=== PATIENT | female | born 1935 | race Caucasian/White ===

== ENCOUNTER → 2017-03-13 | Outpatient (CLI) | payer OTHER, MEDICARE ==
--- NOTE | 2017-03-13 13:58 | MAMMOGRAPHY REPORT ---
BILATERAL DIGITAL SCREENING MAMMOGRAM WITH CAD: 03/13/2017 CLINICAL HISTORY: Routine screening. Patient has no complaints. TECHNIQUE: Current study was also evaluated with a Computer Aided Detection (CAD) system. Bilateral CC and MLO views were obtained. COMPARISON: Comparison is made to exams dated: 02/29/2016 mammogram, 02/26/2015 mammogram, 03/22/2014 m ammogram, 03/06/2014 mammogram, 02/23/2014 mammogram, and 02/15/2013 mammogram - [facility] nter. BREAST COMPOSITION: The tissue of both breasts is almost entirely fatty. FINDINGS: No suspicious masses, calcifications, or areas of architectural distortion are noted in ei ther breast. There has been no significant interval change compared to prior exams. Two biopsy marke r clips are again noted in the left breast. Bilateral benign-appearing calcifications are not signif icantly changed. IMPRESSION: ACR BI-RADS CATEGORY 2: BENIGN There is no mammographic evidence of malignancy. A 1 year screening mammogram is recommended. The pa tient will receive written notification of the results. Approximately 10% of breast cancers are not detected with mammography. A negative mammographic report should not delay biopsy if a clinically suggestive mass is present. Tiffanie Oneill M.D. ah/:03/13/2017 11:43:10 [employer]: Cynthia CHRISTIE(Halle)(Mariajose)(BD), [facility] letter sent: Normal 1/2 BI-RADS Code: ACR BI-RADS Category 2: Benign
== END | disposition home or self-care (01) ==
LOC: C.MAMM 10:51
PROVIDERS: ATTEND Physician Assistant Surgical
DX: Z12.31 Encounter for screening mammogram for malignant neoplasm of breast (principal)

== ENCOUNTER → 2018-03-19 | Outpatient (CLI) | payer OTHER, MEDICARE ==
--- NOTE | 2018-03-19 15:41 | MAMMOGRAPHY REPORT ---
BILATERAL DIGITAL SCREENING MAMMOGRAM TOMOSYNTHESIS WITH CAD: 03/19/2018 CLINICAL HISTORY: Routine screening. TECHNIQUE: The study was acquired using full field digital technology and interpreted from soft copy. Breast tomosynthesis in addition to standard 2D mammography was performed. Current study was also ev aluated with a Computer Aided Detection (CAD) system. COMPARISON: Comparison is made to exams dated: 03/13/2017 mammogram, 02/29/2016 mammogram, 02/26/2015 m ammogram, 02/23/2014 mammogram, 02/15/2013 mammogram, and 01/14/2012 mammogram - [facility] enter. BREAST COMPOSITION: The tissue of both breasts is almost entirely fatty. FINDINGS: No suspicious masses, calcifications, or areas of architectural distortion are noted in either breast . There has been no significant interval change compared to prior exams. Two biopsy marker clips are again noted in the left breast. Bilateral benign-appearing calcifications are not significantly damion nged. IMPRESSION: ACR BI-RADS CATEGORY 2: BENIGN There is no mammographic evidence of malignancy. A 1 year screening mammogram is recommended.( 019) The patient will receive written notification of the results. Some breast cancers are not detected with mammography. A negative mammographic report should not suyapa y biopsy if a clinically suggestive mass is present. Tiffanie Oneill M.D. /:03/19/2018 13:28:19 [employer]: RT Melva(Halle)(M), [facility] letter sent: Normal 1/2 BI-RADS Code: ACR BI-RADS Category 2: Benign
== END | disposition home or self-care (01) ==
LOC: C.MAMM 11:49
PROVIDERS: ATTEND Physician Assistant Surgical
DX: Z12.31 Encounter for screening mammogram for malignant neoplasm of breast (principal)

== ENCOUNTER 2024-12-01 09:49 | Inpatient (IN) ==
--- NOTE | 2024-12-01 09:58 | Emergency Department Note ---
Impression & Plan Hypoxia Admission ED Provider Note HPI: History obtained from patient. The patient is a 89-year-old female who presents the emergency department with a chief complaint of nausea and constipation. Patient states she has also had some vomiting and dry heaving. Patient states she has had the symptoms for the past 2 days. Patient states she had some worsening constipation yesterday and she was assisted by her daughter and had a suppository placed and did have a bowel movement. Patient states she persisted with nausea overnight and had multiple episodes of dry heaving. Patient states she still felt ill today, she states her daughter and her son-in-law help her at home but she does live at home alone. Patient states "they cannot take care of me anymore". Patient therefore contacted EMS for transport to the ED to be assessed. On arrival here to the ED the patient is tachycardic but otherwise hemodynamically stable, she appears to be in no acute distress. She denies any chest pain or shortness of breath, denies any abdominal pain. ROS: - Per HPI Differential Diagnosis: Constipation, small bowel obstruction, colonic obstruction/mass/tumor, acute appendicitis, acute cholecystitis, diverticulitis flare, IBS, atrial fibrillation with RVR, SVT, acute CHF exacerbation, pneumonia, viral URI, amongst other potential pathologies. *Outpatient medications and allergy history reviewed. PE: General: Alert HEENT: Normocephalic, trachea midline Eyes: Extraocular eye movement is intact, no scleral erythema Pulmonary: Clear to auscultation bilaterally, no wheezing Cardio: Tachycardic rate with irregular rhythm GI: Abdomen is soft to palpation : No suprapubic tenderness MSK: No evidence of trauma or malformation of the extremities, 2+ edema bilateral lower extremities Skin: No evidence of rash Neuro: Alert, no focal deficits Psychiatric: Cooperative INDEPENDENT INTERPRETATIONS: surveillance monitor: (As interpreted by myself): - An order was placed for continuous cardiac monitoring - Patient was noted to be in atrial fibrillation with a rate of 132 EKG: (As interpreted by myself): Rate: 117 Rhythm: Atrial fibrillation Intervals: Within normal limits ST changes: No ST elevation Time: 1001 Chest x-ray: (As interpreted by myself): No acute disease Interventions provided in ED: - IV fluid bolus, IV Lasix, IV Zofran Medical Decision Making: IV was established and lab work obtained, patient was placed on child monitor. Lab work shows a mild leukocytosis 11.56, hemoglobin is normal, platelet count is slightly reduced at 109, CMP does not show any evidence of any critical findings, troponin is mildly elevated at 38.3, patient was initially given IV fluids for atrial fibrillation with RVR on the monitor with good improvement in her tachycardia. BNP did return later at 625. CT imaging of the abdomen pelvis was obtained and is suggestive of proctitis without any other obvious acute abnormalities. Patient did have hypoxia here in the ED down to 84% and therefore was placed on nasal cannula oxygen by the bedside RN. Given this with new onset atrial fibrillation and elevated troponin the patient will require admission for further workup. I did discuss patient's presentation with the on- call midlevel provider for [facility] [place][note 2] and the patient was placed for admission in stable condition to the service of Dr. Ellington. Consultants/Discussions held with other healthcare providers: - Hospitalist, Dr. Ellington Disposition discussion held by myself with: - Patient * CRITICAL CARE TIME: ( 36 ) minutes - Stabilization of patient with hypoxia at 84% on room air requiring nasal cannula oxygen for correction, time spent at the bedside, interpretation of diagnostic studies including EKG for new onset tachyarrhythmia/atrial fibrillation with RVR, discussion with other healthcare providers and arrangement of admission. Diagnosis: 1. New onset atrial fibrillation, acute 2. Hypoxia, acute 3. Elevated BNP, acute 4. 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 Chronic venous insufficiency (Chronic) Lower extremity edema (Chronic) Lymphedema (Chronic) Medical History Macular degeneration Cataract (lens) fragments in eye following cataract surgery, bilateral GERD (gastroesophageal reflux disease) Hypertension Fibromyalgia Arthritis Surgical History H/O: hysterectomy S/P right knee arthroscopy H/O hemorrhoidectomy History of tonsillectomy Social History Smoking Status: Never smoker Hx Alcohol Use: No Hx Substance Use: No Preferred Language: Polish Communication Ability: Effective Hearing Ability: Hard of Hearing Beliefs That Will Affect Care: None Feels Safe at Home: Yes Childhood Exposure to Second-Hand Smoke: No Allergies Allergies Allergy/AdvReac Type Severity Reaction Status Date / Time No Known Allergies Allergy Unverified 12/01/24 12:03 Home Meds Home Medications Medication Instructions Recorded Confirmed cholecalciferol (vitamin D3) 25 25 mcg PO DAILY 01/24/20 12/01/24 mcg (1,000 unit) capsule (Vitamin D3) furosemide 20 mg tablet 20 mg PO DAILY 01/24/20 12/01/24 mecobalamin (vitamin B12) 1,000 1,000 mcg PO DAILY 01/24/20 12/01/24 mcg chewable tablet metoprolol tartrate 25 mg tablet 25 mg PO BID 01/24/20 12/01/24 pantoprazole 40 mg tablet,delayed 40 mg PO DAILYBB 01/24/20 12/01/24 release polyethylene glycol 3350 17 17 gm PO DAILY 01/24/20 12/01/24 gram/dose oral powder (Miralax) buprenorphine 15 mcg/hour weekly 15 mcg transdermal WK 12/01/24 12/01/24 transdermal patch famotidine 20 mg tablet 20 mg PO HS 12/01/24 12/01/24 gabapentin 300 mg capsule 300 mg PO TID 12/01/24 12/01/24 levothyroxine 75 mcg tablet 75 mcg PO DAILYBB 12/01/24 12/01/24 oxycodone 10 mg tablet,crush 10 mg PO AMPM 12/01/24 12/01/24 resistant,extended release 12 hr (OxyContin) oxycodone-acetaminophen 7.5 mg-325 7.5 - 325 tab PO Q6 PRN Pain, Mild 12/01/24 12/01/24 mg tablet Results & Data (ED) Vital Signs Vital Signs - 24 hr 12/01/24 09:53 12/01/24 09:53 12/01/24 09:54 Temperature 37.3 C Temperature Source Oral Pulse Rate 120 H Pulse Rate from SpO2 Sensor Respiratory Rate 15 Respiratory Effort / Characteristics Non-Labored Spontaneous Respiratory Depth Normal Blood Pressure 131/106 H 131/106 H 131/106 H Blood Pressure Mean 112 112 114 Pulse Oximetry 95 Oxygen Delivery Method Room Air Oxygen Flow Rate Sepsis Recent Fever Within 48 Hours No Sepsis New/Unexplained Change in Mental Status N/A Sepsis Action Taken by Nursing No Action Required 12/01/24 09:54 12/01/24 09:57 12/01/24 10:01 Temperature Temperature Source Pulse Rate 112 H Pulse Rate from SpO2 Sensor 110 H Respiratory Rate 19 Respiratory Effort / Characteristics Non-Labored Spontaneous Respiratory Depth Normal Blood Pressure 170/110 H Blood Pressure Mean 145 Pulse Oximetry 94 84 L Oxygen Delivery Method Room Air Oxygen Flow Rate Sepsis Recent Fever Within 48 Hours Sepsis New/Unexplained Change in Mental Status Sepsis Action Taken by Nursing 12/01/24 10:08 12/01/24 10:17 12/01/24 10:21 Temperature Temperature Source Pulse Rate 91 H 76 Pulse Rate from SpO2 Sensor 80 Respiratory Rate 16 Respiratory Effort / Characteristics Respiratory Depth Blood Pressure Blood Pressure Mean Pulse Oximetry 84 L 98 Oxygen Delivery Method Room Air Nasal Cannula Oxygen Flow Rate 2 Sepsis Recent Fever Within 48 Hours Sepsis New/Unexplained Change in Mental Status Sepsis Action Taken by Nursing 12/01/24 10:54 12/01/24 11:00 12/01/24 11:00 Temperature Temperature Source Pulse Rate 97 H Pulse Rate from SpO2 Sensor 98 H Respiratory Rate 24 Respiratory Effort / Characteristics Respiratory Depth Blood Pressure 160/106 H 160/106 H Blood Pressure Mean 126 126 Pulse Oximetry 100 Oxygen Delivery Method Nasal Cannula Oxygen Flow Rate 2 Sepsis Recent Fever Within 48 Hours Sepsis New/Unexplained Change in Mental Status Sepsis Action Taken by Nursing 12/01/24 11:06 12/01/24 11:21 12/01/24 11:36 Temperature Temperature Source Pulse Rate 93 H 92 H Pulse Rate from SpO2 Sensor 93 H 89 104 H Respiratory Rate 24 23 Respiratory Effort / Characteristics Respiratory Depth Blood Pressure Blood Pressure Mean Pulse Oximetry 100 100 97 Oxygen Delivery Method Nasal Cannula Nasal Cannula Nasal Cannula Oxygen Flow Rate Sepsis Recent Fever Within 48 Hours Sepsis New/Unexplained Change in Mental Status Sepsis Action Taken by Nursing 12/01/24 11:39 12/01/24 11:39 12/01/24 11:39 Temperature Temperature Source Pulse Rate Pulse Rate from SpO2 Sensor Respiratory Rate Respiratory Effort / Characteristics Respiratory Depth Blood Pressure 171/77 H 171/77 H 171/77 H Blood Pressure Mean 113 113 113 Pulse Oximetry Oxygen Delivery Method Oxygen Flow Rate Sepsis Recent Fever Within 48 Hours Sepsis New/Unexplained Change in Mental Status Sepsis Action Taken by Nursing 12/01/24 11:42 12/01/24 11:51 12/01/24 12:00 Temperature Temperature Source Pulse Rate 113 H 86 105 H Pulse Rate from SpO2 Sensor 110 H 96 H 110 H Respiratory Rate 28 H 25 H 27 H Respiratory Effort / Characteristics Respiratory Depth Blood Pressure Blood Pressure Mean Pulse Oximetry 100 98 98 Oxygen Delivery Method Nasal Cannula Nasal Cannula Nasal Cannula Oxygen Flow Rate Sepsis Recent Fever Within 48 Hours Sepsis New/Unexplained Change in Mental Status Sepsis Action Taken by Nursing 12/01/24 12:00 12/01/24 12:00 12/01/24 12:00 Temperature Temperature Source Pulse Rate Pulse Rate from SpO2 Sensor Respiratory Rate Respiratory Effort / Characteristics Respiratory Depth Blood Pressure 177/85 H 177/85 H 177/85 H Blood Pressure Mean 117 117 117 Pulse Oximetry Oxygen Delivery Method Oxygen Flow Rate Sepsis Recent Fever Within 48 Hours Sepsis New/Unexplained Change in Mental Status Sepsis Action Taken by Nursing 12/01/24 12:00 12/01/24 12:00 12/01/24 12:00 Temperature Temperature Source Pulse Rate Pulse Rate from SpO2 Sensor Respiratory Rate Respiratory Effort / Characteristics Respiratory Depth Blood Pressure 177/85 H 177/85 H 177/85 H Blood Pressure Mean 117 117 117 Pulse Oximetry Oxygen Delivery Method Oxygen Flow Rate Sepsis Recent Fever Within 48 Hours Sepsis New/Unexplained Change in Mental Status Sepsis Action Taken by Nursing Laboratory Data 12/01/24 09:55 12/01/24 09:55 Lab Results 12/01/24 12/01/24 Range/Units 09:55 10:30 WBC 11.56 H (4.8-10.8) K/ul RBC 4.02 L (4.20-5.40) M/uL Hgb 13.0 (12.0-16.0) g/dl Hct 36.8 L (37.0-47.0) % MCV 91.5 (80.0-100.0) fL MCH 32.3 (25.0-34.0) pg MCHC 35.3 (32.0-36.0) g/dL RDW Std Deviation 42.0 (36.4-46.3) fL RDW Coeff of Etienne 12.4 (11.5-14.5) % Plt Count 109 L (130-400) K/uL MPV 9.8 (9.4-12.4) fL Immature Gran % (Auto) 0.4 % Neut % (Auto) 84.9 % Lymph % (Auto) 7.5 % [place] % (Auto) 7.1 % Eos % (Auto) 0.0 % Baso % (Auto) 0.1 % Neut # (Auto) 9.81 H (1.40-6.50) K/uL Lymph # (Auto) 0.87 L (1.20-3.40) K/uL [place] # (Auto) 0.82 H (0.11-0.59) K/uL Eos # (Auto) 0.00 (0.00-0.50) K/uL Baso # (Auto) 0.01 (0.00-0.20) K/uL Immature Gran # (Auto) 0.05 (0.01-0.20) K/uL PT 11.1 (9.0-12.0) Seconds INR 1.0 (0.9-1.1) VBG pH 7.36 (7.36-7.41) VBG pCO2 46 (38-50) mmHg VBG pO2 38 mmHg VBG HCO3 26 mmol/L VBG O2 Saturation 68.0 % VBG Base Excess 0.1 mEq/L Sodium 134 L (136-145) mmol/L Potassium 4.1 (3.5-5.1) mmol/L Chloride 101 (98-107) mmol/L Carbon Dioxide 27 (21-32) mmol/L Anion Gap 6 (3-11) BUN 11 (6-23) mg/dl Creatinine 0.85 (0.6-1.2) mg/dl Est Cr Clr Drug Dosing Not Reportable eGFR 66.27 BUN/Creatinine Ratio 12.9 (10-20) Glucose 190 H (70-99(Fasting)) mg/dl Calcium 9.1 (8.6-10.3) mg/dl Total Bilirubin 1.6 H (0.2-1.0) mg/dl AST 20 (13-39) U/L ALT 6 L (7-52) U/L Alkaline Phosphatase 105 H (34-104) U/L Troponin I High Sens 38.3 H (0-14) pg/ml B-Natriuretic Peptide 625 H (0-100) pg/ml Total Protein 6.2 (6.0-8.3) gm/dl Albumin 3.8 (3.4-5.0) gm/dl Globulin 2.4 L (2.5-4.0) gm/dl Albumin/Globulin Ratio 1.6 (0.9-2) Lipase 5 L (11-82) U/L SARS-CoV-2 (PCR) NEGATIVE (Negative) Influenza Type A (PCR) Negative (Neg) Influenza Type B (PCR) Negative (Neg) RSV (RT-PCR) Negative (Neg) Administered Medications Discontinued Medications Furosemide (Furosemide 40 Mg/4 Ml Vial) 40 mg IV ONE ONE Stop: 12/01/24 11:55 Last Admin: 12/01/24 12:04 Dose: 40 mg Documented By: WAI Sodium Chloride (Nss) 1,000 mls @ 999 mls/hr IV .Q1H1M STA Stop: 12/01/24 10:55 Last Infusion: 12/01/24 11:50 Dose: Infused Documented By: Admin: 12/01/24 09:59 Dose: 999 mls/hr Documented By: WAI Ioversol (Optiray 320 100ml) 94 ml IV ONCE ONE Stop: 12/01/24 11:31 Last Admin: 12/01/24 11:30 Dose: 94 ml Documented By: JOAQUIN Ondansetron HCl (Ondansetron Inj 2 Mg/Ml 2 Ml Vial) 4 mg IV NOW STA Stop: 12/01/24 09:56 Last Admin: 12/01/24 10:00 Dose: 4 mg Documented By: WAI Imaging Data Radiologist's Impression: Abdomen/Pelvis CT 12/01/24 09:56 CT SCAN OF THE ABDOMEN AND PELVIS WITH IV CONTRAST CLINICAL HISTORY: Nausea. Constipation. COMPARISON STUDY: Right upper quadrant ultrasound January 11, 2010 and renal ultrasound May 20, 2010 TECHNIQUE: Following the IV administration of 94 cc of Optiray 320, CT scan of the abdomen and pelvis is performed from the lung bases to the proximal femora. Images are reviewed in the axial, sagittal, and coronal planes. IV contrast was administered without complication. A dose lowering technique was utilized adhering to the principles of ALARA. CT DOSE: 1322.95 mGy.cm FINDINGS: Lung bases: The size of the heart is normal. There is no pericardial effusion. A few small right lower lobe pulmonary nodules measure up to 6 mm. These are low suspicion. Liver: The liver morphology is normal and there are no hepatic lesions. There is no intrahepatic biliary ductal dilatation. The hepatic veins and portal veins are patent. Gallbladder: Grossly unremarkable. Exam mildly compromised by motion artifact. Spleen: Normal in size and attenuation. Pancreas: There are no pancreatic lesions. No pancreatic ductal dilatation is present. Adrenal glands: Unremarkable. Kidneys: 2.4 cm attenuation right renal lesion represents a cyst, shown on prior ultrasound. There is no hydronephrosis. The kidneys enhance symmetrically. Abdominal vasculature: The caliber of the abdominal aorta is normal. Major vasculature is patent. There is moderate atherosclerotic plaque within the abdominal aorta. Bowel: The caliber and wall thickness of small and large bowel are normal. The appendix is not well visualized. Moderate circumferential wall thickening of the rectum with moderate perirectal stranding and a small amount of presacral fluid is noted. There is no extraluminal gas. There is no fluid collection. Peritoneum: There is no intraperitoneal free air or abdominal ascites. Lymphadenopathy: None. Skeletal structures: No lytic or blastic lesions are seen. Severe right hip osteoarthritis is incidentally noted. IMPRESSION: 1. Moderate rectal wall thickening and associated inflammation. This represents a nonspecific proctitis. No extraluminal gas. No fluid collections. Follow-up colonoscopy once symptoms resolve is recommended to exclude the less likely possibility of an underlying rectal lesion. 2. No bowel obstruction. No additional sites of bowel wall thickening. ACT 112: Negative or not required by law. Electronically signed by: Poncho Estrella M.D. 12/01/2024 11:49 AM Chest X-Ray 12/01/24 10:23 XR chest 1V portable CLINICAL HISTORY: hypoxia COMPARISON STUDY: 06/29/2024 FINDINGS: Single view chest is unchanged. There is no acute process identified radiographically. There is no air space opacity, pleural effusion, or pneumothorax. There is no atelectasis. The right diaphragm is elevated most likely due to an eventration. Heart size is normal. No significant pulmonary vascular congestion. IMPRESSION: Stable exam; no acute process ACT 112: Negative or not required by law. Electronically signed by: Flory Fleming M.D. 12/01/2024 10:33 AM Discharge Plan Visit Data Chief Complaint: Nausea Stated Complaint: CONTIPATION, NAUSEA ED Provider: Jonny White Discharge Problem: Hypoxia Patient Disposition: Admitted As Inpatient Condition: Good Forms Stand Alone Forms: My [facility] [employer] Prescriptions Prescriptions: No Action furosemide 20 mg tablet 20 mg PO DAILY MDD 40MG/24HR Rx Instructions: Can take additional 20mg if needed in the day metoprolol tartrate 25 mg tablet 25 mg PO BID polyethylene glycol 3350 [Miralax] 17 gram/dose powder 17 gm PO DAILY pantoprazole 40 mg tablet,delayed release (DR/EC) 40 mg PO DAILYBB mecobalamin (vitamin B12) 1,000 mcg tablet,chewable 1,000 mcg PO DAILY cholecalciferol (vitamin D3) [Vitamin D3] 25 mcg (1,000 unit) capsule 25 mcg PO DAILY levothyroxine 75 mcg tablet 75 mcg PO DAILYBB oxycodone [OxyContin] 10 mg tablet,oral only,ext.rel.12 hr 10 mg PO AMPM famotidine 20 mg tablet 20 mg PO HS gabapentin 300 mg capsule 300 mg PO TID oxycodone-acetaminophen 7.5-325 mg tablet 7.5 - 325 tab PO Q6 PRN (Reason: Pain, Mild) buprenorphine 15 mcg/hour patch weekly 15 mcg transdermal WK Referrals Referrals: Macy Juarez DO [Primary Care Provider] -
[2024-12-01] MEDS: SODIUM CHLORIDE 0.9% 1,000 ML IV STA (09:59)
[2024-12-01] MEDS: ONDANSETRON INJ 2 MG/ML 2 ML VIAL IV STA (10:00)
[2024-12-01 10:23] LABS: Basophils # (auto) 0.01 K/uL (0.00-0.20); Basophils % (auto) 0.1 %; Hematocrit (blood only) 36.8 % (37.0-47.0); Immature Granulocytes # (auto) 0.05 K/uL (0.01-0.20); Immature Granulocytes % (auto) 0.4 %; Lymphocytes # (auto) 0.87 K/uL (1.20-3.40); Lymphocytes % (auto) 7.5 %; Mean Corpuscular Hemoglobin 32.3 pg (25.0-34.0); Mean Corpuscular Hgb Conc 35.3 g/dL (32.0-36.0); Mean Corpuscular Volume 91.5 fL (80.0-100.0); Mean Platelet Volume 9.8 fL (9.4-12.4); Monocytes # (auto) 0.82 K/uL (0.11-0.59); Monocytes % (auto) 7.1 %; Neutrophils # (auto) 9.81 K/uL (1.40-6.50); Neutrophils % (auto) 84.9 %; Platelet Count 109 K/uL (130-400); RDW Coefficient of Variation 12.4 % (11.5-14.5); Red Blood Count 4.02 M/uL (4.20-5.40); White Blood Count 11.56 K/ul (4.8-10.8)
--- NOTE | 2024-12-01 10:34 | XRay Report ---
XR chest 1V portable CLINICAL HISTORY: hypoxia COMPARISON STUDY: 06/29/2024 FINDINGS: Single view chest is unchanged. There is no acute process identified radiographically. Ther e is no air space opacity, pleural effusion, or pneumothorax. There is no atelectasis. The right diap hragm is elevated most likely due to an eventration. Heart size is normal. No significant pulmonary v ascular congestion. IMPRESSION: Stable exam; no acute process ACT 112: Negative or not required by law. Electronically signed by: Flory Fleming M.D. 12/01/2024 10:33 AM
[2024-12-01 10:40] LABS: Alanine Aminotransferase 6 U/L (7-52); Albumin Globulin Ratio 1.6 (0.9-2); Albumin Level 3.8 gm/dl (3.4-5.0); Alkaline Phosphatase 105 U/L (34-104); Anion Gap 6 (3-11); Aspartate Aminotransferase 20 U/L (13-39); BUN Creatinine Ratio 12.9 (10-20); Bilirubin,Total 1.6 mg/dl (0.2-1.0); Blood Urea Nitrogen 11 mg/dl (6-23); Calcium 9.1 mg/dl (8.6-10.3); Carbon Dioxide 27 mmol/L (21-32); Chloride 101 mmol/L (98-107); Globulin 2.4 gm/dl (2.5-4.0); Glucose 190 mg/dl (70-99(Fasting)); Lipase 5 U/L (11-82); Potassium 4.1 mmol/L (3.5-5.1); Sodium 134 mmol/L (136-145); Total Protein 6.2 gm/dl (6.0-8.3)
[2024-12-01 10:46] LABS: Troponin I High Sensitivity 38.3 pg/ml (0-14)
[2024-12-01 11:01] LABS: Base Excess VBG 0.1 mEq/L; HCO3 VBG 26 mmol/L; PCO2 VBG 46 mmHg (38-50); PO2 VBG 38 mmHg; pH VBG 7.36 (7.36-7.41)
[2024-12-01 11:16] LABS: Prothrombin Time 11.1 Seconds (9.0-12.0)
[2024-12-01 11:27] LABS: Influenza A virus by PCR Negative (Neg); Influenza B virus by PCR Negative (Neg); RSV by PCR Negative (Neg); SARS CoV2 RNA(COVID-19) Ceph NEGATIVE (Negative)
[2024-12-01] MEDS: OPTIRAY 320 100ml IV ONE (11:30)
--- OUTSIDE RECORDS SUMMARY | 2024-12-01 11:44 | External Medical Summary | Summary of Care ---
Author Name Unknown Organization [facility] Address [address] [facility] [place] [address] Phone [phone] Care Team Providers Care Patient Intake Representative Name Role Phone Macy Juarez DO Primary Care Provider [phone] Reason for Visit * Reason Comments Dosage Adjustment In Person (Anticoag Cl inic) Pain Encounter Details Date Type Department Care Team (Late st Contact Info) Description 11/24/2024 4:00 PM EDT Office Visit Pharmacy, [facility] [address] [facility] [place] [address] [facility] [address] [facility] [place] [address] Chronic pain syndrome* Allergies Active Allergy Reactions Criticality Noted Date Comments Citalopram Hydrobromide 12/15/2013 Nausea Tuberculin Purified Protein Derivative 04/06/2019 Swelling and redness around the injection site. documented as of this encounter (statuses as of 11/24/2024) Medications MIRALAX PO POWD as needed Acti ve Cyanocobalamin (VITAMIN B-12) 1000 MCG Tablet Take 1 Tablet by mouth in the morning. Active Cholecalciferol (VITAMIN D) 1000 units Tablet Take 1 Tablet by mouth in the morning. Active Zoster Vac Recomb Adjuvanted 50 MCG/0.5ML Intramuscular Suspension Reconstituted (Shingrix)Indicati ons:Need for vaccination for zoster Inject 0.5 mL into a large muscle now and repeat dose in 60 to 180 days 1 Each 1 07/02/20 21 Active Additional Information Patient not taking.Reported on 06/08/2024 Diclofenac Sodium 1 % External Gel (Voltaren)Indicati ons:Tenosynovitis of thumb Apply topically to affected area daily. Apply to affected joints for arthritis. 2 g 5 02/02/20 21 Active LORazepam 1 MG Oral Tablet (Ativan)Indication s:Anxiety TAKE ONE OR TWO TABLETS DAILY NEEDED FOR ANXIETY 60 Tablet 10/18/19 23 Active Additional Information Patient not taking.Reported on 07/19/2024 B & B Carpal Tunnel Brace Bilateral carpal tunnel braces 2 Each 09/02/19 24 Active Metoprolol Tartrate 25 MG Oral Tablet (Lopressor) TAKE 1 TABLET BY MOUTH IN THE MORNING AND BEFORE BEDTIME 180 Tablet 3 02/03/20 24 Active Gabapentin 300 MG Oral Capsule (Neurontin) Take 1 Capsule by mouth in the morning and 1 Capsule at noon and 1 Capsule before bedtime. 270 Capsule 2 04/06/20 24 Active Pantoprazole Sodium 40 MG Oral Tablet Delayed Release (Protonix) TAKE 1 TABLET BY MOUTH IN THE MORNING. 30 MINUTES BEFORE THE FIRST MEAL OF THE DAY. DO NOT CRUSH, SPLIT OR CHEW THE TABLET. 90 Tablet 2 05/04/20 24 Active Levothyroxine Sodium 75 MCG Oral Tablet (Levoxyl)Indicatio ns:Other specified hypothyroidism Take 1 Tablet by mouth in the morning. (at least 30 min prior to breakfast or other meds). 90 Tablet 3 06/08/20 24 Active Famotidine 20 MG Oral Tablet (Pepcid)Indication s:Gastroesophageal reflux disease without esophagitis TAKE 1 TABLET BY MOUTH EVERY NIGHT AT BEDTIME. THIS IS FOR NAUSEA 90 Tablet 1 08/31/19 25 Active oxyCODONE-Acetamin ophen 7.5-325 MG Oral Tablet (Percocet)Indicati ons:Chronic bilateral low back pain without sciatica Take 1 Tablet by mouth every 6 hours as needed for Pain, Mild. 100 Tablet 09/07/19 25 Active Furosemide 20 MG Oral Tablet (Lasix) TAKE 1 TABLET BY MOUTH TWICE A DAY FOR FLUID Strength: 20 mg 180 Tablet 1 10/05/19 25 Active Buprenorphine 15 MCG/HR Transdermal Patch Weekly (Butrans) Place 1 Patch over 7 days topically on the skin once a week. 4 Patch 5 11/15/19 25 Active documented as of this encounter (statuses as of 11/24/2024) Active Problems Problem Noted Date Diagnosed Date Trigger index finger of left hand 10/19/2023 Carpal tunnel syndrome of left wrist 09/02/2023 Trigger middle finger of right hand 06/11/2023 Generalized osteoarthritis 11/29/2021 Cubital tunnel syndrome on right 07/24/2021 Trigger ring finger of right hand 07/24/2021 Tendinitis, de Quervain's 03/27/2021 Chronic kidney disease, stage 3a 12/11/2020 Overview: Per CKD protocol Hypertensive kidney disease with stage 3a chronic kidney disease 06/11/2020 Overview: Per CKD protocol Other specified hypothyroidism 04/06/2019 Morbid obesity with body mas s index (BMI) of 40.0 to 44.9 in adult 07/20/2018 Hyperlipidemia 03/16/2018 DDD (degenerative disc disease), lumbar 07/01/20 17 Bilateral carpal tunnel syndrome 06/01/2017 Primary osteoarthritis of both knees 07/15/2016 Fibromyalgia 09/04/2011 Rotator cuff syndrome 05/27/2011 Degeneration of lumbosacral intervertebral disc Varicose vein of leg HTN, goal below 140/90 Esophageal reflux Polycystic kidney Overview (05/05/2019): ICD-10 update of inactive term Calculus of gallbladder with out mention of cholecystitis or obstruction Overview (11/02/2024): ICD-10 Update of Inactive Term Osteoarthrosis, localized, primary, involving lo wer leg Overview (05/06/2021): ICD-10 update of inactive term ICD-10 update of inactive term documented as of this encounter (statuses as of 11/24/2024) Resolved Problems Problem Noted Date Diagnosed Date Resolved Date Hypertensive kidney disease with stage 3 chronic kidney disease 04/06/2019 06/14/2020 Overview: Per CKD protocol Kidney disease, chronic, sta ge III (GFR 30-59 ml/min) 12/13/2018 04/15/2019 Overview: Per CKD protocol #1 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 0 to 44.9 in adult 03/16/2018 08/20/2018 Overview: Per Obesity protocol #1 - Major depressive disorder Overview (05/26/2017): ICD-10 update of inactive term BMI 39.0-39.9,adult 03/20/20 18 Overview: Per Obesity protocol #1 - documented as of this encounter (statuses as of 11/24/2024) Immunizations Name Administration Dates Next Due COVID-19 mRNA, LNP-s, No Pre serve, 2-Dose Series (Moderna) 10/07/2020,09/09/2020 COVID-19, mRNA, LNP-s, PF, B ooster, 100mcg/0.5mg (Moderna) 06/06/2021 Pneumococcal Conjugate Vacc, 13 Valent (Prevnar) 08/19/2019,03/16/2018 Pneumococcal Polysaccharide PPV23 (Pneumovax) 02/01/2021 Seasonal Influenza Vac., MDV , IM, 0.5 mL (Fluzone) 07/20/2014,06/08/2013 Seasonal Influenza, High Dos e, Trivalent, PF, IM (Fluzone HD) 06/08/2024 Seasonal Influenza, PF, 6 M & above, IM , (FluLaval or Fluzone) 04/06/2020,07/20/2018 Seasonal Influenza, Quadriva lent Hd (Fluzone Hd) 07/03/2023,06/06/2022,07/05/2021 Seasonal Influenza, Quadriva lent, No Preserve, IM 05/19/2016,06/04/2015 Seasonal Influenza, Trivalen t, Adjuvanted, 65+ YRS, PF, (Fluad) 08/05/2019 TDAP (age 10 and older)(Boostrix) 06/26/2015 documented as of this encounter Social History Tobacco Use Types Packs/Day Years Used Date Smoking Tobacco: Never Passive Smoke Exposure: Past Smokeless Tobacco: Never Alcohol Use Standard Drinks/Week Comments No 0 (1 standard drink = 0.6 oz pur e alcohol) PHQ-2 Answer Date Recorded PHQ Adult Total Score 0 06/08/2024 Hunger Vital Sign Answer Date Recorded Within the past 12 months, y ou worried that your food would run out before you got the money to buy more. Never true 06/08/20 24 Within the past 12 months, t he food you bought just didn't last and you didn't have money to get more. Never true 06/08/2024 Childcare Answer Date Recorded Do you feel overwhelmed with taking care of a child, family member or friend? No 06/08/2024 Does your family need help f inding childcare? (Household - for ages 0-17 years) Not on file 06/08/2024 Clothing Answer Date Recorded Have you been unable to get clothing when it was really needed? No 06/08/2024 Is your family able to get c lothes or diapers when needed? (Household - for ages 0-17 years) Not on file 06/08/2024 Personal Safety Answer Date Recorded Do you feel unsafe or have concerns for your saf ety? No 06/08/2024 Do you have concerns for you r family's safety? (Household - for ages 0-17 years) Not on file 06/08/2024 Utilities Answer Date Recorded Do you have trouble paying y our heating, water, or electric bill? No 06/08/2024 Is your family able to pay t he heat, water, or electric bill? (Household - for ages 0-17 years) Not on file 06/08/2024 Does your family have access to good internet? (Household - for ages 0-17 years) Not on file 06/08/2024 Employment Status Answer Date Recorded Are you unemployed or without regular income? No 06/08/2024 Does the household have a re gular source of income? (Household - for ages 0-17 years) Not on file 06/08/2024 Social Connections Answer Date Recorded How often do you feel lonely or isolated from th ose around you? Never 06/08/2024 Financial Resource Strain Answer Date R ecorded Do you have any trouble payi ng for your medications, or do you think you might in the future? No 06/08/2024 Does your family have troubl e paying for medicine? (Household - for ages 0-17 years) Not on file 06/08/2024 Transportation Needs Answer Date Record ed Do you have trouble getting a ride to medical visits or work? (Adult - for ages 18 years and over) Not on file 06/08/2024 Does your family have a hard time getting a ride to doctors visits? (Household - for ages 0-17 years) Not on file 06/08/2024 Has lack of transportation k ept you from medical appointments, meetings, work, or from getting things needed for daily living? Check all that apply. No 06/08/2024 Do you (or your family) have trouble finding or paying for a ride (transportation)? (Household - for ages 0-17 years) Not on file 06/08/2024 Housing Stability Answer Date Recorded Do you currently live in a s helter or have no steady place to sleep at night? No 06/08/2024 Do you think you are at risk of becoming homeless? (Adult - for ages 18 years and over) Not on file 06/08/2024 Does your family worry about paying for your home or becoming homeless? (Household - for ages 0-17 years) Not on file 1 08/08/2023 Are you homeless or worried that you might be in the future? No 06/08/2024 Are you (or your family) gabriella eless or worried that you might be in the future? (Household - for ages 0-17 years) Not on file Food Insecurity Answer Date Recorded Do you need food for this week? No 06/08/2024 Are you able to get enough f ood for your family? (Household - for ages 0-17 years) Not on file 06/08/2024 Does your family need food t his week? (Household - for ages 0-17 years) Not on file 06/08/2024 Do you always have enough fo od for your family? (Household - for ages 0-17 years) Not on file 06/08/2024 Food Insecurity Answer Date Recorded Within the past 12 months, y ou worried that your food would run out before you got the money to buy more. Never true 06/08/20 24 Within the past 12 months, t he food you bought just didn't last and you didn't have money to get more. Never true 06/08/2024 Do you need food for this week? No 06/08/2024 Comments No Sex and Gender Information Value Date Recorded Sex Assigned at Female 10/17/2022 12:15 PM EDT Legal Sex Female 6:13 AM EST Gender Identity Female 10/17/2022 12:15 PM EDT Sexual Orientation Straight 01/18/2020 11 :28 AM EDT documented as of this encounter Progress Notes * Nikky Kraft, [facility] - 11/24/2024 3:39 PM EDT Images from the original note were not included. Medication Therapy Disease Management - Chronic Pain History of Presenting Illness This visit occurred in person. Tanisha Batres, identified by name and date of , is a 89 year old female presents [facility] for initial visit. Chief Complaint Patient presents with Dosage Adjustment In Person (Anticoag Clinic) Pain History Chief Complaint(s): Hip pain Current Pain Medications Butrans 15 mcg/hr once a week Gabapentin 300 mg TID Diclofenac gel PRN Interval History Notes no changes to pain control with increasing doses of patches Continues to struggle in the morning Denies any side effects or concerns at this time Comorbidities Renal: Slow renal decline Activity/Exercise Can walk short distances but is typically seated. Unable to lay down flat. PDMP Reviewed (11/24/2024): I have reviewed the patient's controlled substance dispensing history in the Prescription Drug Monitoring Program in compliance with the [facility] regulations. History of Presenting Illness & Review of Systems Diagnosis: Oestoarthritis Chronicity: Acute on chronic Onset: More than a 1 year ago Frequency: Constantly Pain location: Groin, hip, lower back, knee and hand Pain quality: Sore and shooting (Weak and shakey with the pain) Radiates to: Back, right buttock and left buttock Pain is worse: In the morning Aggravated by: A change in position and walking Associated symptoms: leg pain Treatment(s) tried: Injections and physical therapy Problem List Reviewed and updated in the EHR during the visit Substance Use Reviewed and updated in the EHR during the visit Objective Imaging History Most recent answers to PEG-3 scale: PEG-3 Synopsis What number best describes your pain on average in the past week?: 7 (sitting - not even a 1. standing up - 8. once up through the day 6-7) (09/22/2024 1:46 PM) Last Urine Toxicology Screening Results for orders placed or performed in visit on 07/05/24 TOXICOLOGY, URINE SCREEN W/ CONFIRMATION Result Value Amphetamines Screen, U Negative Benzodiazepines Screen, U Negative Cannabinoids Screen, U Negative Cocaine Metabolite Screen, U Negative Fentanyl Screen, U Negative Hydrocodone Screen, U Negative Methadone Metabolite Screen, U Negative Morphine/Codeine Screen, U Negative Oxycodone Screen, U Positive (A) Narrative Cutoff Concentrations: Drug Level Amphetamines 500 ng/mL Benzodiazepines 100 ng/mL Cannabinoids 50 ng/mL Cocaine Metabolite 150 ng/mL Fentanyl 1 ng/mL Hydrocodone / Hydromorphone 300 ng/mL Methadone Metabolite 100 ng/mL Morphine / Codeine 300 ng/mL Oxycodone / Oxymorphone 100 ng/mL Screening results are presumptive and can only be used for medical purposes. Positive screening results are reflexed to confirmatory testing. Creatinine Clearance: Serum creatinine: 1 mg/dL 07/14/24 0611 Estimated creatinine clearance: 45.5 mL/min Creatinine Results: Recent Labs Units 07/14/24 0611 07/07/24 0549 07/05/24 0559 CREATININE - [facility] mg/dL 1.0 1.1* 1.0 Hepatic Function (ALT): Recent Labs Units 07/03/23 1249 ALT - [facility] U/L 7* Comprehensive Metabolic Panel Results: Results for orders placed or performed in visit on 11/12/18 COMPR METAB PANEL Result Value Ref Range BUN 14 6 - 20 mg/dL CREATININE 1.0 0.5 - 1.0 mg/dL EGFR 53.4 (L) >60 SODIUM 142 135 - 146 mmol/L POTASSIUM 4.2 3.5 - 5.1 mmol/L CHLORIDE 103 98 - 107 mmol/L CO2 26 22 - 32 mmol/L ANION GAP 13 7 - 15 mmol/L GLUCOSE 107 70 - 120 mg/dL Albumin 4.1 3.8 - 5.0 g/dL AST 17 10 - 35 U/L Alkaline Phosphatase 96 0 - 153 U/L Bilirubin, Total 0.8 0 - 1.2 mg/dL CALCIUM 8.8 8.4 - 10.2 mg/dL Protein 6.0 6.0 - 8.3 g/dL ALT 12 10 - 35 U/L Assessment & Plan Patient aware [facility] is a clinical pharmacist visit, with focus on medication options for current diagnoses referred by Primary Care Provider for review and optimization. The focus of this visit is: Medication optimization. Current regimen reviewed, patient is: Adherent to regimen. Treatment Options Rotate from butrans to oxycodone ER Treatment Concerns Renal function and fragility Education Provided Patient educated on mechanism, time to efficacy and potential adverse effects of medication regimen Recommendations STOP: Butrans patch 15 mcg/hr START: Oxycodone ER 10 mg BID Consider scheduled tylenol Gabapentin 300 mg TID Diclofenac gel PRN Tanisha verbalized understanding of the plan. Contact clinic with any issues. Visit date not found I spent a total of 20-29 minutes (20 minutes) on the date of service in preparation, delivery, and documentation of the care provided to Tanisha Batres excluding any time spent in the performance of separately billed services or time spent by another provider/QHP. Nikky Kraft, Pharm D, [facility] Clinical Pharmacist 11/24/2024, 4:07 PM documented in this encounter Plan of Treatment Upcoming Encounters Date Type Department Care Team (Late st Contact Info) Description 12/16/2024 11:50 AM EDT Office Visit [facility] [address] [facility] [place] [phone] Macy Juarez DO [address] [place] [address] 12/22/2024 4:00 PM EDT Office Visit Pharmacy, [facility] [address] [place] [address] [facility] [address] [place] [address] 02/16/2025 10:00 AM EDT Office Visit Rheumatology [facility] [address] [place] [phone] Gibson Harvey MD [address] [place] [phone] Health Maintenance Due Date Last Done Comments DXA Scan 1937 Zoster Vaccines (1 of 2) 08/29/1987 Adult Wellness Visit 08/29/2003 COVID-19 Vaccine ( season) 2024 06/06/2021, 10/07/2020, 09/09/2020 Albumin/Creatinine Ratio 06/08/2025 06/08/2024 CKD PHOS USE SMARTSET 81859 06/08/2025 1101/2024, 10/17/2022, 07/05/2021, Additional history exists Depression Screening 06/08/2025 06/08/2024 TSH 06/08/2025 06/08/2024, 0408/2023, 07/03/2023, Additional history exists DTap/Tdap Vaccines (2 - Td or Tdap) 06/26/2025 06/26/2015 CKD HGB USE SMARTSET 98944 07/14/202507/14, 07/07/2024, 07/05/2024, Additional history exists Pneumococcal Vaccine: 50+ Years Completed 02/01/2021, 08/19/2019, 03/16/2018 Influenza Vaccine (FLU shot) Completed 01/2024, 07/03/2023, 06/06/2022, Additional history exists HPV (Gardasil) Vaccine Aged Out No lo nger eligible based on patient's age to complete this topic Hepatitis B Vaccine Aged Out No longe r eligible based on patient's age to complete this topic MENINGOCOCCAL (MENACTRA/MENVEO) Aged Out No longer eligible based on patient's age to complete this topic Meningitis B Vaccine (Bexsero/Trumemba) Aged Out No longer eligible based on patient's age to complete this topic documented as of this encounter Medical Devices Not on filedocumented as of this encounter Visit Diagnoses Diagnosis Chronic pain syndrome- Primary documented in this encounter Advance Directives Documents on File Type Date Recorded 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
--- OUTSIDE RECORDS SUMMARY | 2024-12-01 11:44 | External Medical Summary | Summary of Care ---
Author Name Unknown Organization [facility] Address [address] [facility] [place] [address] Phone [phone] Care Team Providers Care Large Animal Husbandry Technician Name Role Phone Azar Araujo DO Primary Care Provider [phone] Encounter Details Date Type Department Care Team ([facility] st Contact Info) Description 11/14/2024 [facility]ill Pharm[address] [phone] [facility] [place] [address] Allergies Active Allergy Reactions Criticality Noted Date Comments Citalopram Hydrobromide 12/15/2013 Nausea Tuberculin Purified Protein Derivative 04/06/2019 Swelling and redness around the injection site. documented as of this encounter (statuses as of 11/14/2024) Medications MIRALAX PO POWD as needed Acti ve Cyanocobalamin (VITAMIN B-12) 1000 MCG Tablet Take 1 Tablet by mouth in the morning. Active Cholecalciferol (VITAMIN D) 1000 units Tablet Take 1 Tablet by mouth in the morning. Active Zoster Vac Recomb Adjuvanted 50 MCG/0.5ML Intramuscular Suspension Reconstituted (Shingrix)Indicat ions:Need for vaccination for zoster Inject 0.5 mL into a large muscle now and repeat dose in 60 to 180 days 1 Each 1 021 Active Additional Information Patient not taking.Reported on 06/08/2024 Diclofenac Sodium 1 % External Gel (Voltaren)Indicat ions:Tenosynoviti s of thumb Apply topically to affected area daily. Apply to affected joints for arthritis. 2 g 5 021 Active LORazepam 1 MG Oral Tablet (Ativan)Indicatio ns:Anxiety TAKE ONE OR TWO TABLETS DAILY NEEDED FOR ANXIETY 60 Tablet 023 Active Additional Information Patient not taking.Reported on 07/19/2024 B & B Carpal Tunnel Brace Bilateral carpal tunnel braces 2 Each 024 Active Metoprolol Tartrate 25 MG Oral Tablet (Lopressor) TAKE 1 TABLET BY MOUTH IN THE MORNING AND BEFORE BEDTIME 180 Tablet 3 024 Active Gabapentin 300 MG Oral Capsule (Neurontin) Take 1 Capsule by mouth in the morning and 1 Capsule at noon and 1 Capsule before bedtime. 270 Capsule 2 024 Active Pantoprazole Sodium 40 MG Oral Tablet Delayed Release (Protonix) TAKE 1 TABLET BY MOUTH IN THE MORNING. 30 MINUTES BEFORE THE FIRST MEAL OF THE DAY. DO NOT CRUSH, SPLIT OR CHEW THE TABLET. 90 Tablet 2 024 Active Levothyroxine Sodium 75 MCG Oral Tablet (Levoxyl)Indicati ons:Other specified hypothyroidism Take 1 Tablet by mouth in the morning. (at least 30 min prior to breakfast or other meds). 90 Tablet 3 024 Active Famotidine 20 MG Oral Tablet (Pepcid)Indicatio ns:Gastroesophage al reflux disease without esophagitis TAKE 1 TABLET BY MOUTH EVERY NIGHT AT BEDTIME. THIS IS FOR NAUSEA 90 Tablet 1 025 Active oxyCODONE-Acetami nophen 7.5-325 MG Oral Tablet (Percocet)Indicat ions:Chronic bilateral low back pain without sciatica Take 1 Tablet by mouth every 6 hours as needed for Pain, Mild. 100 Tablet 025 Active Furosemide 20 MG Oral Tablet (Lasix) TAKE 1 TABLET BY MOUTH TWICE A DAY FOR FLUID Strength: 20 mg 180 Tablet 1 025 Active Buprenorphine 15 MCG/HR Transdermal Patch Weekly (Butrans) Place 1 Patch over 7 days topically on the skin once a week. 4 Patch 5 025 Active Buprenorphine 7.5 MCG/HR Transdermal Patch Weekly (Butrans) Place 1 Patch over 7 days topically on the skin once a week. Stop Oxycodone 7 days after starting. 4 Patch 5 025 2024 Discontinued Buprenorphine 10 MCG/HR Transdermal Patch Weekly (Butrans) Place 1 Patch over 7 days topically on the skin once a week. 4 Patch 4 025 2024 Discontinued documented as of this encounter (statuses as of 11/14/2024) Active Problems Problem Noted Date Diagnosed Date [...] as of this encounter (statuses as of 11/14/2024) Resolved Problems Problem Noted Date Diagnosed Date [...] as of this encounter (statuses as of 11/14/2024) Immunizations Name Administration Dates Next Due COVID-19 [...] AM EDT documented as of this encounter Miscellaneous Notes * Telephone Encounter - Azar Araujo DO - 11/14/2024 11:53 AM EDTSigned Prescriptions: Disp Refills Buprenorphine 15 MCG/HR Transdermal Patch *4 Patch5 Sig: Place 1Patch over 7 days topically on the skin once a week.Authorizing Provider: AZAR ARAUJO--------- * Telephone Encounter - Nikky Kraft RPh - 11/14/2024 10:15 AM EDT Zohaib, Patient not obtaining any pain relief with Butrans 10 mcg/hour, would like to try 15 mcg/hour. Prescription pended for your approval. Thank you, Nikky Kraft, Pharm D, BCACP Clinical Pharmacist 11/14/2024, 10:16 AM documented in this encounter Plan of Treatment Upcoming Encounters Date Type Department Care Team (Late st Contact Info) Description 11/24/2024 4:00 PM EDT Office Visit Pharmacy, [facility] [address] [place] [address] [facility] [address] [place] [address] 12/16/2024 11:50 AM EDT Office Visit Family Practice, [facility] [address] [facility] [place] [phone] Azar Araujo DO [address] [facility] [place] [address] 02/16/2025 10:00 AM EDT Office Visit Rheumatology [facility] [address] [place] [phone] [facility] [address] Health Maintenance Due Date Last Done Comments DXA Scan 1937 Zoster Vaccines (1 of 2) 08/29/1987 Adult Wellness Visit 08/29/2003 COVID-19 Vaccine ( season) 2024 06/06/2021, 10/07/2020, 09/09/2020 Albumin/Creatinine Ratio 06/08/2025 06/08/2024 CKD PHOS USE SMARTSET 56006 06/08/202501/2024, 10/17/2022, 07/05/2021, Additional history exists Depression Screening 06/08/2025 06/08/2024 TSH 06/08/2025 06/08/2024, 11/01, 07/03/2023, Additional history exists DTap/Tdap Vaccines (2 - Td or Tdap) 06/26/2025 06/26/2015 CKD HGB USE SMARTSET 30458 07/14/202507/14, 07/07/2024, 07/05/2024, Additional history exists Pneumococcal [...] Not on filedocumented as of this encounter Advance Directives Documents on File Type Date Recorded 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
--- OUTSIDE RECORDS SUMMARY | 2024-12-01 11:44 | External Medical Summary | Summary of Care ---
Author Name Unknown Organization [facility] Address [address] [facility] [address] Phone [phone] Care Team Providers Care Management Developer Name Role Phone Azar Araujo DO Primary Care Provider [phone] Encounter Details Date Type Department Care Team (Late st Contact Info) Description 11/24/2024 Ref[address] Pharmacy, [facility] [address] [facility] [place] [address] [facility] [place] [phone] Allergies Active Allergy Reactions Criticality Noted Date Comments Citalopram Hydrobromide 12/15/2013 Nausea Tuberculin Purified Protein Derivative 04/06/2019 Swelling and redness around the injection site. documented as of this encounter (statuses as of 11/25/2024) Medications MIRALAX PO POWD as needed Acti [...] 60 to 180 days 1 Each 1 02/02/20 21 Active Additional Information Patient not taking.Reported [...] week. 4 Patch 5 11/15/19 25 Active oxyCODONE HCl ER 10 MG Oral Tablet ER 12 Hour Abuse-Deterrent (oxyCONTIN) Take 1 Tablet by mouth in the morning and 1 Tablet before bedtime. 60 Tablet 11/26/19 25 Active documented as of this encounter (statuses as of 11/25/2024) Active Problems Problem Noted Date Diagnosed Date [...] as of this encounter (statuses as of 11/25/2024) Resolved Problems Problem Noted Date Diagnosed Date [...] update of inactive term BMI 39.0-39.9,adult 03/20/20 Overview: Per Obesity protocol #1 - documented as of this encounter (statuses as of 11/25/2024) Immunizations Name Administration Dates Next Due COVID-19 [...] Telephone Encounter - Azar Araujo DO - 11/25/2024 8:46 AM EDTSigned Prescriptions: Disp Refills oxyCODONE HCl ER 10 MG Oral Tablet ER 12 H*60 Tab*0 Sig: Take 1 Tablet by mouth in the morning and 1 Tablet before bedtime.Authorizing Provider: AZAR ARAUJO--- * Telephone Encounter - Nikky Kraft RPh - 11/24/2024 4:06 PM EDT Zohaib, Patient seen in [facility] Pain today, recommending rotation from butrans to oxycodone ER. Prescription pended for your approval. Thank you, Nikky Kraft, Pharm D, BCACP Clinical Pharmacist 11/24/2024, 4:06 PM documented in this encounter Plan of Treatment Upcoming Encounters Date Type Department Care Team (Late st Contact Info) Description 12/16/2024 11:50 AM EDT Office Visit [address] [place] [address] Azar Araujo, DO [address] [place] [address] 12/22/2024 4:00 PM EDT Office Visit Pharmacy, [facility] [place] [address] [facility] [address] [place] [address] 02/16/2025 10:00 AM EDT Office Visit Rheumatology [facility] [address] [place] [phone] Gibson Harvey MD [address] [place] [phone] Health Maintenance Due Date Last Done Comments DXA Scan 1937 Zoster Vaccines (1 of 2) 08/29/1987 Adult Wellness Visit 08/29/2003 COVID-19 Vaccine ( season) 2024 06/06/2021, 10/07/2020, 09/09/2020 Albumin/Creatinine Ratio 06/08/2025 06/08/2024 CKD PHOS USE SMARTSET 74557 06/08/202501/2024, 10/17/2022, 07/05/2021, Additional history exists Depression Screening 06/08/2025 06/08/2024 TSH 06/08/2025 06/08/2024, 0408/2023, 07/03/2023, Additional history exists DTap/Tdap Vaccines (2 - Td or Tdap) 06/26/2025 06/26/2015 CKD HGB USE SMARTSET 12047 07/14/202507/14, 07/07/2024, 07/05/2024, Additional history exists Pneumococcal [...] Documents on File Type Date 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
--- OUTSIDE RECORDS SUMMARY | 2024-12-01 11:44 | External Medical Summary | Summary of Care ---
Author Name Unknown Organization [facility] Address [address] [facility] [place] [address] Phone [phone] Care Team Providers Care Drip Box Tender Name Role Phone Macy Juarez DO Primary Care Provider [phone] Reason for Visit * Reason Comments Rheum Follow Up Follow up - mabel arroyo knee injections Encounter Details Date Type Department Care Team (Latest Contact Info) Description 11/11/2024 10:40 AM EDT Office Visit Rheumatology [facility] [address] [place] [phone] Gibson [facility] [address] [facility] [address] Primary osteoarthritis of both knees* Allergies Active Allergy Reactions Criticality Noted Date Comments Citalopram Hydrobromide 12/15/2013 Nausea Tuberculin Purified Protein Derivative 04/06/2019 Swelling and redness around the injection site. documented as of this encounter (statuses as of 11/11/2024) Medications MIRALAX PO POWD as needed Acti [...] Pain, Mild. 100 Tablet 09/07/19 25 Active Buprenorphine 7.5 MCG/HR Transdermal Patch Weekly (Butrans) Place 1 Patch over 7 days topically on the skin once a week. Stop Oxycodone 7 days after starting. 4 Patch 5 09/23/19 25 Active Furosemide 20 MG Oral Tablet (Lasix) TAKE 1 TABLET BY MOUTH TWICE A DAY FOR FLUID Strength: 20 mg 180 Tablet 1 10/05/19 Active Buprenorphine 10 MCG/HR Transdermal Patch Weekly (Butrans) Place 1 Patch over 7 days topically on the skin once a week. 4 Patch 4 11/03/19 Active Hospital, Clinic, or Other Facility Administered Medication Ordered Dose Route Frequency Start Date End Date Status Lidocaine (PF) 2 % (PF) inj 20 mgIndications:Primary osteoarthritis of both knees 20 mg IX ONCE 11/11/2024 11/11/2024 Ended methylPREDNISolone acetate (Depo-Medrol) 40 MG/ML inj 40 mgIndications:Primary osteoarthritis of both knees 40 mg IX ONCE 11/11/2024 11/11/2024 Ended methylPREDNISolone acetate (Depo-Medrol) 40 MG/ML inj 40 mgIndications:Primary osteoarthritis of both knees 40 mg IX ONCE 11/11/2024 11/11/2024 Ended Lidocaine (PF) 2 % (PF) inj 20 mgIndications:Primary osteoarthritis of both knees 20 mg IX ONCE 11/11/2024 11/11/2024 Ended documented as of this encounter (statuses as of 11/11/2024) Active Problems Problem Noted Date Diagnosed Date [...] as of this encounter (statuses as of 11/11/2024) Resolved Problems Problem Noted Date Diagnosed Date [...] as of this encounter (statuses as of 11/11/2024) Immunizations Name Administration Dates Next Due COVID-19 [...] Passive Smoke Exposure: Past Smokeless Tobacco: Never Tobacco Cessation:Counseling Given: Not Answered Alcohol Use Standard Drinks/Week Comments No 0 [...] 06/08/2024 Does the household have a re lar source of income? (Household - for ages [...] AM EDT documented as of this encounter Last Filed Vital Signs Vital Sign Reading Time Taken Comments Blood Pressure - - Pulse - - Temperature 35.9 °C (96.6 °F) 11/11/2024 10:31 AM E DT Respiratory Rate - - Oxygen Saturation - - Inhaled Oxygen Concentration - - Weight - - Height - - Body Mass Index - - documented in this encounter Progress Notes * Gibson Harvey MD - 11/11/2024 10:32 AM EDTAssociated Order(s): LG Joint Inj/Arthro: bilateral knee Post-Procedure Diagnose(s): Primary osteoarthritis of both knees Tanisha Batres is a 89 year old female patient. ICD-10-CM 1. Primary osteoarthritis of both knees M17.0 Past Medical History: Diagnosis Date BMI 39.0-39.9,adult Calculus of gallbladder without mention of cholecystitis or obstruction Degeneration of lumbosacral intervertebral disc Depressive disorder, not elsewhere classified Diarrhea, functional Esophageal reflux Fibromyalgia 09/04/2011 HTN, goal below 140/90 Hyperlipidemia Myalgia and myositis 09/04/2011 Osteoarthrosis, unspecified whether generalized or localized, lower leg Polycystic kidney, unspecified type Rotator cuff syndrome 05/27/2011 Varicose vein of leg Temperature 35.9 °C (96.6 °F), temperature source Infrared , not currently . LG Joint Inj/Arthro: bilateral knee on 11/11/2024 10:41 AM Indications: pain Details: 25 G needle, anterior approach Medications (Right): (40mg of depomedrol and 1 ml of 2% lidocaine) Medications (Left): (40mg of depomedrol and 1 ml of 2% lidocaine) Outcome: tolerated well, no immediate complications Procedure, treatment alternatives, risks and benefits explained, specific risks discussed. Consent was given by the patient. Immediately prior to procedure a time out was called to verify the correctpatient, procedure, equipment, residential support worker and site/side marked as required. Patient was prepped and draped in the usual sterile fashion. Gibson Harvey MD 11/11/2024 documented in this encounter Nursing Notes * Cynthia Mitchell LPN - 11/11/2024 10:30 AM EDT Chief Complaint Patient presents with Rheum Follow Up Follow up - bilateral knee injections documented in this encounter Plan of Treatment Upcoming Encounters Date Type Department Care Team (Late st Contact Info) Description 11/24/2024 4:00 PM EDT Office Visit Pharmacy, [facility] 132 [facility] [place] [address] [facility] [place] [address] 12/16/2024 11:50 AM EDT [facility] [address] [place] [phone] Macy Juarez DO [address] [place] [address] 02/16/2025 10:00 AM EDT Office Visit Rheumatology [facility] [address] [place] [phone] Gibson Harvey MD [address] [facility] [place] [address] Health Maintenance Due Date Last Done Comments DXA Scan 1937 Zoster Vaccines (1 of 2) 08/29/1987 Adult Wellness Visit 08/29/2003 COVID-19 Vaccine ( season) 2024 06/06/2021, 10/07/2020, 09/09/2020 Albumin/Creatinine Ratio 06/08/2025 06/08/2024 CKD PHOS USE SMARTSET 76485 06/08/202501/2024, 10/17/2022, 07/05/2021, Additional history exists Depression Screening 06/08/2025 06/08/2024 TSH 06/08/2025 06/08/2024, 04/08/2023, 07/03/2023, Additional history exists DTap/Tdap Vaccines (2 - Td or Tdap) 06/26/2025 06/26/2015 CKD HGB USE SMARTSET 84727 07/14/202507/14, 07/07/2024, 07/05/2024, Additional history exists Pneumococcal [...] Not on filedocumented as of this encounter Procedures Procedure Name Priority Date/Time Associated Diagnosis Comments VT ARTHROCENTESIS ASPIR&/INJ MAJOR JT/BURSA W/O US Routine 11/11/2024 10:41 AM EDT Primary osteoarthritis of both knees documented in this encounter Results * VT ARTHROCENTESIS ASPIR&/INJ MAJOR JT/BURSA W/O US (11/11/2024 10:41 AM EDT) Narrative Gibson Harvey MD - 11/11/2024 10:41 AM EDT Gibson Harvey MD 11/11/2024 10:47 AM LG Joint Inj/Arthro: bilateral knee on 11/11/2024 10:41 AM Indications: pain Details: 25 G needle, anterior approach Medications (Right): (40mg of depomedrol and 1 ml of 2% lidocaine) Medications (Left): (40mg of depomedrol and 1 ml of 2% lidocaine) Outcome: tolerated well, no immediate complications Procedure, treatment alternatives, risks and benefits explained, specific risks discussed. Consent was given by the patient. Immediately prior to procedure a time out was called to verify the correct patient, procedure, equipment, residential support worker and site/side marked as required. Patient was prepped and draped in the usual sterile fashion. Gibson Harvey MD PROCDOC FORM Final Resul t documented in this encounter Visit Diagnoses Diagnosis Primary osteoarthritis of both knees- Primary Primary localized osteoarthrosis, lower leg documented in this encounter Administered Medications Inactive Administered Medications - up to 3 most recent administrations Medication Order MAR Action Action Date Dose Rate Site Lidocaine (PF) 2 % (PF) inj 20 mg 20 mg, Intra-Articular, ONCE, On Thu11/11/24 at 1115, For 1 doseIndications:Primary osteoarthritis of both knees Given 11/11/2024 10:34 AM EDT 20 mg Knee Left Lidocaine (PF) 2 % (PF) inj 20 mg 20 mg, Intra-Articular, ONCE, On Thu11/11/24 at 1115, For 1 doseIndications:Primary osteoarthritis of both knees Given 11/11/2024 10:34 AM EDT 20 mg Knee Right methylPREDNISolone acetate (Depo-Medrol) 40 MG/ML inj 40 mg 40 mg, Intra-Articular, ONCE, On Thu11/11/24 at 1115, For 1 doseIndications:Primary osteoarthritis of both knees Given 11/11/2024 10:34 AM EDT 40 mg Knee Right methylPREDNISolone acetate (Depo-Medrol) 40 MG/ML inj 40 mg 40 mg, Intra-Articular, ONCE, On Thu11/11/24 at 1115, For 1 doseIndications:Primary osteoarthritis of both knees Given 11/11/2024 10:34 AM EDT 40 mg Knee Left documented in this encounter Advance Directives Documents on File Type Date Recorded 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
--- OUTSIDE RECORDS SUMMARY | 2024-12-01 11:44 | External Medical Summary | Summary of Care ---
Author Name Unknown Organization [facility] Address [address] [place] [address] Phone [phone] Care Team Providers Care Printed Circuit Board Drafter Name Role Phone Azar Araujo DO Primary Care Provider Encounter Details Date Type Department Care Team (Late st Contact Info) Description 11/01/2024 Refill Pharmacy, [facility] 132 [facility] [place] [address] [facility] [address] [facility] [place] [address] Allergies Active Allergy Reactions Criticality Noted Date Comments Citalopram Hydrobromide 12/15/2013 Nausea Tuberculin Purified Protein Derivative 04/06/2019 Swelling and redness around the injection site. documented as of this encounter (statuses as of 11/02/2024) Medications MIRALAX PO POWD as needed Acti [...] 180 Tablet 1 10/05/19 25 Active Buprenorphine 10 MCG/HR Transdermal Patch Weekly (Butrans) Place 1 Patch over 7 days topically on the skin once a week. 4 Patch 4 11/03/19 25 Active documented as of this encounter (statuses as of 11/02/2024) Active Problems Problem Noted Date Diagnosed Date [...] with out mention of cholecystitis or obstruction Osteoarthrosis, localized, primary, involving lo wer leg Overview (05/06/2021): ICD-10 update of inactive term ICD-10 update of inactive term documented as of this encounter (statuses as of 11/02/2024) Resolved Problems Problem Noted Date Diagnosed Date [...] as of this encounter (statuses as of 11/02/2024) Immunizations Name Administration Dates Next Due COVID-19 [...] Telephone Encounter - Azar Araujo DO - 11/02/2024 7:51 AM EDTSigned Prescriptions: Disp Refills Buprenorphine 10 MCG/HR Transdermal Patch *4 Patch4 Sig: Place 1Patch over 7 days topically on the skin once a week.Authorizing Provider: AZAR ARAUJO--------- * Telephone Encounter - Ximena Momin RPh - 11/01/2024 3:46 PM EDT [place], Saw patient for [facility] pain management today. Would like to trial increase of Butrans patch. I pended a prescription to sign if agreeable. Ximena Momin, MaryD Clinical Pharmacist 11/01/2024 3:50 PM documented in this encounter Plan of Treatment Upcoming Encounters Date Type Department Care Team (Late st Contact Info) Description 11/24/2024 4:00 PM EDT Office Visit Pharmacy, [facility] [address] [place] [address] [facility] [address] [place] [address] 12/16/2024 11:50 AM EDT Office Visit [facility] [place] [address] [place] [address] [place] [phone] Azar Araujo DO [address] [place] [address] Health Maintenance Due Date Last Done Comments DXA Scan 1937 Zoster Vaccines (1 of 2) 08/29/1987 Adult Wellness Visit 08/29/2003 COVID-19 Vaccine ( season) 2024 06/06/2021, 10/07/2020, 09/09/2020 Albumin/Creatinine Ratio 06/08/2025 06/08/2024 CKD PHOS USE SMARTSET 03331 06/08/202501/2024, 10/17/2022, 07/05/2021, Additional history exists Depression Screening 06/08/2025 06/08/2024 TSH 06/08/2025 06/08/2024, 0408/2023, 07/03/2023, Additional history exists DTap/Tdap Vaccines (2 - Td or Tdap) 06/26/2025 06/26/2015 CKD HGB USE SMARTSET 18245 07/14/202507/14, 07/07/2024, 07/05/2024, Additional history exists Pneumococcal [...] Documents on File Type Date 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
--- OUTSIDE RECORDS SUMMARY | 2024-12-01 11:45 | External Medical Summary | Summary of Care ---
Author Name Unknown Organization [facility] Address [address] [place] [facility] [place] [address] Phone [phone] Care Team Providers Care Test Boring Crew Chief Name Role Phone Azar Araujo DO Primary Care Provider [phone] Encounter Details Date Type Department Care Team (Late st Contact Info) Description 09/22/2024 Refill Pharmacy, [facility] [address] [facility] [place] [address] [facility] [address] [place] [address] Allergies Active Allergy Reactions Criticality Noted Date Comments Citalopram Hydrobromide 12/15/2013 Nausea Tuberculin Purified Protein Derivative 04/06/2019 Swelling and redness around the injection site. documented as of this encounter (statuses as of 09/23/2024) Medications MIRALAX PO POWD as needed Acti [...] BEDTIME 180 Tablet 3 02/03/20 24 Active Furosemide 20 MG Oral Tablet (Lasix) TAKE 1 TABLET BY MOUTH TWICE A DAY FOR FLUID STRENGTH: 20 MG 180 Tablet 1 02/04/20 24 Active Gabapentin 300 MG Oral Capsule [...] starting. 4 Patch 5 09/23/19 25 Active documented as of this encounter (statuses as of 09/23/2024) Active Problems Problem Noted Date Diagnosed Date [...] as of this encounter (statuses as of 09/23/2024) Resolved Problems Problem Noted Date Diagnosed Date [...] as of this encounter (statuses as of 09/23/2024) Immunizations Name Administration Dates Next Due COVID-19 [...] No 06/08/2024 Does the household have a [facility] source of income? (Household - for ages [...] Telephone Encounter - Azar Araujo DO - 09/23/2024 1:53 PM ESTSigned Prescriptions: Disp Refills Buprenorphine 7.5 MCG/HR Transdermal Patch*4 Patch5 Sig: Place 1Patch over 7 days topically on the skin once a week. Stop Oxycodone 7 days after starting.Authorizing Provider: AZAR ARAUJO * Telephone Encounter - Ximena Momin RPh - 09/22/2024 2:44 PM EST Zohaib, Saw patient for [facility] pain management today. Would like to trial butrans patch. I pended a prescription to you to sign if agreeable. Thank you, Ximena Momin, PharmD Clinical Pharmacist 09/22/2024 2:46 PM documented in this encounter Plan of Treatment Upcoming Encounters Date Type Department Care Team (Late st Contact Info) Description 11/01/2024 3:40 PM EDT [facility] [address] [address] [facility] [address] [place] [address] 12/16/2024 11:50 AM EDT Office Visit Formerly Named [facility] [address] [facility] [place] [phone] Azar Araujo DO [address] [facility] [facility] [address] [place] [address] Health Maintenance Due Date Last Done Comments DXA Scan 1937 Zoster Vaccines (1 of 2) 1987 Adult Wellness Visit 2003 COVID-19 Vaccine ( season) 2024 06/06/2021, 10/07/2020, 09/09/2020 Albumin/Creatinine Ratio 06/08/2025 06/08/2024 CKD PHOS USE SMARTSET 28003 06/08/202501/2024, 10/17/2022, 07/05/2021, Additional history exists Depression Screening 06/08/2025 06/08/2024 TSH 06/08/2025 06/08/2024, 11/01, 07/03/2023, Additional history exists DTap/Tdap Vaccines (2 - Td or Tdap) 06/26/2025 06/26/2015 CKD HGB USE SMARTSET 73364 07/14/202507/14, 07/07/2024, 07/05/2024, Additional history exists Pneumococcal [...] Not on filedocumented as of this encounter Care Teams Test Boring Crew Chief Relationship Specialty Start Date End Date Azar Araujo DO PCP - General Family Medicine 01/13/19 documented as of this encounter
--- OUTSIDE RECORDS SUMMARY | 2024-12-01 11:45 | External Medical Summary | Summary of Care ---
Author Name Unknown Organization [facility] Address [address] [facility] [address] Phone [phone] Care Team Providers Care Nutrition Counselor Name Role Phone Azar Araujo DO Primary Care Provider [phone] Reason for Visit * Reason Onset Date Comments Medication Refill 10/03/2024 Encounter Details Date Type Department Care Team (Late st Contact Info) Description 10/03/2024 Refill [facility] [address] [facility] [place] [phone] Azar Araujo DO [address] [facility] [place] [address] Allergies Active Allergy Reactions Criticality Noted Date Comments Citalopram Hydrobromide 12/15/2013 Nausea Tuberculin Purified Protein Derivative 04/06/2019 Swelling and redness around the injection site. documented as of this encounter (statuses as of 10/04/2024) Medications MIRALAX PO POWD as needed Acti [...] mg 180 Tablet 1 10/05/19 25 Active Furosemide 20 MG Oral Tablet (Lasix) TAKE 1 TABLET BY MOUTH TWICE A DAY FOR FLUID STRENGTH: 20 MG 180 Tablet 1 02/04/20 24 025 Discontin ued(Refil l) documented as of this encounter (statuses as of 10/04/2024) Active Problems Problem Noted Date Diagnosed Date [...] as of this encounter (statuses as of 10/04/2024) Resolved Problems Problem Noted Date Diagnosed Date [...] as of this encounter (statuses as of 10/04/2024) Immunizations Name Administration Dates Next Due COVID-19 [...] encounter Miscellaneous Notes * Telephone Encounter - May Peterson RPh - 10/04/2024 3:46 PM EST Signed Prescriptions: Disp Refills Furosemide 20 MG Oral Tablet (Lasix) 180 Ta*1 Sig: TAKE 1 TABLET BY MOUTH TWICE A DAY FOR FLUID Strength: 20 mg Authorizing Provider: AZAR ARAUJO Ordering User: MAY PETERSON * Telephone Encounter - Edmund Contreras waste water or water plant operator - 10/03/2024 10:43 AM EST Did you pend patient's preferred pharmacy and medication before forwarding?yes Pharmacy: [id number] [address] [facility] Pending Prescriptions: Disp Refills Furosemide 20 MG Oral Tablet (Lasix) 180 Ta*1 Sig: TAKE 1 TABLET BY MOUTH TWICE A DAY FOR FLUID Strength: 20 mg Last Visit: 07/19/2024 (in office), Visit date not found (telemedicine) Next Visit: 12/16/2024 If no future appointments scheduled, and last appointment is greater than a year ago, please schedule patient for a follow-up appointment Last date the medication was ordered: 02/04/2024 Is this request for a controlled substance?No Urine Drug Screen: Results for orders placed or performed in [...] screening results are reflexed to confirmatory testing. Patient Phone Numbers Labs: Lab Results Component Value Date/Time CREAT 1.0 07/14/2024 06:11 AM CREAT 1.0 03/28/2020 10:15 AM POTASSIUM 4.7 07/14/2024 06:11 AM POTASSIUM 4.1 03/28/2020 10:15 AM TSH 4.17 06/08/2024 10:02 AM TSH 4.58 (H) 03/28/2020 10:15 AM LDL 129 07/05/2021 11:25 AM LDL 119 11/12/2018 08:55 AM ALT 7 (L) 07/03/2023 12:49 PM ALT 12 11/12/2018 08:55 AM documented in this encounter Plan of Treatment Upcoming Encounters Date Type Department Care Team (Late st Contact Info) Description 11/01/2024 3:40 PM EDT Office Visit Pharmacy, [facility] [address] [facility] [place] [address] [facility] [address] [facility] [place] [address] 12/16/2024 11:50 AM EDT Office Visit [facility] [address] [place] [phone] Azar Araujo, [address] [place] [address] Health Maintenance Due Date Last Done Comments DXA Scan 1935 Zoster Vaccines (1 of 2) 08/29/1987 Adult Wellness Visit 08/29/2003 COVID-19 Vaccine ( season) 2024 06/06/2021, 10/07/2020, 09/09/2020 Albumin/Creatinine Ratio 06/08/2025 06/08/2024 CKD PHOS USE SMARTSET 49526 06/08/202501/2024, 10/17/2022, 07/05/2021, Additional history exists Depression Screening 06/08/2025 06/08/2024 TSH 06/08/2025 06/08/2024, 0408/2023, 07/03/2023, Additional history exists DTap/Tdap Vaccines (2 - Td or Tdap) 06/26/2025 06/26/2015 CKD HGB USE SMARTSET 75303 07/14/202507/14, 07/07/2024, 07/05/2024, Additional history exists Pneumococcal [...] on File Type Date 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
--- OUTSIDE RECORDS SUMMARY | 2024-12-01 11:45 | External Medical Summary | Summary of Care ---
Author Name Unknown Organization [facility] Address [address] [place] [place] [address] Phone [phone] Care Team Providers Care Land Economist Name Role Phone Macy Juarez DO Primary Care Provider [phone] Encounter Details Date Type Department Care Team ([facility] Contact Info) Description 10/03/2024 Telephone Pharm[address] [phone] [facility] [address] [facility] [place] [address] Allergies Active Allergy Reactions Criticality Noted Date Comments Citalopram Hydrobromide 12/15/2013 Nausea Tuberculin Purified Protein Derivative 04/06/2019 Swelling and redness around the injection site. documented as of this encounter (statuses as of 10/03/2024) Medications MIRALAX PO POWD as needed Acti [...] as of this encounter (statuses as of 10/03/2024) Active Problems Problem Noted Date Diagnosed Date [...] as of this encounter (statuses as of 10/03/2024) Resolved Problems Problem Noted Date Diagnosed Date [...] as of this encounter (statuses as of 10/03/2024) Immunizations Name Administration Dates Next Due COVID-19 [...] No 06/08/2024 Does the household have a [facility] source [facility] income? (Household - [...] AM EDT documented as of this encounter Plan of Treatment Upcoming Encounters Date Type Department Care Team (Late st Contact Info) Description 11/01/2024 3:40 PM EDT Office Visit Pharmacy, [facility] [address] [facility] [place] [address] [facility] [address] [place] [address] 12/16/2024 11:50 AM EDT Office Visit Family Practice, [facility] [address] [facility] [place] [phone] Macy Juarez DO [address] [facility] [place] [address] Health Maintenance Due Date Last Done Comments DXA Scan 1937 Zoster Vaccines (1 of 2) 08/29/1987 Adult Wellness Visit 08/29/2003 COVID-19 Vaccine ( season) 2024 06/06/2021, 10/07/2020, 09/09/2020 Albumin/Creatinine Ratio 06/08/2025 06/08/2024 CKD PHOS USE SMARTSET 09619 06/08/2025/01/2024, 10/17/2022, 07/05/2021, Additional history exists Depression Screening 06/08/2025 06/08/2024 TSH 06/08/2025 06/08/2024, 04/08/2023, 07/03/2023, Additional history exists DTap/Tdap Vaccines (2 - Td or Tdap) 06/26/2025 06/26/2015 CKD HGB USE SMARTSET 11668 07/14/202507/14, 07/07/2024, 07/05/2024, Additional history exists Pneumococcal [...] Documents on File Type Date Recorded Patient Application Integration Engineer Expl anation Advance Directives and Living Will 09/26/2024 signed on 05/05/2009 Care Teams Land Economist Relationship Specialty Start Date End Date Macy Juarez DO PCP - General Family Medicine 01/13/19 documented as of this encounter
--- OUTSIDE RECORDS SUMMARY | 2024-12-01 11:45 | External Medical Summary | Summary of Care ---
Author Name Unknown Organization [facility] Address [address] [facility] [address] Phone [phone] Care Team Providers Care Top Knitter Name Role Phone Macy Juarez DO Primary Care Provider [phone] Encounter Details Date Type Department Care Team (Late st Contact Info) Description [facility]/2024 [facility] [address] [place] [phone] Macy Juarez DO [address] [facility] [place] [address] Allergies Active Allergy Reactions Criticality Noted Date Comments Citalopram Hydrobromide 12/15/2013 Nausea Tuberculin Purified Protein Derivative 04/06/2019 Swelling and redness around the injection site. documented as of this encounter (statuses as of 10/19/2024) Medications MIRALAX PO POWD as needed Acti [...] meds). 90 Tablet 3 06/08/20 24 Active documented as of this encounter (statuses as of 10/19/2024) Active Problems Problem Noted Date Diagnosed Date [...] as of this encounter (statuses as of 10/19/2024) Resolved Problems Problem Noted Date Diagnosed Date [...] as of this encounter (statuses as of 10/19/2024) Immunizations Name Administration Dates Next Due COVID-19 [...] encounter Miscellaneous Notes * Telephone Encounter - Missy Pierson LPN - 07/19/2024 12:05 PM EST I called [facility] per Dr. Flores and requested information from patients recent stay be faxed over ASAP. Sewell from [facility] states she will get it sent over as soon as possible documented in this encounter Plan of Treatment Upcoming Encounters Date Type Department Care Team (Late st Contact Info) Description 11/01/2024 3:40 PM EDT [facility] [address] [facility] [address] [address] 12/16/2024 11:50 AM EDT [facility] [place] [phone] Macy Juarez DO [address] [place] [address] Health Maintenance Due Date Last Done Comments DXA Scan 1937 Zoster Vaccines (1 of 2) 08/29/1987 Adult Wellness Visit 08/29/2003 COVID-19 Vaccine ( season) 2024 06/06/2021, 10/07/2020, 09/09/2020 Albumin/Creatinine Ratio 06/08/2025 06/08/2024 CKD PHOS USE SMARTSET 60355 06/08/202501/2024, 10/17/2022, 07/05/2021, Additional history exists Depression Screening 06/08/2025 06/08/2024 TSH 06/08/2025 06/08/2024, 0408/2023, 07/03/2023, Additional history exists DTap/Tdap Vaccines (2 - Td or Tdap) 06/26/2025 06/26/2015 CKD HGB USE SMARTSET 02318 07/14/202507/14, 07/07/2024, 07/05/2024, Additional history exists Pneumococcal [...] Not on filedocumented as of this encounter Additional Health Concerns Infection Onset 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
--- OUTSIDE RECORDS SUMMARY | 2024-12-01 11:45 | External Medical Summary | Summary of Care ---
Author Name Unknown Organization [facility] Address [address] [place] [address] Phone [phone] Care Team Providers Care Towboat Operator Name Role Phone Macy Juarez DO Primary Care Provider [phone] Reason for Visit * Reason Comments Dosage Adjustment In Person (Anticoag Cl inic) Pain * Evaluate & Treat - Unlimited Visits (Within 30 days (routine)) - Authorized Specialty Diagnoses / Procedures Referred By Kelly young Referred To Contact Pharmacist / Pharmacy Diagnoses Generalized osteoarthritis Jonny Flores MD [address] [facility] [place] [address] Phone: tel: fax: Referral ID Status Reason Start Date Expiration Date Visits Requested Visits Authorized [id number] Authorized Specialty Services Required 4 01/15/2025 99 99 Encounter Details Date Type Department Care Team (Latest Contact Info) Description 09/22/2024 1:30 PM EST Office Visit Pharmacy, [facility] [address] [place] [address] [facility] [address] [place] [address] Primary localized osteoarthrosis of lower leg, unspecified laterality* Allergies Active Allergy Reactions Criticality Noted Date Comments Citalopram Hydrobromide 12/15/2013 Nausea Tuberculin Purified Protein Derivative 04/06/2019 Swelling and redness around the injection site. documented as of this encounter (statuses as of 09/22/2024) Medications MIRALAX PO POWD as needed Acti [...] Pain, Mild. 100 Tablet 09/07/19 25 Active Cefdinir 300 MG Oral Capsule (Omnicef)Indicatio ns:Acute cystitis without hematuria Take 1 Capsule by mouth in the morning and 1 Capsule before bedtime. Do all this for 10 days. 20 Capsule 06/13/20 24 025 Discontin ued(Medic ation List Clean Up) Fosfomycin Tromethamine 3 GM Oral Packet (Monurol)Indicatio ns:Acute cystitis without hematuria Take 3 g by mouth once for 1 dose. Repeat every 3 days, until gone 3 Packet 06/17/20 24 025 Discontin ued(Medic ation List Clean Up) documented as of this encounter (statuses as of 09/22/2024) Active Problems Problem Noted Date Diagnosed Date [...] as of this encounter (statuses as of 09/22/2024) Resolved Problems Problem Noted Date Diagnosed Date [...] as of this encounter (statuses as of 09/22/2024) Immunizations Name Administration Dates Next Due COVID-19 [...] as of this encounter Progress Notes * Ximena Momin, [facility] - 09/22/2024 1:26 PM EST Images from the original note were not included. Medication Therapy Disease Management - Chronic Pain History of Presenting Illness This visit occurred in person. Tanisha Batres, identified by name and date of , is a 89 year old female presents to the [facility] for initial visit. Chief Complaint Patient presents with Dosage Adjustment In Person ([facility]) Pain History Chief Complaint(s): Hip pain Current Pain Medications Oxycodone-APAP 7.5-325 mg (taking half tab every 4 hours, but a whole tablet at night) - about 4 1/2 tablets and then 1 at bedtime (22.5 total) Gabapentin 300 mg TID Diclofenac gel PRN Interval History States that she had some back pain that started 30 years ago but was not able to have any surgery. Is not able to lay on a table for MRIs or bed. Can walk short distances with a walker and have to doexercises and work to get up. Continues exercises from PT. Recently her hip has been hurting the most within the past year or two and states that is it unbearable. Sleeps in a chair and feels comfortable sitting. Had a recent fall over thanksgiving and was hospitalized. Her knees and hands are both injected to help with arthritis. Comorbidities Renal: Slow renal decline Activity/Exercise Can walk short distances but is typically seated. Unable to lay down flat. PDMP Reviewed (09/22/2024): I have reviewed the patient's controlled substance dispensing history in the Prescription Drug Monitoring Program in compliance with the [facility] regulations. History of Presenting Illness & [...] 35 U/L Assessment & Plan Patient aware MTM is a clinical pharmacist visit, with focus on medication options for current diagnoses referred by Primary Care Provider for review and optimization. The focus of this visit is: Medication optimization. Current regimen reviewed, patient is: Adherent to regimen. Treatment Options Butrans patch Wean down on oxycodone Treatment Concerns Renal function and fragility Education Provided Patient educated on mechanism, time to efficacy and potential adverse effects of medication regimen Recommendations START: Butrans patch 7.5 mcg/hr STOP: Oxycodone after 7 days from starting Butrans patch Gabapentin 300 mg TID Diclofenac gel PRN Tanisha verbalized understanding of the plan. Contact clinic with any issues. 11/01/2024 I spent a total of 40-54 minutes (exact time 47 mins) on the date of service in preparation, delivery, and documentation of the care provided to Tanisha Batres excluding any time spent in the performance of separately billed services or time spent by another provider/QHP. Ximena Momin [facility] Clinical Pharmacist - Catalyst Operator Chief Medication Therapy Management Clinic 09/22/2024 - 2:18 PM * Nikky Kraft [facility] - 09/22/2024 1:15 PM EST Serum creatinine: 1 mg/dL 07/14/24 0611 Estimated creatinine clearance: 45.5 mL/min documented in this encounter Plan of Treatment Upcoming Encounters Date Type Department Care Team (Late st Contact Info) Description 11/01/2024 3:40 PM EDT Office Visit Pharmacy, [facility] [address] [place] [address] [facility] [address] [place] [address] 12/16/2024 11:50 AM EDT [facility] [address] [place] [phone] Macy Juarez DO [address] [place] [address] Scheduled Referrals Name Type Priority Associated Diagnoses Orde r Schedule PHARMACIST MEDS THERAPY MGMT REFERRAL OP Referral Within 30 days (routine) Generalized osteoarthritis Ordered: 07/19/2024 Health Maintenance Due Date Last Done Comments DXA Scan 1935 Zoster Vaccines (1 of 2) 1987 Adult Wellness Visit 2003 COVID-19 Vaccine ( season) 2024 06/06/2021, 10/07/2020, 09/09/2020 Albumin/Creatinine Ratio 06/08/2025 06/08/2024 CKD PHOS USE SMARTSET 87869 06/08/202501/2024, 10/17/2022, 07/05/2021, Additional history exists Depression Screening 06/08/2025 06/08/2024 TSH 06/08/2025 06/08/2024, 11/01, 07/03/2023, Additional history exists DTap/Tdap Vaccines (2 - Td or Tdap) 06/26/2025 06/26/2015 CKD HGB USE SMARTSET 69879 07/14/202507/14, 07/07/2024, 07/05/2024, Additional history exists Pneumococcal [...] as of this encounter Visit Diagnoses Diagnosis Primary localized osteoarthrosis of lower leg, unspecified laterality- Primary documented in this encounter Care Teams Towboat Operator Relationship Specialty Start Date End Date Macy Juarez DO PCP - General Family Medicine 01/13/19 documented as of this encounter
--- OUTSIDE RECORDS SUMMARY | 2024-12-01 11:45 | External Medical Summary | Summary of Care ---
Author Name Unknown Organization [facility] Address [address] [facility] [place] [address] Phone [phone] Care Team Providers Care Rn Care Transition Name Role Phone Macy Juarez DO Primary Care Provider [phone] Reason for Visit * Reason Comments Dosage Adjustment In Person (Anticoag Cl inic) Pain Encounter Details Date Type Department Care Team (Late st Contact Info) Description 11/01/2024 3:40 PM EDT Office Visit Pharmacy, [facility] [address] [facility] [place] [address] [facility] [address] [facility] [place] [address] Chronic pain syndrome* Allergies Active Allergy Reactions [...] mg 180 Tablet 1 10/05/19 25 Active documented as of this encounter [...] this encounter Progress Notes * Ximena Momin, [facility] - 11/01/2024 3:23 PM EDT Images from the original note [...] Chief Complaint(s): Hip pain Current Pain Medications STOPPED: Oxycodone-APAP 7.5-325 mg Butrans 7.5 mcg/hr once a week Gabapentin 300 mg TID Diclofenac gel PRN Interval History Notes that her pain is not as good now and feels that it is worse at times. Feels that her pain is worse after the 3rd patch. Has been using more ibuprofen. However, does note that her pain was much better during the second patch. Notes that she has been sore even with sitting down especially in her back Notes that she has been hot at night and shaky recently and feels that it may be due to the pain. Resolved with a tablet of the oxycodone. Flushing has gotten better since starting initially Comorbidities Renal: Slow renal decline Activity/Exercise Can walk short distances but is typically seated. Unable to lay down flat. PDMP Reviewed (11/01/2024): I have reviewed the patient's controlled substance dispensing history in the Prescription Drug Monitoring Program in compliance with the [facility] regulations. History of Presenting Illness & Review [...] 35 U/L Assessment & Plan Patient aware [facility] is a clinical pharmacist visit, with focus on medication options for current diagnoses referred by Primary Care Provider for review and optimization. The focus of this visit is: Medication optimization. Current regimen reviewed, patient is: Adherent to regimen. Treatment Options INC: Butrans patch 10 mcg/hr Treatment Concerns Renal function and fragility Education Provided Patient educated on mechanism, time to efficacy and potential adverse effects of medication regimen Recommendations INC: Butrans patch 10 mcg/hr Gabapentin 300 mg TID Diclofenac gel PRN Tanisha verbalized understanding of the plan. Contact clinic with any issues. 11/24/2024 I spent a total of 10-19 minutes (exact time 18 mins) on the date of service in preparation, delivery, and documentation of the care provided to Tanisha Batres excluding any time spent in the performance of separately billed services or time spent by another provider/QHP. Ximena Momin [facility] Clinical Pharmacist - Driver Helper Medication Therapy Management Clinic 11/01/2024 - 3:43 PM Cosigned by Nikky Kraft [facility] at 11/01/2024 3:47 PM EDT documented in this encounter Plan of Treatment Upcoming Encounters Date Type Department Care Team (Late st Contact Info) Description 11/24/2024 4:00 PM EDT [facility] [address] [address] [place], [facility] [address] [place] [address] [address] 12/16/2024 11:50 AM EDT Office Visit [facility] [address] [phone] Macy Juarez DO [address] [place] [address] Health Maintenance Due Date Last Done Comments DXA Scan 1937 Zoster Vaccines (1 of 2) 08/29/1987 Adult Wellness Visit 08/29/2003 COVID-19 Vaccine ( season) 2024 06/06/2021, 10/07/2020, 09/09/2020 Albumin/Creatinine Ratio 06/08/2025 06/08/2024 CKD PHOS USE SMARTSET 96438 06/08/202501/2024, 10/17/2022, 07/05/2021, Additional history exists Depression Screening 06/08/2025 06/08/2024 TSH 06/08/2025 06/08/2024, 0408/2023, 07/03/2023, Additional history exists DTap/Tdap Vaccines (2 - Td or Tdap) 06/26/2025 06/26/2015 CKD HGB USE SMARTSET 17926 07/14/202507/14, 07/07/2024, 07/05/2024, Additional history exists Pneumococcal [...] Documents on File Type Date Recorded Patient Public Health Technician Expl anation Advance Directives and Living Will 09/26/2024 signed on 05/05/2009 Care Teams Rn Care Transition Relationship Specialty Start Date End Date Macy Juarez DO PCP - General Family Medicine 01/13/19 documented as of this encounter
--- OUTSIDE RECORDS SUMMARY | 2024-12-01 11:45 | External Medical Summary | Summary of Care ---
Author Name Unknown Organization [facility] [address] [facility] [address] Phone [phone] Care Team Providers Care Certified Vehicle Fire Investigator Name Role Phone Macy Juarez DO Primary Care Provider [phone] Reason for Visit * Reason Onset Date Comments Medication Refill 10/26/2024 Encounter Details Date Type Department Care Team (Late st Contact Info) Description 10/26/2024 [facility]ill [facility] [address] [facility] [place] [phone] Macy Juarez DO [address] [facility] [address] Allergies Active Allergy Reactions Criticality Noted Date Comments Citalopram Hydrobromide 12/15/2013 Nausea Tuberculin Purified Protein Derivative 04/06/2019 Swelling and redness around the injection site. documented as of this encounter (statuses as of 10/26/2024) Medications MIRALAX PO POWD as needed Acti [...] as of this encounter (statuses as of 10/26/2024) Active Problems Problem Noted Date Diagnosed Date [...] as of this encounter (statuses as of 10/26/2024) Resolved Problems Problem Noted Date Diagnosed Date [...] as of this encounter (statuses as of 10/26/2024) Immunizations Name Administration Dates Next Due COVID-19 [...] encounter Miscellaneous Notes * Telephone Encounter - Rayne Yusuf CPhT - 10/26/2024 10:17 AM EDT Pt calling to request gabapentin . Informed pt that RX is available at their pharmacy. Pt verbalized understanding and stated they will check with their pharmacy regarding this medication. Thank you, Rayne Yusuf Roll Off Driver II [facility] ([facility]) (formerly Telepharmacy) 10/26/2024 10:18 AM documented in this encounter Plan of Treatment Upcoming Encounters Date Type Department Care Team (Late st Contact Info) Description 11/01/2024 3:40 PM EDT Office Visit Pharmacy, [facility] [address] [place] [address] [facility] [address] [place] [address] 12/16/2024 11:50 AM EDT [facility] [address] [phone] Macy Juarez DO [address] [place] [address] Health Maintenance Due Date Last Done Comments DXA Scan 1937 Zoster Vaccines (1 of 2) 08/29/1987 Adult Wellness Visit 08/29/2003 COVID-19 Vaccine ( season) 2024 06/06/2021, 10/07/2020, 09/09/2020 Albumin/Creatinine Ratio 06/08/2025 06/08/2024 CKD PHOS USE SMARTSET 36495 06/08/2025 11/0 01/2024, 10/17/2022, 07/05/2021, Additional history exists Depression Screening 06/08/2025 06/08/2024 TSH 06/08/2025 06/08/2024, 04/1 08/2023, 07/03/2023, Additional history exists DTap/Tdap Vaccines (2 - Td or Tdap) 06/26/2025 06/26/2015 CKD HGB USE SMARTSET 52965 07/14/202507/14, 07/07/2024, 07/05/2024, Additional history exists Pneumococcal [...] Documents on File Type Date Recorded Patient Handyperson Expl anation Advance Directives and Living Will 09/26/2024 signed on 05/05/2009 Care Teams Certified Vehicle Fire Investigator Relationship Specialty Start Date End Date Macy Juarez DO PCP - General Family Medicine 01/13/19 documented as of this encounter
--- OUTSIDE RECORDS SUMMARY | 2024-12-01 11:45 | External Medical Summary | Summary of Care ---
Author Name Unknown Organization [facility] Address [address] [facility] [address] Phone [phone] Care Team Providers Care Paper Inserter Name Role Phone Azar Araujo DO Primary Care Provider [phone] Reason for Visit * Reason Onset Date Comments Medication Refill 09/05/2024 Encounter Details Date Type Department Care Team (Late st Contact Info) Description 09/05/2024 Refill [facility] [address] [facility] [place] [phone] Azar Araujo DO [address] [facility] [place] [address] Chronic bilateral low back pain without sciatica Allergies Active Allergy Reactions Criticality Noted Date Comments Citalopram Hydrobromide 12/15/2013 Nausea Tuberculin Purified Protein Derivative 04/06/2019 Swelling and redness around the injection site. documented as of this encounter (statuses as of 09/07/2024) Medications MIRALAX PO POWD as needed Acti [...] Pain, Mild. 100 Tablet 09/07/19 25 Active oxyCODONE-Acetamin ophen 7.5-325 MG Oral Tablet (Percocet)Indicati ons:Chronic bilateral low back pain without sciatica Take 1 Tablet by mouth every 6 hours as needed for Pain, Mild. 100 Tablet 08/03/19 25 025 Discontin ued(Refil l) documented as of this encounter (statuses as of 09/07/2024) Active Problems Problem Noted Date Diagnosed Date [...] as of this encounter (statuses as of 09/07/2024) Resolved Problems Problem Noted Date Diagnosed Date [...] as of this encounter (statuses as of 09/07/2024) Immunizations Name Administration Dates Next Due COVID-19 [...] Telephone Encounter - Azar Araujo DO - 09/07/2024 10:54 AM ESTSigned Prescriptions: Disp Refills oxyCODONE-Acetaminophen 7.5-325 MG Oral Ta*100 Ta*0 Sig: Take 1 Tablet by mouth every 6 hours as needed for Pain, Mild. Authorizing Provider: AZAR ARAUJO * Telephone Encounter - Cathie Feliciano [facility] - 09/06/2024 2:47 PM ESTPending Prescriptions: Disp Refills oxyCODONE-Acetaminophen 7.5-325 MG Oral Ta*100 Ta*0 Sig: Take 1 Tablet by mouth every 6 hours as needed for Pain, Mild. * Telephone Encounter - Cathie Feliciano [facility] - 09/06/2024 2:46 PM EST I have reviewed the patient’s controlled substance dispensing history in the Prescription Drug Monitoring Program in compliance with the [facility] regulations before prescribing a controlled substance. PDMP checked on 09/06/2024. Pending Prescriptions: Disp Refills oxyCODONE-Acetaminophen 7.5-325 MG Oral T*100 Ta*0 Sig: Take 1 Tablet by mouth every 6 hours as needed for Pain, Mild. Last Visit: 07/19/2024 (in office), Visit date not found (telemedicine) Next Visit: 12/16/2024 Date medication was last filled: 08/03/24 Date medication is due for refill: 09/01/24 Pharmacy: [id number] Is this request for a controlled substance? Yes and Urine Drug Screen was completed Toxicology results: Results for orders placed or performed in [...] screening results are reflexed to confirmatory testing. Please approve if appropriate. Thanks, Cathie Feliciano Clinical Pharmacist [facility] ([facility]) [phone] 09/06/2024, 2:46 PM * Telephone Encounter - Hailey Jones [facility] - 09/05/2024 3:37 PM EST Did you pend patient's preferred pharmacy and medication before forwarding?yes Pharmacy: [id number] Pending Prescriptions: Disp Refills oxyCODONE-Acetaminophen 7.5-325 MG Oral T*100 Ta*0 Sig: Take 1 Tablet by mouth every 6 hours as needed for Pain, Mild. Last Visit: 07/19/2024 (in office), Visit date not found (telemedicine) Next Visit: 12/16/2024 If no future appointments scheduled, and last appointment is greater than a year ago, please schedule patient for a follow-up appointment Last date the medication was ordered: 08/03/2024 Is this request for a controlled substance?Yes, What was the last refill date 08/03/24 w/ quantity 100 and dosage 7.5-325mg and Urine Drug Screen was completed Urine Drug Screen: Results for orders placed [...] Team (Late st Contact Info) Description 09/22/2024 1:30 PM EST Office Visit Pharmacy, [facility] [address] [place] [address] [facility] [address] [place] [address] 12/16/2024 11:50 AM EDT [facility] [address] [facility] [place] [phone] Azar Araujo DO [address] [facility] [place] [address] Health Maintenance Due Date Last Done Comments DXA Scan 1937 Zoster Vaccines (1 of 2) 1987 Adult Wellness Visit 2003 COVID-19 Vaccine ( season) 2024 06/06/2021, 10/07/2020, 09/09/2020 Albumin/Creatinine Ratio 06/08/2025 06/08/2024 CKD PHOS USE SMARTSET 15175 06/08/202501/2024, 10/17/2022, 07/05/2021, Additional history exists Depression Screening 06/08/2025 06/08/2024 TSH 06/08/2025 06/08/2024, 04/08/2023, 07/03/2023, Additional history exists DTap/Tdap Vaccines (2 - Td or Tdap) 06/26/2025 06/26/2015 CKD HGB USE SMARTSET 07520 07/14/202507/14, 07/07/2024, 07/05/2024, Additional history exists Pneumococcal [...] of this encounter Visit Diagnoses Diagnosis Chronic bilateral low back pain without sciatica documented in this encounter Care Teams Paper Inserter Relationship Specialty Start Date End Date Azar Araujo DO PCP - General Family Medicine 01/13/19 documented as of this encounter
--- OUTSIDE RECORDS SUMMARY | 2024-12-01 11:45 | External Medical Summary | Summary of Care ---
Author Name Unknown Organization [facility] Address [address] [place] [address] Phone [phone] Care Team Providers Care Industrial Health Engineer Name Role Phone Macy Juarez DO Primary Care Provider [phone] Reason for Visit * Reason Comments Dosage Adjustment In Person (Anticoag Cl inic) Pain * Evaluate & Treat - Unlimited Visits (Within 30 days (routine)) - Authorized Specialty Diagnoses / Procedures Referred By Kelly young Referred To Contact Pharmacist / Pharmacy Diagnoses Generalized osteoarthritis Jonny Flores MD [address] [facility] [place] [address] Phone: tel: fax: Referral ID Status Reason Start Date Expiration Date Visits Requested Visits Authorized [id number] Authorized Specialty Services Required 4 01/15/2025 99 99 Encounter Details Date Type Department Care Team (Latest Contact Info) Description 09/22/2024 1:30 PM EST Office Visit Pharmacy, [facility] [address] [place] [address] [facility] [address] [place] [address] Primary localized osteoarthrosis of lower leg, unspecified [...] this encounter Progress Notes * Ximena Momin, [facility] - 09/22/2024 1:26 PM EST Images from the original note were not included. Medication Therapy Disease Management - Chronic Pain History of Presenting Illness This visit occurred in person. Tanisha Batres, identified by name and date of , is a 89 year old female presents to the Pain [facility] Clinic for initial visit. Chief Complaint Patient presents with Dosage Adjustment In Person ([facility]) Pain History Chief Complaint(s): Hip pain [...] Drug Monitoring Program in compliance with the [facility] regulations. History of Presenting Illness & [...] time spent by another provider/QHP. Ximena Momin [facility] Clinical Pharmacist - Field Tech Medication Therapy Management Clinic 09/22/2024 - 2:18 PM * Nikky Kraft [facility] - 09/22/2024 1:15 PM EST Serum creatinine: 1 mg/dL 07/14/24 0611 Estimated creatinine clearance: 45.5 mL/min documented in this encounter Plan of Treatment Upcoming Encounters Date Type Department Care Team (Late st Contact Info) Description 11/01/2024 3:40 PM EDT Office Visit Pharmacy, [facility] [address] [address] [facility] [address] [address] 12/16/2024 11:50 AM EDT Office Visit [facility] [address] [phone] Macy Juarez DO [address] [place] [address] Scheduled Referrals Name Type Priority Associated Diagnoses Orde r Schedule PHARMACIST MEDS THERAPY MGMT REFERRAL OP Referral Within 30 days (routine) Generalized osteoarthritis Ordered: 07/19/2024 Health Maintenance Due Date Last Done Comments DXA Scan 1937 Zoster Vaccines (1 of 2) 1987 Adult Wellness Visit 2003 COVID-19 Vaccine ( season) 2024 06/06/2021, 10/07/2020, 09/09/2020 Albumin/Creatinine Ratio 06/08/2025 06/08/2024 CKD PHOS USE SMARTSET 59968 06/08/202501/2024, 10/17/2022, 07/05/2021, Additional history exists Depression Screening 06/08/2025 06/08/2024 TSH 06/08/2025 06/08/2024, 11/01, 07/03/2023, Additional history exists DTap/Tdap Vaccines (2 - Td or Tdap) 06/26/2025 06/26/2015 CKD HGB USE SMARTSET 45852 07/14/202507/14, 07/07/2024, 07/05/2024, Additional history exists Pneumococcal [...] Primary documented in this encounter Care Teams Industrial Health Engineer Relationship Specialty Start Date End Date Macy Juarez DO PCP - General Family Medicine 01/13/19 documented as of this encounter
--- OUTSIDE RECORDS SUMMARY | 2024-12-01 11:45 | External Medical Summary | Summary of Care ---
Author Name Unknown Organization [facility] Address [address] [place] [address] Phone [phone] Care Team Providers Care Civilian Technician Name Role Phone Macy Juarez DO Primary Care Provider [phone] Reason for Visit * Reason Comments Dosage Adjustment In Person (Anticoag Cl inic) Pain * Evaluate & Treat - Unlimited Visits (Within 30 days (routine)) - Authorized Specialty Diagnoses / Procedures Referred By Kelly young Referred To Contact Pharmacist / Pharmacy Diagnoses Generalized osteoarthritis Jonny Flores MD [address] [facility] [place] [address] Phone: tel: fax: Referral ID Status Reason Start Date Expiration Date Visits Requested Visits Authorized [id number] Authorized Specialty Services Required 4 01/15/2025 99 99 Encounter Details Date Type Department Care Team (Latest Contact Info) Description 09/22/2024 1:30 PM EST Office Visit Pharmacy, [facility] [address] [place] [address] [facility] [address] [place] [address] Primary localized osteoarthrosis of lower leg, unspecified [...] encounter Progress Notes * Ximena Momin, [facility] - 09/22/2024 1:26 PM EST Images from the original note were not included. Medication Therapy Disease Management - Chronic Pain History of Presenting Illness This visit occurred in person. Tanisha Batres, identified by name and date of , is a 89 year old female presents to the Pain [facility] Clinic for initial visit. Chief Complaint Patient presents with Dosage Adjustment In Person ([facility]) Pain History Chief Complaint(s): Hip pain [...] Drug Monitoring Program in compliance with the [facility] regulations. History of Presenting Illness & [...] spent by another provider/QHP. Ximena Momin [facility] Clinical Pharmacist - Sleeve Wheel Maker Medication Therapy Management Clinic 09/22/2024 - 2:18 PM * Nikky Kraft [facility] - 09/22/2024 1:15 PM EST Serum creatinine: 1 mg/dL 07/14/24 0611 Estimated creatinine clearance: 45.5 mL/min documented in this encounter Plan of Treatment Upcoming Encounters Date Type Department Care Team (Late st Contact Info) Description 11/01/2024 3:40 PM EDT Office Visit Pharmacy, [facility] [address] [address] [facility] [address] [address] 12/16/2024 11:50 AM EDT Office Visit [facility] [address] [phone] Macy Juarez DO [address] [address] Scheduled Referrals Name Type Priority Associated Diagnoses Orde r Schedule PHARMACIST MEDS THERAPY MGMT REFERRAL OP Referral Within 30 days (routine) Generalized osteoarthritis Ordered: 07/19/2024 Health Maintenance Due Date Last Done Comments DXA Scan 1935 Zoster Vaccines (1 of 2) 1987 Adult Wellness Visit 2003 COVID-19 Vaccine ( season) 2024 06/06/2021, 10/07/2020, 09/09/2020 Albumin/Creatinine Ratio 06/08/2025 06/08/2024 CKD PHOS USE SMARTSET 21161 06/08/202501/2024, 10/17/2022, 07/05/2021, Additional history exists Depression Screening 06/08/2025 06/08/2024 TSH 06/08/2025 06/08/2024, 11/01, 07/03/2023, Additional history exists DTap/Tdap Vaccines (2 - Td or Tdap) 06/26/2025 06/26/2015 CKD HGB USE SMARTSET 98273 07/14/202507/14, 07/07/2024, 07/05/2024, Additional history exists Pneumococcal [...] Primary documented in this encounter Care Teams Civilian Technician Relationship Specialty Start Date End Date Macy Juarez DO PCP - General Family Medicine 01/13/19 documented as of this encounter
--- OUTSIDE RECORDS SUMMARY | 2024-12-01 11:46 | External Medical Summary | Summary of Care ---
Author Name Unknown Organization [facility] Address [address] [place] [facility] [place] [address] Phone [phone] Care Team Providers Care Photographic Specialist Name Role Phone Mayc Juarez DO Primary Care Provider [phone] Reason for Visit * Reason Onset Date Comments Fax 07/29/2024 Physician certif ication Encounter Details Date Type Department Care Team (Late st Contact Info) Description 07/29/2024 Telephone [facility] [address] [place] [address] Macy Juarez DO [address] [place] [address] Fax (Physician certification) Allergies Active Allergy Reactions Criticality Noted Date Comments Citalopram Hydrobromide 12/15/2013 Nausea Tuberculin Purified Protein Derivative 04/06/2019 Swelling and redness around the injection site. documented as of this encounter (statuses as of 07/29/2024) Medications MIRALAX PO POWD as needed Acti [...] Additional Information Patient not taking.Reported on 07/19/2024 Famotidine 20 MG Oral Tablet (Pepcid)Indication s:Gastroesophageal reflux disease without esophagitis Take 1 Tablet by mouth every night at bedtime. This is for nausea 90 Tablet 3 08/27/19 24 Active B & B Carpal Tunnel Brace Bilateral [...] TABLET. 90 Tablet 2 05/04/20 24 Active oxyCODONE-Acetamin ophen 7.5-325 MG Oral Tablet (Percocet)Indicati ons:Chronic bilateral low back pain without sciatica Take 1 Tablet by mouth every 6 hours as needed for Pain, Mild. 100 Tablet 06/03/20 24 Active Levothyroxine Sodium 75 MCG Oral Tablet (Levoxyl)Indicatio ns:Other specified hypothyroidism Take 1 Tablet by mouth in the morning. (at least 30 min prior to breakfast or other meds). 90 Tablet 3 06/08/20 24 Active documented as of this encounter (statuses as of 07/29/2024) Active Problems Problem Noted Date Diagnosed Date [...] as of this encounter (statuses as of 07/29/2024) Resolved Problems Problem Noted Date Diagnosed Date [...] as of this encounter (statuses as of 07/29/2024) Immunizations Name Administration Dates Next Due COVID-19 [...] ages 0-17 years) Not on file 06/08/2024 Comments No Sex and Gender Information Value Date Recorded Sex Assigned at Female 10/17/2022 12:15 PM EDT Legal Sex Female 6:13 AM EST Gender Identity Female 10/17/2022 12:15 PM EDT Sexual Orientation Straight 01/18/2020 11 :28 AM EDT documented as of this encounter Miscellaneous Notes * Telephone Encounter - Alla Valencia LPN - 07/29/2024 3:09 PM EST Received Fax for BFPROVIDERS: Dr. Macy Juarez OTHER received from Physician certification [employer] and FAXED documented in this encounter Plan of Treatment Upcoming Encounters Date Type Department Care Team (Late st Contact Info) Description 09/22/2024 1:30 PM EST Office Visit Pharmacy, [facility] [address] [facility] [place] [address] [facility] [address] [facility] [place] [address] 12/16/2024 11:50 AM EDT Office Visit Family [facility] [address] [facility] [phone] Macy Juarez DO [address] [facility] [place] [address] 12/28/2024 10:20 AM EDT Office Visit Rheumatology [place] [phone] [place] [address] Gibson Harvey MD [facility] [place] [address] Health Maintenance Due Date Last Done Comments DXA Scan 1937 Zoster Vaccines (1 of 2) 1987 Adult Wellness Visit 2003 COVID-19 Vaccine ( season) 2024 06/06/2021, 10/07/2020, 09/09/2020 Albumin/Creatinine Ratio 06/08/2025 06/08/2024 CKD PHOS USE SMARTSET 58076 06/08/2025 11/01/2024, 10/17/2022, 07/05/2021, Additional history exists Depression Screening 06/08/2025 06/08/2024 TSH 06/08/2025 06/08/2024, 04/08/2023, 07/03/2023, Additional history exists DTap/Tdap Vaccines (2 - Td or Tdap) 06/26/2025 06/26/2015 CKD HGB USE SMARTSET 96498 07/14/202507/14, 07/07/2024, 07/05/2024, Additional history exists Pneumococcal [...] Last Indicated Resolved Time ESBL 06/08/2024 06/08/2024 documented as of this encounter Care Teams Photographic Specialist Relationship Specialty Start Date End Date Macy Juarez DO PCP - General Family Medicine 01/13/19 documented as of this encounter
--- OUTSIDE RECORDS SUMMARY | 2024-12-01 11:46 | External Medical Summary ---
Author Name Unknown Address Unknown Organization K09:[facility] [place] [address] Laboratory Report Ordering Provider Test Date Status FLOYD PEARCE 07/05/2024 05:59:02 Final Observation Date Value Abnormality Reference (Units ) Status WBC, Total 07/05/2024 05:59:02 5.65 4.00-10.8 0 (K/uL) Final RBC 07/05/2024 05:59:02 3.68 3.85-5.15 (M/uL) Final Hemoglobin 07/05/2024 05:59:02 11.8 Below low normal 12 .0-15.3 (g/dL) Final HCT 07/05/2024 05:59:02 36.7 36.0-45.2 (%) Final MCV 07/05/2024 05:59:02 99.7 81.5-97.5 (fL) Final MCH 07/05/2024 05:59:02 32.1 27.0-34.0 (pg) Final MCHC 07/05/2024 05:59:02 32.2 32.0-36.0 (g/dL) Final RDW 07/05/2024 05:59:02 13.4 11.5-15.5 (%) Final Platelets 07/05/2024 05:59:02 159 140-400 (K /uL) Final MPV 07/05/2024 05:59:02 9.1 6.6-11.1 ( fL) Final Performing Location [facility] [place] [address]
--- OUTSIDE RECORDS SUMMARY | 2024-12-01 11:46 | External Medical Summary ---
Author Name Unknown Address Unknown Organization K09:[facility] [place] [address] Laboratory Report Ordering Provider Test Date Status GUILLERMO COOPER 07/14/2024 06:11:32 Final Observation Date Value Abnormality Reference (Units ) Status BUN 07/14/2024 06:11:32 9 6-20 (mg/dL) Final Creatinine 07/14/2024 06:11:32 1.0 0.5-1.0 (mg/dL) Final Glomerular filtration rate/1.73 sq M.predicted [Volume Rate/Area] in Serum, Plasma or Blood by Creatinine-based formula (CKD-EPI) 07/14/2024 06:11:32 58 Below low normal >=60 (mL/min) Final eGFR is calculated based on the CKD-EPI 2020 equation. Sodium 07/14/2024 06:11:32 137 135-146 (m mol/L) Final Potassium 07/14/2024 06:11:32 4.7 3.5-5.1 (m mol/L) Final Cl 07/14/2024 06:11:32 101 98-107 (mm ol/L) Final CO2 07/14/2024 06:11:32 27 22-32 (mmo l/L) Final Anion gap 07/14/2024 06:11:32 9 7-15 (mmol /L) Final Glucose 07/14/2024 06:11:32 114 70-120 (mg /dL) Final Calcium 07/14/2024 06:11:32 8.9 8.4-10.2 ( mg/dL) Final Performing Location [facility] [place] [address]
--- OUTSIDE RECORDS SUMMARY | 2024-12-01 11:46 | External Medical Summary ---
Author Name Unknown Address Unknown Organization K09:[facility] [place] [address] Laboratory Report Ordering Provider Test Date Status GUILLERMO COOPER 07/14/2024 06:11:32 Final Observation Date Value Abnormality Reference (Units ) Status WBC, Total 07/14/2024 06:11:32 3.37 Below low normal 4. 00-10.80 (K/uL) Final RBC 07/14/2024 06:11:32 3.50 3.85-5.15 (M/uL) Final Hemoglobin 07/14/2024 06:11:32 11.3 Below low normal 12 .0-15.3 (g/dL) Final HCT 07/14/2024 06:11:32 35.2 Below low normal 36. 0-45.2 (%) Final MCV 07/14/2024 06:11:32 100.6 81.5-97.5 (fL) Final MCH 07/14/2024 06:11:32 32.3 27.0-34.0 (pg) Final MCHC 07/14/2024 06:11:32 32.1 32.0-36.0 (g/dL) Final RDW 07/14/2024 06:11:32 13.6 11.5-15.5 (%) Final Platelets 07/14/2024 06:11:32 132 Below low normal 140 -400 (K/uL) Final MPV 07/14/2024 06:11:32 8.9 6.6-11.1 ( fL) Final Performing Location [facility] [place] [address]
--- OUTSIDE RECORDS SUMMARY | 2024-12-01 11:46 | External Medical Summary ---
Author Name Unknown Address Unknown Organization K01:[facility] - [address] [place] [address] Laboratory Report Ordering Provider Test Date Status VAN ASKEW 07/08/2024 06:51:13 Final Cutoff Concentrations:
D rug Level
Oxycodone 50 ng/mL
Oxymorphone 50 ng/mL

This test was developed and its performance characteristics determined by [employer]. It has not been cleared or approved by the [place] Food and Drug Administration. Observation Date Value Abnormality Reference (Units ) Status METHODOLOGY 07/08/2024 06:51:13 LC-MS/MS Final oxyCODONE cutoff [Mass/volume] in Urine for Confirmatory method 07/08/2024 06:51:13 1237 Above high normal Negative (ng/mL) Final oxyMORphone cutoff [Mass/volume] in Urine for Confirmatory method 07/08/2024 06:51:13 3816 Above high normal Negative (ng/mL) Final Performing Location [facility] - [address] [place] [address]
--- OUTSIDE RECORDS SUMMARY | 2024-12-01 11:46 | External Medical Summary | Summary of Care ---
Author Name Unknown Organization [facility] Address [address] [place] [address] Phone [phone] Care Team Providers Care Home Staging Specialist Name Role Phone Macy Juarez DO Primary Care Provider Reason for Visit * Reason Onset Date Comments Pain 07/28/2024 Encounter Details Date Type Department Care Team (Late st Contact Info) Description 07/28/2024 Telephone Rheumatology [facility] [address] [place] [address] Services, Scheduling [address] [place] [address] Pain Allergies Active Allergy Reactions Criticality Noted Date [...] encounter Miscellaneous Notes * Telephone Encounter - Gibson Harvey MD - 07/29/2024 12:53 PM EST See email * Telephone Encounter - Sumi Cummings OSA - 07/28/2024 11:41 AM EST Patient is calling to schedule an appointment with Dr. Harvey in [place] for arthritis pain. Patient is scheduled for first available in 12/2024 and added to the Fast Pass for a sooner appointment. Patient stated that she is having alot of pain in her back, hips and knees. Please call patient and advise, thank you. documented in this encounter Plan of Treatment Upcoming Encounters Date Type Department Care Team (Late st Contact Info) Description 09/22/2024 1:30 PM EST Office Visit Pharmacy, [facility] [address] [place] [address] [facility] [address] [facility] [place] [address] 12/16/2024 11:50 AM EDT Office Visit [facility] [address] [place] [phone] Macy Juarez DO [address] [facility] [address] 12/28/2024 10:20 AM EDT Office Visit Rheumatology [place] [address] [facility] [place] [address] Gibson Harvey MD [facility] [employer] [place], [place] [address] Health Maintenance Due Date Last Done Comments DXA Scan 1937 Zoster Vaccines (1 of 2) 1987 Adult Wellness Visit 2003 COVID-19 Vaccine ( season) 2024 06/06/2021, 10/07/2020, 09/09/2020 Albumin/Creatinine Ratio 06/08/2025 06/08/2024 CKD PHOS USE SMARTSET 26844 06/08/2025 11/0 01/2024, 10/17/2022, 07/05/2021, Additional history exists Depression Screening 06/08/2025 06/08/2024 TSH 06/08/2025 06/08/2024, 04/1 08/2023, 07/03/2023, Additional history exists DTap/Tdap Vaccines (2 - Td or Tdap) 06/26/2025 06/26/2015 CKD HGB USE SMARTSET 58152 07/14/202507/14, 07/07/2024, 07/05/2024, Additional history exists Pneumococcal [...] documented as of this encounter Care Teams Home Staging Specialist Relationship Specialty Start Date End Date Macy Juarez DO PCP - General Family Medicine 01/13/19 documented as of this encounter
--- OUTSIDE RECORDS SUMMARY | 2024-12-01 11:46 | External Medical Summary | Summary of Care ---
Author Name Unknown Organization [facility] Address [address] [facility] [address] Phone [phone] Care Team Providers Care Building Admin Name Role Phone Macy Juarez DO Primary Care Provider [phone] Reason for Visit * Reason Onset Date Comments Fax 07/15/2024 Encounter Details Date Type Department Care Team (Late st Contact Info) Description 07/15/2024 [facility] [address] [facility] [place] [phone] Macy Juarez DO [address] [facility] [place] [address] Fax Allergies Active Allergy Reactions Criticality Noted Date Comments Citalopram Hydrobromide 12/15/2013 Nausea Tuberculin Purified Protein Derivative 04/06/2019 Swelling and redness around the injection site. documented as of this encounter (statuses as of 07/15/2024) Medications MIRALAX PO POWD as needed Acti [...] FOR ANXIETY 60 Tablet 10/18/19 23 Active Famotidine 20 MG Oral Tablet (Pepcid)Indication [...] as of this encounter (statuses as of 07/15/2024) Active Problems Problem Noted Date Diagnosed Date [...] as of this encounter (statuses as of 07/15/2024) Resolved Problems Problem Noted Date Diagnosed Date [...] as of this encounter (statuses as of 07/15/2024) Immunizations Name Administration Dates Next Due COVID-19 [...] the money to buy more. Never true 11/06/20 24 Within the past 12 months, t [...] Telephone Encounter - Alla Valencia LPN - 07/15/2024 3:18 PM EST Received Fax for BFPROVIDERS: Dr. Macy Juarez FORM received from [place] [employer] and FAXED * Telephone Encounter - Alla Valencia LPN - 07/15/2024 9:52 AM EST Do you have this fax on your desk? * Telephone Encounter - Perla Brower OSA - 07/15/2024 9:01 AM EST Received a call asking if fax was received by office. Name/Company sending fax: [employer] What fax is pertaining to: Home care Date(s) they sent request: 07/26 Verified fax number they are sending to is correct (Y or N): N Callback Number for the clinic to call to verified if fax was received: [phone] documented in this encounter Plan of Treatment Upcoming Encounters Date Type Department Care Team (Late st Contact Info) Description 07/19/2024 11:20 AM EST Office Visit [facility] Jaylen Mejía [address] [place] [phone] Jonny Flores MD [address] [place] [address] 12/16/2024 11:50 AM EDT Office Visit [facility] Jaylen Mejía [address] [place] [phone] Macy Juarez DO [address] [place] [phone] Health Maintenance Due Date Last Done Comments DXA Scan 1935 Zoster Vaccines (1 of 2) 1987 Adult Wellness Visit 2003 COVID-19 Vaccine ( season) 2024 06/06/2021, 10/07/2020, 09/09/2020 Albumin/Creatinine Ratio 06/08/2025 06/08/2024 CKD PHOS USE SMARTSET 97334 06/08/2025 11/0 01/2024, 10/17/2022, 07/05/2021, Additional history exists Depression Screening 06/08/2025 06/08/2024 TSH 06/08/2025 06/08/2024, 0408/2023, 07/03/2023, Additional history exists DTap/Tdap Vaccines (2 - Td or Tdap) 06/26/2025 06/26/2015 CKD HGB USE SMARTSET 98337 07/14/202507/14, 07/07/2024, 07/05/2024, Additional history exists Pneumococcal Vaccine: 65+ Years Completed 02/01/2021, 08/19/2019, 03/16/2018 Influenza Vaccine [...] documented as of this encounter Care Teams Building Admin Relationship Specialty Start Date End Date Macy Juarez DO [address] [place] [address] PCP - General Family Medicine 01/13/19 documented as of this encounter
--- OUTSIDE RECORDS SUMMARY | 2024-12-01 11:46 | External Medical Summary | Summary of Care ---
Author Name Unknown Organization [facility] Address [address] [facility] [address] Phone [phone] Care Team Providers Care Global Regulatory Lead Name Role Phone Macy Juarez DO Primary Care Provider [phone] Reason for Visit * Reason Onset Date Comments Fax 07/15/2024 Encounter Details Date Type Department Care Team (Late st Contact Info) Description 07/15/2024 [facility] [address] [facility] [place] [phone] Macy Juarez DO [address] [facility] [place] [address] Fax Allergies Active Allergy Reactions Criticality Noted Date Comments Citalopram Hydrobromide 12/15/2013 Nausea Tuberculin Purified Protein Derivative 04/06/2019 Swelling and redness around the injection site. documented as of this encounter (statuses as of 07/19/2024) Medications MIRALAX PO POWD as needed Acti [...] as of this encounter (statuses as of 07/19/2024) Active Problems Problem Noted Date Diagnosed Date [...] as of this encounter (statuses as of 07/19/2024) Resolved Problems Problem Noted Date Diagnosed Date [...] as of this encounter (statuses as of 07/19/2024) Immunizations Name Administration Dates Next Due COVID-19 [...] BFPROVIDERS: Dr. Macy Juarez FORM received from [place] [employer] and FAXED [...] call to verified if fax was received: [phone] documented in this encounter Plan of Treatment Upcoming Encounters Date Type Department Care Team (Late st Contact Info) Description 12/16/2024 11:50 AM EDT Office Visit [facility] Ajit [address] [facility] [place] [phone] Macy Juarez, [address] [facility] [place] [address] Health Maintenance Due Date Last Done Comments DXA Scan 1935 Zoster Vaccines (1 of 2) 1987 Adult Wellness Visit 2003 COVID-19 Vaccine ( season) 2024 06/06/2021, 10/07/2020, 09/09/2020 Albumin/Creatinine Ratio 06/08/2025 06/08/2024 CKD PHOS USE SMARTSET 75881 06/08/2025 11/0 01/2024, 10/17/2022, 07/05/2021, Additional history exists Depression Screening 06/08/2025 06/08/2024 TSH 06/08/2025 06/08/2024, 04/08/2023, 07/03/2023, Additional history exists DTap/Tdap Vaccines (2 - Td or Tdap) 06/26/2025 06/26/2015 CKD HGB USE SMARTSET 60512 07/14/202507/14, 07/07/2024, 07/05/2024, Additional history exists Pneumococcal [...] documented as of this encounter Care Teams Global Regulatory Lead Relationship Specialty Start Date End Date Macy Juarez DO [address] [facility] [place] [address] PCP - General Family Medicine 01/13/19 documented as of this encounter
--- OUTSIDE RECORDS SUMMARY | 2024-12-01 11:46 | External Medical Summary | Summary of Care ---
Author Name Unknown Organization [facility] Address [address] [facility] [address] Phone [phone] Care Team Providers Care Printing Shop Supervisor Name Role Phone Azar Araujo DO Primary Care Provider [phone] Reason for Visit * Reason Onset Date Comments Medication Refill 08/01/2024 Encounter Details Date Type Department Care Team (Late st Contact Info) Description 08/01/2024 Refill [facility] [address] [facility] [place] [phone] Azar Araujo DO [address] [facility] [place] [address] Chronic bilateral low back pain without sciatica Allergies Active Allergy Reactions Criticality Noted Date Comments Citalopram Hydrobromide 12/15/2013 Nausea Tuberculin Purified Protein Derivative 04/06/2019 Swelling and redness around the injection site. documented as of this encounter (statuses as of 08/03/2024) Medications MIRALAX PO POWD as needed Acti [...] meds). 90 Tablet 3 06/08/20 24 Active oxyCODONE-Acetamin ophen 7.5-325 MG Oral Tablet (Percocet)Indicati ons:Chronic bilateral low back pain without sciatica Take 1 Tablet by mouth every 6 hours as needed for Pain, Mild. 100 Tablet 08/03/19 25 Active oxyCODONE-Acetamin ophen 7.5-325 MG Oral Tablet (Percocet)Indicati ons:Chronic bilateral low back pain without sciatica Take 1 Tablet by mouth every 6 hours as needed for Pain, Mild. 100 Tablet 06/03/20 24 024 Discontin ued(Refil l) documented as of this encounter (statuses as of 08/03/2024) Active Problems Problem Noted Date Diagnosed Date [...] as of this encounter (statuses as of 08/03/2024) Resolved Problems Problem Noted Date Diagnosed Date [...] as of this encounter (statuses as of 08/03/2024) Immunizations Name Administration Dates Next Due COVID-19 [...] Telephone Encounter - Azar Araujo DO - 08/03/2024 10:28 AM ESTSigned Prescriptions: Disp Refills oxyCODONE-Acetaminophen 7.5-325 MG Oral Ta*100 Ta*0 Sig: Take 1 Tablet by mouth every 6 hours as needed for Pain, Mild. Authorizing Provider: AZAR ARAUJO * Telephone Encounter - Nadir Garcia [facility] - 08/02/2024 2:45 PM ESTPending Prescriptions: Disp Refills oxyCODONE-Acetaminophen 7.5-325 MG Oral Ta*100 Ta*0 Sig: Take 1 Tablet by mouth every 6 hours as needed for Pain, Mild. * Telephone Encounter - Nadir Garcia [facility] - 08/02/2024 2:42 PM EST I have reviewed the patient’s controlled substance dispensing history in the Prescription Drug Monitoring Program in compliance with the [facility] regulations before prescribing a controlled substance. PDMP checked on 08/02/2024. Pending Prescriptions: Disp Refills oxyCODONE-Acetaminophen 7.5-325 MG Oral T*100 Ta*0 Sig: Take 1 Tablet by mouth every 6 hours as needed for Pain, Mild. Last Visit: 07/19/2024 (in office), Visit date not found (telemedicine) Next Visit: 12/16/2024 Date medication was last filled: 07/16/24 Date medication is due for refill: 07/18/24 Pharmacy: [id number] [address] [facility] Is this request for a controlled substance? [...] confirmatory testing. Please approve if appropriate. Thanks, Nadir Garcia Rph, Pharm D. Clinical Pharmacist Centralized Clinical Pharmacy Services/[facility] [phone] 08/02/2024,2:42 PM * Telephone Encounter - Angela Payton PHARM Tech - 08/01/2024 2:17 PM EST Pt calling to check on status of oxyCODONE-Acetaminophen 7.5-325 MG Oral Tablet (Percocet) . Callercan be reached at [phone] . Thank you, Angela Payton, Inspector Exhaust Emissions Inspector Exhaust Emissions I [facility] ([facility]) 08/01/2024,2:17 PM * Telephone Encounter - Angela Payton PHARM Tech - 08/01/2024 9:30 AM EST Did you pend patient's preferred pharmacy and medication before forwarding?yes Pharmacy: [id number] [address] [facility] Pending Prescriptions: Disp Refills oxyCODONE-Acetaminophen 7.5-325 MG [...] appointment Last date the medication was ordered: 06/03/2024 Is this request for a controlled substance?Yes, What was the last refill date 06/03/2024 w/ quantity 100 and dosage 7.5-325MG and Urine Drug Screen was completed Urine [...] Care Team (Late st Contact Info) Description 08/04/2024 11:20 AM EST Office [address] [facility] [address] [place] [address] Gibson Harvey MD [address] [place] [address] [place] [address] 09/22/2024 1:30 PM EST Office Visit Pharmacy, [facility] [address] [place] [address] [facility] 132 [facility] [place] [address] 12/16/2024 11:50 AM EDT Office Visit [facility] [address] [facility] [phone] Azar Araujo DO [address] [facility] [place] [address] Health Maintenance Due Date Last Done Comments DXA Scan 1935 Zoster Vaccines (1 of 2) 1987 Adult Wellness Visit 2003 COVID-19 Vaccine ( season) 2024 06/06/2021, 10/07/2020, 09/09/2020 Albumin/Creatinine Ratio 06/08/2025 06/08/2024 CKD PHOS USE SMARTSET 25693 06/08/2025 11/0 01/2024, 10/17/2022, 07/05/2021, Additional history exists Depression Screening 06/08/2025 06/08/2024 TSH 06/08/2025 06/08/2024, 04/1 08/2023, 07/03/2023, Additional history exists DTap/Tdap Vaccines (2 - Td or Tdap) 06/26/2025 06/26/2015 CKD HGB USE SMARTSET 31563 07/14/202507/14, 07/07/2024, 07/05/2024, Additional history exists Pneumococcal [...] pain without sciatica documented in this encounter Additional Health Concerns Infection Onset Date 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
--- OUTSIDE RECORDS SUMMARY | 2024-12-01 11:46 | External Medical Summary | Summary of Care ---
Author Name Unknown Organization [facility] Address [address] [place] [address] Phone [phone] Care Team Providers Care Manager Unix Name Role Phone Macy Juarez DO Primary Care Provider [phone] Reason for Referral * Evaluate & Treat - Unlimited Visits (Within 30 days (routine)) - Authorized Specialty Diagnoses / Procedures Referred By Kelly yonug Referred To Contact Pharmacist / Pharmacy Diagnoses Generalized osteoarthritis Jonny Flores MD [address] [place] [address] Phone: tel: fax: Referral ID Status Reason Start Date Expiration Date Visits Requested Visits Authorized [id number] Authorized Specialty Services Required 4 01/15/2025 99 99 Question Answer Referral Priority Within 30 days (routine) Where should this appointment be scheduled? [facility] Referring Provider Role: Primary Care Reason for Referral: Pain Pain Diagnosis: Fibromyalgia, Osteoarthritis Pain Treatment Options: Opioids and/or Non-opioids Does patient have a signed GONSALO? This is required for patients on opioids Yes Has patient completed a Urine Drug Screen in the past 3 months? This is required for patients on opioids Yes - done [facility] Goal: Med Optimization Comments Pharmacist Medication Therapy Management: Minimum frequency patient should be seen in person for medication management: as appropriate per clinical condition and patient status By my signature, I understand that my patient Tanisha Batres will have her medication therapy managed by the [facility] Med[facility] Disease [facility] ([facility]) per established policies, procedures, and protocols. I also certify that this referral may serve as an initiation of service for the management of drug therapy in the above noted patient. [facility] providers will be responsible for scheduling patient visits, obtaining appropriate laboratory studies, and adjusting medication management therapy per patient's need, in addition to those roles spelled out in the clinic policy, procedures, and drug management protocols. I understand that the service provided by the [facility] is voluntary and have informed patient that they can refuse the service at their discretion. I am aware that the [facility] will provide me with a copy of the patient encounter via my [employer] [facility]. I authorize the [facility] to carry out these activities on my behalf. I consider this program to be a necessary part of the patient's medical care. Jonny Flores MD Reason for Visit * Reason Onset Date Comments Hospital Follow-Up Pt is here fo r a follow up leaving [facility]. Pt also needs a new referral for pain medicine. Hospital Follow-Up 07/19/2024 Encounter Details Date Type Department Care Team (Late st Contact Info) Description 07/19/2024 11:20 AM EST Office Visit [facility] [address] [place] [address] Jonny Flores MD [address] [place] [address] Generalized osteoarthritis*; Hospital discharge follow-up Allergies Active Allergy Reactions Criticality Noted Date [...] Sign Reading Time Taken Comments Blood Pressure 134/92 07/19/2024 11:45 AM EST Pulse 63 07/19/2024 11:45 AM EST Temperature 37.1 °C (98.8 °F) 07/19/2024 11:[address] Respiratory Rate 16 07/19/2024 11:45 AM EST Oxygen Saturation 94% 07/19/2024 11:45 AM EST Inhaled Oxygen Concentration - - Weight 99.8 kg (220 lb) 07/19/2024 11:45 AM EST Height 162.6 cm (5' 4") 07/19/2024 11:45 AM EST Body Mass Index 37.76 07/19/2024 11:45 AM EST documented in this encounter Progress Notes * Jonny Flores MD - 07/19/2024 4:37 PM EST SUBJECTIVE: Tanisha Batres is a 88 year old female. Chief Complaint Patient presents with Hospital Follow-Up Pt is here for a follow up leaving [facility]. Pt also needs a new referral for pain medicine. Hospital Follow-Up Recent Admission: HPI: 88-year-old seen today after recent hospitalization at [facility] having been admitted June 29 and discharged 07/15/2024. She actually was transferred to her side fdc facility on 07/15/2024 but decided not to enter her side but rather go home on the same date. She does live alone although has family members checking on her daily. She also has a medical alert necklace. She has known diffuse osteoarthritis. The day of admission she had a fall in it was concerned that because of progressive weakness that she was at significant risk for additional falls. She was initially evaluated [place] [facility]. As note was large amount of ecchymosis over the anterior chest that came onsuddenly when family members tried to lift her up from the floor and heard a pop in the left shoulder region. Um x-rays were done of the left shoulder region of the showed no fracture. Arrangements were made through the Emergency Room for admission to [facility] for rehabilitation. She received regular physical therapy as well as occupation therapy while at [facility]. She was found to have significant increase strength and use of her upper extremities including the left shoulder that has been painful when she was originally evaluated in the Emergency Room. After proximally 2 weeks at [facility] but they a decision that she felt she could do okay at home a so she was never formally admitted to her side. Since at home she notes a significant improvement in her overall capabilities because of either increase strength sore range of motion especially of the upper extremities. She does have family members checking in on her at least daily. Also home health that has nursing and occupation therapy and physical therapy coming to the home. There is plans to start with a group home paraprofessional to provide 4 hours either 2 or 3 days a week. This will include help with bathing but other things as well. She is on oxycodone/APAP 7.5/325, 1 tablet every 6 hours as needed with 100 tablets being prescribed per month. Dr. Juarez who is the patient's primary care provider had made a referral to [facility] painmanagement before the [facility] admission. Um told that that has to be reordered. She did have drugtesting while at [facility] in she signed a medication use agreement in the office today. 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 HTN, goal below 140/90 Esophageal reflux Polycystic kidney Calculus of gallbladder without mention of cholecystitis or obstruction Osteoarthrosis, localized, primary, involving lower leg Rotator cuff syndrome Fibromyalgia Primary osteoarthritis of both knees Bilateral carpal tunnel syndrome DDD (degenerative disc disease), lumbar Hyperlipidemia Morbid obesity with body mass index (BMI) of 40.0 to 44.9 in adult (HCC) Other specified hypothyroidism Hypertensive kidney disease with stage 3a chronic kidney disease Chronic kidney disease, stage 3a (HCC) Tendinitis, de Quervain's Cubital tunnel syndrome on right Trigger ring finger of right hand Generalized osteoarthritis Trigger middle finger of right hand Carpal tunnel syndrome of left wrist Trigger index finger of left hand Current Outpatient Medications Medication Sig Dispense Refill MIRALAX PO POWD as needed Cyanocobalamin (VITAMIN B-12) 1000 MCG Tablet Take 1 Tablet by mouth in the morning. Cholecalciferol (VITAMIN D) 1000 units Tablet Take 1 Tablet by mouth in the morning. Diclofenac Sodium 1 % External Gel (Voltaren) Apply topically to affected area daily. Apply to affected joints for arthritis. 2 g 5 Famotidine 20 MG Oral Tablet (Pepcid) Take 1 Tablet by mouth every night at bedtime. This is for nausea 90 Tablet 3 B & B Carpal Tunnel Brace Bilateral carpal tunnel braces 2 Each 0 Metoprolol Tartrate 25 MG Oral Tablet (Lopressor) TAKE 1 TABLET BY MOUTH IN THE MORNING AND BEFORE BEDTIME 180 Tablet 3 Furosemide 20 MG Oral Tablet (Lasix) TAKE 1 TABLET BY MOUTH TWICE A DAY FOR FLUID STRENGTH: 20 MG 180 Tablet 1 Gabapentin 300 MG Oral Capsule (Neurontin) Take 1 Capsule by mouth in the morning and 1 Capsule at noon and 1 Capsule before bedtime. 270 Capsule 2 Pantoprazole Sodium 40 MG Oral Tablet Delayed Release (Protonix) TAKE 1 TABLET BY MOUTH IN THE MORNING. 30 MINUTES BEFORE THE FIRST MEAL OF THE DAY. DO NOT CRUSH, SPLIT OR CHEW THE TABLET. 90 Tablet 2 oxyCODONE-Acetaminophen 7.5-325 MG Oral Tablet (Percocet) Take 1 Tablet by mouth every 6 hours as needed for Pain, Mild. 100 Tablet 0 Levothyroxine Sodium 75 MCG Oral Tablet (Levoxyl) Take 1 Tablet by mouth in the morning. (at least 30 min prior to breakfast or other meds). 90 Tablet 3 Zoster Vac Recomb Adjuvanted 50 MCG/0.5ML Intramuscular Suspension Reconstituted (Shingrix) Inject 0.5 mL into a large muscle now and repeat dose in 60 to 180 days (Patient not taking: Reported on 06/08/2024) 1 Each 1 LORazepam 1 MG Oral Tablet (Ativan) TAKE ONE OR TWO TABLETS DAILY NEEDED FOR ANXIETY (Patient not taking: Reported on 07/19/2024) 60 Tablet 0 No current facility-administered medications for this visit. Current and discharge medications have been reconciled. Review of patient's allergies indicates: Allergen Reactions Citalopram Hydrobromide Nausea Ppd [Tuberculin Purified Protein Derivative] Swelling and redness around the injection site. OBJECTIVE: BP 134/92 (BP Site: Right Arm, BP Position: Sitting, BP Cuff Size: Regular) | Pulse 63 | Temp 98.8 °F (37.1 °C) (Tympanic) | Resp 16 | Ht 5' 4" (1.626 m) | Wt 220 lb (99.8 kg) | SpO2 94% | BMI 37.76 kg/m² | BSA 2.12 m² Review Of Systems: Skin: negative Eyes: negative Ears/Nose/Throat: Significantly hard of hearing Respiratory: negative Cardiovascular: negative Gastrointestinal: negative Genitourinary: negative Musculoskeletal: osteoarthritis Neurologic: negative Psychiatric: negative Hematologic/Lymphatic/Immunologic: negative Endocrine: negative PHYSICAL EXAM: General: alert, healthy, and no distress Head: Normocephalic, No masses, lesions, tenderness or abnormalities Eye Exam: PERRLA, extraocular movements intact, conjunctiva are pink and non- injected, sclera clear Oropharynx: no exudate, no erythema, lips, buccal mucosa, and tongue normal, and mucous membranes are moist Heart: regular rate & rhythm, no murmur, and no gallops Lungs: chest symmetric with normal AP diameter, no chest deformities noted, no chest wall tenderness, lungs clear to auscultation Abdomen: abdomen soft, non-tender, normal bowel sounds, and no masses or organomegaly Extremities: less than 2 second capillary refill, no joint deformities, effusion, or inflammation Skin: skin color, texture, turgor are normal, no rashes or significant lesions ASSESSMENT: Generalized osteoarthritis-continue the oxycodone/APAP 7.5/325, 1 tab every 6 hours limiting to 100per month. Refer to [facility] pain management. The patient did sign a medication use agreement and she had a urine drug screen done when she was health Continue home health for occupation and physical therapy Anticipate home health aide probably for 4 hours twice a week. Fibromyalgia-this is contributing to her overall pain. See above for plan Hypertension-blood pressure is slightly elevated today. It will be check by home health nursing over the next couple weeks Follow up per regular scheduled visit with Dr. Jack in a couple months time.. I spent a total of 30-39 minutes (exact time 32 mins) minutes on the date of service in preparation, delivery, and documentation of the care provided to Tanisha Batres excluding any time spent in performance of separately billed services. Jonny Flores MD documented in this encounter Nursing Notes * Aubrie Canchola Student - 07/19/2024 11:52 AM EST The patient has been properly identified by confirmation of name and date of . Chief Complaint Patient presents with Hospital Follow-Up Pt is here for a follow up leaving [facility]. Pt also needs a new referral for pain medicine. documented in this encounter Plan of Treatment Upcoming Encounters Date Type Department Care Team (Late st Contact Info) Description 12/16/2024 11:50 AM EDT Office Visit Family [facility], Jaylen Fong [address] [address] Macy Juarez DO [address] [phone] Scheduled Referrals Name Type Priority Associated Diagnoses Orde r Schedule PHARMACIST MEDS THERAPY MGMT REFERRAL OP Referral Within 30 days (routine) Generalized osteoarthritis Ordered: 07/19/2024 Health Maintenance Due Date Last Done Comments DXA Scan 1937 Zoster Vaccines (1 of 2) 1987 Adult Wellness Visit 2003 COVID-19 Vaccine ( season) 2024 06/06/2021, 10/07/2020, 09/09/2020 Albumin/Creatinine Ratio 06/08/2025 06/08/2024 CKD PHOS USE SMARTSET 49542 06/08/2025 1101/2024, 10/17/2022, 07/05/2021, Additional history exists Depression Screening 06/08/2025 06/08/2024 TSH 06/08/2025 06/08/2024, 0408/2023, 07/03/2023, Additional history exists DTap/Tdap Vaccines (2 - Td or Tdap) 06/26/2025 06/26/2015 CKD HGB USE SMARTSET 98173 07/14/202507/14, 07/07/2024, 07/05/2024, Additional history exists Pneumococcal [...] as of this encounter Visit Diagnoses Diagnosis Generalized osteoarthritis- Primary Generalized osteoarthrosis, unspecified site Hospital discharge follow-up Other follow-up examination documented in this encounter Additional Health Concerns Infection Onset Date Last Indicated Resolved Time ESBL 06/08/2024 06/08/2024 documented as of this encounter Care Teams Manager Unix Relationship Specialty Start Date End Date Macy Juarez [facility] [address] [address] PCP - General Family Medicine 01/13/19 documented as of this encounter
--- OUTSIDE RECORDS SUMMARY | 2024-12-01 11:46 | External Medical Summary ---
Author Name Unknown Address Unknown Organization K01:[facility] [place] [address] [place] [id number] Laboratory Report Ordering Provider Test Date Status MIRYAM ASKEWMALU 07/08/2024 06:51:13 Final Cutoff Concentrations:
Drug Level
Amphetamines 500 ng/mL
Benzodiazepines 100 ng/mL
Cannabinoids 50 ng/mL
Cocaine Metabolite 150 ng/mL
Fentanyl 1 ng/mL
Hydrocodone / Hydromorphone � 300 ng/mL
Methadone Metabolite 100 ng/mL
Morphine / Codeine 300 ng/mL
Oxycodone / Oxymorphone 100 ng/mL

Screening results are presumptive and can only be used for medical purposes. Positive screening results are reflexed to confirmatory testing. Observation Date Value Abnormality Reference (Units ) Status Amphetamines, Urine screen 07/08/2024 06:51:13 Negative Negative Final Benzodiazepines, Urine screen 07/08/2024 06:51:13 Negative Negative Final Cannabinoids, Urine screen 07/08/2024 06:51:13 Negative Negative Final Cocaine Metabolite, Urine screen 07/08/2024 06:51:13 Negative Negative Final fentaNYL [Presence] in Urine by Screen method 07/08/2024 06:51:13 Negative Negative Final HYDROcodone [Presence] in Urine by Screen method 07/08/2024 06:51:13 Negative Negative Final 0-Djfnjetlcp-6,5-Dimeth yl-3,3-Diphenylpyrrolid ine (EDDP) [Presence] in Urine 07/08/2024 06:51:13 Negative Negative Final Opiates, Urine screen 07/08/2024 06:51:13 Negative Negative Final oxyCODONE [Presence] in Urine by Screen method 07/08/2024 06:51:13 Positive Abnormal Negative Final Performing Location [facility] [place] [address] [facility] [id number]
--- OUTSIDE RECORDS SUMMARY | 2024-12-01 11:46 | External Medical Summary | Summary of Care ---
Author Name Unknown Organization [facility] Address [address] [facility] [place] [address] Phone [phone] Care Team Providers Care Square Dance Caller Name Role Phone Macy Ryan DO Primary Care Provider [phone] Reason for Visit * Reason Onset Date Comments Referral 07/20/2024 [facility] Pain Encounter Details Date Type Department Care Team (Late st Contact Info) Description 07/20/2024 Telephone Pharmacy, [facility] [address] [address] [facility] [address] [place] [address] Referral ([facility] Pain) Allergies Active Allergy Reactions Criticality Noted Date Comments Citalopram Hydrobromide 12/15/2013 Nausea Tuberculin Purified Protein Derivative 04/06/2019 Swelling and redness around the injection site. documented as of this encounter (statuses as of 07/20/2024) Medications MIRALAX PO POWD as needed Acti [...] as of this encounter (statuses as of 07/20/2024) Active Problems Problem Noted Date Diagnosed Date [...] as of this encounter (statuses as of 07/20/2024) Resolved Problems Problem Noted Date Diagnosed Date [...] as of this encounter (statuses as of 07/20/2024) Immunizations Name Administration Dates Next Due COVID-19 [...] encounter Miscellaneous Notes * Telephone Encounter - Nikky Kraft [facility] - 07/20/2024 9:57 AM EST Referral reviewed and is appropriate. Please schedule. Initial appt length: 60 minutes Patient referred to [facility] clinic for Pain Management Regimen optimization on behalf of Dr. ryan. Referral reviewed and relevant pre-visit information listed below: Pain Follow-up as scheduled. Nikky Kraft RPh 07/20/2024, 9:57 AM * Telephone Encounter - Pretty Goodwin PHARM Tech - 07/20/2024 9:01 AM EST Comments Pharmacist Medication Therapy Management: Minimum frequency patient should be seen in person for medication management: as appropriate per clinical condition and patient status By my signature, I understand that my patient Tanisha Batres will have her medication therapy managedby the [facility] Medication Therapy Disease Management [facility] ([facility]) per established policies, procedures, and protocols. I also certify that this referral may serve as an initiation of service for the management of drug therapy in the above noted patient. [facility] providers will be responsible for scheduling patient visits, obtaining appropriate laboratory studies, and adjusting medication management therapy per patient's need, in addition to those roles spelled out in the clinic policy, procedures, and drug management protocols. I understand that the service provided by the [facility] is voluntary and have informed patient that they can refuse the service at their discretion. I am aware that the [facility] will provide me with a copy of the patient encounter via my [employer]. I authorize the [facility] to carry out these activities on my behalf. I consider this program to be a necessary part of the patient's medical care. Jonny Flores MD Order Specific Questions Referral Priority Within 30 days (routine) Where should this appointment be scheduled? [facility] Referring Provider Role: Primary Care Reason for Referral: Pain Pain Diagnosis: Fibromyalgia Osteoarthritis Pain Treatment Options: Opioids and/or Non-opioids Does patient have a signed GONSALO? This is required for patients on opioids Yes Has patient completed a Urine Drug Screen in the past 3 months? This is required for patients on opioids Yes. done [facility] Goal: Med Optimization documented in this encounter Plan of Treatment Upcoming Encounters Date Type Department Care Team (Late st Contact Info) Description 12/16/2024 11:50 AM EDT Office Visit [facility], Amber Buckaroo Ajit [address] [address] Macy Ryan DO [address] [address] Health Maintenance Due Date Last Done Comments DXA Scan 1937 Zoster Vaccines (1 of 2) 1987 Adult Wellness Visit 2003 COVID-19 Vaccine ( season) 2024 06/06/2021, 10/07/2020, 09/09/2020 Albumin/Creatinine Ratio 06/08/2025 06/08/2024 CKD PHOS USE SMARTSET 24271 06/08/2025 1101/2024, 10/17/2022, 07/05/2021, Additional history exists Depression Screening 06/08/2025 06/08/2024 TSH 06/08/2025 06/08/2024, 0408/2023, 07/03/2023, Additional history exists DTap/Tdap Vaccines (2 - Td or Tdap) 06/26/2025 06/26/2015 CKD HGB USE SMARTSET 15464 07/14/202507/14, 07/07/2024, 07/05/2024, Additional history exists Pneumococcal [...] documented as of this encounter Care Teams Square Dance Caller Relationship Specialty Start Date End Date Macy Ryan DO [address] [address] PCP - General Family Medicine 01/13/19 documented as of this encounter
--- OUTSIDE RECORDS SUMMARY | 2024-12-01 11:46 | External Medical Summary | Summary of Care ---
Author Name Unknown Organization [facility] Address [address] [facility] [place] [address] Phone [phone] Care Team Providers Care Wire Rigger Name Role Phone Macy Juarez DO Primary Care Provider [phone] Reason for Visit * Reason Comments Rheum Follow Up Follow up - bilgaetanoa dina knee injections, right hand injection Encounter Details Date Type Department Care Team (Latest Contact Info) Description 08/04/2024 11:20 AM EST Office Visit Rheumatology [place] [id number] [place] [address] Gibson Harvey MD [address] [place] [address] Primary osteoarthritis of both knees*; Trigger ring finger of right hand; Trigger middle finger of right hand; Trigger index finger of left hand Allergies Active Allergy Reactions Criticality Noted Date Comments Citalopram Hydrobromide 12/15/2013 Nausea Tuberculin Purified Protein Derivative 04/06/2019 Swelling and redness around the injection site. documented as of this encounter (statuses as of 08/04/2024) Medications MIRALAX PO POWD as needed Acti [...] Pain, Mild. 100 Tablet 08/03/19 25 Active Hospital, Clinic, or Other Facility Administered Medication Ordered Dose Route Frequency Start Date End Date Status Lidocaine (PF) 2 % (PF) inj 20 mgIndications:Trigger middle finger of right hand 20 mg IX ONCE 08/04/2024 08/04/19 Ended Lidocaine (PF) 2 % (PF) inj 20 mgIndications:Primary osteoarthritis of both knees 20 mg IX ONCE 08/04/2024 08/04/2024 Ended methylPREDNISolone acetate (Depo-Medrol) 40 MG/ML inj 80 mgIndications:Primary osteoarthritis of both knees 80 mg IX ONCE 08/04/2024 08/04/2024 Ended methylPREDNISolone acetate (Depo-Medrol) 40 MG/ML inj 40 mgIndications:Trigger middle finger of right hand 40 mg IX ONCE 08/04/2024 08/04/19 Ended documented as of this encounter (statuses as of 08/04/2024) Active Problems Problem Noted Date Diagnosed Date [...] as of this encounter (statuses as of 08/04/2024) Resolved Problems Problem Noted Date Diagnosed Date [...] as of this encounter (statuses as of 08/04/2024) Immunizations Name Administration Dates Next Due COVID-19 [...] Pressure - - Pulse - - Temperature 35.8 °C (96.4 °F) 08/04/2024 11:[address] Respiratory Rate - - Oxygen Saturation - - Inhaled Oxygen Concentration - - Weight - - Height - - Body Mass Index - - documented in this encounter Progress Notes * Gibson Harvey MD - 08/04/2024 11:16 AM ESTAssociated Order(s): LG Joint Inj/Arthro: R knee; Hand/Upper Extremity Injection/Arthrocentesis: R long A1 Post-Procedure Diagnose(s): Primary osteoarthritis of both knees; Trigger middle finger of right hand Subjective: Patient seen today for further follow up evaluation of osteoarthritis, trigger finger. Since the last visit she dealt with hip pain (right) and saw ortho at [facility]. Had an injection with no benefit. She was referred [place] [facility] [place] [facility] but was unable to lay flat for the injection so did not get it. She had imaging and has a bad hip. She was recently at [facility] for rehab. She reports ongoing knee pain and last injection was 06/2023. She uses a walker at home and uses wheel chair outside of the home. Last fall at [facility]. Would like right knee injection and right 3rd trigger injection as well. She deals with numbness in her hands - uses bracing as well. Did not do well after right carpal tunnel surgery. Remains on pain pills and was referred to pain pharmacy clinic. Musculoskeletal ROS: . Abnormal: joint pain . Pain scale (0-10): 7 Other ROS: . Constitutional: trouble sleeping . Head normal . Eyes: normal . Ears, nose, throat, mouth: normal . Cardiovascular: normal . Respiratory: normal . Gastrointestinal: normal . Genitourinary: normal . Skin: normal . Neurologic: numbness in both hands. All other ros reviewed and negative Social History: Social History Tobacco Use Smoking status: Never Passive exposure: Past Smokeless tobacco: Never Substance Use Topics Alcohol use: No Vaping/E-Cigarette Use Vaping/E-Cigarette Use Never User Vaping/E-Cigarette Substances Vaping/E-Cigarette Devices Current Outpatient Medications Medication Sig Dispense Refill MIRALAX PO POWD as needed Cyanocobalamin (VITAMIN B-12) 1000 MCG Tablet Take 1 Tablet by mouth in the morning. Cholecalciferol (VITAMIN D) 1000 units Tablet Take 1 Tablet by mouth in the morning. Zoster Vac Recomb Adjuvanted 50 MCG/0.5ML Intramuscular Suspension Reconstituted (Shingrix) Inject 0.5 mL into a large muscle now and repeat dose in 60 to 180 days (Patient not taking: Reported on 06/08/2024) 1 Each 1 Diclofenac Sodium 1 % External Gel (Voltaren) Apply topically to affected area daily. Apply to affected joints for arthritis. 2 g 5 LORazepam 1 MG Oral Tablet (Ativan) TAKE ONE OR TWO TABLETS DAILY NEEDED FOR ANXIETY (Patient not taking: Reported on 07/19/2024) 60 Tablet 0 Famotidine 20 MG Oral Tablet (Pepcid) Take [...] OR CHEW THE TABLET. 90 Tablet 2 Levothyroxine Sodium 75 MCG Oral Tablet (Levoxyl) Take 1 Tablet by mouth in the morning. (at least 30 min prior to breakfast or other meds). 90 Tablet 3 oxyCODONE-Acetaminophen 7.5-325 MG Oral Tablet (Percocet) Take 1 Tablet by mouth every 6 hours as needed for Pain, Mild. 100 Tablet 0 No current facility-administered medications for this visit. Physical Exam: Temp 35.8 °C (96.4 °F) (Infrared ) General: alert, examined in wheelchair, no acute distress Neck: supple, no adenopathy, thyroid normal size, non-tender, without nodularity Lymph: no palpable lymphadenopathy Heart: regular rate & rhythm, no gallops, and with some extra beats noted Lungs: clear to auscultation , no rales, wheezes or rhonchi Abdomen: abdomen soft, non-tender, and normal bowel sounds Musculoskeletal Exam: Significant amount of crepitus on exam of the right knee more than left pain on the right side No knee effusions noted Triggering noted to the right 3rd, 4th and left 2nd finger but only had pain with the right 3rd finger Assessment: (M17.0) Primary osteoarthritis of both knees (primary encounter diagnosis) (M65.341) Trigger ring finger of right hand (M65.331) Trigger middle finger of right hand (M65.322) Trigger index finger of left hand Discussed injections for the right knee as well as right 3rd trigger finger, she agreed and procedure note is below. Plan: 1. See procedure notes below 2. Contact if needs other sites injected 3. Continue with pain medication and await pain pharmacy evaluation 4. Return to clinic as needed for injections Gibson Harvey MD Department of Rheumatology Tanisha Baters is a 88 year old female patient. ICD-10-CM 1. Trigger ring finger of right hand M65.341 2. Primary osteoarthritis of both knees M17.0 3. Trigger middle finger of right hand M65.331 4. Trigger index finger of left hand M65.322 Past Medical History: Diagnosis Date BMI 39.0-39.9,adult Calculus of gallbladder without mention of cholecystitis or obstruction Degeneration of lumbosacral intervertebral disc Depressive disorder, not elsewhere classified Diarrhea, functional Esophageal reflux Fibromyalgia 09/04/2011 HTN, goal below 140/90 Hyperlipidemia Myalgia and myositis 09/04/2011 Osteoarthrosis, unspecified whether generalized or localized, lower leg Polycystic kidney, unspecified type Rotator cuff syndrome 05/27/2011 Varicose vein of leg Temperature 35.8 °C (96.4 °F), temperature source Infrared , not currently . LG Joint Inj/Arthro: R knee on 08/04/2024 11:34 AM Indications: pain Details: 25 G needle, anterior approach Medications: (80mg of depomedrol and 1 ml of 2% lidocaine) Outcome: tolerated well, no immediate complications Procedure, treatment alternatives, risks and benefits explained, specific risks discussed. Consent was given by the patient. Immediately prior to procedure a time out was called to verify the correctpatient, procedure, equipment, underwriting support manager and site/side marked as required. Patient was prepped and draped in the usual sterile fashion. Hand/Upper Extremity Injection/Arthrocentesis: R long A1 for trigger finger on 08/04/2024 11:35 AM Indications: pain Details: 25 G needle, volar approach Medications: (40mg of depomedrol and 1 ml of 2% lidocaine) Outcome: tolerated well, no immediate complications Procedure, treatment alternatives, risks and benefits explained, specific risks discussed. Consent was given by the patient. Immediately prior to procedure a time out was called to verify the correctpatient, procedure, equipment, underwriting support manager and site/side marked as required. Patient was prepped and draped in the usual sterile fashion. Gibson Harvey MD 08/04/2024 documented in this encounter Nursing Notes * Cynthia Mitchell LPN - 08/04/2024 11:14 AM EST Chief Complaint Patient presents with Rheum Follow Up Follow up - bilateral knee injections, right hand injection documented in this encounter Plan of Treatment Upcoming Encounters Date Type Department Care Team (Late st Contact Info) Description 09/22/2024 1:30 PM EST Office Visit Pharmacy, [facility] [address] [place] [address] [facility] [address] [place] [address] 12/16/2024 11:50 AM EDT [facility] [address] [facility] [place] [phone] Macy Juarez DO [address] [place] [address] Health Maintenance Due Date Last Done Comments DXA Scan 1937 Zoster Vaccines (1 of 2) 1987 Adult Wellness Visit 2003 COVID-19 Vaccine ( season) 2024 06/06/2021, 10/07/2020, 09/09/2020 Albumin/Creatinine Ratio 06/08/2025 06/08/2024 CKD PHOS USE SMARTSET 45570 06/08/2025 1101/2024, 10/17/2022, 07/05/2021, Additional history exists Depression Screening 06/08/2025 06/08/2024 TSH 06/08/2025 06/08/2024, 04/08/2023, 07/03/2023, Additional history exists DTap/Tdap Vaccines (2 - Td or Tdap) 06/26/2025 06/26/2015 CKD HGB USE SMARTSET 05643 07/14/202507/14, 07/07/2024, 07/05/2024, Additional history exists Pneumococcal [...] Procedure Name Priority Date/Time Associated Diagnosis Comments NJ INJECTION 1 TENDON SHEATH/LIGAMENT APONEUROSIS Routine 08/04/2024 11:35 AM EST Trigger middle finger of right hand NJ ARTHROCENTESIS ASPIR&/INJ MAJOR JT/BURSA W/O US Routine 08/04/2024 11:34 AM EST Primary osteoarthritis of both knees documented in this encounter Results * NJ INJECTION 1 TENDON SHEATH/LIGAMENT APONEUROSIS (08/04/2024 11:35 AM EST) Gibson Fischer MD - 08/04/2024 11:35 AM EST Gibson Harvey MD 08/04/2024 12:11 PM Hand/Upper Extremity Injection/Arthrocentesis: R long A1 for trigger finger on 08/04/2024 11:35 AM Indications: pain Details: 25 G needle, volar approach Medications: (40mg of depomedrol and 1 ml of 2% lidocaine) Outcome: tolerated well, no immediate complications Procedure, treatment alternatives, risks and benefits explained, specific risks discussed. Consent was given by the patient. Immediately prior to procedure a time out was called to verify the correct patient, procedure, equipment, underwriting support manager and site/side marked as required. Patient was prepped and draped in the usual sterile fashion. us Gibson Harvey MD PROCDOC FORM Final Resul t * NJ ARTHROCENTESIS ASPIR&/INJ MAJOR JT/BURSA W/O US (08/04/2024 11:34 AM EST) Gibson Fischer MD - 08/04/2024 11:34 AM Gibson Gandhi MD 08/04/2024 12:11 PM LG Joint Inj/Arthro: R knee on 08/04/2024 11:34 AM Indications: pain Details: 25 G needle, anterior approach Medications: (80mg of depomedrol and 1 ml of 2% lidocaine) Outcome: tolerated well, no immediate complications Procedure, treatment alternatives, risks and benefits explained, specific risks discussed. Consent was given by the patient. Immediately prior to procedure a time out was called to verify the correct patient, procedure, equipment, underwriting support manager and site/side marked as required. Patient was prepped and draped in the usual sterile fashion. us Gibson Harvey MD PROCDOC FORM Final Resul t documented in this encounter Visit Diagnoses Diagnosis Primary osteoarthritis of both knees- Primary Primary localized osteoarthrosis, lower leg Trigger ring finger of right hand Trigger finger (acquired) Trigger middle finger of right hand Trigger finger (acquired) Trigger index finger of left hand Trigger finger (acquired) documented in this encounter Administered Medications Inactive Administered Medications - up to 3 most recent administrations Medication Order MAR Action Action Date Dose Rate Site Lidocaine (PF) 2 % (PF) inj 20 mg 20 mg, Intra-Articular, ONCE, On Vee 08/04/24 at 1200, For 1 doseIndications:Trigger middle finger of right hand Given 08/04/2024 11:28 AM EST 20 mg Hand Right Lidocaine (PF) 2 % (PF) inj 20 mg 20 mg, Intra-Articular, ONCE, On Vee 08/04/24 at 1200, For 1 doseIndications:Primary osteoarthritis of both knees Given 08/04/2024 11:27 AM EST 20 mg Knee Right methylPREDNISolone acetate (Depo-Medrol) 40 MG/ML inj 40 mg 40 mg, Intra-Articular, ONCE, On Vee 08/04/24 at 1200, For 1 doseIndications:Trigger middle finger of right hand Given 08/04/2024 11:28 AM EST 40 mg Hand Right methylPREDNISolone acetate (Depo-Medrol) 40 MG/ML inj 80 mg 80 mg, Intra-Articular, ONCE, On Vee 08/04/24 at 1200, For 1 doseIndications:Primary osteoarthritis of both knees Given 08/04/2024 11:27 AM EST 80 mg Knee Right documented in this encounter Additional Health Concerns Infection Onset Date Last Indicated Resolved Time ESBL 06/08/2024 06/08/2024 documented as of this encounter Care Teams Wire Rigger Relationship Specialty Start Date End Date Macy Juarez DO PCP - General Family Medicine 01/13/19 documented as of this encounter
--- OUTSIDE RECORDS SUMMARY | 2024-12-01 11:46 | External Medical Summary | Summary of Care ---
Author Name Unknown Organization [facility] Address [address] [address] [address] Phone [phone] Care Team Providers Care Underwriting Specialist Name Role Phone Macy Juarez DO Primary Care Provider [phone] Reason for Visit * Reason Onset Date Comments Forms Request 07/19/2024 Encounter Details Date Type Department Care Team (Late st Contact Info) Description [facility]/19[facility]20[facility] [address] [facility] [place] [phone] Macy Juarez DO [address] [facility] [place] [address] Forms Request Allergies Active Allergy Reactions Criticality Noted Date Comments Citalopram Hydrobromide 12/15/2013 Nausea Tuberculin Purified Protein Derivative 04/06/2019 Swelling and redness around the injection site. documented as of this encounter (statuses as of 07/28/2024) Medications MIRALAX PO POWD as needed Acti [...] as of this encounter (statuses as of 07/28/2024) Active Problems Problem Noted Date Diagnosed Date [...] as of this encounter (statuses as of 07/28/2024) Resolved Problems Problem Noted Date Diagnosed Date [...] as of this encounter (statuses as of 07/28/2024) Immunizations Name Administration Dates Next Due COVID-19 [...] encounter Miscellaneous Notes * Telephone Encounter - Divya Briseno LPN - 07/26/2024 9:22 AM EST Any [place] independent enrollment bronathalia simmons calling. Dr. Juarez filled out the form for the physician certification. Only thing it didn't have was ICD-10 codes on it. Please add them and fax it back. Fax is [phone] * Telephone Encounter - Ghislaine Araya OSA - 07/19/2024 3:44 PM EST [place] with [place] independant enrollment kathy simmons received a physician certification from that needs to be corrected and faxed back. The form did not have ICD-10 codes on. Please up date for and fax back to [phone] documented in this encounter Plan of Treatment Upcoming Encounters Date Type Department Care Team (Late st Contact Info) Description 09/22/2024 1:30 PM EST Office Visit Pharmacy, [facility] [address] [place] [address] [facility] [address] [place] [address] 12/16/2024 11:50 AM EDT [facility] [address] [facility] [place] [phone] Macy Juarez DO [address] [facility] [place] [address] Health Maintenance Due Date Last Done Comments DXA Scan 1937 Zoster Vaccines (1 of 2) 1987 Adult Wellness Visit 2003 COVID-19 Vaccine ( season) 2024 06/06/2021, 10/07/2020, 09/09/2020 Albumin/Creatinine Ratio 06/08/2025 06/08/2024 CKD PHOS USE SMARTSET 43323 06/08/2025 11/0 01/2024, 10/17/2022, 07/05/2021, Additional history exists Depression Screening 06/08/2025 06/08/2024 TSH 06/08/2025 06/08/2024, 04/08/2023, 07/03/2023, Additional history exists DTap/Tdap Vaccines (2 - Td or Tdap) 06/26/2025 06/26/2015 CKD HGB USE SMARTSET 13295 07/14/202507/14, 07/07/2024, 07/05/2024, Additional history exists Pneumococcal [...] documented as of this encounter Care Teams Underwriting Specialist Relationship Specialty Start Date End Date Macy Juarez DO PCP - General Family Medicine 01/13/19 documented as of this encounter
--- OUTSIDE RECORDS SUMMARY | 2024-12-01 11:46 | External Medical Summary ---
Author Name Unknown Address Unknown Organization K09[facility] [address] Laboratory Report Ordering Provider Test Date Status GUILLERMO COOPER 07/07/2024 05:49:38 Final Observation Date Value Abnormality Reference (Units ) Status BUN 07/07/2024 05:49:38 15 6-20 (mg/dL) Final Creatinine 07/07/2024 05:49:38 1.1 Above high normal 0.5-1.0 (mg/dL) Final Glomerular filtration rate/1.73 sq M.predicted [Volume Rate/Area] in Serum, Plasma or Blood by Creatinine-based formula (CKD-EPI) 07/07/2024 05:49:38 48 Below low normal >=60 (mL/min) Final eGFR is calculated based on the CKD-EPI 2020 equation. Sodium 07/07/2024 05:49:38 139 135-146 (m mol/L) Final Potassium 07/07/2024 05:49:38 4.9 3.5-5.1 (m mol/L) Final Cl 07/07/2024 05:49:38 100 98-107 (mm ol/L) Final CO2 07/07/2024 05:49:38 27 22-32 (mmo l/L) Final Anion gap 07/07/2024 05:49:38 12 7-15 (mmol /L) Final Glucose 07/07/2024 05:49:38 121 Above high normal 70 -120 (mg/dL) Final Calcium 07/07/2024 05:49:38 9.4 8.4-10.2 ( mg/dL) Final Performing Location [facility] [place] [address]
--- OUTSIDE RECORDS SUMMARY | 2024-12-01 11:46 | External Medical Summary | Summary of Care ---
Author Name Unknown Organization [facility] Address [address] [place] [address] Phone [phone] Care Team Providers Care Surgical Services Coordinator Name Role Phone Macy Juarez DO Primary Care Provider Reason for Visit * Reason Onset Date Comments MyCode Nonconsent - Not interested at this time 07/19/2024 Encounter Details Date Type Department Care Team (Late st Contact Info) Description 07/19/2024 Orders Only Outcomes Research Department [address] [place] [address] Zoraida Carpenter CHRA MyCode Nonconsent Documentation Allergies Active Allergy Reactions Criticality Noted Date [...] No 06/08/2024 Does the household have a caro centerr source of income? (Household - for ages [...] as of this encounter Progress Notes * Zoraida Carpenter CHRA - 07/19/2024 11:41 AM EST MyCode Nonconsent Documentation Tanisha Batres was approached in the clinic regarding participation in the MyCode Project and did notconsent. documented in this encounter Plan of Treatment Upcoming Encounters Date Type Department Care Team (Late st Contact Info) Description 12/16/2024 11:50 AM EDT Office Visit Family [facility], [facility] Fong [address] [place] [phone] Macy Juarez DO [address] [place] [address] Health Maintenance Due Date Last Done Comments DXA Scan 1937 Zoster Vaccines (1 of 2) 1987 Adult Wellness Visit 2003 COVID-19 Vaccine ( season) 2024 06/06/2021, 10/07/2020, 09/09/2020 Albumin/Creatinine Ratio 06/08/2025 06/08/2024 CKD PHOS USE SMARTSET 59051 06/08/2025 11/0 01/2024, 10/17/2022, 07/05/2021, Additional history exists Depression Screening 06/08/2025 06/08/2024 TSH 06/08/2025 06/08/2024, 0408/2023, 07/03/2023, Additional history exists DTap/Tdap Vaccines (2 - Td or Tdap) 06/26/2025 06/26/2015 CKD HGB USE SMARTSET 60557 07/14/202507/14, 07/07/2024, 07/05/2024, Additional history exists Pneumococcal [...] documented as of this encounter Care Teams Surgical Services Coordinator Relationship Specialty Start Date End Date Macy Juarez DO [address] [place] [address] PCP - General Family Medicine 01/13/19 documented as of this encounter
--- OUTSIDE RECORDS SUMMARY | 2024-12-01 11:46 | External Medical Summary ---
Author Name Unknown Address Unknown Organization K09[facility] [place] [address] Laboratory Report Ordering Provider Test Date Status FLOYD PEARCE 07/05/2024 05:59:02 Final Observation Date Value Abnormality Reference (Units ) Status BUN 07/05/2024 05:59:02 12 6-20 (mg/dL) Final Creatinine 07/05/2024 05:59:02 1.0 0.5-1.0 (mg/dL) Final Glomerular filtration rate/1.73 sq M.predicted [Volume Rate/Area] in Serum, Plasma or Blood by Creatinine-based formula (CKD-EPI) 07/05/2024 05:59:02 54 Below low normal >=60 (mL/min) Final eGFR is calculated based on the CKD-EPI 2020 equation. Sodium 07/05/2024 05:59:02 136 135-146 (m mol/L) Final Potassium 07/05/2024 05:59:02 4.7 3.5-5.1 (m mol/L) Final Cl 07/05/2024 05:59:02 98 98-107 (mm ol/L) Final CO2 07/05/2024 05:59:02 25 22-32 (mmo l/L) Final Anion gap 07/05/2024 05:59:02 13 7-15 (mmol /L) Final Glucose 07/05/2024 05:59:02 127 Above high normal 70 -120 (mg/dL) Final Calcium 07/05/2024 05:59:02 9.4 8.4-10.2 ( mg/dL) Final Performing Location [facility] [place] [address]
--- OUTSIDE RECORDS SUMMARY | 2024-12-01 11:47 | External Medical Summary | Summary of Care ---
Author Name Unknown Organization [facility] Address [address] [facility] [place] [address] Phone [phone] Care Team Providers Care Hardware Trainer Name Role Phone Macy Juarez DO Primary Care Provider [phone] Reason for Visit * Reason Onset Date Comments Referral 06/08/2024 [facility] Pain Encounter Details Date Type Department Care Team (Late st Contact Info) Description 06/08/2024 Telephone Centralized Clinical Pharmacy Services, Jefe George [address] [place] [address] [place] [address] [facility] [address] [facility] [place] [address] Referral ([facility] Pain) Allergies Active Allergy Reactions Criticality Noted Date Comments Citalopram Hydrobromide 12/15/2013 Nausea Tuberculin Purified Protein Derivative 04/06/2019 Swelling and redness around the injection site. documented as of this encounter (statuses as of 07/04/2024) Medications MIRALAX PO POWD as needed Acti [...] as of this encounter (statuses as of 07/04/2024) Active Problems Problem Noted Date Diagnosed Date [...] as of this encounter (statuses as of 07/04/2024) Resolved Problems Problem Noted Date Diagnosed Date [...] as of this encounter (statuses as of 07/04/2024) Immunizations Name Administration Dates Next Due COVID-19 [...] encounter Miscellaneous Notes * Telephone Encounter - Macy Juarez DO - 06/08/2024 2:02 PM EST Nursing can we add this * Telephone Encounter - Nikky Kraft [facility] - 06/08/2024 1:37 PM EST Zohaib, Received pain referral for patient. Patient on oxycodone, patient has not had an updated UDS. Patient needs an updated UDS prior to appointment being offered by mt. Please address and MTM will reachout once UDS obtained. Thank you, Nikky Kraft, Pharm D, [facility] Clinical Pharmacist 06/08/2024, 1:38 PM * Telephone Encounter - Bruinlda Cardoso [facility] - 06/08/2024 12:57 PM EST Procedure: PHARMACIST MEDS THERAPY MGMT REFERRAL OP Status: Needs Scheduling (Gizg-ly-Lelhmyb Pending) Requested appt date: Authorizing: Macy Juarez DO in [facility] Referral: [id number] (Authorized) Priority: Within 10 days (routine) Diagnosis: Chronic pain syndrome [G89.4] Comments Pharmacist Medication Therapy Management: Minimum frequency patient should be seen in person for medication management: as appropriate per clinical condition and patient status By my signature, I understand that my patient Tanisha Batres will have her medication therapy managedby the [facility] Medication Therapy Disease Management Clinic ([facility]) per established policies, procedures, and protocols. I also certify that this referral may serve as an initiation of service for the management of drug therapy in the above noted patient. [facility] providers will be responsible for scheduling patient visits, obtaining appropriate laboratory studies, and adjusting medication management therapy per patient's need, in addition to those roles spelled out in the clinic policy, procedures, and drug management protocols. I understand that the service provided by the [facility] Clinic is voluntary and have informed patient that they can refuse the service at their discretion. I am aware that the [facility] will provide me with a copy of the patient encounter via my [employer]. I authorize the [facility] Clinic to carry out these activities on my behalf. I consider this program to be a necessary part of the patient's medical care. Macy Juarez DO Order Specific Questions Referral Priority Within 10 days (routine) Where should this appointment be scheduled? Daniel Referring Provider Role: Primary Care Reason for Referral: Pain Pain Diagnosis: Back pain Chronic Pain Syndrome Fibromyalgia Further Details of Diagnosis: chronic joint pain, and back pain. Pain Treatment Options: Opioids and/or Non-opioids Does patient have a signed GONSALO? This is required for patients on opioids Yes Has patient completed a Urine Drug Screen in the past 3 months? This is required for patients on opioids Yes Pain Treatment Goal: Med Optimization documented in this encounter Plan of Treatment Upcoming Encounters Date Type Department Care Team (Late st Contact Info) Description 12/16/2024 11:50 AM EDT Office Visit [facility] Hernan Fong [address] [place] [phone] Macy Juarez DO [address] [place] [id number] Scheduled Orders Name Type Priority Associated Diagnoses Orde r Schedule PAIN MANAGEMENT DRUG PANEL, URINE W/ INTERPRETATION Lab Routine MEDICATION USE AGREEMENT Somnolence Expected: 06/08/2024 (Approximate), Expires: 06/08/2025 Health Maintenance Due Date Last Done Comments DXA Scan 1937 Zoster Vaccines (1 of 2) 1987 Adult Wellness Visit 2003 COVID-19 Vaccine ( season) 2024 06/06/2021, 10/07/2020, 09/09/2020 Albumin/Creatinine Ratio 06/08/2025 06/08/2024 CKD PHOS USE SMARTSET 49549 06/08/2025 1101/2024, 10/17/2022, 07/05/2021, Additional history exists Depression Screening 06/08/2025 06/08/2024 TSH 06/08/2025 06/08/2024, 0408/2023, 07/03/2023, Additional history exists DTap/Tdap Vaccines (2 - Td or Tdap) 06/26/2025 06/26/2015 CKD HGB USE SMARTSET 01657 07/01/202507/01, 06/08/2024, 11/12/2023, Additional history exists Pneumococcal Vaccine: 65+ Years [...] as of this encounter Visit Diagnoses Diagnosis MEDICATION USE AGREEMENT- Primary Somnolence Other alteration of consciousness documented in this encounter Care Teams Hardware Trainer Relationship Specialty Start Date End Date Macy Juarez DO [address] [place] [address] PCP - General Family Medicine 01/13/19 documented as of this encounter
--- OUTSIDE RECORDS SUMMARY | 2024-12-01 11:47 | External Medical Summary | Summary of Care ---
Author Name Unknown Organization [facility] Address [address] [facility] [address] Phone [phone] Care Team Providers Care Warp Dyeing Tender Name Role Phone Macy Juarez DO Primary Care Provider [phone] Reason for Visit * Reason Onset Date Comments Order Request 06/28/2024 Encounter Details Date Type Department Care Team (Late st Contact Info) Description [facility]/28[facility] [place] [address] Macy Juarez DO [address] [facility] [place] [address] Order Request Allergies Active Allergy Reactions Criticality Noted Date Comments Citalopram Hydrobromide 12/15/2013 Nausea Tuberculin Purified Protein Derivative 04/06/2019 Swelling and redness around the injection site. documented as of this encounter (statuses as of 07/01/2024) Medications MIRALAX PO POWD as needed Acti [...] as of this encounter (statuses as of 07/01/2024) Active Problems Problem Noted Date Diagnosed Date [...] as of this encounter (statuses as of 07/01/2024) Resolved Problems Problem Noted Date Diagnosed Date [...] as of this encounter (statuses as of 07/01/2024) Immunizations Name Administration Dates Next Due COVID-19 [...] Telephone Encounter - Macy Juarez DO - 07/01/2024 1:29 PM EST Ordered and yes can do at home * Telephone Encounter - Madhavi Burnette CPhT - 06/28/2024 2:23 PM EST Pts daughter calling to schedule MTDM pain management appt. UDS needs to be ordered prior to referral approval. Also, pts daughter is asking if the pt has to come into the office or if they can be given a specimen cup. Pt has very limited mobility and is in a wheelchair. Please advise. Thank you, Madhavi Burnette CPhT Rice Milling Supervisor II [facility] ([facility]) [phone] 06/28/2024,2:25 PM documented in this encounter Plan of Treatment Upcoming Encounters Date Type Department Care Team (Late st Contact Info) Description 12/16/2024 11:50 AM EDT [facility] [address] [facility] [place] [address] Macy Juarez DO [address] [facility] [place] [id number] Scheduled Orders Name Type Priority Associated Diagnoses Orde r Schedule TOXICOLOGY, URINE SCREEN W/ CONFIRMATION Lab Routine Chronic prescription opiate use Expected: 07/02/2024, Expires: 10/06/2024 Health Maintenance Due Date Last Done Comments DXA Scan 1937 Zoster Vaccines (1 of 2) 1987 Adult Wellness Visit 2003 COVID-19 Vaccine ( season) 2024 06/06/2021, 10/07/2020, 09/09/2020 Albumin/Creatinine Ratio 06/08/2025 06/08/2024 CKD PHOS USE SMARTSET 50471 06/08/2025 11/0 01/2024, 10/17/2022, 07/05/2021, Additional history exists Depression Screening 06/08/2025 06/08/2024 TSH 06/08/2025 06/08/2024, 0408/2023, 07/03/2023, Additional history exists DTap/Tdap Vaccines (2 - Td or Tdap) 06/26/2025 06/26/2015 CKD HGB USE SMARTSET 65152 07/01/202507/01, 06/08/2024, 11/12/2023, Additional history exists Pneumococcal [...] of this encounter Visit Diagnoses Diagnosis Chronic prescription opiate use- Primary documented in this encounter Additional Health Concerns 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
--- OUTSIDE RECORDS SUMMARY | 2024-12-01 11:47 | External Medical Summary ---
Author Name Unknown Address Unknown Organization K09:[facility] [address] Laboratory Report Ordering Provider Test Date Status HY,DEPAMPHILIS 07/01/2024 11:18:57 Final reordered d/t different Observation Date Value Abnormality Reference (Units ) Status WBC, Total 07/01/2024 11:18:57 7.09 4.00-10.8 0 (K/uL) Final RBC 07/01/2024 11:18:57 3.80 3.85-5.15 (M/uL) Final Hemoglobin 07/01/2024 11:18:57 12.2 12.0-15.3 (g/dL) Final HCT 07/01/2024 11:18:57 37.7 36.0-45.2 (%) Final MCV 07/01/2024 11:18:57 99.2 81.5-97.5 (fL) Final MCH 07/01/2024 11:18:57 32.1 27.0-34.0 (pg) Final MCHC 07/01/2024 11:18:57 32.4 32.0-36.0 (g/dL) Final RDW 07/01/2024 11:18:57 13.3 11.5-15.5 (%) Final Platelets 07/01/2024 11:18:57 125 Below low normal 140 -400 (K/uL) Final MPV 07/01/2024 11:18:57 9.5 6.6-11.1 ( fL) Final Performing Location [facility] [address]
--- OUTSIDE RECORDS SUMMARY | 2024-12-01 11:47 | External Medical Summary ---
Author Name Unknown Address Unknown Organization K09[facility] [place] [address] Laboratory Report Ordering Provider Test Date Status HY,DEPAMPHILIS 07/01/2024 11:18:57 Final reordered d/t different Observation Date Value Abnormality Reference (Units ) Status BUN 07/01/2024 11:18:57 13 6-20 (mg/dL) Final Creatinine 07/01/2024 11:18:57 1.0 0.5-1.0 (mg/dL) Final Glomerular filtration rate/1.73 sq M.predicted [Volume Rate/Area] in Serum, Plasma or Blood by Creatinine-based formula (CKD-EPI) 07/01/2024 11:18:57 52 Below low normal >=60 (mL/min) Final eGFR is calculated based on the CKD-EPI 2020 equation. Sodium 07/01/2024 11:18:57 132 Below low normal 135 -146 (mmol/L) Final Potassium 07/01/2024 11:18:57 5.0 3.5-5.1 (m mol/L) Final Result may be falsely elevat ed due to hemolysis. Cl 07/01/2024 11:18:57 98 98-107 (mm ol/L) Final CO2 07/01/2024 11:18:57 20 Below low normal 22- 32 (mmol/L) Final Anion gap 07/01/2024 11:18:57 14 7-15 (mmol /L) Final Glucose 07/01/2024 11:18:57 207 Above high normal 70 -120 (mg/dL) Final Calcium 07/01/2024 11:18:57 9.0 8.4-10.2 ( mg/dL) Final Performing Location [facility] [place] [address]
--- OUTSIDE RECORDS SUMMARY | 2024-12-01 11:47 | External Medical Summary | Summary of Care ---
Author Name Unknown Organization [facility] Address [address] [facility] [address] Phone [phone] Care Team Providers Care Fisher Hand Line Name Role Phone Macy Juarez DO Primary Care Provider [phone] Reason for Visit * Reason Onset Date Comments Order Request 06/28/2024 Encounter Details Date Type Department Care Team (Late st Contact Info) Description [facility]/28[facility]20[facility] [address] [facility] [place] [address] Macy Juarez DO [address] [facility] [place] [address] Order Request Allergies Active [...] encounter Miscellaneous Notes * Telephone Encounter - Kaur Cardenas OSA - 07/04/2024 5:56 PM EST Spoke to patient's daughter, Tatiana, and let her know that she can bead picker a specimen cup and drop it off when completed. Madhavi: Please advise MTDM scheduling to call Daughter, Tatiana, at her cell number ([phone]) as patientis not at home and no one has reached out. I am thinking that someone is calling and they are calling her home number and her daughter is the one who sets up appointments. Thank you. * Telephone Encounter - Macy Juarez DO [...] Please advise. Thank you, Madhavi Burnette CPhT Flask Pusher II [facility] ([facility]) [phone] 06/28/2024,2:25 PM documented in this encounter Plan of Treatment Upcoming Encounters Date Type Department Care Team (Late st Contact Info) Description 12/16/2024 11:50 AM EDT [facility]ong [address] [place] [address] Macy Juarez DO [address] [place] [phone] Scheduled Orders Name Type Priority Associated Diagnoses Orde r Schedule TOXICOLOGY, URINE SCREEN W/ CONFIRMATION Lab Routine Chronic prescription opiate use Expected: 07/02/2024, Expires: 10/06/2024 Health Maintenance Due Date Last Done Comments DXA Scan 1937 Zoster Vaccines (1 of 2) 1987 Adult Wellness Visit 2003 COVID-19 Vaccine ( season) 2024 06/06/2021, 10/07/2020, 09/09/2020 Albumin/Creatinine Ratio 06/08/2025 06/08/2024 CKD PHOS USE SMARTSET 26590 06/08/2025 11/01/2024, 10/17/2022, 07/05/2021, Additional history exists Depression Screening 06/08/2025 06/08/2024 TSH 06/08/2025 06/08/2024, 11/01, 07/03/2023, Additional history exists DTap/Tdap Vaccines (2 - Td or Tdap) 06/26/2025 06/26/2015 CKD HGB USE SMARTSET 79518 07/01/202507/01, 06/08/2024, 11/12/2023, Additional history exists Pneumococcal [...] documented as of this encounter Care Teams Fisher Hand Line Relationship Specialty Start Date End Date Macy Juarez DO [address] [facility] [place] [address] PCP - General Family Medicine 01/13/19 documented as of this encounter
--- OUTSIDE RECORDS SUMMARY | 2024-12-01 11:47 | External Medical Summary | Summary of Care ---
Author Name Unknown Organization [facility] Address [address] [facility] [place] [address] Phone [phone] Care Team Providers Care Estate Planning Paralegal Name Role Phone Macy Juarez DO Primary Care Provider [phone] Reason for Visit * Reason Onset Date Comments Referral 06/08/2024 [facility] Pain Encounter Details Date Type Department Care Team (Late st Contact Info) Description 06/08/2024 Telephone Centralized Clinical Pharmacy Services, Jefe George [address] [place] [address] [place] [address] [facility] [address] [facility] [place] [address] Referral ([facility] Pain) Allergies Active Allergy Reactions Criticality Noted [...] encounter Miscellaneous Notes * Telephone Encounter - Zenobia Garces LPN - 07/04/2024 10:22 AM EST Pt currently inpatient at rehab facility * Telephone Encounter - Macy Juarez DO - 06/08/2024 2:02 PM EST Nursing can we add this * Telephone Encounter - Nikky Kraft [facility] - 06/08/2024 1:37 PM EST Keshawnlo, Received pain referral for patient. Patient on oxycodone, patient has not had an updated UDS. Patient needs an updated UDS prior to appointment being offered by mt. Please address and MTM will reachout once UDS obtained. Thank you, Nikky Kraft, Pharm D, [facility] 06/08/2024, 1:38 PM * Telephone Encounter - Brunilda Cardoso [facility] - 06/08/2024 12:57 PM EST Procedure: PHARMACIST MEDS THERAPY MGMT REFERRAL OP Status: Needs Scheduling (Pied-ly-Fdxiequ Pending) Requested appt date: Authorizing: Macy Juarez DO in [facility] Referral: [id number] (Authorized) Priority: Within 10 days (routine) Diagnosis: Chronic pain syndrome [G89.4] Comments Pharmacist Medication Therapy Management: Minimum frequency patient should be seen in person for medication management: as appropriate per clinical condition and patient status By my signature, I understand that my patient Tanisha Batres will have her medication therapy managedby the [facility] Medication Therapy Disease Management Clinic ([facility]) per established policies, procedures, and protocols. I also certify that this referral may serve as an initiation of service for the management of drug therapy in the above noted patient. [facility] providers will be responsible for scheduling patient visits, obtaining appropriate laboratory studies, and adjusting medication management therapy per patient's need, in addition to those roles spelled out in the clinic policy, procedures, and drug management protocols. I understand that the service provided by the [facility] Clinic is voluntary and have informed patient that they can refuse the service at their discretion. I am aware that the [facility] Clinic will provide me with a copy of the patient encounter via my [employer]. I authorize the [facility] to carry out these activities on my behalf. I consider this program to be a necessary part of the patient's medical care. Macy Juarez DO Order Specific Questions Referral Priority Within 10 days (routine) [facility] this [facility] be scheduled[facility] Referring Provider Role: Primary Care Reason for [...] Description 12/16/2024 11:50 AM EDT Office Visit [facility] [address] [place] [phone] Macy Juarez DO [address] [place] [place] [address] Scheduled Orders Name Type Priority Associated Diagnoses [...] Ratio 06/08/2025 06/08/2024 CKD PHOS USE SMARTSET 01045 06/08/2025 11/0 01/2024, 10/17/2022, 07/05/2021, Additional history exists Depression Screening 06/08/2025 06/08/2024 TSH 06/08/2025 06/08/2024, 11/01, 07/03/2023, Additional history exists DTap/Tdap Vaccines (2 - Td or Tdap) 06/26/2025 06/26/2015 CKD HGB USE SMARTSET 23864 07/01/202507/01, 06/08/2024, 11/12/2023, Additional history exists Pneumococcal [...] alteration of consciousness documented in this encounter Additional Health Concerns 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
--- NOTE | 2024-12-01 11:51 | CT Scan Report ---
CT SCAN OF THE ABDOMEN AND PELVIS WITH IV CONTRAST CLINICAL HISTORY: Nausea. Constipation. COMPARISON STUDY: Right upper quadrant ultrasound January 11, 2010 and renal ultrasound May 20 0 TECHNIQUE: Following the IV administration of 94 cc of Optiray 320, CT scan of the abdomen and pelvi s is performed from the lung bases to the proximal femora. Images are reviewed in the axial, sagittal , and coronal planes. IV contrast was administered without complication. A dose lowering technique wa s utilized adhering to the principles of ALARA. CT DOSE: 1322.95 mGy.cm FINDINGS: Lung bases: The size of the heart is normal. There is no pericardial effusion. A few small right lowe r lobe pulmonary nodules measure up to 6 mm. These are low suspicion. Liver: The liver morphology is normal and there are no hepatic lesions. There is no intrahepatic bili jonas ductal dilatation. The hepatic veins and portal veins are patent. Gallbladder: Grossly unremarkable. Exam mildly compromised by motion artifact. Spleen: Normal in size and attenuation. Pancreas: There are no pancreatic lesions. No pancreatic ductal dilatation is present. Adrenal glands: Unremarkable. Kidneys: 2.4 cm attenuation right renal lesion represents a cyst, shown on prior ultrasound. There is no hydronephrosis. The kidneys enhance symmetrically. Abdominal vasculature: The caliber of the abdominal aorta is normal. Major vasculature is patent. The re is moderate atherosclerotic plaque within the abdominal aorta. Bowel: The caliber and wall thickness of small and large bowel are normal. The appendix is not well v isualized. Moderate circumferential wall thickening of the rectum with moderate perirectal stranding and a small amount of presacral fluid is noted. There is no extraluminal gas. There is no fluid colle ction. Peritoneum: There is no intraperitoneal free air or abdominal ascites. Lymphadenopathy: None. Skeletal structures: No lytic or blastic lesions are seen. Severe right hip osteoarthritis is inciden tally noted. IMPRESSION: 1. Moderate rectal wall thickening and associated inflammation. This represents a nonspecific proctit is. No extraluminal gas. No fluid collections. Follow-up colonoscopy once symptoms resolve is recomme nded to exclude the less likely possibility of an underlying rectal lesion. 2. No bowel obstruction. No additional sites of bowel wall thickening. ACT 112: Negative or not required by law. Electronically signed by: Poncho Estrella M.D. 12/01/2024 11:49 AM
[2024-12-01] MEDS: FUROSEMIDE 40 MG/4 ML VIAL IV ONE (12:04)
--- NOTE | 2024-12-01 12:38 | History & Physical Report ---
Date of Service December 01, 2024 Assessment & Plan (1) Multifocal atrial tachycardia: (2) Hypoxia: (3) Hypertensive urgency: (4) Constipation: (5) Nausea and vomiting: (6) Hypothyroidism: (7) GERD (gastroesophageal reflux disease): (8) Lymphedema: (9) Chronic pain syndrome: (10) Fibromyalgia: (11) Elevated troponin: Plan 89 year old female with PMH significant for HTN, HLD, CKD III, hypothyroidism, GERD, OA, bilateral carpal tunnel syndrome, fibromyalgia, chronic pain syndrome, lymphedema who presented to the ED today with constipation, nausea and vomiting since yesterday and being admitted for further work up of tachycardia. Multifocal atrial tachycardia HR on telemetry ranging from 90s-130s Could be due to missed doses of metoprolol, dehydration from N/V, or PE Abnormal EKG finding of PACs versus A fib Elevated troponin 38, 43, repeat pending at 1800 Metoprolol 50mg x1 and repeat EKG this afternoon Increase metoprolol from 25mg bid to 50mg bid Obtain echo Obtain daily EKG Repleted mag x1; recheck in AM Cardiology consult - agree with above plan; CHADS-VASC2 score of 5 but risk for bleeding - monitor tele and echo to determine if anticoagulation is needed Hypoxia 84% on RA in ER CXR and VBG negative; lungs clear; no respiratory symptoms O2 as needed to maintain sats >92% Encourage ISP D dimer elevated - bilateral LE doppler and CT PE pending Constipation CT abd revealed moderate rectal wall thickening and inflammation Miralax bid, Senna S bid, PRN enema daily Nausea and vomiting Likely secondary to constipation IV zofran PRN Clear liquids Hypertensive urgency Metoprolol increased from 25mg bid to 50mg bid Monitor BPs PRN labetolol Hypothyroidism TSH stable Continue levothyroxine GERD Continue pantoprazole and famotidine Chronic pain syndrome Follows with [facility] pain management monthly Current meds include oxycodone 10mg bid, gabapentin 300mg tid, diclofenac gel PRN, tylenol PRN - continue Endorses weakness due to pain - PT/OT consults Lymphedema BLE edema at baseline per pt/daughter BNP elevated likely due to this Continue furosemide 20mg daily DVT Prophylaxis: SQ heparin Code Status: DNR/DNI - As per discussion at bedside with the patient. PCP: Dr Macy Richey DO Disposition: admit to tele Patient seen in collaboration with Dr Ellington. Please see addendum. I spent a total of 75 minutes coordinating, documenting and providing care for this patient excluding time spent in the performance of separately billed services or time spent by another provider/QHP. Admission and Anticipated Discharge Date Admission Date: 12/01/2024 History of Present Illness Chief Complaint: nausea and constipation Primary Care Provider: Macy Juarez DO 89 year old female with PMH significant for HTN, HLD, CKD III, hypothyroidism, GERD, OA, bilateral carpal tunnel syndrome, fibromyalgia, chronic pain syndrome, lymphedema who presented to the ED today with constipation, nausea and vomiting since yesterday. Patient reports that she has baseline constipation where she only has BMs every 3-4 days but yesterday had been 6 days since her last BM and she was getting uncomfortable. She takes Miralax daily but also added ducosate, prune juice, and a suppository yesterday with only minimal relief of small hard stools. She also endorses painful hemorrhoids that she has been dealing with for years. She also had nausea and vomiting since yesterday where she has vomited multiple times a day and notes that it has been brown due to drinking prune juice. She has not had much appetite and has not eaten or drank much since y . She has not taken her medications aside from pantoprazole since the day before yesterday due to nausea and vomiting. She denies recent illness, fevers, chills, cough, cold symptoms, chest pain, palpitations, SOB, abdominal pain, dysuria, hematochezia. She currently lives at home alone and notes increasing weakness. She is mostly wheelchair bound with occasional walker use, but she has not tolerated that much due to chronic pain. Her daughter and son-in-law live close by and help manage her medications. Allergies Allergy/AdvReac Type Severity Reaction Status Date / Time No Known Allergies Allergy Unverified 12/01/24 12:03 Home Medications Medication Instructions Recorded Confirmed Type cholecalciferol (vitamin D3) 25 25 mcg PO DAILY 01/24/20 12/01/24 History mcg (1,000 unit) capsule (Vitamin D3) furosemide 20 mg tablet 20 mg PO DAILY 01/24/20 12/01/24 History mecobalamin (vitamin B12) 1,000 1,000 mcg PO DAILY 01/24/20 12/01/24 History mcg chewable tablet metoprolol tartrate 25 mg tablet 25 mg PO BID 01/24/20 12/01/24 History pantoprazole 40 mg tablet,delayed 40 mg PO DAILYBB 01/24/20 12/01/24 History release polyethylene glycol 3350 17 17 gm PO DAILY 01/24/20 12/01/24 History gram/dose oral powder (Miralax) famotidine 20 mg tablet 20 mg PO HS 12/01/24 12/01/24 History gabapentin 300 mg capsule 300 mg PO TID 12/01/24 12/01/24 History levothyroxine 75 mcg tablet 75 mcg PO DAILYBB 12/01/24 12/01/24 History oxycodone 10 mg tablet,crush 10 mg PO AMPM 12/01/24 12/01/24 History resistant,extended release 12 hr (OxyContin) Past Med/Surg History Problem List (Updated 12/01/24 @ 16:56 by CHIKIS Monaco) Hypertensive urgency Elevated troponin Multifocal atrial tachycardia Nausea and vomiting Constipation Chronic pain syndrome Hypothyroidism Tachycardia GERD (gastroesophageal reflux disease) Fibromyalgia Hypertension Hypoxia (Acute) Lymphedema (Chronic) Medical History (Updated 12/01/24 @ 16:56 by CHIKIS Monaco) Arthritis Arthritis of right hip Greater trochanteric pain syndrome Chronic venous insufficiency Skin tear of right forearm without complication Lower extremity edema Venous ulcer of left leg Traumatic open wound of left lower leg with delayed healing Macular degeneration Cataract (lens) fragments in eye following cataract surgery, bilateral Surgical History H/O: hysterectomy S/P right knee arthroscopy H/O hemorrhoidectomy History of tonsillectomy Social History (Updated 12/01/24 @ 14:59 by CHIKIS Monaco) Smoking Status: Never smoker Hx Alcohol Use: No Hx Substance Use: No Preferred Language: Slovenian Communication Ability: Effective Hearing Ability: Hard of Hearing Hat Sizer Required: No Beliefs That Will Affect Care: None Current Living Situation: Alone Other Information That Helps Us Care for You: No Feels Safe at Home: Yes Safety Concerns: Feels Safe At This Time Childhood Exposure to Second-Hand Smoke: No Assistive Devices: Raised Toilet Seat and Walker Review of Systems Review of Systems: All systems reviewed & are unremarkable except as noted in HPI & below Physical Exam Physical Exam: General/Psych: obese, sitting up in bed, NAD, conversing easily, euthymic affect Head: normocephalic, atraumatic Eyes: normal inspection, PERRL, conjunctivae pink, anicteric sclerae ENT: external ear and nose normal, oropharynx normal Neck: normal visual inspection, trachea midline, no thyromegaly Respiratory: normal respiratory effort, lungs clear to auscultation, no wheeze/rales/rhonchi, no accessory muscle use Cardiovascular: irregular rate and rhythm, no murmur/rub/gallop, no JVD Extremities: no cyanosis or clubbing, normal peripheral pulses, BLE edema that is baseline per pt/daughter Abdomen/GI: normal bowel sounds, soft, nontender, no hepatosplenomegaly Neurologic/MSK: A+Ox3, motor strength 5/5, moves all extremities Skin: no rashes, normal color, warm and dry Results & Data Results & Data Vital Signs (Past 12 Hours) Vital Signs Temp Pulse Resp BP Pulse Ox O2 Del Method O2 Flow Rate 12/01/24 12:00 177/85 H 12/01/24 12:00 177/85 H 12/01/24 12:00 177/85 H 12/01/24 12:00 177/85 H 12/01/24 12:00 177/85 H 12/01/24 12:00 177/85 H 12/01/24 12:00 105 H 27 H 98 Nasal Cannula 12/01/24 11:51 86 25 H 98 Nasal Cannula 12/01/24 11:42 113 H 28 H 100 Nasal Cannula 12/01/24 11:39 171/77 H 12/01/24 11:39 171/77 H 12/01/24 11:39 171/77 H 12/01/24 11:36 97 Nasal Cannula 12/01/24 11:21 92 H 23 100 Nasal Cannula 12/01/24 11:06 93 H 24 100 Nasal Cannula 12/01/24 11:00 160/106 H 12/01/24 11:00 160/106 H 12/01/24 10:54 97 H 24 100 Nasal Cannula 2 12/01/24 10:21 76 16 98 Nasal Cannula 2 12/01/24 10:17 84 L Room Air 12/01/24 10:08 91 H 12/01/24 10:01 170/110 H 84 L Room Air 12/01/24 09:57 112 H 19 94 12/01/24 09:54 37.3 C 120 H 15 131/106 H 95 Room Air 12/01/24 09:53 131/106 H 12/01/24 09:53 131/106 H Laboratory Results Short CBC 12/01/24 Range/Units 09:55 WBC 11.56 H (4.8-10.8) K/ul Hgb 13.0 (12.0-16.0) g/dl Hct 36.8 L (37.0-47.0) % Plt Count 109 L (130-400) K/uL BMP 12/01/24 09:55 Sodium 134 L Potassium 4.1 Chloride 101 Carbon Dioxide 27 BUN 11 Creatinine 0.85 Glucose 190 H Calcium 9.1 Liver Function 12/01/24 Range/Units 09:55 Total Bilirubin 1.6 H (0.2-1.0) mg/dl AST 20 (13-39) U/L ALT 6 L (7-52) U/L Alkaline Phosphatase 105 H (34-104) U/L Albumin 3.8 (3.4-5.0) gm/dl I have independently reviewed and interpreted patient's admitting labs including CBC, CMP, PTT, PT/INR, VBG, BNP, troponin. Diagnostic Findings Abdomen/Pelvis CT 12/01/24 09:56 CT SCAN OF THE ABDOMEN AND PELVIS WITH IV CONTRAST CLINICAL HISTORY: Nausea. Constipation. COMPARISON STUDY: Right upper quadrant ultrasound January 11, 2010 and renal ultrasound May 20, 2010 TECHNIQUE: Following the IV administration of 94 cc of Optiray 320, CT scan of the abdomen and pelvis is performed from the lung bases to the proximal femora. Images are reviewed in the axial, sagittal, and coronal planes. IV contrast was administered without complication. A dose lowering technique was utilized adhering to the principles of ALARA. CT DOSE: 1322.95 mGy.cm FINDINGS: Lung bases: The size of the heart is normal. There is no pericardial effusion. A few small right lower lobe pulmonary nodules measure up to 6 mm. These are low suspicion. Liver: The liver morphology is normal and there are no hepatic lesions. There is no intrahepatic biliary ductal dilatation. The hepatic veins and portal veins are patent. Gallbladder: Grossly unremarkable. Exam mildly compromised by motion artifact. Spleen: Normal in size and attenuation. Pancreas: There are no pancreatic lesions. No pancreatic ductal dilatation is present. Adrenal glands: Unremarkable. Kidneys: 2.4 cm attenuation right renal lesion represents a cyst, shown on prior ultrasound. There is no hydronephrosis. The kidneys enhance symmetrically. Abdominal vasculature: The caliber of the abdominal aorta is normal. Major vasculature is patent. There is moderate atherosclerotic plaque within the abdominal aorta. Bowel: The caliber and wall thickness of small and large bowel are normal. The appendix is not well visualized. Moderate circumferential wall thickening of the rectum with moderate perirectal stranding and a small amount of presacral fluid is noted. There is no extraluminal gas. There is no fluid collection. Peritoneum: There is no intraperitoneal free air or abdominal ascites. Lymphadenopathy: None. Skeletal structures: No lytic or blastic lesions are seen. Severe right hip osteoarthritis is incidentally noted. IMPRESSION: 1. Moderate rectal wall thickening and associated inflammation. This represents a nonspecific proctitis. No extraluminal gas. No fluid collections. Follow-up colonoscopy once symptoms resolve is recommended to exclude the less likely possibility of an underlying rectal lesion. 2. No bowel obstruction. No additional sites of bowel wall thickening. ACT 112: Negative or not required by law. Electronically signed by: Poncho Estrella M.D. 12/01/2024 11:49 AM Chest X-Ray 12/01/24 10:23 XR chest 1V portable CLINICAL HISTORY: hypoxia COMPARISON STUDY: 06/29/2024 FINDINGS: Single view chest is unchanged. There is no acute process identified radiographically. There is no air space opacity, pleural effusion, or pneumothorax. There is no atelectasis. The right diaphragm is elevated most likely due to an eventration. Heart size is normal. No significant pulmonary vascular congestion. IMPRESSION: Stable exam; no acute process ACT 112: Negative or not required by law. Electronically signed by: Flory Fleming M.D. 12/01/2024 10:33 AM Code Status & VTE Plan Code Status DNR/DNI Supervising Physician Co-Signing Physician Notes Patient is an 89-year-old female with history of CKD stage III, lymphedema, chronic venous stasis, hypothyroidism, GERD, chronic pain syndrome, fibromyalgia and other medical problems presents with history of nausea and vomiting associated with constipation. History is also obtained from patient's family at bedside. Patient's family reports that she has been constipated for about 6 days duration and required enema yesterday at home after which patient had large BM per family. She continues to complain of nausea, vomiting but denies any abdominal pain, fever, chills. She also reports having some hemorrhoidal pain. Patient admits to missing to take her home medications for at least last few days secondary to nausea, vomiting. Patient also denies any palpitations, chest pain, dyspnea, dysuria, hematuria. She was transiently hypoxic while in ED which resolved. Patient's family reports her leg edema due to lymphedema has been unchanged. She remains tachycardic with PACs on monitor. I personally reviewed blood work and imaging studies. Noted WBC 11.5 6K, platelet count 109K, sodium 134, glucose 190, HbA1c 5.7, total bilirubin 1.6, alkaline phosphatase 105, troponin 38.3, BNP 625, TSH 1.5. UA abnormal+ leukocyte esterase, increased WBC count. COVID, influenza, RSV screen negative. CT abdomen showed moderate rectal wall thickening findings suggestive of proctitis but otherwise no signs of obstruction. Chest x-ray within normal limits. EKG chest history of atrial tachycardia with some PACs. Physical Exam: Vitals signs as noted above General Appearance: Morbidly obese, no apparent distress Head: normocephalic, Atraumatic Eyes: normal inspection, EOMI Neck: supple, Trachea midline Respiratory/Chest: Decreased breath sounds, CTA, No accessory muscle use Cardiovascular: Distant heart sounds, tachycardia, No murmur Abdomen/GI:Soft, Non tender, Bowel sounds present Extremities/Musculoskeletal:normal inspection,+ B/L lymphedema,+ tender Neurologic/Psych:AAOX3, grossly no focal neurological deficits Skin: normal color, warm Hypertensive urgency likely situational/noncompliance Nausea, vomiting, constipation Proctitis likely secondary to constipation Hyperglycemia/prediabetes HbA1c 5.7 Mild leukocytosis, thrombocytopenia Atrial tachycardia/PACs Transient hypoxia DD: Obesity hypoventilation syndrome,? underlying JOSELO Chronic lymphedema Chronic pain syndrome on chronic opioids Morbid obesity Mild troponin elevation likely secondary to tachycardia/demand ischemia D-dimer pending--if elevated will consider Doppler, CTA Resume home metoprolol at increased dose 50 mg twice daily, continue Lasix, will add IV labetalol as needed Echo pending Started on bowel regimen to help with constipation Clear liquid diet for now, advance as tolerated Monitor volume status, I's and O's, daily weight Cardiology evaluation requested Abnormal urinalysis, patient denies any urinary symptoms will hold off on antibiotics for now Will recommend sleep study as outpatient PT OT, fall precautions Consider to hold opioids if continues to have constipation issues Recommended to get colonoscopy eventually as outpatient given rectal wall thickening with associated inflammation on CT I personally interviewed and examined the patient at bedside. I have reviewed the advanced practitioner's documentation on the date of service referred in note and agree with plan. Patient's care is coordinated with Susan DIOP. Please refer to the documentation above for details of patient's presentation and for discussion of other issues. I spent a total [id number] coordinating, documenting, and providing care for this patient excluding time spent in the performance of separately billed services or time spent by another provider/QHP.
[2024-12-01 12:53] LABS: Troponin I High Sensitivity 43.8 pg/ml (0-14)
[2024-12-01 13:03] LABS: Appearance Urine Clear (Clear); Bacteria Urine Automated None Seen (None Seen); Bilirubin Urine Negative (Negative); Blood Urine 3+ (Negative); Cast Urine Automated 0-2 /lpf (0-2); Color Urine Yellow; Epithelial Cell Urine Auto 0-2 /hpf (0-2); Glucose Urine UA Negative (Negative); Ketones Urine Negative (Negative); Leukocyte Esterase Urine 3+ (Negative); Nitrite Urine Negative (Negative); Protein Urine Negative (Negative); Specific Gravity Urine 1.013 (1.000-1.030); Urobilinogen Urine Negative (Negative); WBC Urine Automated 21-50 /hpf (0-5); pH Urine 7.5 (4.5-7.5)
[2024-12-01 13:13] LABS: Estimated Average Glucose 117 mg/dl; Hemoglobin A1C 5.7 % (4.5-5.6)
[2024-12-01 13:23] LABS: Thyroid Stimulating Hormone 1.552 uIu/ml (0.300-4.500)
[2024-12-01 13:29] LABS: Magnesium 1.7 mg/dl (1.7-2.4)
[2024-12-01] MEDS: METOPROLOL TARTRATE 50 MG TAB PO STA (13:59)
[2024-12-01] MEDS: MAGNESIUM SULFATE / D5W 1 GM/100 ML BAG IV ONE (13:59)
--- NOTE | 2024-12-01 14:27 | Cardiology Consultation ---
Date of Consultation December 01, 2024 Assessment & Plan (1) Multifocal atrial tachycardia: (2) Elevated troponin: (3) Nausea and vomiting: (4) Constipation: Plan Assessment: 89 year old female admitted for 2 day history of nausea, vomiting, inability to take oral medications and constipation. Initial EKG suggestive of atrial arrhythmia, cardiology consulted for further assessment and recommendations. Plan: 1. Multifocal atrial tachycardia: -patient with known history of PAC's and likely PAT at baseline per review of PCP notes. She was placed on Metoprolol Tartrate outpatient without issue. No prior history of A-fib -Initial EKG on arrival suggestive of A-fib in the setting of acute dehydration, poor oral intake with missed doses of her beta ramo, and possible acute infectious process. -Repeat EKG approx 50 min later as well as review of telemetry shows SR with frequent PAC and atrial tachycardia. -Patient carries a history of falls, but no prior bleeding issues. -Received one time dose of Metoprolol tartrate 50mg in the ER. Would recommend that we continue -Received one time dose of IV Lasix in the ER. difficult to determine patient's volume status due to chronic lymphedema; however, family states this is her baseline. No other findings on exam that suggest volume overload. Reassess volume status in the AM before further diuresis in the setting of acute dehydration and possible acute infectious process. -Obtain echocardiogram to assess overall structure and function. -discussed the pathophysiology of Atrial tachycardia and increased risk to develop atrial fibrillation. CHADS-VASC 2 score of 5; however, also discussed concerns for advanced age, falls, risk for bleeding. Discussed with family that we will obtain echo and continue to monitor closely on telemetry to determine if anticoagulation would be needed. 2. Elevated Troponin -mild troponin elevation with no acute ST-T wave changes on EKG -Patient denies any chest pain, pressure or angina equivalent -Continue to trend troponin to peak -Obtain resting echocardiogram for further evaluation. -Hypertensive on record. Has just received her PO anti-hypertensive medications, will monitor. may need to add additional PO agents for better control vs IV agent if not maintaining PO intake. needs effective pain control 3. Nausea and vomiting 4. Constipation -Multifactorial -No evidence of obstruction of ABD/Pelvis CT -Viral/acute infectious process? -Chronic constipation due to pain medication regimen -Continued management per primary team Case has been discussed with Dr. Huang. Further recommendations regarding plan of care as per his assessment. I spent a total of 40 minutes on the date of service in preparation, delivery, documentation of the care provided to the patient excluding any time spent in the performance of separately billed services. CHIKIS Ramirez [facility] [employer] Supervising Physician Co-Signing Physician Notes Patient was seen and personally examined, chart, medications, telemetry reviewed. Full assessment and plan by advanced providers as outlined. Care and management discussed and personally endorsed 89-year-old female presenting predominantly symptoms of nausea and vomiting inability to take oral medications. Telemetry demonstrates multifocal atrial tachycardia/PAT on presentation. Was given IV metoprolol now with intermittent short runs of atrial tachycardia, sinus rhythm with frequent atrial ectopy. Arrhythmia. Being driven by underlying issues. Patient hypertensive. Would exclude sepsis. Continue beta-ramo but will switch to long-acting formulation. Use IV metoprolol if necessary. Discussed with patient daughter. Possibility of lapsing into atrial fibrillation present but current examination and findings notable for atrial fibrillation not present. Echocardiogram with normal LV systolic function EF 65-70% without significant valvular disease History of Present Illness Reason for Consultation: Atrial arrhythmia [facility]ness HPI: Patient is an 89 year old female with PMHx significant for PAC's, HTN, HLD, CKD stage III, hypothyroidism, GERD, OA, fibromyalgia/chronic pain syndrome who presented to the ER today with complaints of nausea and constipation x2 days. Incidentally when an EKG was being performed she was found to have new onset atrial fibrillation with RVR. Initial EKG on arrival shows A-Fib rate 117 with prior notation of septal infarct Repeat EKG shows SR with multiple runs of atrial tachycardia 91bpm White count elevated H/H Stable Renal function stable. Mag 1.7--> currently receiving supplementation High sensitivity troponin 38.3/43.8 UA with + Blood and 3+ Leukocytes. Culture pending CT ABD/Pelvis: IMPRESSION: 1. Moderate rectal wall thickening and associated inflammation. This represents a nonspecific proctitis. No extraluminal gas. No fluid collections. Follow-up colonoscopy once symptoms resolve is recommended to exclude the less likely possibility of an underlying rectal lesion. 2. No bowel obstruction. No additional sites of bowel wall thickening. Chest x-ray: Negative Upon seeing patient in examination, her daughter and son-in-law are at bedside. Patient is resting comfortably in bed without acute complaint. She reports that she has been feeling unwell for the past 2-3 days with nausea, vomiting and constipation. Constipation is chronic for her due to prescription pain medications. She was unable to take her normal medications for the past two days including her metoprolol and prior to admission, daughter did do an enema out of concern for obstruction. When asked about her metoprolol, patient and daughter both explained that her PCP put her on that after a work up for an "irregular" heart beat on examination. She had prior EKG's A-fib, but did show increased PAT/PAC's and therefore was placed on metoprolol for management of this. She denies any episodes of chest pain, pressure, palpitations. She denies shortness of breath, PND, pre-syncope, syncope or edema. Patient has chronic lymphedema and daughter states her legs are at "baseline" Review of Telemetry shows SR with frequent PACs and multiple runs of PAT. Multi- focal in nature Allergies Allergy/AdvReac Type Severity Reaction Status Date / Time No Known Allergies Allergy Unverified 12/01/24 12:03 Home Medications Medication Instructions Recorded Confirmed Type cholecalciferol (vitamin D3) 25 25 mcg PO DAILY 01/24/20 12/01/24 History mcg (1,000 unit) capsule (Vitamin D3) furosemide 20 mg tablet 20 mg PO DAILY 01/24/20 12/01/24 History mecobalamin (vitamin B12) 1,000 1,000 mcg PO DAILY 01/24/20 12/01/24 History mcg chewable tablet metoprolol tartrate 25 mg tablet 25 mg PO BID 01/24/20 12/01/24 History pantoprazole 40 mg tablet,delayed 40 mg PO DAILYBB 01/24/20 12/01/24 History release polyethylene glycol 3350 17 17 gm PO DAILY 01/24/20 12/01/24 History gram/dose oral powder (Miralax) famotidine 20 mg tablet 20 mg PO HS 12/01/24 12/01/24 History gabapentin 300 mg capsule 300 mg PO TID 12/01/24 12/01/24 History levothyroxine 75 mcg tablet 75 mcg PO DAILYBB 12/01/24 12/01/24 History oxycodone 10 mg tablet,crush 10 mg PO AMPM 12/01/24 12/01/24 History resistant,extended release 12 hr (OxyContin) Patient History Medical History (Updated 12/01/24 @ 16:56 by CHIKIS Monaco) Arthritis Arthritis of right hip Greater trochanteric pain syndrome Chronic venous insufficiency Skin tear of right forearm without complication Lower extremity edema Venous ulcer of left leg Traumatic open wound of left lower leg with delayed healing Macular degeneration Cataract (lens) fragments in eye following cataract surgery, bilateral Surgical History H/O: hysterectomy S/P right knee arthroscopy H/O hemorrhoidectomy History of tonsillectomy Social History (Updated 12/01/24 @ 14:59 by CHIKIS Monaco) Smoking Status: Never smoker Hx Alcohol Use: No Hx Substance Use: No Preferred Language: Samoan Communication Ability: Effective Hearing Ability: Hard of Hearing 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 Beliefs That Will Affect Care: None Current Living Situation: Alone Other Information That Helps Us Care for You: No Feels Safe at Home: Yes Safety Concerns: Feels Safe At This Time Childhood Exposure to Second-Hand Smoke: No Assistive Devices: Raised Toilet Seat and Walker Review of Systems Review of Systems: All systems reviewed & are unremarkable except as noted in HPI & below Physical Exam Constitutional: well developed and + obese Neck: normal visual inspection and trachea midline Respiratory: normal respiratory effort; no respiratory distress, no labored breathing and no cough Cardiovascular: Rate/Rhythm: regular rate and regular rhythm (frequent PAC's, runs of atrial tachycardia) Heart Sounds: normal S1 and normal S2; no murmur Vessels: dorsalis pedis pulses present; no JVD Extremities: + edema (chronic lymphedema ) Skin: no rashes, warm and dry Psychiatric: A+Ox3, euthymic affect Results & Data Vital Signs (Past 12 Hours) Vital Signs Temp Pulse Resp BP Pulse Ox O2 Del Method O2 Flow Rate 12/01/24 14:14 103 H 12/01/24 13:48 132 H 19 12/01/24 13:30 94 H 22 12/01/24 13:27 110 H 19 12/01/24 13:03 107 H 19 138/100 93 12/01/24 12:42 99 H 24 12/01/24 12:30 104 H 24 12/01/24 12:00 177/85 H 12/01/24 12:00 177/85 H 12/01/24 12:00 177/85 H 12/01/24 12:00 177/85 H 12/01/24 12:00 177/85 H 12/01/24 12:00 177/85 H 12/01/24 12:00 105 H 27 H 98 Nasal Cannula 12/01/24 11:51 86 25 H 98 Nasal Cannula 12/01/24 11:42 113 H 28 H 100 Nasal Cannula 12/01/24 11:39 171/77 H 12/01/24 11:39 171/77 H 12/01/24 11:39 171/77 H 12/01/24 11:36 97 Nasal Cannula 12/01/24 11:21 92 H 23 100 Nasal Cannula 12/01/24 11:06 93 H 24 100 Nasal Cannula 12/01/24 11:00 160/106 H 12/01/24 11:00 160/106 H 12/01/24 10:54 97 H 24 100 Nasal Cannula 2 12/01/24 10:21 76 16 98 Nasal Cannula 2 12/01/24 10:17 84 L Room Air 12/01/24 10:08 91 H 12/01/24 10:01 170/110 H 84 L Room Air 12/01/24 09:57 112 H 19 94 12/01/24 09:54 37.3 C 120 H 15 131/106 H 95 Room Air 12/01/24 09:53 131/106 H 12/01/24 09:53 131/106 H Laboratory Results Cardiac Enzymes 12/01/24 12/01/24 12/01/24 Range/Units 09:55 10:30 12:06 AST 20 (13-39) U/L Troponin I High Sens 38.3 H 43.8 H (0-14) pg/ml B-Natriuretic Peptide 625 H (0-100) pg/ml Coagulation 12/01/24 12/01/24 Range/Units 09:55 10:30 PT 11.1 (9.0-12.0) Seconds B-Natriuretic Peptide 625 H (0-100) pg/ml CBC 12/01/24 Range/Units 09:55 WBC 11.56 H (4.8-10.8) K/ul RBC 4.02 L (4.20-5.40) M/uL Hgb 13.0 (12.0-16.0) g/dl Hct 36.8 L (37.0-47.0) % Plt Count 109 L (130-400) K/uL Neut # (Auto) 9.81 H (1.40-6.50) K/uL Lymph # (Auto) 0.87 L (1.20-3.40) K/uL Potter # (Auto) 0.82 H (0.11-0.59) K/uL Eos # (Auto) 0.00 (0.00-0.50) K/uL Baso # (Auto) 0.01 (0.00-0.20) K/uL Comprehensive Metabolic Panel 12/01/24 Range/Units 09:55 Sodium 134 L (136-145) mmol/L Potassium 4.1 (3.5-5.1) mmol/L Chloride 101 (98-107) mmol/L Carbon Dioxide 27 (21-32) mmol/L BUN 11 (6-23) mg/dl Creatinine 0.85 (0.6-1.2) mg/dl Glucose 190 H (70-99(Fasting)) mg/dl Calcium 9.1 (8.6-10.3) mg/dl AST 20 (13-39) U/L ALT 6 L (7-52) U/L Alkaline Phosphatase 105 H (34-104) U/L Total Protein 6.2 (6.0-8.3) gm/dl Albumin 3.8 (3.4-5.0) gm/dl Intake and Output 12/01/24 12/01/24 12/01/24 06:59 14:59 22:59 Intake Total 1000 / 1000 Balance 1000 / 1000 Intake: IV 1000 / 1000 Sodium Chloride 0.9% 1,000 ml @ 1000 / 1000 999 mls/hr IV .Q1H1M STA Rx#: [id number] Other: Weight 102.9 kg Patient Weight 12/02/24 06:59 Weight 102.9 kg
[2024-12-01 15:59] LABS: D Dimer 1610 ug/L FEU (0-500)
[2024-12-01] MEDS ORDERED: ONDANSETRON INJ 2 MG/ML 2 ML VIAL IV PRN (16:00)
[2024-12-01] MEDS ORDERED: SOD PHOSPHATE/SOD BIPHOSPHATE ENEMA 132 ML BTL PR PRN (16:20)
[2024-12-01] MEDS ORDERED: LABETALOL HCL IV 5 MG/ML 20ML IV PRN (16:20)
[2024-12-01] MEDS ORDERED: ACETAMINOPHEN 325 MG TAB PO PRN (16:20)
[2024-12-01] MEDS: oxyCODONE HCL 10 MG TABCR (OxyCONTIN) PO SCH (17:00)
[2024-12-01] MEDS: GABAPENTIN 300 MG CAP PO SCH (17:01)
[2024-12-01] MEDS: OPTIRAY 320 125ml IV ONE (17:17)
--- NOTE | 2024-12-01 17:38 | CT Scan Report ---
Clinical history: Rule out pulmonary embolism Technique: Axial computed tomography images were obtained of the chest after the administration of intravenous contrast according to the CT angiogram protocol No prior examination is available for comparison Findings: There is no definite sign of acute pulmonary embolism. There is a thin band within the left lower lobe pulmonary artery There is a 5 mm noncalcified nodule in the left upper lobe. There is a 4 mm nodule in the superior segment of the right lower lobe. There is a 7 mm right lower lobe nodule also with a nearby 4 mm nodule. There are additional small bilateral upper lobe and right middle lobe nodules, measuring up to 4 mm in size. There is no pleural effusion or pneumothorax. There is no sign of pulmonary fibrosis or other diffuse interstitial process. No endobronchial lesion is seen There is no mediastinal, hilar, or axillary adenopathy. The thoracic aorta appears unremarkable with no sign of aneurysm or dissection. There is no pericardial effusion There is mild right hydronephrosis. There is thoracic and lumbar scoliosis and degenerative disc disease. No fracture is seen. No focal osseous lesion is evident Impression: 1. No definite sign of acute pulmonary embolism 2. Linear defect within the left lower lobe pulmonary artery that could be residual from prior embolism. This would be an atypical appearance for acute pulmonary embolism 3. Multiple pulmonary nodules, indeterminate in nature. A follow-up chest CT is recommended in 3 months to ensure stability 4. Mild right hydronephrosis. CT of the abdomen and pelvis could be considered for further evaluation ACT 112: Positive. There are findings on this exam that require communication between the performing entity and the patient following Patient Test Result Information Act ([place] ACT 112) guidelines. Electronically signed by Ahmet Greene 12-01-2024 5:38 PM
[2024-12-01] MEDS: DOCUSATE SODIUM/SENNA 50/8.6MG TAB PO SCH (21:17)
[2024-12-01] MEDS: FAMOTIDINE 20 MG TAB PO SCH (21:17)
[2024-12-01] MEDS: HEPARIN SOD 5,000 UNIT/0.5 ML VIAL SQ SCH (21:17)
[2024-12-01] MEDS: POLYETHYLENE (MIRALAX) 17 GM PACK PO SCH (21:17)
[2024-12-01] MEDS: METOPROLOL TARTRATE 50 MG TAB PO SCH (21:18)
--- NOTE | 2024-12-02 00:45 | Ultrasound Report ---
Exam(s): US VENOUS BILATERAL LOWER EXTREMITIES EXAM: US Duplex Bilateral Lower Extremities Veins CLINICAL HISTORY: elevated d dimer. TECHNIQUE: Real-time duplex ultrasound scan of the bilateral lower extremity veins integrating B-mode two-dimensional vascular structure, Doppler spectral analysis, color flow Doppler imaging and compression. COMPARISON: Left lower extremity venous ultrasound 04/13/2022. FINDINGS: Right deep veins: Unremarkable. No DVT in the right common femoral, femoral, proximal deep femoral or popliteal veins. The veins demonstrate normal color flow, are normally compressible, with normal phasic flow and/or augmentation response. Veins below the knee or not adequately visualized. Right superficial veins: Unremarkable. No thrombus in the visualized right great saphenous vein. Left deep veins: Noncompressible thrombus identified in the distal left popliteal vein. No DVT in the left common or superficial femoral veins with normal color flow, are normally compressible and normal phasic flow and/or augmentation response. Veins below the knee are not clearly visualized. Left superficial veins: Unremarkable. No thrombus in the visualized left great saphenous vein. Soft tissues: No acute abnormality. No popliteal cyst. IMPRESSION: Distal left popliteal deep venous thrombosis. Communications: Call Doctor DVT – acute, progressing Electronically signed by: Greg Benson M.D. 12/02/24 00:45 AM
--- NOTE | 2024-12-02 00:52 | Communication Note ---
Date of Service: December 02, 2024 Made aware of abnormal venous Doppler result Distal left popliteal deep venous thrombosis. AP LLE DVT IV heparin for now
[2024-12-02] MEDS: HEPARIN 25000 UNIT/500 ML D5W 25,000 UNITS/500 ML BAG IV SCH (01:17)
[2024-12-02] MEDS: Heparin IV Adult Wt-Based Low-Dose *NO* INITIAL Bolus Protocol IV STA (01:18)
[2024-12-02] MEDS: PANTOprazole 40 MG TAB PO SCH (06:01)
[2024-12-02] MEDS: LEVOTHYROXINE SODIUM 75 MCG TABLET PO SCH (06:01)
[2024-12-02 07:38] LABS: Hematocrit (blood only) 34.5 % (37.0-47.0); Hemoglobin 11.9 g/dl (12.0-16.0); Mean Corpuscular Hemoglobin 32.4 pg (25.0-34.0); Mean Corpuscular Hgb Conc 34.5 g/dL (32.0-36.0); Mean Platelet Volume 9.6 fL (9.4-12.4); Platelet Count 114 K/uL (130-400); RDW Coefficient of Variation 12.6 % (11.5-14.5); RDW Standard Deviation 43.4 fL (36.4-46.3); Red Blood Count 3.67 M/uL (4.20-5.40); White Blood Count 13.42 K/ul (4.8-10.8)
[2024-12-02 08:01] LABS: Albumin Level 3.4 gm/dl (3.4-5.0); BUN Creatinine Ratio 11.7 (10-20); Bilirubin Direct 0.2 mg/dl (0-0.2); Bilirubin,Total 1.3 mg/dl (0.2-1.0); Calcium 8.7 mg/dl (8.6-10.3); Creatinine Clr Calc Pharmacy 42.2 ml/min; Magnesium 1.9 mg/dl (1.7-2.4); Potassium 3.5 mmol/L (3.5-5.1); Total Protein 5.8 gm/dl (6.0-8.3)
[2024-12-02 08:05] LABS: ANTI-Xa, UFH(UnfractionatedHep 0.44 IU/ml (0.3-0.7)
--- NOTE | 2024-12-02 08:16 | Hospitalist Progress Note ---
Date of Service December 02, 2024 Assessment & Plan (1) Multifocal atrial tachycardia: (2) Hypoxia: (3) Hypertensive urgency: (4) Constipation: (5) Nausea and vomiting: (6) Hypothyroidism: (7) GERD (gastroesophageal reflux disease): (8) Lymphedema: (9) Chronic pain syndrome: (10) Fibromyalgia: (11) Elevated troponin: Plan 89 year old female with PMH significant for HTN, HLD, CKD III, hypothyroidism, GERD, OA, bilateral carpal tunnel syndrome, fibromyalgia, chronic pain syndrome, lymphedema who presented to the ED today with constipation, nausea and vomiting since yesterday and being admitted for further work up of tachycardia. Multifocal atrial tachycardia HR on telemetry ranging from 90s-130s Could be due to missed doses of metoprolol, dehydration from N/V, or PE Abnormal EKG finding of PACs versus A fib Elevated troponin flat Continue metoprolol at increased dose Echo Obtain daily EKG Cardiology consulted, appreciate recs Hypoxia 84% on RA in ER CXR and VBG negative; lungs clear; no respiratory symptoms O2 as needed to maintain sats >92% Encourage Incentive spirometry DVT of LLE D dimer elevated Venous doppler noting Distal left popliteal deep venous thrombosis. CTA chest noting no definite acute PE IV heparin at this time Pulmonary Nodules Noted on Chest CTA..."A follow-up chest CT is recommended in 3 months to ensure stability" Mild R hydronephrosis Noted on chest CTA Abd/pelvis CT noting no hydronephrosis Proctitis Constipation CT abd revealed moderate rectal wall thickening and inflammation Leukocytosis progressing Miralax bid, Senna S bid, PRN enema daily Started on empiric Unasyn GI consulted, appreciate recs Pt declining EGD or colonoscopy Hypertensive urgency Metoprolol increased from 25mg bid to 50mg bid Monitor BPs PRN labetolol Hypothyroidism TSH stable Continue levothyroxine GERD Continue pantoprazole and famotidine Chronic pain syndrome Follows with [facility]TM pain management monthly Current meds include oxycodone 10mg bid, gabapentin 300mg tid, diclofenac gel PRN, tylenol PRN - continue Endorses weakness due to pain - PT/OT consults Lymphedema BLE edema at baseline per pt/daughter BNP elevated likely due to this Continue furosemide 20mg daily DVT Prophylaxis: SQ heparin Code Status: DNR/DNI - As per discussion at bedside with the patient. PCP: Dr Macy Richey DO Disposition: admit to tele Admission and Anticipated Discharge Date Admission Date: December 01, 2024 Subjective Pt was seen in the AM States that she has had N/V for some time, has never had a colonoscopy or EGD Notes chronic lymphedema hx Review of Systems Review of Systems: All systems reviewed & are unremarkable except as noted in Subjective Physical Exam Physical Exam: General: Alert, oriented. No acute distress HEENT: NC/AT CV: RRR Resp: Breath sounds clear bilaterally, no increased effort of breathing Abdomen: Soft, nontender Extremities: +++ edema in lower extremities bilaterally. Results & Data Results & Data Vital Signs (Past 12 Hours) Vital Signs Temp Pulse Pulse Resp BP BP Pulse Ox 12/02/24 07:41 37.0 C 92 H 17 116/68 91 12/02/24 07:05 65 12/02/24 04:10 36.4 C L 72 18 109/53 L 90 12/02/24 01:05 36.4 C L 71 18 106/60 91 12/01/24 21:40 86 O2 Del Method 12/02/24 07:41 Room Air 12/02/24 07:05 12/02/24 04:10 Room Air 12/02/24 01:05 Room Air 12/01/24 21:40
[2024-12-02] MEDS: FUROSEMIDE 20 MG TAB PO SCH (08:52)
--- NOTE | 2024-12-02 09:26 | Cardiology Progress Note ---
Date of Service December 02, 2024 Assessment & Plan (1) Multifocal atrial tachycardia: (2) Elevated troponin: (3) Nausea and vomiting: (4) Constipation: Plan Assessment: 89 year old female admitted for 2 day history of nausea, vomiting, inability to take oral medications and constipation. Initial EKG suggestive of atrial arrhythmia, cardiology consulted for further assessment and recommendations. Plan: 1. Multifocal atrial tachycardia: -patient with known history of PAC's and likely PAT at baseline per review of PCP notes. She was placed on Metoprolol Tartrate outpatient without issue. No prior history of A-fib -Initial EKG on arrival suggestive of A-fib in the setting of acute dehydration, poor oral intake with missed doses of her beta ramo, and possible acute infectious process. -Repeat EKG approx 50 min later as well as review of telemetry shows SR with frequent PAC and atrial tachycardia. -Patient carries a history of falls, but no prior bleeding issues. -Received one time dose of Metoprolol tartrate 50mg in the ER. Would recommend that we continue -Received one time dose of IV Lasix in the ER. difficult to determine patient's volume status due to chronic lymphedema; however, family states this is her baseline. No other findings on exam that suggest volume overload. Reassess volume status in the AM before further diuresis in the setting of acute dehydration and possible acute infectious process. -Obtain echocardiogram to assess overall structure and function. -discussed the pathophysiology of Atrial tachycardia and increased risk to develop atrial fibrillation. CHADS-VASC 2 score of 5; however, also discussed concerns for advanced age, falls, risk for bleeding. Discussed with family that we will obtain echo and continue to monitor closely on telemetry to determine if anticoagulation would be needed. 2. Elevated Troponin -mild troponin elevation with no acute ST-T wave changes on EKG -Patient denies any chest pain, pressure or angina equivalent -Continue to trend troponin to peak -Obtain resting echocardiogram for further evaluation. -Hypertensive on record. Has just received her PO anti-hypertensive medications, will monitor. may need to add additional PO agents for better control vs IV agent if not maintaining PO intake. needs effective pain control 3. Nausea and vomiting 4. Constipation -Multifactorial -No evidence of obstruction of ABD/Pelvis CT -Viral/acute infectious process? -Chronic constipation due to pain medication regimen -Continued management per primary team 12/02/2024 -patient demonstrates clinical improvement from a cardiac perspective. -Review of telemetry shows SR with resolution of runs of MAT as witnessed yesterday. No A-fib on telemetry. -D-dimer elevated, CTA chest shows no acute PE. vascular duplex shows a Left popliteal DVT. Patient was placed on Heparin Ongoing management per primary team. -Patient tolerating clear liquids, no contraindication from a cardiac perspective to advance diet when ok with primary team. -Continue Metoprolol tartrate by mouth twice daily -Continue Furosemide 20mg PO Daily as per home regimen Case has been discussed with Dr. Huang. Further recommendations regarding plan of care as per his assessment. I spent a total of 30 minutes on the date of service in preparation, delivery, documentation of the care provided to the patient excluding any time spent in the performance of separately billed services. CHIKIS Ramirez [facility] Cardiology [facility] Admission and Anticipated Discharge Date Admission Date: December 01, 2024 Supervising Physician Co-Signing Physician Notes Patient seen and examined, chart, indications, telemetry reviewed. Assessment and plan as well outlined above. Care and management personally discussed and endorsed 89-year-old female presenting with nausea and vomiting malaise found to be in multifocal atrial tachycardia/PAT on presentation. Arrhythmias subsequently resolved with resumption of beta-ramo therapy. Underlying medical stressors being investigated Tolerating increased dose of metoprolol tartrate would continue Subjective 12/02/2024:Patient seen and examined in follow up today. Feeling well from a cardiac perspective. offers no acute concerns. She is out of bed in a chair working with PT/OT at time of my examination. Patient's daughter and son-in-law at bedside. Daughter reports that patient did have protracted cardiac monitoring while hospitalized at [facility] in Fall 2023, We have been unable to find the report. Labs, vitals, diagnostics, telemetry and documentation reviewed. Telemetry reviewed showing SR with rates 60-80's, no acute events overnight. Troponin mild elevation flat trend. D-dimer Elevated CTA chest Impression: 1. No definite sign of acute pulmonary embolism 2. Linear defect within the left lower lobe pulmonary artery that could be residual from prior embolism. This would be an atypical appearance for acute pulmonary embolism 3. Multiple pulmonary nodules, indeterminate in nature. A follow-up chest CT is recommended in 3 months to ensure stability 4. Mild right hydronephrosis. CT of the abdomen and pelvis could be considered for further evaluation Venous doppler: IMPRESSION: Distal left popliteal deep venous thrombosis. Review of Systems Review of Systems: All systems reviewed & are unremarkable except as noted in HPI & below Physical Exam Constitutional: well developed and + obese Neck: normal visual inspection and trachea midline Respiratory: normal respiratory effort; no respiratory distress, no labored breathing and no cough Cardiovascular: Rate/Rhythm: regular rate and regular rhythm Heart Sounds: normal S1 and normal S2; no murmur Vessels: dorsalis pedis pulses present; no JVD Extremities: + edema (chronic lymphedema ) Skin: no rashes, warm and dry Psychiatric: A+Ox3, euthymic affect Results & Data Vital Signs (Past 12 Hours) Vital Signs Temp Pulse Pulse Resp BP BP Pulse Ox 12/02/24 07:41 37.0 C 92 H 17 116/68 91 12/02/24 07:05 65 12/02/24 04:10 36.4 C L 72 18 109/53 L 90 12/02/24 01:05 36.4 C L 71 18 106/60 91 12/01/24 21:40 86 O2 Del Method 12/02/24 07:41 Room Air 12/02/24 07:05 12/02/24 04:10 Room Air 12/02/24 01:05 Room Air 12/01/24 21:40 Laboratory Results Cardiac Enzymes 12/01/24 12/01/24 12/02/24 Range/Units 12:06 17:46 07:19 AST 15 (13-39) U/L Troponin I High Sens 43.8 H 43.4 H (0-14) pg/ml CBC 12/02/24 Range/Units 07:19 WBC 13.42 H (4.8-10.8) K/ul RBC 3.67 L (4.20-5.40) M/uL Hgb 11.9 L (12.0-16.0) g/dl Hct 34.5 L (37.0-47.0) % Plt Count 114 L (130-400) K/uL Comprehensive Metabolic Panel 12/02/24 Range/Units 07:19 Sodium 134 L (136-145) mmol/L Potassium 3.5 (3.5-5.1) mmol/L Chloride 98 (98-107) mmol/L Carbon Dioxide 31 (21-32) mmol/L BUN 12 (6-23) mg/dl Creatinine 1.03 (0.6-1.2) mg/dl Glucose 138 H (70-99(Fasting)) mg/dl Calcium 8.7 (8.6-10.3) mg/dl Direct Bilirubin 0.2 (0-0.2) mg/dl AST 15 (13-39) U/L ALT 7 (7-52) U/L Alkaline Phosphatase 91 (34-104) U/L Total Protein 5.8 L (6.0-8.3) gm/dl Albumin 3.4 (3.4-5.0) gm/dl Intake and Output 12/01/24 12/02/24 12/02/24 22:59 06:59 14:59 Intake Total 100 / 1194.067 94.067 / 1194.067 Output Total 1450 / 1700 250 / 1700 Balance -1350 / -505.933 -155.933 / -505.933 Intake: IV 100 / 1194.067 94.067 / 1194.067 Heparin 21908 Unit/500 ml D5w 94.067 / 94.067 25,000 units In 500 ml @ 850 UNITS/HR 17 mls/hr IV .Q24H AMANDA Rx#:[id number] Magnesium Sulfate / D5w 1 gm In 100 / 100 100 ml @ 50 mls/hr IV ONE ONE Rx#:[id number] Output: Urine Amount (Catheter) 1450 / 1700 250 / 1700 External 550 / 550 Quarles/Indwelling 900 / 1150 250 / 1150 Other: Weight 102 kg Weight Measurement Method Built in [facility]
--- NOTE | 2024-12-02 09:37 | Gastrointestinal Consultation ---
Date of Consultation December 02, 2024 Assessment & Plan (1) Colonoscopy refused: 89 year old female with history of HTN, HLD, CKD III, hypothyroidism, GERD, OA, bilateral carpal tunnel syndrome, fibromyalgia, chronic pain syndrome, lymphedema and others below admitted for evaluation of hypoxia and tachycardia - GI was asked to evaluate for nausea/vomiting and imaging w/ moderate rectal wall thickening and associated inflammation. 1. Nausea/vomiting and constipation - Agree w/ bowel regimen - Titrate Miralax to BM - May use 1 capful up to three times daily - May use Antiemetics as needed but she notes this seems improved today 2. Abnormal imaging w/ proctitis - Discussed role of diagnostic endoscopic evaluation - Colonoscopy refused I spent a total of 60 minutes on the date of service in review of patient's record, and previously obtained information in person and appropriate medical visit, discussion and education of plan, with patient and/or caregiver, placing orders for tests/referral/procedures as medically necessary and documentation of pertinent clinical information in patient's medical records for their visit today. Thank you for allowing us to participate in the care of this patient. Please call with any acute changes, questions or concerns. Please see addendum below with additional recommendation from my supervising physician. (2) Proctitis: Supervising Physician Co-Signing Physician Notes I saw and examined this patient with our nurse practitioner and agree with her assessment and plan. GI symptoms are resolving no further nausea or vomiting. No recent bowel movement. She denies any history of diarrhea or bright red blood per rectum. Unlikely that CT scan findings of wall thickness of the rectum is related to a clinically significant proctitis. Would expect additional symptoms. However could consider colonoscopy or flexible sigmoidoscopy to better assess. At this time patient is not agreeable to pursue any endoscopic procedures. She could follow-up with GI as an outpatient if she changes her mind. History of Present Illness Reason for Consultation: intractable nausea/vomiting ?proctitis Requesting Physician: Kay Riddle MD Attending Physician: Kay Riddle MD History of Present Illness 89 year old female with history of HTN, HLD, CKD III, hypothyroidism, GERD, OA, bilateral carpal tunnel syndrome, fibromyalgia, chronic pain syndrome, lymphedema and others below admitted for evaluation of hypoxia and tachycardia - GI was asked to evaluate for nausea/vomiting and proctitis on imaging. pt was seen and evaluated, chart reviewed. She notes episodic nausea/vomiting for at least 4 years. Denies abd pain, reflux/regurgiation or dysphagia. Episodes seem associated w/ constipation. Notes alternating bowel habits. Stools moving now w/ laxative regimen. Denies black or bloody stools. Has never had EGD/Colon in the past. Not agreeable to endoscopic evaluation. CTAP 2024: Moderate rectal wall thickening and associated inflammation. This represents a nonspecific proctitis. No extraluminal gas. No fluid collections. Follow-up colonoscopy once symptoms resolve is recommended to exclude the less likely possibility of an underlying rectal lesion. 2. No bowel obstruction. No additional sites of bowel wall thickening. Allergies Allergy/AdvReac Type Severity Reaction Status Date / Time No Known Allergies Allergy Unverified 12/01/24 12:03 Home Medications Medication Instructions Recorded Confirmed Type cholecalciferol (vitamin D3) 25 25 mcg PO DAILY 01/24/20 12/01/24 History mcg (1,000 unit) capsule (Vitamin D3) furosemide 20 mg tablet 20 mg PO DAILY 01/24/20 12/01/24 History mecobalamin (vitamin B12) 1,000 1,000 mcg PO DAILY 01/24/20 12/01/24 History mcg chewable tablet metoprolol tartrate 25 mg tablet 25 mg PO BID 01/24/20 12/01/24 History pantoprazole 40 mg tablet,delayed 40 mg PO DAILYBB 01/24/20 12/01/24 History release polyethylene glycol 3350 17 17 gm PO DAILY 01/24/20 12/01/24 History gram/dose oral powder (Miralax) famotidine 20 mg tablet 20 mg PO HS 12/01/24 12/01/24 History gabapentin 300 mg capsule 300 mg PO TID 12/01/24 12/01/24 History levothyroxine 75 mcg tablet 75 mcg PO DAILYBB 12/01/24 12/01/24 History oxycodone 10 mg tablet,crush 10 mg PO AMPM 12/01/24 12/01/24 History resistant,extended release 12 hr (OxyContin) Patient History Medical History (Updated 12/02/24 @ 09:34 by CHIKIS Strong) Arthritis Arthritis of right hip Greater trochanteric pain syndrome Chronic venous insufficiency Skin tear of right forearm without complication Lower extremity edema Venous ulcer of left leg Traumatic open wound of left lower leg with delayed healing Macular degeneration Cataract (lens) fragments in eye following cataract surgery, bilateral Surgical History H/O: hysterectomy S/P right knee arthroscopy H/O hemorrhoidectomy History of tonsillectomy Social History (Updated 12/01/24 @ 14:59 by CHIKIS Monaco) Smoking Status: Never smoker Hx Alcohol Use: No Hx Substance Use: No Preferred Language: Mongolian Communication Ability: Effective Hearing Ability: Hard of Hearing Digital Traffic Coordinator Required: No Beliefs That Will Affect Care: None Current Living Situation: Alone Other Information That Helps Us Care for You: No Feels Safe at Home: Yes Safety Concerns: Feels Safe At This Time Childhood Exposure to Second-Hand Smoke: No Assistive Devices: Walker Review of Systems Review of Systems: All other findings negative except as noted in HPI. Physical Exam Constitutional: WD/WN, vitals as above Respiratory: normal respiratory effort, lungs clear to auscultation Cardiovascular: Rate/Rhythm: + tachycardic Gastrointestinal (Abdomen): normal bowel sounds, soft, nontender, no hepatosplenomegaly Skin: no rashes, warm and dry Results & Data Vital Signs (Past 12 Hours) Vital Signs Temp Pulse Pulse Resp BP BP Pulse Ox 12/02/24 07:41 98.6 F 92 H 17 116/68 91 12/02/24 07:05 65 12/02/24 04:10 97.5 F L 72 18 109/53 L 90 12/02/24 01:05 97.5 F L 71 18 106/60 91 12/01/24 21:40 86 O2 Del Method 12/02/24 07:41 Room Air 12/02/24 07:05 12/02/24 04:10 Room Air 12/02/24 01:05 Room Air 12/01/24 21:40 Laboratory Results 12/02/24 12/01/24 12/01/24 Range/Units 07:19 17:46 14:20 WBC 13.42 H (4.8-10.8) K/ul RBC 3.67 L (4.20-5.40) M/uL Hgb 11.9 L (12.0-16.0) g/dl Hct 34.5 L (37.0-47.0) % MCV 94.0 (80.0-100.0) fL MCH 32.4 (25.0-34.0) pg MCHC 34.5 (32.0-36.0) g/dL RDW Std Deviation 43.4 (36.4-46.3) fL RDW Coeff of Etienne 12.6 (11.5-14.5) % Plt Count 114 L (130-400) K/uL MPV 9.6 (9.4-12.4) fL Immature Gran % (Auto) % Neut % (Auto) % Lymph % (Auto) % Stephenson % (Auto) % Eos % (Auto) % Baso % (Auto) % Neut # (Auto) (1.40-6.50) K/uL Lymph # (Auto) (1.20-3.40) K/uL Stephenson # (Auto) (0.11-0.59) K/uL Eos # (Auto) (0.00-0.50) K/uL Baso # (Auto) (0.00-0.20) K/uL Immature Gran # (Auto) (0.01-0.20) K/uL PT (9.0-12.0) Seconds INR (0.9-1.1) D-Dimer 1610 H* (0-500) ug/L FEU Heparin Anti-Xa, Unfract 0.44 (0.3-0.7) IU/ml VBG pH (7.36-7.41) VBG pCO2 (38-50) mmHg VBG pO2 mmHg VBG HCO3 mmol/L VBG O2 Saturation % VBG Base Excess mEq/L Sodium 134 L (136-145) mmol/L Potassium 3.5 (3.5-5.1) mmol/L Chloride 98 (98-107) mmol/L Carbon Dioxide 31 (21-32) mmol/L Anion Gap 5 (3-11) BUN 12 (6-23) mg/dl Creatinine 1.03 (0.6-1.2) mg/dl Est Cr Clr Drug Dosing 42.2 eGFR 52.63 BUN/Creatinine Ratio 11.7 (10-20) Glucose 138 H (70-99(Fasting)) mg/dl Estimat Average Glucose mg/dl Hemoglobin A1c (4.5-5.6) % Calcium 8.7 (8.6-10.3) mg/dl Magnesium 1.9 (1.7-2.4) mg/dl Total Bilirubin 1.3 H (0.2-1.0) mg/dl Direct Bilirubin 0.2 (0-0.2) mg/dl AST 15 (13-39) U/L ALT 7 (7-52) U/L Alkaline Phosphatase 91 (34-104) U/L Troponin I High Sens 43.4 H (0-14) pg/ml B-Natriuretic Peptide (0-100) pg/ml Total Protein 5.8 L (6.0-8.3) gm/dl Albumin 3.4 (3.4-5.0) gm/dl Globulin (2.5-4.0) gm/dl Albumin/Globulin Ratio (0.9-2) Lipase (11-82) U/L TSH (0.300-4.500) uIu/ml Urine Color Urine Appearance (Clear) Urine pH (4.5-7.5) Ur Specific [place] (1.000-1.030) Urine Protein (Negative) Urine Glucose (UA) (Negative) Urine Ketones (Negative) Urine Blood (Negative) Urine Nitrite (Negative) Urine Bilirubin (Negative) Urine Urobilinogen (Negative) Ur Leukocyte Esterase (Negative) Urine WBC (Auto) (0-5) /hpf Urine RBC (Auto) (0-2) /hpf U Hyaline Cast (Auto) (0-2) /lpf U Epithel Cells (Auto) (0-2) /hpf Urine Bacteria (Auto) (None Seen) SARS-CoV-2 (PCR) (Negative) Influenza Type A (PCR) (Neg) Influenza Type B (PCR) (Neg) RSV (RT-PCR) (Neg) 12/01/24 12/01/24 12/01/24 Range/Units 12:50 12:06 10:30 WBC (4.8-10.8) K/ul RBC (4.20-5.40) M/uL Hgb (12.0-16.0) g/dl Hct (37.0-47.0) % MCV (80.0-100.0) fL MCH (25.0-34.0) pg MCHC (32.0-36.0) g/dL RDW Std Deviation (36.4-46.3) fL RDW Coeff of Etienne (11.5-14.5) % Plt Count (130-400) K/uL MPV (9.4-12.4) fL Immature Gran % (Auto) % Neut % (Auto) % Lymph % (Auto) % Stephenson % (Auto) % Eos % (Auto) % Baso % (Auto) % Neut # (Auto) (1.40-6.50) K/uL Lymph # (Auto) (1.20-3.40) K/uL Stephenson # (Auto) (0.11-0.59) K/uL Eos # (Auto) (0.00-0.50) K/uL Baso # (Auto) (0.00-0.20) K/uL Immature Gran # (Auto) (0.01-0.20) K/uL PT (9.0-12.0) Seconds INR (0.9-1.1) D-Dimer (0-500) ug/L FEU Heparin Anti-Xa, Unfract (0.3-0.7) IU/ml VBG pH 7.36 (7.36-7.41) VBG pCO2 46 (38-50) mmHg VBG pO2 38 mmHg VBG HCO3 26 mmol/L VBG O2 Saturation 68.0 % VBG Base Excess 0.1 mEq/L Sodium (136-145) mmol/L Potassium (3.5-5.1) mmol/L Chloride (98-107) mmol/L Carbon Dioxide (21-32) mmol/L Anion Gap (3-11) BUN (6-23) mg/dl Creatinine (0.6-1.2) mg/dl Est Cr Clr Drug Dosing eGFR BUN/Creatinine Ratio (10-20) Glucose (70-99(Fasting)) mg/dl Estimat Average Glucose mg/dl Hemoglobin A1c (4.5-5.6) % Calcium (8.6-10.3) mg/dl Magnesium 1.7 (1.7-2.4) mg/dl Total Bilirubin (0.2-1.0) mg/dl Direct Bilirubin (0-0.2) mg/dl AST (13-39) U/L ALT (7-52) U/L Alkaline Phosphatase (34-104) U/L Troponin I High Sens 43.8 H (0-14) pg/ml B-Natriuretic Peptide 625 H (0-100) pg/ml Total Protein (6.0-8.3) gm/dl Albumin (3.4-5.0) gm/dl Globulin (2.5-4.0) gm/dl Albumin/Globulin Ratio (0.9-2) Lipase (11-82) U/L TSH (0.300-4.500) uIu/ml Urine Color Yellow Urine Appearance Clear (Clear) Urine pH 7.5 (4.5-7.5) Ur Specific [place] 1.013 (1.000-1.030) Urine Protein Negative (Negative) Urine Glucose (UA) Negative (Negative) Urine Ketones Negative (Negative) Urine Blood 3+ H (Negative) Urine Nitrite Negative (Negative) Urine Bilirubin Negative (Negative) Urine Urobilinogen Negative (Negative) Ur Leukocyte Esterase 3+ H (Negative) Urine WBC (Auto) 21-50 H (0-5) /hpf Urine RBC (Auto) 11-20 H (0-2) /hpf U Hyaline Cast (Auto) 0-2 (0-2) /lpf U Epithel Cells (Auto) 0-2 (0-2) /hpf Urine Bacteria (Auto) None Seen (None Seen) SARS-CoV-2 (PCR) NEGATIVE (Negative) Influenza Type A (PCR) Negative (Neg) Influenza Type B (PCR) Negative (Neg) RSV (RT-PCR) Negative (Neg) 12/01/24 Range/Units 09:55 WBC 11.56 H (4.8-10.8) K/ul RBC 4.02 L (4.20-5.40) M/uL Hgb 13.0 (12.0-16.0) g/dl Hct 36.8 L (37.0-47.0) % MCV 91.5 (80.0-100.0) fL MCH 32.3 (25.0-34.0) pg MCHC 35.3 (32.0-36.0) g/dL RDW Std Deviation 42.0 (36.4-46.3) fL RDW Coeff of Etienne 12.4 (11.5-14.5) % Plt Count 109 L (130-400) K/uL MPV 9.8 (9.4-12.4) fL Immature Gran % (Auto) 0.4 % Neut % (Auto) 84.9 % Lymph % (Auto) 7.5 % Stephenson % (Auto) 7.1 % Eos % (Auto) 0.0 % Baso % (Auto) 0.1 % Neut # (Auto) 9.81 H (1.40-6.50) K/uL Lymph # (Auto) 0.87 L (1.20-3.40) K/uL Stephenson # (Auto) 0.82 H (0.11-0.59) K/uL Eos # (Auto) 0.00 (0.00-0.50) K/uL Baso # (Auto) 0.01 (0.00-0.20) K/uL Immature Gran # (Auto) 0.05 (0.01-0.20) K/uL PT 11.1 (9.0-12.0) Seconds INR 1.0 (0.9-1.1) D-Dimer (0-500) ug/L FEU Heparin Anti-Xa, Unfract (0.3-0.7) IU/ml VBG pH (7.36-7.41) VBG pCO2 (38-50) mmHg VBG pO2 mmHg VBG HCO3 mmol/L VBG O2 Saturation % VBG Base Excess mEq/L Sodium 134 L (136-145) mmol/L Potassium 4.1 (3.5-5.1) mmol/L Chloride 101 (98-107) mmol/L Carbon Dioxide 27 (21-32) mmol/L Anion Gap 6 (3-11) BUN 11 (6-23) mg/dl Creatinine 0.85 (0.6-1.2) mg/dl Est Cr Clr Drug Dosing Not Reportable eGFR 66.27 BUN/Creatinine Ratio 12.9 (10-20) Glucose 190 H (70-99(Fasting)) mg/dl Estimat Average Glucose 117 mg/dl Hemoglobin A1c 5.7 H (4.5-5.6) % Calcium 9.1 (8.6-10.3) mg/dl Magnesium (1.7-2.4) mg/dl Total Bilirubin 1.6 H (0.2-1.0) mg/dl Direct Bilirubin (0-0.2) mg/dl AST 20 (13-39) U/L ALT 6 L (7-52) U/L Alkaline Phosphatase 105 H (34-104) U/L Troponin I High Sens 38.3 H (0-14) pg/ml B-Natriuretic Peptide (0-100) pg/ml Total Protein 6.2 (6.0-8.3) gm/dl Albumin 3.8 (3.4-5.0) gm/dl Globulin 2.4 L (2.5-4.0) gm/dl Albumin/Globulin Ratio 1.6 (0.9-2) Lipase 5 L (11-82) U/L TSH 1.552 (0.300-4.500) uIu/ml Urine Color Urine Appearance (Clear) Urine pH (4.5-7.5) Ur Specific [place] (1.000-1.030) Urine Protein (Negative) Urine Glucose (UA) (Negative) Urine Ketones (Negative) Urine Blood (Negative) Urine Nitrite (Negative) Urine Bilirubin (Negative) Urine Urobilinogen (Negative) Ur Leukocyte Esterase (Negative) Urine WBC (Auto) (0-5) /hpf Urine RBC (Auto) (0-2) /hpf U Hyaline Cast (Auto) (0-2) /lpf U Epithel Cells (Auto) (0-2) /hpf Urine Bacteria (Auto) (None Seen) SARS-CoV-2 (PCR) (Negative) Influenza Type A (PCR) (Neg) Influenza Type B (PCR) (Neg) RSV (RT-PCR) (Neg) PG Care Time/CCT Total # of Minutes Spent Total Time Spent with Patient: Total time spent is greater than 50% in coordination of care (as documented) at patient's floor/unit and/or counseling patient: Coding Level of Care Code 55499 INT INP/OBS CARE MIN Diagnoses Colonoscopy refused Z53.20 Proctitis K62.89
[2024-12-02 17:28] LABS: ANTI-Xa, UFH(UnfractionatedHep 0.34 IU/ml (0.3-0.7)
[2024-12-02] MEDS: AMPICILLIN/SULBACTAM SOD 3,000 MG/100 ML BAG IV SCH (18:48)
[2024-12-02 20:10] LABS: Appearance Urine Clear (Clear); Bacteria Urine Automated 4+ (None Seen); Bilirubin Urine Negative (Negative); Blood Urine Trace (Negative); Cast Urine Automated 0-2 /lpf (0-2); Color Urine Yellow; Glucose Urine UA Negative (Negative); Ketones Urine Trace (Negative); Leukocyte Esterase Urine 2+ (Negative); Nitrite Urine Positive (Negative); Protein Urine 1+ (Negative); RBC Urine Automated 0-2 /hpf (0-2); Specific Gravity Urine 1.039 (1.000-1.030); Urobilinogen Urine Negative (Negative); WBC Urine Automated >50 /hpf (0-5); pH Urine 5.5 (4.5-7.5)
--- NOTE | 2024-12-03 00:34 | Electrocardiogram Report ---
Test Reason : Blood Pressure : */* mmHG Vent. Rate : 64 BPM Atrial Rate : 64 BPM P-R Int : 186 ms QRS Dur : 82 ms QT Int : 406 ms P-R-T Axes : 89 -23 16 degrees QTcB Int : 418 ms Normal sinus rhythm Normal ECG When compared with ECG of 01-Dec-2024 10:55, (unconfirmed) Sinus rhythm has replaced Atrial fibrillation Confirmed by Evan Linn ([id number]) on 12/03/2024 12:33:59 AM Referred By: REFERRED SELF Confirmed By: Evan Linn
[2024-12-03 06:09] LABS: Basophils # (auto) 0.02 K/uL (0.00-0.20); Basophils % (auto) 0.2 %; Eosinophils # (auto) 0.47 K/uL (0.00-0.50); Eosinophils % (auto) 4.4 %; Immature Granulocytes # (auto) 0.04 K/uL (0.01-0.20); Immature Granulocytes % (auto) 0.4 %; Mean Corpuscular Hemoglobin 32.5 pg (25.0-34.0); Mean Corpuscular Hgb Conc 34.4 g/dL (32.0-36.0); Mean Corpuscular Volume 94.7 fL (80.0-100.0); Monocytes # (auto) 1.04 K/uL (0.11-0.59); Monocytes % (auto) 9.6 %; Neutrophils # (auto) 6.53 K/uL (1.40-6.50); Neutrophils % (auto) 60.4 %; Platelet Count 111 K/uL (130-400); RDW Coefficient of Variation 12.5 % (11.5-14.5); RDW Standard Deviation 43.8 fL (36.4-46.3); Red Blood Count 3.38 M/uL (4.20-5.40)
[2024-12-03 06:27] LABS: Albumin Globulin Ratio 1.3 (0.9-2); Albumin Level 3.1 gm/dl (3.4-5.0); BUN Creatinine Ratio 11.5 (10-20); Bilirubin,Total 0.9 mg/dl (0.2-1.0); Calcium 8.3 mg/dl (8.6-10.3); Creatinine Clr Calc Pharmacy 38.5 ml/min; Globulin 2.3 gm/dl (2.5-4.0); Magnesium 1.8 mg/dl (1.7-2.4); Phosphorus 2.6 mg/dl (2.5-4.9); Potassium 3.5 mmol/L (3.5-5.1); Total Protein 5.4 gm/dl (6.0-8.3)
--- NOTE | 2024-12-03 08:20 | Cardiology Progress Note ---
Date of Service December 03, 2024 Assessment & Plan (1) Multifocal atrial tachycardia: (2) Elevated troponin: (3) Nausea and vomiting: (4) Constipation: Plan Assessment: 89 year old female admitted for 2 day history of nausea, vomiting, inability to take oral medications and constipation. Initial EKG suggestive of atrial arrhythmia, cardiology consulted for further assessment and recommendations. Plan: 1. Multifocal atrial tachycardia: -patient with known history of PAC's and likely PAT at baseline per review of PCP notes. She was placed on Metoprolol Tartrate outpatient without issue. No prior history of A-fib -Initial EKG on arrival suggestive of A-fib in the setting of acute dehydration, poor oral intake with missed doses of her beta ramo, and possible acute infectious process. -Repeat EKG approx 50 min later as well as review of telemetry shows SR with frequent PAC and atrial tachycardia. -Patient carries a history of falls, but no prior bleeding issues. -Received one time dose of Metoprolol tartrate 50mg in the ER. Would recommend that we continue -Received one time dose of IV Lasix in the ER. difficult to determine patient's volume status due to chronic lymphedema; however, family states this is her baseline. No other findings on exam that suggest volume overload. Reassess volume status in the AM before further diuresis in the setting of acute dehydration and possible acute infectious process. -Obtain echocardiogram to assess overall structure and function. -discussed the pathophysiology of Atrial tachycardia and increased risk to develop atrial fibrillation. CHADS-VASC 2 score of 5; however, also discussed concerns for advanced age, falls, risk for bleeding. Discussed with family that we will obtain echo and continue to monitor closely on telemetry to determine if anticoagulation would be needed. 2. Elevated Troponin -mild troponin elevation with no acute ST-T wave changes on EKG -Patient denies any chest pain, pressure or angina equivalent -Continue to trend troponin to peak -Obtain resting echocardiogram for further evaluation. -Hypertensive on record. Has just received her PO anti-hypertensive medications, will monitor. may need to add additional PO agents for better control vs IV agent if not maintaining PO intake. needs effective pain control 3. Nausea and vomiting 4. Constipation -Multifactorial -No evidence of obstruction of ABD/Pelvis CT -Viral/acute infectious process? -Chronic constipation due to pain medication regimen -Continued management per primary team 12/02/2024 -patient demonstrates clinical improvement from a cardiac perspective. -Review of telemetry shows SR with resolution of runs of MAT as witnessed yesterday. No A-fib on telemetry. -D-dimer elevated, CTA chest shows no acute PE. vascular duplex shows a Left popliteal DVT. Patient was placed on Heparin Ongoing management per primary team. -Patient tolerating clear liquids, no contraindication from a cardiac perspective to advance diet when ok with primary team. -Continue Metoprolol tartrate by mouth twice daily -Continue Furosemide 20mg PO Daily as per home regimen 12/03/2024: -Patient is resting comfortably in bed with clinical improvement -Remains on heparin gtt for recent dx of left Popliteal DVT -Stop metoprolol tartrate. give Metoprolol succinate 25mg PO x1 dose now and then metoprolol succinate 75mg PO BID starting tonight -Continue Furosemide 20mg PO QD per home regimen Case has been discussed with Dr. Huang. Further recommendations regarding plan of care as per his assessment. I spent a total of 30 minutes on the date of service in preparation, delivery, documentation of the care provided to the patient excluding any time spent in the performance of separately billed services. CHIKIS Ramirez [facility] Admission and Anticipated Discharge Date Admission Date: December 01, 2024 Supervising Physician Co-Signing Physician Notes Patient seen and personally examined chart, telemetry is reviewed. Assessment by advanced provider as outlined above. Care and management discussed and personally endorsed . 89-year-old female admitted with nausea vomiting and GI complaints. Telemetry demonstrating multifocal/paroxysmal atrial tachycardia's. No atrial fibrillation despite EKG initial assessment. Plan as outlined above will titrate beta-ramo higher switch to metoprolol succinate attempt to suppress rhythm issue. Would treat underlying stressors and illnesses. Plans for anticoagulation as noted due to DVT Subjective 12/03/2024:Patient seen and examined in follow up today. Feeling fatigued, but off ers no acute cardiac concerns. Attempting to advance her diet. Denies any recurrence of vomiting. Labs, vitals, diagnostics, telemetry and documentation reviewed. Telemetry reviewed showing Sinus with frequent PAC's and runs of Multi-focal atrial tachycardia, rates as high as 120's. No evidence of A-fib. Reviewed EKG to staff. Review of Systems Review of Systems: All systems reviewed & are unremarkable except as noted in HPI & below Physical Exam Constitutional: well developed and + obese Neck: normal visual inspection and trachea midline Respiratory: normal respiratory effort; no respiratory distress, no labored breathing and no cough Cardiovascular: Rate/Rhythm: regular rate, regular rhythm and + tachycardic (frequent runs of MAT) Heart Sounds: normal S1 and normal S2; no murmur Vessels: dorsalis pedis pulses present; no JVD Extremities: + edema (chronic lymphedema ) Skin: no rashes, warm and dry Psychiatric: A+Ox3, euthymic affect Results & Data Vital Signs (Past 12 Hours) Vital Signs Temp Pulse Pulse Resp BP BP Pulse Ox 12/03/24 07:51 62 12/03/24 03:43 36.5 C 67 18 127/80 93 12/02/24 23:18 37.1 C 65 18 119/52 L 91 12/02/24 21:44 68 O2 Del Method 12/03/24 07:51 12/03/24 03:43 Room Air 12/02/24 23:18 Room Air 12/02/24 21:44 Laboratory Results Cardiac Enzymes 12/03/24 Range/Units 05:40 AST 17 (13-39) U/L CBC 12/03/24 Range/Units 05:40 WBC 10.80 (4.8-10.8) K/ul RBC 3.38 L (4.20-5.40) M/uL Hgb 11.0 L (12.0-16.0) g/dl Hct 32.0 L (37.0-47.0) % Plt Count 111 L (130-400) K/uL Neut # (Auto) 6.53 H (1.40-6.50) K/uL Lymph # (Auto) 2.70 (1.20-3.40) K/uL Dewitt # (Auto) 1.04 H (0.11-0.59) K/uL Eos # (Auto) 0.47 (0.00-0.50) K/uL Baso # (Auto) 0.02 (0.00-0.20) K/uL Comprehensive Metabolic Panel 12/03/24 Range/Units 05:40 Sodium 133 L (136-145) mmol/L Potassium 3.5 (3.5-5.1) mmol/L Chloride 96 L (98-107) mmol/L Carbon Dioxide 31 (21-32) mmol/L BUN 13 (6-23) mg/dl Creatinine 1.13 (0.6-1.2) mg/dl Glucose 119 H (70-99(Fasting)) mg/dl Calcium 8.3 L (8.6-10.3) mg/dl AST 17 (13-39) U/L ALT 9 (7-52) U/L Alkaline Phosphatase 98 (34-104) U/L Total Protein 5.4 L (6.0-8.3) gm/dl Albumin 3.1 L (3.4-5.0) gm/dl Intake and Output 12/02/24 12/03/24 12/03/24 22:59 06:59 14:59 Intake Total 787.117 / 1135.017 347.9 / 1135.017 58.083 / 58.083 Output Total 300 / 550 250 / 550 Balance 487.117 / 585.017 97.9 / 585.017 58.083 / 58.083 Intake: IV 307.117 / 655.017 347.9 / 655.017 58.083 / 58.083 Ampicillin/Sulbactam Sod 3,000 100 / 300 200 / 300 mg In 100 ml @ 200 mls/hr IV Q6H [facility] Rx#:[id number] Heparin 98580 Unit/500 ml D5w 207.117 / 355.017 147.9 / 355.017 58.083 / 58.083 25,000 units In 500 ml @ 850 UNITS/HR 17 mls/hr IV .Q24H [facility] Rx#:[id number] Oral 480 / 480 Output: Urine Amount (Catheter) 300 / 550 250 / 550 Quarles/Indwelling 300 / 550 250 / 550
[2024-12-03] MEDS: METOPROLOL SUCC 25MG EXT REL TAB PO ONE (10:48)
--- NOTE | 2024-12-03 14:10 | Hospitalist Progress Note ---
Date of Service December 03, 2024 Assessment & Plan (1) Multifocal atrial tachycardia: (2) Hypoxia: (3) Hypertensive urgency: (4) Constipation: (5) Nausea and vomiting: (6) Hypothyroidism: (7) GERD (gastroesophageal reflux disease): (8) Lymphedema: (9) Chronic pain syndrome: (10) Fibromyalgia: (11) Elevated troponin: Plan 89 year old female with PMH significant for HTN, HLD, CKD III, hypothyroidism, GERD, OA, bilateral carpal tunnel syndrome, fibromyalgia, chronic pain syndrome, lymphedema who presented to the ED today with constipation, nausea and vomiting since yesterday and being admitted for further work up of tachycardia. Multifocal atrial tachycardia HR on telemetry ranging from 90s-130s Could be due to missed doses of metoprolol, dehydration from N/V, or PE Abnormal EKG finding of PACs versus A fib Elevated troponin flat Continue metoprolol at increased dose Echo Obtain daily EKG Cardiology consulted, appreciate recs Hypoxia 84% on RA in ER CXR and VBG negative; lungs clear; no respiratory symptoms O2 as needed to maintain sats >92%, currently on RA Encourage Incentive spirometry DVT of LLE D dimer elevated Venous doppler noting Distal left popliteal deep venous thrombosis. CTA chest noting no definite acute PE IV heparin at this time- transitioned to po Eliquis Proctitis Constipation CT abd revealed moderate rectal wall thickening and inflammation Leukocytosis Miralax bid, Senna S bid, PRN enema daily Started on empiric Unasyn--> transitioned to po Augmentin, improving GI consulted, appreciate recs Pt declining EGD or colonoscopy Pulmonary Nodules Noted on Chest CTA..."A follow-up chest CT is recommended in 3 months to ensure stability" Mild R hydronephrosis Noted on chest CTA Abd/pelvis CT noting no hydronephrosis Hypertensive urgency Metoprolol increased from 25mg bid to 50mg bid Monitor BPs PRN labetolol Hypothyroidism TSH stable Continue levothyroxine GERD Continue pantoprazole and famotidine Chronic pain syndrome Follows with [facility] pain management monthly Current meds include oxycodone 10mg bid, gabapentin 300mg tid, diclofenac gel PRN, tylenol PRN - continue Endorses weakness due to pain - PT/OT consults Lymphedema BLE edema at baseline per pt/daughter BNP elevated likely due to this Continue furosemide 20mg daily DVT Prophylaxis: SQ heparin Code Status: DNR/DNI - As per discussion at bedside with the patient. PCP: Dr Macy Richey DO Disposition: admit to tele Admission and Anticipated Discharge Date Admission Date: December 01, 2024 Subjective Pt was seen sitting up in a chair near her bed Episodes of tachycardia She denies the sensation of palpitations when those episodes occur Refusing scopes, states she's 89 Denies further episodes of N/V Review of Systems Review of Systems: All systems reviewed & are unremarkable except as noted in Subjective Physical Exam Physical Exam: General: Alert, oriented. No acute distress HEENT: NC/AT CV: RRR Resp: Breath sounds clear bilaterally, no increased effort of breathing Abdomen: Soft, nontender Extremities: +++ edema in lower extremities bilaterally. Results & Data Results & Data Vital Signs (Past 12 Hours) Vital Signs Temp Pulse Pulse Resp BP BP Pulse Ox 12/03/24 11:22 36.5 C 64 18 105/61 96 12/03/24 08:40 101 H 12/03/24 07:51 62 12/03/24 07:11 36.7 C 52 L 16 124/64 92 12/03/24 03:43 36.5 C 67 18 127/80 93 O2 Del Method 12/03/24 11:22 Room Air 12/03/24 08:40 12/03/24 07:51 12/03/24 07:11 Room Air 12/03/24 03:43 Room Air
--- NOTE | 2024-12-03 15:05 | Electrocardiogram Report ---
Test Reason : Blood Pressure : */* mmHG Vent. Rate : 117 BPM Atrial Rate : 129 BPM P-R Int : * ms QRS Dur : 76 ms QT Int : 338 ms P-R-T Axes : * -27 13 degrees QTcB Int : 471 ms Undetermined rhythm suspected atrial flutter Septal infarct (cited on or before 13-Apr-2022) Abnormal ECG When compared with ECG of 13-Apr-2022 14:38, Questionable change in initial forces of Septal leads Confirmed by Merced Padilla ([id number]) on 12/03/2024 3:04:46 PM Referred By: Confirmed By: Merced Padilla
--- NOTE | 2024-12-03 15:07 | Electrocardiogram Report ---
Test Reason : Blood Pressure : */* mmHG Vent. Rate : 91 BPM Atrial Rate : * BPM P-R Int : * ms QRS Dur : 80 ms QT Int : 352 ms P-R-T Axes : * -7 56 degrees QTcB Int : 432 ms Atrial fibrillation Low voltage QRS Abnormal ECG When compared with ECG of 01-Dec-2024 10:01, (unconfirmed) Criteria for Septal infarct are no longer Present Confirmed by Merced Padilla ([id number]) on 12/03/2024 3:07:27 PM Referred By: REFERRED SELF Confirmed By: Merced Padilla
[2024-12-03] MEDS: APIXABAN 5 MG TABLET PO SCH (20:51)
[2024-12-03] MEDS: METOPROLOL SUCC 25MG EXT REL TAB PO SCH (20:51)
--- NOTE | 2024-12-04 02:12 | Communication Note ---
Date of Service: December 04, 2024 2:10 AM Made aware by RN of bradycardic episodes during sleep Episodic bradycardia, 30 to 50s lasting 5 to 10 seconds as per RN. AP Episodic bradycardia Decrease current Toprol-XL dosing from 75 mg twice daily to 50 mg twice daily until patient evaluated by cardiology in AM.
[2024-12-04] MEDS: MAGNESIUM SULFATE / D5W 1 GM/100 ML BAG IV ONE (02:30)
[2024-12-04 07:01] LABS: Basophils # (auto) 0.03 K/uL (0.00-0.20); Basophils % (auto) 0.4 %; Eosinophils # (auto) 0.54 K/uL (0.00-0.50); Eosinophils % (auto) 7.4 %; Hematocrit (blood only) 34.2 % (37.0-47.0); Hemoglobin 11.9 g/dl (12.0-16.0); Immature Granulocytes # (auto) 0.02 K/uL (0.01-0.20); Immature Granulocytes % (auto) 0.3 %; Lymphocytes # (auto) 2.34 K/uL (1.20-3.40); Lymphocytes % (auto) 31.9 %; Mean Corpuscular Hemoglobin 32.3 pg (25.0-34.0); Mean Corpuscular Hgb Conc 34.8 g/dL (32.0-36.0); Mean Corpuscular Volume 92.9 fL (80.0-100.0); Monocytes # (auto) 0.66 K/uL (0.11-0.59); Neutrophils # (auto) 3.75 K/uL (1.40-6.50); Platelet Count 132 K/uL (130-400); RDW Coefficient of Variation 12.3 % (11.5-14.5); RDW Standard Deviation 42.3 fL (36.4-46.3); Red Blood Count 3.68 M/uL (4.20-5.40); White Blood Count 7.34 K/ul (4.8-10.8)
[2024-12-04 07:28] LABS: Albumin Globulin Ratio 1.4 (0.9-2); Albumin Level 3.3 gm/dl (3.4-5.0); BUN Creatinine Ratio 12.9 (10-20); Bilirubin,Total 0.8 mg/dl (0.2-1.0); Calcium 8.6 mg/dl (8.6-10.3); Globulin 2.4 gm/dl (2.5-4.0); Magnesium 2.2 mg/dl (1.7-2.4); Phosphorus 2.8 mg/dl (2.5-4.9); Potassium 3.7 mmol/L (3.5-5.1); Total Protein 5.7 gm/dl (6.0-8.3)
--- NOTE | 2024-12-04 08:27 | Cardiology Progress Note ---
Date of Service December 04, 2024 Assessment & Plan (1) Multifocal atrial tachycardia: (2) Elevated troponin: (3) Nausea and vomiting: (4) Constipation: Plan Assessment: 89 year old female admitted for 2 day history of nausea, vomiting, inability to take oral medications and constipation. Initial EKG suggestive of atrial arrhythmia, cardiology consulted for further assessment and recommendations. Plan: 1. Multifocal atrial tachycardia: -patient with known history of PAC's and likely PAT at baseline per review of PCP notes. She was placed on Metoprolol Tartrate outpatient without issue. No prior history of A-fib -Initial EKG on arrival suggestive of A-fib in the setting of acute dehydration, poor oral intake with missed doses of her beta ramo, and possible acute infectious process. -Repeat EKG approx 50 min later as well as review of telemetry shows SR with frequent PAC and atrial tachycardia. -Patient carries a history of falls, but no prior bleeding issues. -Received one time dose of Metoprolol tartrate 50mg in the ER. Would recommend that we continue -Received one time dose of IV Lasix in the ER. difficult to determine patient's volume status due to chronic lymphedema; however, family states this is her baseline. No other findings on exam that suggest volume overload. Reassess volume status in the AM before further diuresis in the setting of acute dehydration and possible acute infectious process. -Obtain echocardiogram to assess overall structure and function. -discussed the pathophysiology of Atrial tachycardia and increased risk to develop atrial fibrillation. CHADS-VASC 2 score of 5; however, also discussed concerns for advanced age, falls, risk for bleeding. Discussed with family that we will obtain echo and continue to monitor closely on telemetry to determine if anticoagulation would be needed. 2. Elevated Troponin -mild troponin elevation with no acute ST-T wave changes on EKG -Patient denies any chest pain, pressure or angina equivalent -Continue to trend troponin to peak -Obtain resting echocardiogram for further evaluation. -Hypertensive on record. Has just received her PO anti-hypertensive medications, will monitor. may need to add additional PO agents for better control vs IV agent if not maintaining PO intake. needs effective pain control 3. Nausea and vomiting 4. Constipation -Multifactorial -No evidence of obstruction of ABD/Pelvis CT -Viral/acute infectious process? -Chronic constipation due to pain medication regimen -Continued management per primary team 12/02/2024 -patient demonstrates clinical improvement from a cardiac perspective. -Review of telemetry shows SR with resolution of runs of MAT as witnessed yesterday. No A-fib on telemetry. -D-dimer elevated, CTA chest shows no acute PE. vascular duplex shows a Left popliteal DVT. Patient was placed on Heparin Ongoing management per primary team. -Patient tolerating clear liquids, no contraindication from a cardiac perspective to advance diet when ok with primary team. -Continue Metoprolol tartrate by mouth twice daily -Continue Furosemide 20mg PO Daily as per home regimen 12/03/2024: -Patient is resting comfortably in bed with clinical improvement -Remains on heparin gtt for recent dx of left Popliteal DVT -Stop metoprolol tartrate. give Metoprolol succinate 25mg PO x1 dose now and then metoprolol succinate 75mg PO BID starting tonight -Continue Furosemide 20mg PO QD per home regimen 12/04/2024: -Patient is resting comfortably in bed. Nursing staff had just given her a bath and gotten her settled. Demonstrates clinical improvement from a cardiac perspective. -Patient was transitioned to Eliquis on DVT dosing. Denies any gisela bleeding concerns. H/H Stable. -Review of telemetry shows SR/MAT rates 60-80. No recurrence of bradycardia. C ontinue Metoprolol succinate 50mg PO BID. -Continue Furosemide as per home regimen -Patient has been transitioned from Unasyn to PO Augmentin for treatment of Proctitis. Endorses loose stools today. Continued management per primary team. Case has been discussed with Dr. Huang. Further recommendations regarding plan of care as per his assessment. I spent a total of 30 minutes on the date of service in preparation, delivery, documentation of the care provided to the patient excluding any time spent in the performance of separately billed services. CHIKIS Ramirez [facility] [address] [facility] Admission and Anticipated Discharge Date Admission Date: December 01, 2024 Supervising Physician Co-Signing Physician Notes Patient seen and personally examined chart, telemetry is reviewed. Assessment by advanced provider as outlined above. Care and management discussed and personally endorsed Patient asymptomatic GI issues appear to be improving with vigorous bowel movement today. No chest pain, dizziness or lightheadedness. Telemetry without atrial fibrillation Subjective 12/04/2024: Patient seen and examined in follow up today. Feeling well from a cardiac perspective. She offers no acute cardiac concerns. Labs, vitals, diagnostics, telemetry and documentation reviewed. Telemetry reviewed showing SR with frequent runs of MAT. NO recurrence of Bradycardia on Telemetry this morning -450ml fluid balance Patient was noted to have some intermittent Wenckebach on Telemetry yesterday and therefore her Metoprolol succinate was reduced from 75mg PO BID to 50mg PO BID Review of Systems Review of Systems: All systems reviewed & are unremarkable except as noted in HPI & below Physical Exam Constitutional: well developed and + obese Neck: normal visual inspection and trachea midline Respiratory: normal respiratory effort; no respiratory distress, no labored breathing and no cough Cardiovascular: Rate/Rhythm: regular rate, regular rhythm and + tachycardic (frequent runs of MAT) Heart Sounds: normal S1 and normal S2; no murmur Vessels: dorsalis pedis pulses present; no JVD Extremities: + edema (chronic lymphedema ) Skin: no rashes, warm and dry Psychiatric: A+Ox3, euthymic affect Results & Data Vital Signs (Past 12 Hours) Vital Signs Temp Pulse Pulse Resp BP BP Pulse Ox 12/04/24 07:11 36.6 C 68 18 145/77 H 93 12/04/24 06:04 68 143/84 H 12/04/24 02:27 36.5 C 62 18 125/75 92 12/03/24 22:46 36.9 C 70 18 158/84 H 94 12/03/24 21:38 65 12/03/24 21:00 O2 Del Method 12/04/24 07:11 Room Air 12/04/24 06:04 12/04/24 02:27 Room Air 12/03/24 22:46 Room Air 12/03/24 21:38 12/03/24 21:00 Room Air Laboratory Results Cardiac Enzymes 12/04/24 Range/Units 05:54 AST 17 (13-39) U/L CBC 12/04/24 Range/Units 05:54 WBC 7.34 (4.8-10.8) K/ul RBC 3.68 L (4.20-5.40) M/uL Hgb 11.9 L (12.0-16.0) g/dl Hct 34.2 L (37.0-47.0) % Plt Count 132 (130-400) K/uL Neut # (Auto) 3.75 (1.40-6.50) K/uL Lymph # (Auto) 2.34 (1.20-3.40) K/uL Banks # (Auto) 0.66 H (0.11-0.59) K/uL Eos # (Auto) 0.54 H (0.00-0.50) K/uL Baso # (Auto) 0.03 (0.00-0.20) K/uL Comprehensive Metabolic Panel 12/04/24 Range/Units 05:54 Sodium 132 L (136-145) mmol/L Potassium 3.7 (3.5-5.1) mmol/L Chloride 96 L (98-107) mmol/L Carbon Dioxide 32 (21-32) mmol/L BUN 13 (6-23) mg/dl Creatinine 1.01 (0.6-1.2) mg/dl Glucose 118 H (70-99(Fasting)) mg/dl Calcium 8.6 (8.6-10.3) mg/dl AST 17 (13-39) U/L ALT 10 (7-52) U/L Alkaline Phosphatase 110 H (34-104) U/L Total Protein 5.7 L (6.0-8.3) gm/dl Albumin 3.3 L (3.4-5.0) gm/dl Intake and Output 12/03/24 12/04/24 12/04/24 22:59 06:59 14:59 Intake Total 100 / 458.083 Output Total 300 / 1050 550 / 1050 Balance -300 / -591.917 -450 / -591.917 Intake: IV 100 / 258.083 Magnesium Sulfate / D5w 1 gm In 100 / 100 100 ml @ 50 mls/hr IV [facility] Rx#:[id number] Output: Urine 550 / 550 Urine Amount (Catheter) 300 / 500 Quarles/Indwelling 300 / 500
[2024-12-04] MEDS: METOPROLOL SUCC 50MG EXT REL TAB PO SCH (08:55)
--- NOTE | 2024-12-04 09:18 | Electrocardiogram Report ---
Test Reason : Blood Pressure : */* mmHG Vent. Rate : 66 BPM Atrial Rate : * BPM P-R Int : * ms QRS Dur : 88 ms QT Int : 412 ms P-R-T Axes : * -22 20 degrees QTcB Int : 431 ms Atrial fibrillation Low voltage QRS Abnormal ECG When compared with ECG of 02-Dec-2024 05:12, Atrial fibrillation has replaced Sinus rhythm Confirmed by Merced Padilla (Lai) on 12/04/2024 9:18:02 AM Referred By: REFERRED SELF Confirmed By: Merced Padilla
[2024-12-04] MEDS: SACCHAROMYCES BOULARDII 250 MG CAP PO SCH (09:30)
--- NOTE | 2024-12-04 13:26 | Electrocardiogram Report ---
Test Reason : Blood Pressure : */* mmHG Vent. 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
--- NOTE | 2024-12-04 13:55 | Hospitalist Progress Note ---
Date of Service December 04, 2024 Assessment & Plan (1) Multifocal atrial tachycardia: (2) Hypoxia: (3) Hypertensive urgency: (4) Constipation: (5) Nausea and vomiting: (6) Hypothyroidism: (7) GERD (gastroesophageal reflux disease): (8) Lymphedema: (9) Chronic pain syndrome: (10) Fibromyalgia: (11) Elevated troponin: Plan 89 year old female with PMH significant for HTN, HLD, CKD III, hypothyroidism, GERD, OA, bilateral carpal tunnel syndrome, fibromyalgia, chronic pain syndrome, lymphedema who presented to the ED today with constipation, nausea and vomiting since yesterday and being admitted for further work up of tachycardia. Multifocal atrial tachycardia HR on telemetry ranging from 90s-130s Could be due to missed doses of metoprolol, dehydration from N/V, or PE Abnormal EKG finding of PACs versus A fib Elevated troponin flat Continue metoprolol at increased dose 50mg BID Echo Obtain daily EKG Cardiology consulted, appreciate recs Hypoxia 84% on RA in ER CXR and VBG negative; lungs clear; no respiratory symptoms O2 as needed to maintain sats >92%, currently on RA Encourage Incentive spirometry DVT of LLE D dimer elevated Venous doppler noting Distal left popliteal deep venous thrombosis. CTA chest noting no definite acute PE IV heparin at this time- transitioned to po Eliquis Proctitis Constipation CT abd revealed moderate rectal wall thickening and inflammation Leukocytosis Miralax bid, Senna S bid, PRN enema daily Started on empiric Unasyn--> transitioned to po Augmentin, improving GI consulted, appreciate recs Pt declining EGD or colonoscopy Pulmonary Nodules Noted on Chest CTA..."A follow-up chest CT is recommended in 3 months to ensure stability" Mild R hydronephrosis Noted on chest CTA Abd/pelvis CT noting no hydronephrosis Hypertensive urgency Metoprolol increased from 25mg bid to 50mg bid Monitor BPs PRN labetolol Hypothyroidism TSH stable Continue levothyroxine GERD Continue pantoprazole and famotidine Chronic pain syndrome Follows with [facility] pain management monthly Current meds include oxycodone 10mg bid, gabapentin 300mg tid, diclofenac gel PRN, tylenol PRN - continue Endorses weakness due to pain - PT/OT consults- recommending rehab Lymphedema BLE edema at baseline per pt/daughter BNP elevated likely due to this Continue furosemide 20mg daily DVT Prophylaxis: SQ heparin--transitioned to eliquis Code Status: DNR/DNI - As per discussion at bedside with the patient. PCP: Dr Macy Richey DO Disposition: admit to tele Admission and Anticipated Discharge Date Admission Date: December 01, 2024 Subjective pt was seen initially by herself in the AM then later with family at bedside She noted she had a BM that was very large, concerned that she might have made a mess Concerned about food texture- wants a soft diet Daughter at bedside updated Review of Systems Review of Systems: All systems reviewed & are unremarkable except as noted in Subjective Physical Exam Physical Exam: General: Alert, oriented. No acute distress HEENT: NC/AT CV: RRR Resp: Breath sounds clear bilaterally, no increased effort of breathing Abdomen: Soft, nontender Extremities: +++ edema in lower extremities bilaterally. Results & Data Results & Data Vital Signs (Past 12 Hours) Vital Signs Temp Pulse Resp BP BP Pulse Ox O2 Del Method 12/04/24 11:45 36.8 C 79 18 129/70 92 Room Air 12/04/24 07:11 36.6 C 68 18 145/77 H 93 Room Air 12/04/24 06:04 68 143/84 H 12/04/24 02:27 36.5 C 62 18 125/75 92 Room Air
[2024-12-04] MEDS: AMOXICILLIN/CLAVULANATE 875 MG TAB PO SCH (20:39)
[2024-12-05 06:58] LABS: Basophils # (auto) 0.02 K/uL (0.00-0.20); Basophils % (auto) 0.3 %; Eosinophils # (auto) 0.48 K/uL (0.00-0.50); Eosinophils % (auto) 7.3 %; Hematocrit (blood only) 35.1 % (37.0-47.0); Hemoglobin 12.2 g/dl (12.0-16.0); Immature Granulocytes # (auto) 0.02 K/uL (0.01-0.20); Immature Granulocytes % (auto) 0.3 %; Lymphocytes # (auto) 2.46 K/uL (1.20-3.40); Lymphocytes % (auto) 37.3 %; Mean Corpuscular Hemoglobin 32.5 pg (25.0-34.0); Mean Corpuscular Hgb Conc 34.8 g/dL (32.0-36.0); Mean Corpuscular Volume 93.6 fL (80.0-100.0); Mean Platelet Volume 9.7 fL (9.4-12.4); Monocytes # (auto) 0.59 K/uL (0.11-0.59); Monocytes % (auto) 8.9 %; Neutrophils # (auto) 3.03 K/uL (1.40-6.50); Neutrophils % (auto) 45.9 %; Platelet Count 144 K/uL (130-400); RDW Coefficient of Variation 12.2 % (11.5-14.5); RDW Standard Deviation 41.9 fL (36.4-46.3); Red Blood Count 3.75 M/uL (4.20-5.40)
[2024-12-05 07:16] LABS: Albumin Globulin Ratio 1.3 (0.9-2); Albumin Level 3.3 gm/dl (3.4-5.0); BUN Creatinine Ratio 12.6 (10-20); Bilirubin,Total 0.7 mg/dl (0.2-1.0); Calcium 8.6 mg/dl (8.6-10.3); Creatinine Clr Calc Pharmacy 43.5 ml/min; Globulin 2.5 gm/dl (2.5-4.0); Magnesium 2.2 mg/dl (1.7-2.4); Phosphorus 3.2 mg/dl (2.5-4.9); Potassium 4.2 mmol/L (3.5-5.1); Total Protein 5.8 gm/dl (6.0-8.3)
--- NOTE | 2024-12-05 12:46 | Cardiology Progress Note ---
Date of Service December 05, 2024 Assessment & Plan (1) Multifocal atrial tachycardia: (2) Elevated troponin: (3) Nausea and vomiting: (4) Constipation: Plan Assessment: 89 year old female admitted for 2 day history of nausea, vomiting, inability to take oral medications and constipation. Initial EKG suggestive of atrial arrhythmia, cardiology consulted for further assessment and recommendations. Plan: Multifocal atrial tachycardia -Continue metoprolol succinate 50 mg bid Distal left popliteal deep venous thrombosis. -Continue Eliquis Admission and Anticipated Discharge Date Admission Date: December 01, 2024 Subjective Patient seen in cardiology follow-up. Denies any acute cardiac complaint. Denies chest pain, palpitations or shortness of breath. Telemetry reveals sinus rhythm with premature atrial contractions in the 50s. Several brief episodes of Mobitz type I second-degree AV block observed overnight last night and this morning with no prolonged bradycardia. Physical Exam Constitutional: well developed and + obese Neck: normal visual inspection and trachea midline Respiratory: normal respiratory effort; no respiratory distress, no labored breathing and no cough Cardiovascular: Rate/Rhythm: regular rate, regular rhythm and + tachycardic (frequent runs of MAT) Heart Sounds: normal S1 and normal S2; no murmur Vessels: dorsalis pedis pulses present; no JVD Extremities: + edema (chronic lymphedema ) Skin: no rashes, warm and dry Psychiatric: A+Ox3, euthymic affect Results & Data Vital Signs (Past 12 Hours) Vital Signs Temp Pulse Pulse Resp BP BP Pulse Ox 12/05/24 11:16 36.7 C 71 16 127/80 94 12/05/24 07:44 62 12/05/24 07:22 36.6 C 61 17 159/92 H 95 12/05/24 02:59 36.6 C 57 L 18 118/67 92 O2 Del Method 12/05/24 11:16 Room Air 12/05/24 07:44 12/05/24 07:22 Room Air 12/05/24 02:59 Room Air Laboratory Results Cardiac Enzymes 12/05/24 Range/Units 06:29 AST 12 L (13-39) U/L CBC 12/05/24 Range/Units 06:29 WBC 6.60 (4.8-10.8) K/ul RBC 3.75 L (4.20-5.40) M/uL Hgb 12.2 (12.0-16.0) g/dl Hct 35.1 L (37.0-47.0) % Plt Count 144 (130-400) K/uL Neut # (Auto) 3.03 (1.40-6.50) K/uL Lymph # (Auto) 2.46 (1.20-3.40) K/uL [place] # (Auto) 0.59 (0.11-0.59) K/uL Eos # (Auto) 0.48 (0.00-0.50) K/uL Baso # (Auto) 0.02 (0.00-0.20) K/uL Comprehensive Metabolic Panel 12/05/24 Range/Units 06:29 Sodium 135 L (136-145) mmol/L Potassium 4.2 (3.5-5.1) mmol/L Chloride 99 (98-107) mmol/L Carbon Dioxide 32 (21-32) mmol/L BUN 13 (6-23) mg/dl Creatinine 1.03 (0.6-1.2) mg/dl Glucose 119 H (70-99(Fasting)) mg/dl Calcium 8.6 (8.6-10.3) mg/dl AST 12 L (13-39) U/L ALT 10 (7-52) U/L Alkaline Phosphatase 103 (34-104) U/L Total Protein 5.8 L (6.0-8.3) gm/dl Albumin 3.3 L (3.4-5.0) gm/dl Intake and Output 12/04/24 12/05/24 12/05/24 22:59 06:59 14:59 Intake Total 170 / 611.917 Output Total 1949 Balance -430 / -1338.083 -350 / -1338.083 Intake: Oral 170 / 170 Output: Urine Amount (Catheter) 1949 Quarles/Indwelling 1949 Other: Other Intake Source sips Weight 107.4 kg Weight Measurement Method Built in [facility]
--- NOTE | 2024-12-05 14:59 | Hospitalist Progress Note ---
Date of Service December 05, 2024 Assessment & Plan (1) Multifocal atrial tachycardia: (2) Hypoxia: (3) Hypertensive urgency: (4) Constipation: (5) Nausea and vomiting: (6) Hypothyroidism: (7) GERD (gastroesophageal reflux disease): (8) Lymphedema: (9) Chronic pain syndrome: (10) Fibromyalgia: (11) Elevated troponin: Plan 89 year old female with PMH significant for HTN, HLD, CKD III, hypothyroidism, GERD, OA, bilateral carpal tunnel syndrome, fibromyalgia, chronic pain syndrome, lymphedema who presented to the ED today with constipation, nausea and vomiting since yesterday and being admitted for further work up of tachycardia. Multifocal atrial tachycardia HR on telemetry ranging from 90s-130s Could be due to missed doses of metoprolol, dehydration from N/V, or PE Abnormal EKG finding of PACs versus A fib Elevated troponin flat Continue metoprolol at increased dose 50mg BID Echo Obtain daily EKG Cardiology consulted, appreciate recs Hypoxia 84% on RA in ER CXR and VBG negative; lungs clear; no respiratory symptoms O2 as needed to maintain sats >92%, currently on RA Encourage Incentive spirometry DVT of LLE D dimer elevated Venous doppler noting Distal left popliteal deep venous thrombosis. CTA chest noting no definite acute PE IV heparin at this time- transitioned to po Eliquis Proctitis Constipation CT abd revealed moderate rectal wall thickening and inflammation Leukocytosis Miralax bid, Senna S bid, PRN enema daily Started on empiric Unasyn--> transitioned to po Augmentin, improving GI consulted, appreciate recs Pt declining EGD or colonoscopy Pulmonary Nodules Noted on Chest CTA..."A follow-up chest CT is recommended in 3 months to ensure stability" Mild R hydronephrosis Noted on chest CTA Abd/pelvis CT noting no hydronephrosis Hypertensive urgency Metoprolol increased from 25mg bid to 50mg bid Monitor BPs PRN labetolol Hypothyroidism TSH stable Continue levothyroxine GERD Continue pantoprazole and famotidine Chronic pain syndrome Follows with [facility] pain management monthly Current meds include oxycodone 10mg bid, gabapentin 300mg tid, diclofenac gel PRN, tylenol PRN - continue Endorses weakness due to pain - PT/OT consults- recommending rehab Lymphedema BLE edema at baseline per pt/daughter BNP elevated likely due to this Continue furosemide 20mg daily DVT Prophylaxis: SQ heparin--transitioned to eliquis Code Status: DNR/DNI - As per discussion at bedside with the patient. PCP: Dr Macy Richey DO Disposition: admit to tele Admission and Anticipated Discharge Date Admission Date: December 01, 2024 Subjective Pt was seen with family at bedside Concerned that she was not able to have toast today on soft diet previously concerned that the diet was too hard and she could not eat the carrots or meats provided, so she was switched to a soft diet Review of Systems Review of Systems: All systems reviewed & are unremarkable except as noted in Subjective Physical Exam Physical Exam: General: Alert, oriented. No acute distress HEENT: NC/AT CV: RRR Resp: Breath sounds clear bilaterally, no increased effort of breathing Abdomen: Soft, nontender Extremities: +++ edema in lower extremities bilaterally. Results & Data Results & Data Vital Signs (Past 12 Hours) Vital Signs Temp Pulse Pulse Resp BP BP Pulse Ox 12/05/24 14:52 81 12/05/24 11:16 36.7 C 71 16 127/80 94 12/05/24 07:44 62 12/05/24 07:22 36.6 C 61 17 159/92 H 95 12/05/24 02:59 36.6 C 57 L 18 118/67 92 O2 Del Method 12/05/24 14:52 12/05/24 11:16 Room Air 12/05/24 07:44 12/05/24 07:22 Room Air 12/05/24 02:59 Room Air
[2024-12-06 06:29] LABS: Basophils # (auto) 0.02 K/uL (0.00-0.20); Basophils % (auto) 0.3 %; Eosinophils # (auto) 0.44 K/uL (0.00-0.50); Eosinophils % (auto) 6.7 %; Hematocrit (blood only) 35.1 % (37.0-47.0); Immature Granulocytes # (auto) 0.02 K/uL (0.01-0.20); Immature Granulocytes % (auto) 0.3 %; Lymphocytes # (auto) 2.19 K/uL (1.20-3.40); Lymphocytes % (auto) 33.1 %; Mean Corpuscular Hemoglobin 32.3 pg (25.0-34.0); Mean Corpuscular Hgb Conc 34.2 g/dL (32.0-36.0); Mean Corpuscular Volume 94.4 fL (80.0-100.0); Mean Platelet Volume 9.8 fL (9.4-12.4); Monocytes # (auto) 0.62 K/uL (0.11-0.59); Monocytes % (auto) 9.4 %; Neutrophils # (auto) 3.32 K/uL (1.40-6.50); Neutrophils % (auto) 50.2 %; Platelet Count 154 K/uL (130-400); RDW Coefficient of Variation 12.3 % (11.5-14.5); RDW Standard Deviation 42.7 fL (36.4-46.3); Red Blood Count 3.72 M/uL (4.20-5.40); White Blood Count 6.61 K/ul (4.8-10.8)
[2024-12-06 07:00] LABS: Albumin Globulin Ratio 1.3 (0.9-2); Albumin Level 3.2 gm/dl (3.4-5.0); BUN Creatinine Ratio 15.9 (10-20); Bilirubin,Total 0.6 mg/dl (0.2-1.0); Calcium 8.5 mg/dl (8.6-10.3); Creatinine Clr Calc Pharmacy 50.9 ml/min; Globulin 2.4 gm/dl (2.5-4.0); Magnesium 2.1 mg/dl (1.7-2.4); Total Protein 5.6 gm/dl (6.0-8.3)
[2024-12-06 08:14] VITALS: O2SAT 95
[2024-12-06 11:06] VITALS: RESP 16; TEMP 97.5
[2024-12-06 13:36] VITALS: BP 141/82; PULSE 55
--- NOTE | 2024-12-06 13:36 | Discharge Summary ---
Discharge Summary Date of Service December 06, 2024 Principal Dx & Hospital Course #1 = Principal Diagnosis (1) Multifocal atrial tachycardia: (2) Hypoxia: (3) Hypertensive urgency: (4) Constipation: (5) Nausea and vomiting: (6) Hypothyroidism: (7) GERD (gastroesophageal reflux disease): (8) Lymphedema: (9) Chronic pain syndrome: (10) Fibromyalgia: (11) Elevated troponin: Plan 89 year old female with PMH significant for HTN, HLD, CKD III, hypothyroidism, GERD, OA, bilateral carpal tunnel syndrome, fibromyalgia, chronic pain syndrome, lymphedema who presented to the ED today with constipation, nausea and vomiting the day before admission and was admitted for further work up of tachycardia. Multifocal atrial tachycardia HR on telemetry ranging from 90s-130s Could be due to missed doses of metoprolol, dehydration from N/V, or PE Abnormal EKG finding of PACs versus A fib Elevated troponin flat Echo with EF of 60-65%, Grade II diastolic dysfunction and short runs of atrial tachycardia noted Cardiology was consulted, recommended/stated the following: "Multifocal atrial tachycardia -Continue metoprolol succinate 50 mg bid Distal left popliteal deep venous thrombosis. -Continue Eliquis" PCP and close Cardiology followup after discharge Hypoxia 84% on RA in ER CXR and VBG negative; lungs clear; no respiratory symptoms O2 as needed to maintain sats >92%, currently on RA Encourage Incentive spirometry Resolved, pt on RA on discharge DVT of LLE D dimer elevated Venous doppler noting Distal left popliteal deep venous thrombosis. CTA chest noting no definite acute PE IV heparin transitioned to po Eliquis Continue with Eliquis after discharge Close PCP followup Possible Proctitis Constipation Chronic Nausea with acute vomitting CT abd revealed moderate rectal wall thickening and inflammation Leukocytosis Miralax bid, Senna S bid, PRN enema daily Started on empiric Unasyn--> transitioned to po Augmentin, noted significant improvement in leukocytosis. Discharged with 3 more days with probiotic. GI consulted, appreciate recs. Recommended/stated the following: "...GI symptoms are resolving no further nausea or vomiting. No recent bowel movement. She denies any history of diarrhea or bright red blood per rectum. Unlikely that CT scan findings of wall thickness of the rectum is related to a clinically significant proctitis. Would expect additional symptoms. However could consider colonoscopy or flexible sigmoidoscopy to better assess. At this time patient is not agreeable to pursue any endoscopic procedures. She could follow-up with GI as an outpatient if she changes her mind..." Pt declining EGD or colonoscopy PCP followup Pulmonary Nodules Noted on Chest CTA..."A follow-up chest CT is recommended in 3 months to ensure stability" Mild R hydronephrosis Noted on chest CTA Abd/pelvis CT noting no hydronephrosis Pt asymptomatic otherwise Hypertensive urgency Metoprolol increased from 25mg bid to 50mg bid Monitor BPs PRN labetolol Hypothyroidism TSH stable Continue levothyroxine GERD Continue pantoprazole and famotidine Chronic pain syndrome Follows with [facility] pain management monthly Current meds include oxycodone 10mg bid, gabapentin 300mg tid, diclofenac gel PRN, tylenol PRN - continue Endorses weakness due to pain - PT/OT consults- recommending rehab Lymphedema BLE edema at baseline per pt/daughter BNP elevated likely due to this Continue furosemide 20mg daily Notes For Next Care Provider As above Medication Changes From Visit Eliquis for DVT Toprol XL 50mg BID Augmentin for 3 more days with probiotic Admission HPI Per Admitting Provider 89 year old female with PMH significant for HTN, HLD, CKD III, hypothyroidism, GERD, OA, bilateral carpal tunnel syndrome, fibromyalgia, chronic pain syndrome, lymphedema who presented to the ED today with constipation, nausea and vomiting since yesterday. Patient reports that she has baseline constipation where she only has BMs every 3-4 days but yesterday had been 6 days since her last BM and she was getting uncomfortable. She takes Miralax daily but also added ducosate, prune juice, and a suppository yesterday with only minimal relief of small hard stools. She also endorses painful hemorrhoids that she has been dealing with for years. She also had nausea and vomiting since yesterday where she has vomited multiple times a day and notes that it has been brown due to drinking prune juice. She has not had much appetite and has not eaten or drank much since yesterday. She has not taken her medications aside from pantoprazole since the day before yesterday due to nausea and vomiting. She denies recent illness, fevers, chills, cough, cold symptoms, chest pain, palpitations, SOB, abdominal pain, dysuria, hematochezia. She currently lives at home alone and notes increasing weakness. She is mostly wheelchair bound with occasional walker use, but she has not tolerated that much due to chronic pain. Her daughter and son-in-law live close by and help manage her medications. Admission Exam Per Admitting Provider General/Psych: obese, sitting up in bed, NAD, conversing easily, euthymic affect Head: normocephalic, atraumatic Eyes: normal inspection, PERRL, conjunctivae pink, anicteric sclerae ENT: external ear and nose normal, oropharynx normal Neck: normal visual inspection, trachea midline, no thyromegaly Respiratory: normal respiratory effort, lungs clear to auscultation, no wheeze/rales/rhonchi, no accessory muscle use Cardiovascular: irregular rate and rhythm, no murmur/rub/gallop, no JVD Extremities: no cyanosis or clubbing, normal peripheral pulses, BLE edema that is baseline per pt/daughter Abdomen/GI: normal bowel sounds, soft, nontender, no hepatosplenomegaly Neurologic/MSK: A+Ox3, motor strength 5/5, moves all extremities Skin: no rashes, normal color, warm and dry Discharge Exam General: Alert, oriented. No acute distress HEENT: NC/AT CV: RRR Resp: Breath sounds clear bilaterally, no increased effort of breathing Abdomen: Soft, nontender Extremities: +++ edema in lower extremities bilaterally. Updated Medication List Medication Instructions Recorded Confirmed Type cholecalciferol (vitamin D3) 25 25 mcg PO DAILY 01/24/20 12/01/24 History mcg (1,000 unit) capsule (Vitamin D3) furosemide 20 mg tablet 20 mg PO DAILY 01/24/20 12/01/24 History mecobalamin (vitamin B12) 1,000 1,000 mcg PO DAILY 01/24/20 12/01/24 History mcg chewable tablet pantoprazole 40 mg tablet,delayed 40 mg PO DAILYBB 01/24/20 12/01/24 History release polyethylene glycol 3350 17 17 gm PO DAILY 01/24/20 12/01/24 History gram/dose oral powder (Miralax) famotidine 20 mg tablet 20 mg PO HS 12/01/24 12/01/24 History gabapentin 300 mg capsule 300 mg PO TID 12/01/24 12/01/24 History levothyroxine 75 mcg tablet 75 mcg PO DAILYBB 12/01/24 12/01/24 History oxycodone 10 mg tablet,crush 10 mg PO AMPM 12/01/24 12/01/24 History resistant,extended release 12 hr (OxyContin) Javier fungi 250 mg 250 mg PO DAILY #30 caps 12/06/24 Rx capsule amoxicillin 875 mg-potassium 1 tab PO BIDM #6 tabs 12/06/24 Rx clavulanate 125 mg tablet apixaban 5 mg tablet (Eliquis) See Rx Instructions .Route 12/06/24 Rx .COMPLEX #74 tabs metoprolol succinate 50 mg 50 mg PO BID #60 tabs 12/06/24 Rx tablet,extended release 24 hr Hospital Stay Data Consultations 12/01/24 12:20 ED Decision to Admit Stat 12/01/24 16:20 Consult Cardiology Routine 12/02/24 08:13 Consult Gastroenterology Routine Diagnostic Imagining Performed 12/01/24 09:56 CT abd pelvis IV con only Stat 12/01/24 16:00 CT angio chest PE protocol Stat US venous doppler LE BI Stat Abdomen/Pelvis CT 12/01/24 09:56 CT SCAN OF THE ABDOMEN AND PELVIS WITH IV CONTRAST CLINICAL HISTORY: Nausea. Constipation. COMPARISON STUDY: Right upper quadrant ultrasound January 11, 2010 and renal ultrasound May 20, 2010 TECHNIQUE: Following the IV administration of 94 cc of Optiray 320, CT scan of the abdomen and pelvis is performed from the lung bases to the proximal femora. Images are reviewed in the axial, sagittal, and coronal planes. IV contrast was administered without complication. A dose lowering technique was utilized adhering to the principles of ALARA. CT DOSE: 1322.95 mGy.cm FINDINGS: Lung bases: The size of the heart is normal. There is no pericardial effusion. A few small right lower lobe pulmonary nodules measure up to 6 mm. These are low suspicion. Liver: The liver morphology is normal and there are no hepatic lesions. There is no intrahepatic biliary ductal dilatation. The hepatic veins and portal veins are patent. Gallbladder: Grossly unremarkable. Exam mildly compromised by motion artifact. Spleen: Normal in size and attenuation. Pancreas: There are no pancreatic lesions. No pancreatic ductal dilatation is present. Adrenal glands: Unremarkable. Kidneys: 2.4 cm attenuation right renal lesion represents a cyst, shown on prior ultrasound. There is no hydronephrosis. The kidneys enhance symmetrically. Abdominal vasculature: The caliber of the abdominal aorta is normal. Major vasculature is patent. There is moderate atherosclerotic plaque within the abdominal aorta. Bowel: The caliber and wall thickness of small and large bowel are normal. The appendix is not well visualized. Moderate circumferential wall thickening of the rectum with moderate perirectal stranding and a small amount of presacral fluid is noted. There is no extraluminal gas. There is no fluid collection. Peritoneum: There is no intraperitoneal free air or abdominal ascites. Lymphadenopathy: None. Skeletal structures: No lytic or blastic lesions are seen. Severe right hip osteoarthritis is incidentally noted. IMPRESSION: 1. Moderate rectal wall thickening and associated inflammation. This represents a nonspecific proctitis. No extraluminal gas. No fluid collections. Follow-up colonoscopy once symptoms resolve is recommended to exclude the less likely possibility of an underlying rectal lesion. 2. No bowel obstruction. No additional sites of bowel wall thickening. ACT 112: Negative or not required by law. Electronically signed by: Poncho Estrella M.D. 12/01/2024 11:49 AM Chest X-Ray 12/01/24 10:23 XR chest 1V portable CLINICAL HISTORY: hypoxia COMPARISON STUDY: 06/29/2024 FINDINGS: Single view chest is unchanged. There is no acute process identified radiographically. There is no air space opacity, pleural effusion, or pneumothorax. There is no atelectasis. The right diaphragm is elevated most likely due to an eventration. Heart size is normal. No significant pulmonary vascular congestion. IMPRESSION: Stable exam; no acute process ACT 112: Negative or not required by law. Electronically signed by: Flory Fleming M.D. 12/01/2024 10:33 AM Chest CTA 12/01/24 16:00 Clinical history: Rule out pulmonary embolism Technique: Axial computed tomography images were obtained of the chest after the administration of intravenous contrast according to the CT angiogram protocol No prior examination is available for comparison Findings: There is no definite sign of acute pulmonary embolism. There is a thin band within the left lower lobe pulmonary artery There is a 5 mm noncalcified nodule in the left upper lobe. There is a 4 mm nodule in the superior segment of the right lower lobe. There is a 7 mm right lower lobe nodule also with a nearby 4 mm nodule. There are additional small bilateral upper lobe and right middle lobe nodules, measuring up to 4 mm in size. There is no pleural effusion or pneumothorax. There is no sign of pulmonary fibrosis or other diffuse interstitial process. No endobronchial lesion is seen There is no mediastinal, hilar, or axillary adenopathy. The thoracic aorta appears unremarkable with no sign of aneurysm or dissection. There is no pericardial effusion There is mild right hydronephrosis. There is thoracic and lumbar scoliosis and degenerative disc disease. No fracture is seen. No focal osseous lesion is evident Impression: 1. No definite sign of acute pulmonary embolism 2. Linear defect within the left lower lobe pulmonary artery that could be residual from prior embolism. This would be an atypical appearance for acute pulmonary embolism 3. Multiple pulmonary nodules, indeterminate in nature. A follow-up chest CT is recommended in 3 months to ensure stability 4. Mild right hydronephrosis. CT of the abdomen and pelvis could be considered for further evaluation ACT 112: Positive. There are findings on this exam that require communication between the performing entity and the patient following Patient Test Result Information Act ([place] ACT 112) guidelines. Electronically signed by Ahmet Greene 12-01-2024 5:38 PM Venous Doppler Study 12/01/24 16:00 CR Exam(s): US VENOUS BILATERAL LOWER EXTREMITIES EXAM: US Duplex Bilateral Lower Extremities Veins CLINICAL HISTORY: elevated d dimer. TECHNIQUE: Real-time duplex ultrasound scan of the bilateral lower extremity veins integrating B-mode two-dimensional vascular structure, Doppler spectral analysis, color flow Doppler imaging and compression. COMPARISON: Left lower extremity venous ultrasound 04/13/2022. FINDINGS: Right deep veins: Unremarkable. No DVT in the right common femoral, femoral, proximal deep femoral or popliteal veins. The veins demonstrate normal color flow, are normally compressible, with normal phasic flow and/or augmentation response. Veins below the knee or not adequately visualized. Right superficial veins: Unremarkable. No thrombus in the visualized right great saphenous vein. Left deep veins: Noncompressible thrombus identified in the distal left popliteal vein. No DVT in the left common or superficial femoral veins with normal color flow, are normally compressible and normal phasic flow and/or augmentation response. Veins below the knee are not clearly visualized. Left superficial veins: Unremarkable. No thrombus in the visualized left great saphenous vein. Soft tissues: No acute abnormality. No popliteal cyst. IMPRESSION: Distal left popliteal deep venous thrombosis. Communications: Call Doctor DVT – acute, progressing Electronically signed by: Greg Benson M.D. 12/02/24 00:45 AM Pending Results Patient Have Any Pending Studies at Discharge: No Discharge Instructions Given to Patient (Per Discharging Provider) Tanisha, You were seen by cardiology who recommended that you continue with the metoprolol at the 50mg twice a day dosing. You were also noted to have a blood clot. Continue with the Eliquis prescribed. You were also seen by gastroenterology. Please continue with the Augmentin for an additional 3 days for the treatment of the proctitis and take it with a probiotic. Please keep close follow up with your primary care provider and cardiology after discharge. Please do not hesitate to come back to the emergency room if your symptoms worsen or return. It was a pleasure taking care of you while you were here. Total Time Total Time Spent Total Time Spent (In Minutes): 60
== END 2024-12-06 14:02 | DRG 309 ==
LOC: EDBD → ED 09:49 → 2S 13:55 → SUATTDRO 13:55 → 2S 15:13

== ENCOUNTER 2025-07-19 10:06 | Inpatient (IN) ==
--- NOTE | 2025-07-19 11:08 | Emergency Department Note ---
Impression & Plan Sepsis, Acute confusion, Atrial fibrillation with rapid ventricular response, Leukocytosis, Elevated lactic acid level, Elevated procalcitonin, Nausea & vomiting, Dilated bile duct, Total bilirubin, elevated ED Provider Note HISTORY OF PRESENT ILLNESS: Patient is an 89-year-old female presenting for nausea, vomiting and confusion. Patient is alert to person, place and time on arrival to the ER. She reportedly has been feeling very sick to her stomach for the last week. Reports were that she had been vomiting and having diarrhea, but patient denies this. She reports that she just feels very nauseous. Family presented to bedside and reported that she is more confused than normal and seems very weak. No reported fevers at home. Patient is denying any abdominal pain. Denies any dysuria or hematuria. ROS: as above PHYSICAL EXAM: Constitutional: Patient appears in no acute distress. HENT: Head: Normocephalic and atraumatic. Eyes: EOMI, PERRL Mouth/Throat: Mucous membranes moist. Neck: Trachea midline. Neck supple. Cardiovascular: Tachycardic with irregularly irregular rhythm. No murmurs, rubs or gallops. Intact distal pulses. Pulmonary/Chest: No respiratory distress. Breath sounds clear and equal bilaterally. No wheezes or rales. Abdominal: Abdomen soft, no tenderness, rebound or guarding. Musculoskeletal: No tenderness or deformity noted. Lymphedema of the bilateral lower extremities. Skin: Warm and dry. No rash, erythema, pallor or cyanosis Psychiatric: Appropriate mood and affect for situation. Neurological: Alert and keenly responsive. CN II-XII grossly intact, moving all extremities equally and fully. MDM: - Vitals signs showed fever and tachycardia - History obtained via patient. History as above. - Chronic conditions affecting care: lymphedema; hypothyroidism; Afib; GERD; HTN - Differential diagnoses include, but are not limited to: CVA; intracranial hemorrhage; pneumonia; UTI; viral syndrome; electrolyte abnormality; dysrhythmia; cholecystitis - Order placed for continuous cardiac monitoring. At this time, monitor showed rate of 108 bpm with irregular rhythm, per my interpretation. - External medical records reviewed. Discharge summary dated 12/06/2024 was reviewed. Patient was admitted for multifocal atrial tachycardia with a heart rate ranging from 90s to 130s. - EKG image interpreted by myself showed atrial fibrillation. Rate tachycardic 130 bpm. QT 294. No acute ischemic changes. - Laboratory workup interpreted by myself showed leukocytosis (WBC 11.56) with neutrophil predominance; thrombocytopenia (plt 117); normal PT/INR; stable electrolytes; elevated procalcitonin (1.04); elevated lactic acid (3.2); elevated total bilirubin (1.5) with normal AST/ALT; normal lipase; elevated troponin (14.2) - COVID/flu/RSV negative - Patient given 1L NS in ER and HR improved. Patient sepsis fluid volume calculation based on actual body weight is 2904.00 mL. However, she became hypoxic as noted below after fluids in the ER and no further fluids were administered. - CXR image reviewed interpreted by myself as needed for pneumonia, per my interpretation. - Patient noted to be hypoxic in the emergency department and started on 2 L supplemental oxygen. - Blood cultures obtained in ER. - Given her tachycardia, tachypnea, elevated lactic acid and suspected source of infection, patient meets sepsis criteria. - Empirically started on IV zosyn - Patient did have profuse vomiting in the emergency department and was given 4 mg IV Zofran. - CT head wo contrast negative for acute intracranial pathology. - CT abdomen/pelvis with IV contrast showed development of mild biliary ductal dilatation which is new since December 2024. There is also moderate gallbladder distention without Gurpreet cholecystic inflammation. - US gallbladder and urinalysis ordered. - Discussed case with civil designer on-call, Dr. Power, and updated him on the CT findings and the patient's elevated total bilirubin level. Will be by to evaluate patient - Discussed case with general surgery. Will be by to evaluate patient. - Discussion was had with director of casework about patient's case and need for admission - Hospitalist consulted for admission - [facility] ASSESSMENT AND PLAN: Diagnosis: Sepsis; A-fib with RVR; acute confusion; leukocytosis; elevated lactic acid level; elevated procalcitonin; nausea and vomiting; elevated total bilirubin; dilated bile duct Plan: Admit Past Med/Surg History Problem List (Updated 07/19/25 @ 15:46 by Clarence Esposito PA-C) Dilated bile duct Total bilirubin, elevated Elevated procalcitonin (Acute) Elevated lactic acid level (Acute) Leukocytosis (Acute) Atrial fibrillation with rapid ventricular response (Acute) Acute confusion (Acute) Sepsis (Acute) Proctitis Colonoscopy refused Hypertensive urgency Elevated troponin Multifocal atrial tachycardia Nausea and vomiting Constipation Chronic pain syndrome Hypothyroidism Tachycardia GERD (gastroesophageal reflux disease) Hypoxia (Acute) Lymphedema (Chronic) Medical History History of DVT (deep vein thrombosis) Fibromyalgia Hypertension Arthritis Arthritis of right hip Greater trochanteric pain syndrome Chronic venous insufficiency Skin tear of right forearm without complication Lower extremity edema Venous ulcer of left leg Traumatic open wound of left lower leg with delayed healing Macular degeneration Cataract (lens) fragments in eye following cataract surgery, bilateral Surgical History H/O: hysterectomy S/P right knee arthroscopy H/O hemorrhoidectomy History of tonsillectomy Social History Smoking Status: Never smoker Hx Alcohol Use: No Hx Substance Use: No Preferred Language: [place] Citizen Communication Ability: Effective Hearing Ability: Hard of Hearing Public Employment Mediator Required: No Beliefs That Will Affect Care: None Current Living Situation: Alone Feels Safe at Home: Yes Childhood Exposure to Second-Hand Smoke: No Assistive Devices: Walker Allergies Allergies Allergy/AdvReac Type Severity Reaction Status Date / Time No Known Allergies Allergy Unverified 12/01/24 12:03 Home Meds Home Medications Medication Instructions Recorded Confirmed cholecalciferol (vitamin D3) 25 25 mcg PO DAILY 01/24/20 12/01/24 mcg (1,000 unit) capsule (Vitamin D3) furosemide 20 mg tablet 20 mg PO DAILY 01/24/20 12/01/24 mecobalamin (vitamin B12) 1,000 1,000 mcg PO DAILY 01/24/20 12/01/24 mcg chewable tablet pantoprazole 40 mg tablet,delayed 40 mg PO DAILYBB 01/24/20 12/01/24 release polyethylene glycol 3350 17 17 gm PO DAILY 01/24/20 12/01/24 gram/dose oral powder (Miralax) famotidine 20 mg tablet 20 mg PO HS 12/01/24 12/01/24 gabapentin 300 mg capsule 300 mg PO TID 12/01/24 12/01/24 levothyroxine 75 mcg tablet 75 mcg PO DAILYBB 12/01/24 12/01/24 oxycodone 10 mg tablet,crush 10 mg PO AMPM 12/01/24 12/01/24 resistant,extended release 12 hr (OxyContin) Previous Rx's Medication Instructions Recorded Saccharomyces boulardii 250 mg 250 mg PO DAILY #30 caps 12/06/24 capsule amoxicillin 875 mg-potassium 1 tab PO BIDM #6 tabs 12/06/24 clavulanate 125 mg tablet apixaban 5 mg tablet (Eliquis) See Rx Instructions .Route 12/06/24 .COMPLEX #74 tabs metoprolol succinate 50 mg 50 mg PO BID #60 tabs 12/06/24 tablet,extended release 24 hr Results & Data (ED) Vital Signs Vital Signs - 24 hr 07/19/25 10:21 07/19/25 10:21 07/19/25 10:22 Temperature 37.3 C Temperature Source Oral Pulse Rate 125 H 103 H Pulse Rate [Apical] Pulse Rhythm Irregular Respiratory Rate 14 Blood Pressure 147/112 H Blood Pressure [Right Arm] Blood Pressure Mean 123 Blood Pressure Mean [Right Arm] Pulse Oximetry 94 Oxygen Delivery Method Room Air Room Air Oxygen Flow Rate Sepsis New/Unexplained Change in Mental Status No Sepsis Action Taken by Nursing No Action Required Oxygen Flow Rate - Titration Pulse Oximetry Post Tiitration 07/19/25 11:30 07/19/25 11:53 07/19/25 12:00 Temperature Temperature Source Pulse Rate Pulse Rate [Apical] 106 H 120 H Pulse Rhythm Respiratory Rate 20 22 Blood Pressure Blood Pressure [Right Arm] 116/87 124/93 Blood Pressure Mean Blood Pressure Mean [Right Arm] 96 103 Pulse Oximetry 90 86 L 95 Oxygen Delivery Method Room Air Room Air Nasal Cannula Nasal Cannula Oxygen Flow Rate 0 2 Sepsis New/Unexplained Change in Mental Status Sepsis Action Taken by Nursing Oxygen Flow Rate - Titration 2 Pulse Oximetry Post Tiitration 96 07/19/25 14:26 Temperature Temperature Source Pulse Rate 108 H Pulse Rate [Apical] Pulse Rhythm Respiratory Rate Blood Pressure Blood Pressure [Right Arm] Blood Pressure Mean Blood Pressure Mean [Right Arm] Pulse Oximetry Oxygen Delivery Method Oxygen Flow Rate Sepsis New/Unexplained Change in Mental Status Sepsis Action Taken by Nursing Oxygen Flow Rate - Titration Pulse Oximetry Post Tiitration Laboratory Data 07/19/25 10:50 07/19/25 11:44 Lab Results 07/19/25 07/19/25 07/19/25 Range/Units 10:50 11:29 11:30 WBC 11.56 H (4.8-10.8) K/ul RBC 4.31 (4.20-5.40) M/uL Hgb 14.3 (12.0-16.0) g/dL Hct 42.7 (37.0-47.0) % MCV 99.1 (80.0-100.0) fL MCH 33.2 (25.0-34.0) pg MCHC 33.5 (32.0-36.0) g/dL RDW Std Deviation 50.7 H (36.4-46.3) fL RDW Coeff of Etienne 13.8 (11.5-14.5) % Plt Count 117 L (130-400) K/uL MPV 9.2 L (9.4-12.4) fL Immature Gran % (Auto) 0.5 % Neut % (Auto) 90.2 % Lymph % (Auto) 5.3 % [place] % (Auto) 3.5 % Eos % (Auto) 0.3 % Baso % (Auto) 0.2 % Neut # (Auto) 10.43 H (1.40-6.50) K/uL Lymph # (Auto) 0.61 L (1.20-3.40) K/uL [place] # (Auto) 0.40 (0.11-0.59) K/uL Eos # (Auto) 0.04 (0.00-0.50) K/uL Baso # (Auto) 0.02 (0.00-0.20) K/uL Immature Gran # (Auto) 0.06 (0.01-0.20) K/uL Toxic Vacuolation 2+ PT Cancelled INR Cancelled Sodium TNP Potassium TNP Chloride 98 (98-107) mmol/L Carbon Dioxide 29 (21-32) mmol/L Anion Gap TNP BUN 12 (6-23) mg/dl Creatinine 1.11 (0.6-1.2) mg/dl Est Cr Clr Drug Dosing Not Reportable eGFR 48.11 BUN/Creatinine Ratio 10.8 (10-20) Glucose 130 H (70-99(Fasting)) mg/dl Lactate 3.2 H* (0.4-2.0) mmol/L Calcium 9.5 (8.6-10.3) mg/dl Magnesium TNP Total Bilirubin 1.5 H (0.2-1.0) mg/dl AST TNP ALT 13 (7-52) U/L Alkaline Phosphatase 205 H (34-104) U/L Troponin I High Sens 14.2 H (0-14) pg/ml Total Protein 6.8 (6.0-8.3) gm/dl Albumin 3.9 (3.4-5.0) gm/dl Globulin 2.9 (2.5-4.0) gm/dl Albumin/Globulin Ratio 1.3 (0.9-2) Lipase 6 L (11-82) U/L Procalcitonin 1.04 H (0-0.5) ng/ml Urine Comment SARS-CoV-2 (PCR) NEGATIVE (Negative) Influenza Type A (PCR) Negative (Neg) Influenza Type B (PCR) Negative (Neg) RSV (RT-PCR) Negative (Neg) 07/19/25 07/19/25 Range/Units 11:44 15:45 WBC (4.8-10.8) K/ul RBC (4.20-5.40) M/uL Hgb (12.0-16.0) g/dL Hct (37.0-47.0) % MCV (80.0-100.0) fL MCH (25.0-34.0) pg MCHC (32.0-36.0) g/dL RDW Std Deviation (36.4-46.3) fL RDW Coeff of Etienne (11.5-14.5) % Plt Count (130-400) K/uL MPV (9.4-12.4) fL Immature Gran % (Auto) % Neut % (Auto) % Lymph % (Auto) % [place] % (Auto) % Eos % (Auto) % Baso % (Auto) % Neut # (Auto) (1.40-6.50) K/uL Lymph # (Auto) (1.20-3.40) K/uL [place] # (Auto) (0.11-0.59) K/uL Eos # (Auto) (0.00-0.50) K/uL Baso # (Auto) (0.00-0.20) K/uL Immature Gran # (Auto) (0.01-0.20) K/uL Toxic Vacuolation PT 11.6 INR 1.1 Sodium 137 Potassium 4.4 Chloride (98-107) mmol/L Carbon Dioxide (21-32) mmol/L Anion Gap BUN (6-23) mg/dl Creatinine (0.6-1.2) mg/dl Est Cr Clr Drug Dosing eGFR BUN/Creatinine Ratio (10-20) Glucose (70-99(Fasting)) mg/dl Lactate (0.4-2.0) mmol/L Calcium (8.6-10.3) mg/dl Magnesium 1.9 Total Bilirubin (0.2-1.0) mg/dl AST 24 ALT (7-52) U/L Alkaline Phosphatase (34-104) U/L Troponin I High Sens (0-14) pg/ml Total Protein (6.0-8.3) gm/dl Albumin (3.4-5.0) gm/dl Globulin (2.5-4.0) gm/dl Albumin/Globulin Ratio (0.9-2) Lipase (11-82) U/L Procalcitonin (0-0.5) ng/ml Urine Comment SARS-CoV-2 (PCR) (Negative) Influenza Type A (PCR) (Neg) Influenza Type B (PCR) (Neg) RSV (RT-PCR) (Neg) Administered Medications Discontinued Medications Sodium Chloride (Nss) 500 mls @ 999 mls/hr IV .Q31M ONE Stop: 07/19/25 11:36 Last Infusion: 07/19/25 12:36 Dose: Infused Documented By: linda Admin: 07/19/25 11:35 Dose: 999 mls/hr Documented By: linda Piperacillin Sod/Tazobactam Sod (Zosyn) 4.5 gm in 100 mls @ 200 mls/hr IV NOW ONE; Protocol Stop: 07/19/25 12:45 Last Infusion: 07/19/25 13:29 Dose: Infused Documented By: linda Admin: 07/19/25 12:36 Dose: 200 mls/hr Documented By: linda Ioversol (Optiray 320 100ml) 94 ml IV ONCE ONE Stop: 07/19/25 14:03 Last Admin: 07/19/25 14:02 Dose: 94 ml Documented By: JOAQUIN Ondansetron HCl (Ondansetron Inj 2 Mg/Ml 2 Ml Vial) 4 mg IV NOW STA Stop: 07/19/25 13:40 Last Admin: 07/19/25 13:46 Dose: 4 mg Documented By: linda Imaging Data Radiologist's Impression: Chest X-Ray 07/19/25 11:24 SINGLE VIEW CHEST CLINICAL HISTORY: Change in mental status. FINDINGS: 2 AP, portable, upright chest radiographs are compared to chest x-ray and chest CT dated 12/01/2024. The examination is degraded by portable technique and patient rotation. The heart is enlarged noting atherosclerotic calcification of the thoracic aorta. The pulmonary vasculature is noncongested. Enlargement of the central pulmonary arteries suggests pulmonary artery hypertension. Chronic interstitial thickening is similar to previous. There is bibasilar scarring/atelectasis. No airspace consolidation or large pleural effusion is identified. No pneumothorax is seen. The skeletal structures are osteopenic. The bony thorax is grossly intact. Degenerative change is noted in the shoulders. IMPRESSION: Cardiomegaly with no acute cardiopulmonary abnormality identified. ACT 112: Negative or not required by law. Electronically signed by: Cas Sweeney M.D. 07/19/2025 12:20 PM Abdomen/Pelvis CT 07/19/25 11:44 CT SCAN OF THE ABDOMEN AND PELVIS WITH IV CONTRAST CLINICAL HISTORY: Nausea, vomiting and diarrhea. COMPARISON STUDY: CT of the abdomen and pelvis December 01, 2024. Right upper quadrant ultrasound January 11, 2010. TECHNIQUE: Following the IV administration of 94 cc of Optiray 320, CT scan of the abdomen and pelvis is performed from the lung bases to the proximal femora. Images are reviewed in the axial, sagittal, and coronal planes. IV contrast was administered without complication. A dose lowering technique was utilized adhering to the principles of ALARA. CT DOSE: 2080.79 mGy.cm FINDINGS: Visualized portions of the lung bases are unremarkable. There is no pneumatosis, free air or portal venous gas. Mild biliary ductal dilatation has developed since CT of December 01, 2024. The gallbladder is moderately distended. However, there is no pericholecystic inflammation. There are no hepatic lesions. Spleen, adrenal glands and pancreas are unremarkable with the exception of pancreatic glandular atrophy. No pancreatic ductal dilatation. Right renal cyst is present. Moderate bilateral renal cortical thinning. No evidence for a bowel obstruction. Caliber and wall thickness of small and large bowel are normal. There is a moderate amount of stool within the rectum. There is no lymphadenopathy. There are no fluid collections. Trace gas within the bladder is noted. There is a 2 mm right renal calculus. No ureteral calculi. No hydronephrosis. IMPRESSION: 1. Interval development of mild biliary ductal dilatation which could be correlated with liver function tests. 2. Moderate gallbladder distention without pericholecystic inflammation. If right upper quadrant pain, ultrasound is recommended. 3. No bowel obstruction. No bowel wall thickening. Moderate stool within the rectum. ACT 112: Negative or not required by law. Electronically signed by: Poncho Estrella M.D. 07/19/2025 2:[address] 07/19/25 11:44 CT SCAN OF THE BRAIN WITHOUT IV CONTRAST CLINICAL HISTORY: Altered mental status. COMPARISON STUDY: None. TECHNIQUE: Unenhanced axial CT scan of the brain was performed from the vertex to the skull base. A dose lowering technique was utilized adhering to the principles of ALARA. FINDINGS: Brain parenchyma: No acute intracranial hemorrhage, midline shift or mass effect is present. Armstrong-white matter differentiation is preserved. There are no extra- axial fluid collections. There are no findings to suggest acute dural sinus thrombosis or acute territorial infarct. White matter hypodensity suggests small vessel disease. Prominence of the extra-axial spaces is due to moderate atrophy. Ventricles, sulci, cisterns: There is no hydrocephalus. The basal cisterns are patent. Calvarium: Unremarkable. Sinuses and mastoids: The visualized paranasal sinuses are clear. The mastoid air cells are well pneumatized. Orbits: The bony orbits are grossly intact. IMPRESSION: No acute intracranial findings. ACT 112: Negative or not required by law. Electronically signed by: Poncho Estrella M.D. 07/19/2025 2:22 PM Discharge Plan Visit Data Chief Complaint: Illness Stated Complaint: vomiting, general illness ED Provider: Cathie Chen Discharge Problem: Sepsis, Acute confusion, Atrial fibrillation with rapid ventricular response, Leukocytosis, Elevated lactic acid level, Elevated procalcitonin, Nausea & vomiting, Dilated bile duct, Total bilirubin, elevated Patient Disposition: Admitted As Inpatient Condition: Fair Forms Stand Alone Forms: My [facility] Prescriptions Prescriptions: No Action furosemide 20 mg tablet 20 mg PO DAILY MDD 40MG/24HR Rx Instructions: Can take additional 20mg if needed in the day polyethylene glycol 3350 [Miralax] 17 gram/dose powder 17 gm PO DAILY pantoprazole 40 mg tablet,delayed release (DR/EC) 40 mg PO DAILYBB mecobalamin (vitamin B12) 1,000 mcg tablet,chewable 1,000 mcg PO DAILY cholecalciferol (vitamin D3) [Vitamin D3] 25 mcg (1,000 unit) capsule 25 mcg PO DAILY levothyroxine 75 mcg tablet 75 mcg PO DAILYBB oxycodone [OxyContin] 10 mg tablet,oral only,ext.rel.12 hr 10 mg PO AMPM famotidine 20 mg tablet 20 mg PO HS gabapentin 300 mg capsule 300 mg PO TID metoprolol succinate 50 mg Tablet Extended Release 24 Hr 50 mg PO BID Qty: 60 0RF amoxicillin-pot clavulanate 875-125 mg Tablet 1 tab PO BIDM Qty: 6 0RF Saccharomyces boulardii 250 mg Capsule 250 mg PO DAILY Qty: 30 0RF Eliquis 5 mg tablet See Rx Instructions .ROUTE .COMPLEX Qty: 74 0RF Rx Instructions: Take 10mg (2 tablets) by mouth twice a day for eight more doses starting tonight 12/06/24, then take 5mg (1 tablet) by mouth twice a day. Referrals Referrals: Macy Juarez DO [Primary Care Provider] -
[2025-07-19 11:18] LABS: Hematocrit (blood only) 42.7 % (37.0-47.0); Hemoglobin 14.3 g/dL (12.0-16.0); Mean Corpuscular Hemoglobin 33.2 pg (25.0-34.0); Mean Corpuscular Volume 99.1 fL (80.0-100.0); Platelet Count 117 K/uL (130-400); RDW Standard Deviation 50.7 fL (36.4-46.3); Red Blood Count 4.31 M/uL (4.20-5.40); White Blood Count 11.56 K/ul (4.8-10.8)
[2025-07-19 11:33] LABS: Immature Granulocytes # (auto) 0.06 K/uL (0.01-0.20); Immature Granulocytes % (auto) 0.5 %; Toxic Vacuolation 2+
[2025-07-19] MEDS: SODIUM CHLORIDE 0.9% 500 ML IV ONE (11:35)
[2025-07-19 11:37] LABS: Alanine Aminotransferase 13 U/L (7-52); Albumin Globulin Ratio 1.3 (0.9-2); Albumin Level 3.9 gm/dl (3.4-5.0); Alkaline Phosphatase 205 U/L (34-104); Bilirubin,Total 1.5 mg/dl (0.2-1.0); Blood Urea Nitrogen 12 mg/dl (6-23); Calcium 9.5 mg/dl (8.6-10.3); Carbon Dioxide 29 mmol/L (21-32); Chloride 98 mmol/L (98-107); Globulin 2.9 gm/dl (2.5-4.0); Glucose 130 mg/dl (70-99(Fasting)); Lipase 6 U/L (11-82); Total Protein 6.8 gm/dl (6.0-8.3)
--- NOTE | 2025-07-19 12:21 | XRay Report ---
SINGLE VIEW CHEST CLINICAL HISTORY: Change in mental status. FINDINGS: 2 AP, portable, upright chest radiographs are compared to chest x-ray and chest CT dated 12/01/2024. The examination is degraded by portable technique and patient rotation. The heart is enlarge d noting atherosclerotic calcification of the thoracic aorta. The pulmonary vasculature is noncongest ed. Enlargement of the central pulmonary arteries suggests pulmonary artery hypertension. Chronic int erstitial thickening is similar to previous. There is bibasilar scarring/atelectasis. No airspace con solidation or large pleural effusion is identified. No pneumothorax is seen. The skeletal structures are osteopenic. The bony thorax is grossly intact. Degenerative change is noted in the shoulders. IMPRESSION: Cardiomegaly with no acute cardiopulmonary abnormality identified. ACT 112: Negative or not required by law. Electronically signed by: Cas Sweeney M.D. 07/19/2025 12:20 PM
[2025-07-19 12:32] LABS: Magnesium 1.9 mg/dl (1.7-2.4); Potassium 4.4 mmol/L (3.5-5.1); Sodium 137.0 mmol/L (136-145)
[2025-07-19] MEDS: PIPERACILLIN/TAZOBACTAM 4.5 GM/100 ML BAG IV ONE (12:36)
[2025-07-19 12:39] LABS: Influenza A virus by PCR Negative (Neg); Influenza B virus by PCR Negative (Neg); SARS CoV2 RNA(COVID-19) Ceph NEGATIVE (Negative)
[2025-07-19 12:43] LABS: INR 1.1 (0.9-1.1); Prothrombin Time 11.6 Seconds (9.0-12.0)
[2025-07-19] MEDS: ONDANSETRON INJ 2 MG/ML 2 ML VIAL IV STA (13:46)
[2025-07-19] MEDS: OPTIRAY 320 100ml IV ONE (14:02)
--- NOTE | 2025-07-19 14:23 | CT Scan Report ---
CT SCAN OF THE BRAIN WITHOUT IV CONTRAST CLINICAL HISTORY: Altered mental status. COMPARISON STUDY: None. TECHNIQUE: Unenhanced axial CT scan of the brain was performed from the vertex to the skull base. A dose lowering technique was utilized adhering to the principles of ALARA. FINDINGS: Brain parenchyma: No acute intracranial hemorrhage, midline shift or mass effect is present. Armstrong-whi te matter differentiation is preserved. There are no extra-axial fluid collections. There are no find ings to suggest acute dural sinus thrombosis or acute territorial infarct. White matter hypodensity s uggests small vessel disease. Prominence of the extra-axial spaces is due to moderate atrophy. Ventricles, sulci, cisterns: There is no hydrocephalus. The basal cisterns are patent. Calvarium: Unremarkable. Sinuses and mastoids: The visualized paranasal sinuses are clear. The mastoid air cells are well pneu matized. Orbits: The bony orbits are grossly intact. IMPRESSION: No acute intracranial findings. ACT 112: Negative or not required by law. Electronically signed by: Poncho Estrella M.D. 07/19/2025 2:22 PM
--- NOTE | 2025-07-19 14:41 | CT Scan Report ---
CT SCAN OF THE ABDOMEN AND PELVIS WITH IV CONTRAST CLINICAL HISTORY: Nausea, vomiting and diarrhea. COMPARISON STUDY: CT of the abdomen and pelvis December 01, 2024. Right upper quadrant ultrasound January 11, 2010. TECHNIQUE: Following the IV administration of 94 cc of Optiray 320, CT scan of the abdomen and pelvi s is performed from the lung bases to the proximal femora. Images are reviewed in the axial, sagittal , and coronal planes. IV contrast was administered without complication. A dose lowering technique wa s utilized adhering to the principles of ALARA. CT DOSE: 2080.79 mGy.cm FINDINGS: Visualized portions of the lung bases are unremarkable. There is no pneumatosis, free air o r portal venous gas. Mild biliary ductal dilatation has developed since CT of December 01, 2024. The gallbl adder is moderately distended. However, there is no pericholecystic inflammation. There are no hepati c lesions. Spleen, adrenal glands and pancreas are unremarkable with the exception of pancreatic glan dular atrophy. No pancreatic ductal dilatation. Right renal cyst is present. Moderate bilateral renal cortical thinning. No evidence for a bowel obstruction. Caliber and wall thickness of small and larg e bowel are normal. There is a moderate amount of stool within the rectum. There is no lymphadenopath y. There are no fluid collections. Trace gas within the bladder is noted. There is a 2 mm right renal calculus. No ureteral calculi. No hydronephrosis. IMPRESSION: 1. Interval development of mild biliary ductal dilatation which could be correlated with liver functi on tests. 2. Moderate gallbladder distention without pericholecystic inflammation. If right upper quadrant pain , ultrasound is recommended. 3. No bowel obstruction. No bowel wall thickening. Moderate stool within the rectum. ACT 112: Negative or not required by law. Electronically signed by: Poncho Estrella M.D. 07/19/2025 2:39 PM
--- NOTE | 2025-07-19 15:28 | Surgery Consultation ---
Date of Consultation July 19, 2025 Assessment & Plan (1) Dilated bile duct: (2) Total bilirubin, elevated: (3) Hypertension: (4) History of DVT (deep vein thrombosis): (5) Fibromyalgia: Plan Patient is an 89-year-old female with a past medical history significant for hypertension, hypothyroidism, lymphedema, questionable history of A-fib, history of DVT on Eliquis, GERD, fibromyalgia, and chronic pain as well as chronic nausea and opioid-induced constipation, who presents to [facility] emergency department via ambulance due to acute mental status changes and had an elevated white blood cell count, lactic acidosis, elevated total bilirubin, and was tachycardic, concerning for sepsis. She had a CAT scan of the abdomen pelvis that showed a dilated gallbladder with gallstones, but no secondary signs of cholecystitis. On exam, the patient has minimal generalized abdominal tenderness, negative Hawkins sign, no peritoneal signs, and no evidence of free air on CT, so no indication for emergent surgical exploration at this time. It is unclear if the patient's gallbladder is the source of her possible sepsis, so we are recommending obtaining an ultrasound for better assessment of the gallbladder, and also will obtain a HIDA scan. We are recommending admission to the medical service for further evaluation of her confusion, but recommend starting broad-spectrum antibiotics, keep n.p.o., IV fluids, as needed IV pain medication, and continue to trend LFTs and hold eliquis. We appreciate GIs recommendations and further plans will be dependent on these results. General surgery will continue to follow for now. Supervising Physician Co-Signing Physician Notes Patient discussed with HECTOR, labs and imaging reviewed, agree with above. Presented with altered mental status with nausea vomiting diarrhea. CT showed distended gallbladder, ultrasound pending. WBC 11.56, CT scan personally viewed and interpreted agree with assessment of distended gallbladder but no significant cholecystitis. Ultrasound pending. Admit to medicine, currently patient does not desire surgery. Would recommend follow-up on the ultrasound results, HIDA scan. May cover with antibiotics for now. If HIDA positive, then consider cholecystectomy versus cholecystostomy tube versus antibiotics per patient wishes. Hold Eliquis. History of Present Illness Reason for Consultation: possible cholecystitis, sepsis, Requesting Physician: Dr. Chen Attending Physician: Dr. Rudolph History of Present Illness Patient is an 89-year-old female with a past medical history significant for hypertension, hypothyroidism, lymphedema, questionable history of A-fib, history of DVT on Eliquis, GERD, fibromyalgia, and chronic pain as well as chronic nausea and opioid-induced constipation, who presents to [facility] emergency department via ambulance due to acute mental status changes. Patient is currently confused, information regarding the patient's history was provided by her daughter who is the patient's POA and is present in the room and states that the patient has had issues with fatigue and weakness over the last several weeks to months, had a fall approximately 10 days ago, but did not strike her head, but this has progressed over time and this morning she was noted to be acutely confused and poorly responsive. Patient states that she was in her baseline state of health yesterday, was very weak, but had no confusion until it was noted by her caregiver this morning and so EMS was called and she was brought to the emergency department for evaluation. Of note, she has chronic nausea of unclear etiology and has refused further evaluation by GI in the past. Patient's daughter also mentions that the patient has been told that she has gallstones in the past, however she has remained asymptomatic and has not seen a surgeon for this. Per the patient's daughter, she is not aware of the patient having any fevers or chills, no reports of any chest pain or shortness of breath, but does have chronic nausea with occasional vomiting, also with chronic constipation related to her chronic opioid use for her chronic pain. Upon her evaluation in the emergency department the patient was tachycardic but blood pressure was stable and she was afebrile. Patient's exam was significant for moderate confusion and somnolence, but was denying any any abdominal pain. Her labs were significant for an elevated white blood cell count of 11.5, lactic acid of 3.2, minimally elevated bilirubin at 1.5 and alk phos at 205, and a minimally elevated troponin at 14.2. She had a CAT scan of the abdomen pelvis that showed a distended gallbladder with gallstones and a dilated CBD and due to concerns of sepsis General Surgery was consulted for our evaluation. Allergies Allergy/AdvReac Type Severity Reaction Status Date / Time No Known Allergies Allergy Unverified 12/01/24 12:03 Home Medications Medication Instructions Recorded Confirmed Type cholecalciferol (vitamin D3) 25 25 mcg PO DAILY 01/24/20 12/01/24 History mcg (1,000 unit) capsule (Vitamin D3) furosemide 20 mg tablet 20 mg PO DAILY 01/24/20 12/01/24 History mecobalamin (vitamin B12) 1,000 1,000 mcg PO DAILY 01/24/20 12/01/24 History mcg chewable tablet pantoprazole 40 mg tablet,delayed 40 mg PO DAILYBB 01/24/20 12/01/24 History release polyethylene glycol 3350 17 17 gm PO DAILY 01/24/20 12/01/24 History gram/dose oral powder (Miralax) famotidine 20 mg tablet 20 mg PO HS 12/01/24 12/01/24 History gabapentin 300 mg capsule 300 mg PO TID 12/01/24 12/01/24 History levothyroxine 75 mcg tablet 75 mcg PO DAILYBB 12/01/24 12/01/24 History oxycodone 10 mg tablet,crush 10 mg PO AMPM 12/01/24 12/01/24 History resistant,extended release 12 hr (OxyContin) Saccharomyces boulardii 250 mg 250 mg PO DAILY #30 caps 12/06/24 Rx capsule amoxicillin 875 mg-potassium 1 tab PO BIDM #6 tabs 12/06/24 Rx clavulanate 125 mg tablet apixaban 5 mg tablet (Eliquis) See Rx Instructions .Route 12/06/24 Rx .COMPLEX #74 tabs metoprolol succinate 50 mg 50 mg PO BID #60 tabs 12/06/24 Rx tablet,extended release 24 hr Patient History Medical History History of DVT (deep vein thrombosis) Fibromyalgia Hypertension Arthritis Arthritis of right hip Greater trochanteric pain syndrome Chronic venous insufficiency Skin tear of right forearm without complication Lower extremity edema Venous ulcer of left leg Traumatic open wound of left lower leg with delayed healing Macular degeneration Cataract (lens) fragments in eye following cataract surgery, bilateral Surgical History H/O: hysterectomy S/P right knee arthroscopy H/O hemorrhoidectomy History of tonsillectomy Social History Smoking Status: Never smoker Hx Alcohol Use: No Hx Substance Use: No Preferred Language: Sudanese Communication Ability: Effective Hearing Ability: Hard of Hearing Salvationist Required: No Beliefs That Will Affect Care: None Current Living Situation: Alone Feels Safe at Home: Yes Childhood Exposure to Second-Hand Smoke: No Assistive Devices: Walker Review of Systems Review of Systems: Unable to obtain due to confusion, altered mental status, and somnolence Physical Exam Physical Exam: Gen: Awake and alert, resting comfortably in bed in NAD CV: RRR PULM: non-labored breathing Abd: Abd obese, soft, non-distended, minimal generalized tenderness to palpation, negative Hawkins sign ext: 2+ pitting edema to bilateral lower ext, moderately tender, feet warm and well perfused Results & Data Vital Signs (Past 12 Hours) Vital Signs Temp Pulse Pulse Resp BP BP Pulse Ox 07/19/25 14:26 108 H 07/19/25 12:00 120 H 22 124/93 95 07/19/25 11:53 86 L 07/19/25 11:30 106 H 20 116/87 90 07/19/25 10:22 103 H 07/19/25 10:21 07/19/25 10:21 37.3 C 125 H 14 147/112 H 94 O2 Del Method O2 Flow Rate 07/19/25 14:26 07/19/25 12:00 Nasal Cannula 2 07/19/25 11:53 Room Air, Nasal Cannula 0 07/19/25 11:30 Room Air 07/19/25 10:22 07/19/25 10:21 Room Air 07/19/25 10:21 Room Air Diagnostic Findings CT abdomen pelvis: IMPRESSION: 1. Interval development of mild biliary ductal dilatation which could be correlated with liver function tests. 2. Moderate gallbladder distention without pericholecystic inflammation. If right upper quadrant pain, ultrasound is recommended. 3. No bowel obstruction. No bowel wall thickening. Moderate stool within the rectum. CT head: IMPRESSION: No acute intracranial findings. Chest x-ray: IMPRESSION: Cardiomegaly with no acute cardiopulmonary abnormality identified. PG Care Time/CCT Total # of Minutes Spent Total Time Spent with Patient: Total time spent is greater than 50% in coordination of care (as documented) at patient's floor/unit and/or counseling patient: [place] [address] IN/OBS CONSULT LVL 5,80M Patient Type New Medical Decision Making Straight Forward Diagnoses Dilated bile duct K83.8 Total bilirubin, elevated R17 Hypertension I10 History of DVT (deep vein thrombosis) Z86.718 Fibromyalgia M79.7
--- NOTE | 2025-07-19 15:45 | Gastrointestinal Consultation ---
Date of Consultation July 19, 2025 Assessment & Plan (1) Total bilirubin, elevated: (2) Dilated bile duct: Plan Patient presenting with increased confusion, nausea, vomiting. GI asked to see for elevated t bili and bilary ductal dilation. Certainly some the dilation could be attributed to age and use of chronic narcotics. no definitive evidence of choledocholithiasis at this time. Family are not sure patient would want to proceed with endoscopic procedures and prefer conservative observation for now. - US of gallbladder ordered. can await results. - would recommend supportive care and observation for now. - trend LFTs. - will continue to follow and monitor. Supervising Physician Co-Signing Physician Notes Decreased mental status. Concern for sepsis. Mild increased liver function test with normal transaminases not typical for cholangitis or biliary obstruction. Patient does have slight new biliary dilatation. Obviously could be related to bili obstruction or stones. However there were no stones in her gallbladder. Bili dilatation is described as only mild. At age 89 on narcotics biliary dilatation actually is fairly common. Reviewed with daughter at the bedside. At this point inclined to take a [id number]. I do not think she is a candidate for MRCP. Lets do an ultrasound. IV antibiotics hydration and follow clinical course. Patient has declined invasive procedures in the past she is a DO NOT RESUSCITATE. Daughter is not sure patient would want to have invasive ERCP at any rate. Will reassess tomorrow. History of Present Illness Reason for Consultation: elevated t bili and biliary ductal dilation. Requesting Physician: ED History of Present Illness Patient is an 89 year old female who presented to the ED today for nausea, vomiting and confusion. Patient is oriented x 2, but she is lethargic. history obtained from family at bedside. She reportedly has been feeling very sick to her stomach for the last week. Family presented to bedside and reported that she is more confused than normal and seems very weak. GI asked to see secondary to elevated t bili and mild biliary ductal dilation. she does use chronic narcotics. The remainder of the GI ROS were unremarkable. 07/19/25 wbc 11.56, hgb 14.3, hct 42.7, plts 117, INR 1.1, Na 137, K 4.4, BUN 12, Cr 1.11, T bili 1.5, AST 14, ALT 13, ALK 205, lipase 6. 07/19/25 CT A/P - 1. Interval development of mild biliary ductal dilatation which could be correlated with liver function tests. 2. Moderate gallbladder distention without pericholecystic inflammation. If right upper quadrant pain, ultrasound is recommended. 3. No bowel obstruction. No bowel wall thickening. Moderate stool within the rectum. Allergies Allergy/AdvReac Type Severity Reaction Status Date / Time No Known Allergies Allergy Unverified 12/01/24 12:03 Home Medications Medication Instructions Recorded Confirmed Type cholecalciferol (vitamin D3) 25 25 mcg PO DAILY 01/24/20 12/01/24 History mcg (1,000 unit) capsule (Vitamin D3) furosemide 20 mg tablet 20 mg PO DAILY 01/24/20 12/01/24 History mecobalamin (vitamin B12) 1,000 1,000 mcg PO DAILY 01/24/20 12/01/24 History mcg chewable tablet pantoprazole 40 mg tablet,delayed 40 mg PO DAILYBB 01/24/20 12/01/24 History release polyethylene glycol 3350 17 17 gm PO DAILY 01/24/20 12/01/24 History gram/dose oral powder (Miralax) famotidine 20 mg tablet 20 mg PO HS 12/01/24 12/01/24 History gabapentin 300 mg capsule 300 mg PO TID 12/01/24 12/01/24 History levothyroxine 75 mcg tablet 75 mcg PO DAILYBB 12/01/24 12/01/24 History oxycodone 10 mg tablet,crush 10 mg PO AMPM 12/01/24 12/01/24 History resistant,extended release 12 hr (OxyContin) Saccharomyces boulardii 250 mg 250 mg PO DAILY #30 caps 12/06/24 Rx capsule amoxicillin 875 mg-potassium 1 tab PO BIDM #6 tabs 12/06/24 Rx clavulanate 125 mg tablet apixaban 5 mg tablet (Eliquis) See Rx Instructions .Route 12/06/24 Rx .COMPLEX #74 tabs metoprolol succinate 50 mg 50 mg PO BID #60 tabs 12/06/24 Rx tablet,extended release 24 hr Patient History Medical History History of DVT (deep vein thrombosis) Fibromyalgia Hypertension Arthritis Arthritis of right hip Greater trochanteric pain syndrome Chronic venous insufficiency Skin tear of right forearm without complication Lower extremity edema Venous ulcer of left leg Traumatic open wound of left lower leg with delayed healing Macular degeneration Cataract (lens) fragments in eye following cataract surgery, bilateral Surgical History H/O: hysterectomy S/P right knee arthroscopy H/O hemorrhoidectomy History of tonsillectomy Social History Smoking Status: Never smoker Hx Alcohol Use: No Hx Substance Use: No Preferred Language: Croatian Communication Ability: Effective Hearing Ability: Hard of Hearing Regional Account Director Required: No Beliefs That Will Affect Care: None Current Living Situation: Alone Feels Safe at Home: Yes Childhood Exposure to Second-Hand Smoke: No Assistive Devices: Walker Review of Systems Review of Systems: Unobtainable due to cognitive status Physical Exam Respiratory: normal respiratory effort. Cardiovascular: tachycardic Gastrointestinal (Abdomen): nontender, soft, normal bowel sounds. Psychiatric: lethargic, oriented x 2. Results & Data Vital Signs (Past 12 Hours) Vital Signs Temp Pulse Pulse Resp BP BP Pulse Ox 07/19/25 14:26 108 H 07/19/25 12:00 120 H 22 124/93 95 07/19/25 11:53 86 L 07/19/25 11:30 106 H 20 116/87 90 07/19/25 10:22 103 H 07/19/25 10:21 07/19/25 10:21 99.1 F 125 H 14 147/112 H 94 O2 Del Method O2 Flow Rate 07/19/25 14:26 07/19/25 12:00 Nasal Cannula 2 07/19/25 11:53 Room Air, Nasal Cannula 0 07/19/25 11:30 Room Air 07/19/25 10:22 07/19/25 10:21 Room Air 07/19/25 10:21 Room Air Coding Level of Care Code 64354 INT INP/OBS CARE 2/55MIN Diagnoses Total bilirubin, elevated R17 Dilated bile duct K83.8
--- NOTE | 2025-07-19 16:27 | History & Physical Report ---
Date of Service July 19, 2025 Assessment & Plan (1) Dilated bile duct: (2) UTI (urinary tract infection): (3) Confusion: (4) Atrial fibrillation with rapid ventricular response: (5) Elevated troponin: (6) Thrombocytopenia: Plan Ms. Batres is an 89y/o F with PMHx significant for HLD, HTN, hypothyroidism, multifocal atrial tachycardia, history of distal left popliteal DVT anticoagulated on Eliquis, GERD, gallstones, morbid obesity, polycystic kidney disease, CKD stage IIIa, fibromyalgia, osteoarthritis, lumbar DDD, lymphedema and chronic pain syndrome on chronic opioid therapy who presented to the ED via EMS with c/o N/V and confusion. Elevated T. bili, Alk phosphatase Mild biliary ductal dilatation seen on CTAP Moderate gallbladder distention without pericholecystic inflammation seen on CTAP Gen surg and GI both onboard: -Gen surg ordered HIDA scan which is pending, f/u on results. -GI ordered RUQ US which is pending, f/u on results. Continue empiric ABX coverage with IV Zosyn for now. Pt previously expressed desire against surgery in the past; will hold Eliquis for now pending results of above additional imaging studies. If HIDA positive, then could consider cholecystectomy vs cholecystostomy tube vs antibiotics as per patient wishes. Monitor LFTs, GI does not feel pt is a candidate for MRCP. Maintain NPO status for now. Possible sepsis, lactic acidosis UA concerning for infection Leukocytosis, lactic acidosis, tachycardia and elevated procal appreciated on admitting labs c/f possible sepsis. Possible source(s) including intraabdominal pathology, UTI. UA with positive nitrites, trace LE, 6-10 WBC, 4+ bacteria c/f infection. Follow urine and blood cx results; for now, continue empiric ABX coverage with IV Zosyn. Follow repeat lactic acid, IVF onboard. Check ESR/CRP. Confusion Thought 2/2 above, UTI certainly poses risk. Head CT negative. CXR grossly unremarkable. Also was recently started on gabapentin 300mg TID by PCP 2 wk ago, could be contributing. Continue with gabapentin 100mg TID for now. A&Ox3 with direct questioning and continuous tactile/verbal stimuli; otherwise remains quite somnolent. Closely monitor mental status for any acute changes. A-fib with RVR Possibly sepsis vs dehydration driven; HR initially in 140s. Some improvement in HR s/p 500cc NSS bolus in ED. HR fluctuating in the 80s-110s during my eval in the ED. Continue IVF resuscitation and see how HR responds; will hold off on rate- reducing meds for now pending response to IVF given HR variability. Eliquis on hold as per above pending RUQ US, HIDA scan results to determine next course of action in that regard. Lopressor recently reduced to 25mg BID 2/2 bradycardia, continue. Elevated troponin Likely demand ischemia ISO above. EKG without gisela evidence of acute ischemic changes; no reported cardiopulmonary complaints. Follow trop trend. EKG with chest pain PRN. Tele monitoring onboard. Check updated TTE. Thrombocytopenia: Etiology not clear per review of chart, may benefit from checking peripheral smear. Continue to monitor. Chronic pain syndrome: F/w pain clinic through [facility]. Continue reduced gabapentin dose, as per above, and morphine ER. Bowel reg. BLE lymphedema, POA Pressure ulcers of bilateral buttocks, POA Appreciate WOCN consult for assistance with management. Hold [employer] Lasix for now given hypotension. CKD stage IIIa Cr currently stable, baseline Cr 0.9-1.1 per chart review. Continue to monitor and avoid nephrotoxic agents as able. Hypothyroidism: Continue current levothyroxine dose, check TSH. GERD: Continue PPI. DVT Prophylaxis: Eliquis on hold, SCDs/TEDs as tolerated for now Code Status: DNR/DNI - As confirmed with the pt's daughter/POA, Deepa, at bedside in the ED. PCP: Macy Juarez DO Disposition: Admit to PCU Patient seen in collaboration with Dr. Mata. Please see addendum. I spent a total of 88 minutes coordinating, documenting, and providing care for this patient excluding time spent in the performance of separately billed services or time spent by another provider/QHP. This included personally reviewing all current laboratories and imaging studies, medical reconciliation, outpatient chart review and discussion with specialists. History of Present Illness Chief Complaint: N/V, confusion Primary Care Provider: Macy Juarez DO Patient is an 89y/o F with PMHx significant for HLD, HTN, hypothyroidism, multi focal atrial tachycardia, history of distal left popliteal DVT anticoagulated on Eliquis, GERD, gallstones, morbid obesity, polycystic kidney disease, CKD stage IIIa, fibromyalgia, osteoarthritis, lumbar DDD, lymphedema and chronic pain syndrome on chronic opioid therapy who presented to the ED via EMS with c/o N/V and confusion. History primarily obtained from the patient's daughter and her at bedside. Patient unable to provide much history; A&Ox3 to direct questioning however remains quite somnolent when not continuously aroused with verbal and tactile stimuli. Reportedly patient has been dealing with recurrent nausea for several years. Over the past week or so, her nausea has been unfortunately rather persistent. Patient currently lives alone in [place], [place]. Her daughter, Deepa, frequently checks on her. Patient typically is A&Ox4; her daughter refers to her as "quite mentally sharp." Has caregiver/wound care support through [facility] services 2-3x/week. She uses a walker at baseline for short distances and then a wheelchair for longer distances. This morning the patient called her daughter. Mentioned that she had not been feeling well and was vomiting. Deepa went over to her house to visit her and the patient was acting more confused; ex: unable to recall date/time/recent events, somnolent behavior. She has also been getting progressively weaker over the past week to the point where she requires significant assistance with ambulation. She has chronic BLE lymphedema which wound care through [facility] services has been dressing; she also has buttock wounds they have been caring for. Per her daughter, the buttock wounds look much improved compared to prior. No known fevers. Her daughter, did however, note she was shaking quite a bit at the house earlier and looked diaphoretic. No voiced complaints of abdominal pain. No reported diarrhea; if anything, the patient deals with a significant amount of opioid-induced constipation. She is on chronic opioid therapy for chronic pain syndrome secondary to lumbar DDD, generalized osteoarthritis. No verbalized urinary complaints. Not eating or drinking very well since the nausea became more persistent last week. Allergies Allergy/AdvReac Type Severity Reaction Status Date / Time No Known Allergies Allergy Verified 07/19/25 18:39 Home Medications Medication Instructions Recorded Confirmed Type cholecalciferol (vitamin D3) 25 25 mcg PO DAILY 01/24/20 07/19/25 History mcg (1,000 unit) capsule (Vitamin D3) furosemide 20 mg tablet 20 mg PO DAILY 01/24/20 07/19/25 History mecobalamin (vitamin B12) 1,000 1,000 mcg PO DAILY 01/24/20 07/19/25 History mcg chewable tablet pantoprazole 40 mg tablet,delayed 40 mg PO DAILYBB 01/24/20 07/19/25 History release polyethylene glycol 3350 17 17 gm PO DAILY PRN Constipation 01/24/20 07/19/25 History gram/dose oral powder (Miralax) gabapentin 300 mg capsule 300 mg PO TID 12/01/24 07/19/25 History levothyroxine 75 mcg tablet 75 mcg PO DAILYBB 12/01/24 07/19/25 History Saccharomyces boulardii 250 mg 250 mg PO DAILY #30 caps 12/06/24 07/19/25 Rx capsule apixaban 5 mg tablet (Eliquis) 5 mg PO AMPM 07/19/25 07/19/25 History famotidine 20 mg tablet 20 mg PO HS 07/19/25 07/19/25 History metoprolol tartrate 25 mg tablet 25 mg PO AMHS 07/19/25 07/19/25 History morphine 15 mg tablet,extended 15 mg PO AMHS 07/19/25 07/19/25 History release nystatin 100,000 unit/gram topical 1 applic topical BID PRN Skin 07/19/25 07/19/25 History powder Irritation ondansetron HCl 4 mg tablet 4 mg PO Q6H PRN Nausea And Vomiting 07/19/25 07/19/25 History oxycodone 5 mg tablet 5 mg PO .UD 07/19/25 07/19/25 History Past Med/Surg History Problem List (Updated 07/19/25 @ 18:30 by Loretta Thomas PA-C) Thrombocytopenia Confusion UTI (urinary tract infection) Acute UTI (urinary tract infection) (Acute) Total bilirubin, elevated (Acute) Dilated bile duct (Acute) Nausea & vomiting (Acute) Dilated bile duct Total bilirubin, elevated Elevated procalcitonin (Acute) Elevated lactic acid level (Acute) Leukocytosis (Acute) Atrial fibrillation with rapid ventricular response (Acute) Acute confusion (Acute) Sepsis (Acute) Proctitis Colonoscopy refused Hypertensive urgency Elevated troponin Multifocal atrial tachycardia Nausea and vomiting Constipation Chronic pain syndrome Hypothyroidism Tachycardia GERD (gastroesophageal reflux disease) Hypoxia (Acute) Lymphedema (Chronic) Medical History History of DVT (deep vein thrombosis) Fibromyalgia Hypertension Arthritis Arthritis of right hip Greater trochanteric pain syndrome Chronic venous insufficiency Skin tear of right forearm without complication Lower extremity edema Venous ulcer of left leg Traumatic open wound of left lower leg with delayed healing Macular degeneration Cataract (lens) fragments in eye following cataract surgery, bilateral Surgical History H/O: hysterectomy S/P right knee arthroscopy H/O hemorrhoidectomy History of tonsillectomy Social History Smoking Status: Never smoker Hx Alcohol Use: No Hx Substance Use: No Preferred Language: Telugu Communication Ability: Effective Hearing Ability: Hard of Hearing Steel Erecting Pusher Required: No Beliefs That Will Affect Care: None Current Living Situation: Alone Feels Safe at Home: Yes Childhood Exposure to Second-Hand Smoke: No Assistive Devices: Walker Review of Systems Review of Systems: Difficult to obtain 2/2 patient's cognitive status. Physical Exam Physical Exam: General: Elderly, chronically ill-appearing F, laying down in bed, daughter and GLORIA at bedside HEENT: Normocephalic/atraumatic, + dry mucous membranes Respiratory: Normal respiratory effort, not following inspiratory/expiratory commands well (decreased breath sounds b/l), 92% O2 sat on RA Cardiovascular: Variable HR (fluctuating b/n 80s-120s), + irregularly irregular rhythm Abdomen/GI: Active bowel sounds, soft, nontender to palpation in all quadrants Extremities/MSK: + BLE lymphedema (LLE dressing in place 2/2 lymph drainage) Neurologic: A&Ox3 with direct questioning when aroused with verbal/tactile stimuli however easily falls back asleep/somnolent when not consistently stimulated Skin: Extremely dry BLE with plaque formation Results & Data Results & Data Vital Signs (Past 12 Hours) Vital Signs Temp Pulse Pulse Resp BP BP Pulse Ox 07/19/25 14:26 108 H 07/19/25 12:00 120 H 22 124/93 95 07/19/25 11:53 86 L 07/19/25 11:30 106 H 20 116/87 90 07/19/25 10:22 103 H 07/19/25 10:21 07/19/25 10:21 37.3 C 125 H 14 147/112 H 94 O2 Del Method O2 Flow Rate 07/19/25 14:26 07/19/25 12:00 Nasal Cannula 2 07/19/25 11:53 Room Air, Nasal Cannula 0 07/19/25 11:30 Room Air 07/19/25 10:22 07/19/25 10:21 Room Air 07/19/25 10:21 Room Air Laboratory Results Short CBC 07/19/25 Range/Units 10:50 WBC 11.56 H (4.8-10.8) K/ul Hgb 14.3 (12.0-16.0) g/dL Hct 42.7 (37.0-47.0) % Plt Count 117 L (130-400) K/uL BMP 07/19/25 07/19/25 10:50 11:44 Sodium TNP 137 Potassium TNP 4.4 Chloride 98 Carbon Dioxide 29 BUN 12 Creatinine 1.11 Glucose 130 H Calcium 9.5 Liver Function 07/19/25 07/19/25 Range/Units 10:50 11:44 Total Bilirubin 1.5 H (0.2-1.0) mg/dl AST TNP 24 ALT 13 (7-52) U/L Alkaline Phosphatase 205 H (34-104) U/L Albumin 3.9 (3.4-5.0) gm/dl Diagnostic Findings Chest X-Ray 07/19/25 11:24 SINGLE VIEW CHEST CLINICAL HISTORY: Change in mental status. FINDINGS: 2 AP, portable, upright chest radiographs are compared to chest x-ray and chest CT dated 12/01/2024. The examination is degraded by portable technique and patient rotation. The heart is enlarged noting atherosclerotic calcification of the thoracic aorta. The pulmonary vasculature is noncongested. Enlargement of the central pulmonary arteries suggests pulmonary artery hypertension. Chronic interstitial thickening is similar to previous. There is bibasilar scarring/atelectasis. No airspace consolidation or large pleural effusion is identified. No pneumothorax is seen. The skeletal structures are osteopenic. The bony thorax is grossly intact. Degenerative change is noted in the shoulders. IMPRESSION: Cardiomegaly with no acute cardiopulmonary abnormality identified. ACT 112: Negative or not required by law. Electronically signed by: Cas Sweeney M.D. 07/19/2025 12:20 PM Abdomen/Pelvis CT 07/19/25 11:44 CT SCAN OF THE ABDOMEN AND PELVIS WITH IV CONTRAST CLINICAL HISTORY: Nausea, vomiting and diarrhea. COMPARISON STUDY: CT of the abdomen and pelvis December 01, 2024. Right upper quadrant ultrasound January 11, 2010. TECHNIQUE: Following the IV administration of 94 cc of Optiray 320, CT scan of the abdomen and pelvis is performed from the lung bases to the proximal femora. Images are reviewed in the axial, sagittal, and coronal planes. IV contrast was administered without complication. A dose lowering technique was utilized adhering to the principles of ALARA. CT DOSE: 2080.79 mGy.cm FINDINGS: Visualized portions of the lung bases are unremarkable. There is no pneumatosis, free air or portal venous gas. Mild biliary ductal dilatation has developed since CT of December 01, 2024. The gallbladder is moderately distended. However, there is no pericholecystic inflammation. There are no hepatic lesions. Spleen, adrenal glands and pancreas are unremarkable with the exception of pancreatic glandular atrophy. No pancreatic ductal dilatation. Right renal cyst is present. Moderate bilateral renal cortical thinning. No evidence for a bowel obstruction. Caliber and wall thickness of small and large bowel are normal. There is a moderate amount of stool within the rectum. There is no lymphadenopathy. There are no fluid collections. Trace gas within the bladder is noted. There is a 2 mm right renal calculus. No ureteral calculi. No hydronephrosis. IMPRESSION: 1. Interval development of mild biliary ductal dilatation which could be correlated with liver function tests. 2. Moderate gallbladder distention without pericholecystic inflammation. If right upper quadrant pain, ultrasound is recommended. 3. No bowel obstruction. No bowel wall thickening. Moderate stool within the rectum. ACT 112: Negative or not required by law. Electronically signed by: Poncho Estrella M.D. 07/19/2025 2:[address] 07/19/25 11:44 CT SCAN OF THE BRAIN WITHOUT IV CONTRAST CLINICAL HISTORY: Altered mental status. COMPARISON STUDY: None. TECHNIQUE: Unenhanced axial CT scan of the brain was performed from the vertex to the skull base. A dose lowering technique was utilized adhering to the principles of ALARA. FINDINGS: Brain parenchyma: No acute intracranial hemorrhage, midline shift or mass effect is present. Armstrong-white matter differentiation is preserved. There are no extra- axial fluid collections. There are no findings to suggest acute dural sinus thrombosis or acute territorial infarct. White matter hypodensity suggests small vessel disease. Prominence of the extra-axial spaces is due to moderate atrophy. Ventricles, sulci, cisterns: There is no hydrocephalus. The basal cisterns are patent. Calvarium: Unremarkable. Sinuses and mastoids: The visualized paranasal sinuses are clear. The mastoid air cells are well pneumatized. Orbits: The bony orbits are grossly intact. IMPRESSION: No acute intracranial findings. ACT 112: Negative or not required by law. Electronically signed by: Poncho Estrella M.D. 07/19/2025 2:22 PM Medications Administered Discontinued Medications Sodium Chloride (Nss) 500 mls @ 999 mls/hr IV .Q31M ONE Stop: 07/19/25 11:36 Last Infusion: 07/19/25 12:36 Dose: Infused Documented By: ilnda Admin: 07/19/25 11:35 Dose: 999 mls/hr Documented By: linda Piperacillin Sod/Tazobactam Sod (Zosyn) 4.5 gm in 100 mls @ 200 mls/hr IV NOW ONE; Protocol Stop: 07/19/25 12:45 Last Infusion: 07/19/25 13:29 Dose: Infused Documented By: linda Admin: 07/19/25 12:36 Dose: 200 mls/hr Documented By: linda Ioversol (Optiray 320 100ml) 94 ml IV ONCE ONE Stop: 07/19/25 14:03 Last Admin: 07/19/25 14:02 Dose: 94 ml Documented By: JOAQUIN Ondansetron HCl (Ondansetron Inj 2 Mg/Ml 2 Ml Vial) 4 mg IV NOW STA Stop: 07/19/25 13:40 Last Admin: 07/19/25 13:46 Dose: 4 mg Documented By: linda Supervising Physician Co-Signing Physician Notes Patient seen and examiend at bedside. Patient sleeping but arousable to sternal rub. States she just feels tired, no pain. On exam, alert and orriented x3 but confused and fatigued, chronic 1+ pitting/nonpitting edema bilaterally (unchanged per daughter), irregurally irregular tachycardic. Leukocytosis consistent with infection, lactic acid elevated consistent with severity of illness, procal of 1 suggestive of sepsis. Elevated alk phos consistent with biliary pathology. Presentation consistent with sepsis 2/2 acute cholecystitis vs. complicated UTI. Appreciate GI and surgery consults. Follow up HIDA scan results. Start zosyn and fluids, f/u cultures. PT/OT ordered. Start thiamine and folic acid, check B 12/TSH for metabolic encephalopathy workup. EKG reviewed, lateral T wave inversions and ST depressions with significant jump in troponin, given poor historian will start heparin and consult cardiology in AM. Echocardiogram ordered. I have seen and discussed the case with the collaborating advanced practitioner. I agree with the above H&P. I have reviewed and confirmed the patients medical history, the findings on physical examination, and the patients diagnosis and treatment plan with William GRAY and agree with the information documented. I spent a total of 40 minutes coordinating, documenting, and providing care for this patient excluding time spent in the performance of separately billed services. All of the aforementioned completed outside of collaborating with the assigned advanced practitioner for a full treatment plan. I have reviewed the advanced practitioner's documentation, and I agree with, and take responsibility for the plan of care
[2025-07-19 16:35] LABS: Appearance Urine Clear (Clear); Bacteria Urine Automated 4+ (None Seen); Epithelial Cell Urine Auto 0-2 /hpf (0-2); Glucose Urine UA Negative (Negative); RBC Urine Automated 0-2 /hpf (0-2)
[2025-07-19 16:48] LABS: Cast Urine Automated 0-2 /lpf (0-2)
[2025-07-19] MEDS ORDERED: METOPROLOL TARTRATE 50 MG TAB PO SCH (17:00)
[2025-07-19] MEDS: SODIUM CHLORIDE 0.9% 1,000 ML IV SCH (17:09)
[2025-07-19 19:47] LABS: Thyroid Stimulating Hormone 0.858 uIu/ml (0.300-4.500)
[2025-07-19] MEDS ORDERED: POLYETHYLENE (MIRALAX) 17 GM PACK PO PRN (20:28)
[2025-07-19] MEDS ORDERED: ACETAMINOPHEN 325 MG TAB PO PRN (20:28)
[2025-07-19] MEDS ORDERED: MAGNESIUM HYDROXIDE SUSP 30 ML UDC PO PRN (20:28)
[2025-07-19] MEDS: GABAPENTIN 100 MG CAP PO SCH (21:22)
[2025-07-19] MEDS: MoRPHine SULFATE CR 15 MG TABCR PO SCH (21:22)
[2025-07-19] MEDS: FOLIC ACID 1 MG TAB PO ONE (21:22)
[2025-07-19] MEDS: METOPROLOL TARTRATE 25 MG TAB PO SCH (21:22)
[2025-07-19] MEDS: Patient's HEIGHT &/or WEIGHT Needed STA (21:28)
[2025-07-19] MEDS: Heparin IV Adult Wt-Based Low-Dose *NO* INITIAL Bolus Protocol IV STA (21:28)
[2025-07-19] MEDS: HEPARIN 25000 UNIT/500 ML D5W 25,000 UNITS/500 ML BAG IV SCH (21:33)
[2025-07-19] MEDS: HEPARIN 25000 UNIT/500 ML D5W IV ONE (21:34)
[2025-07-19] MEDS: PIPERACILLIN/TAZOBACTAM 4.5 GM/100 ML BAG IV SCH (21:37)
[2025-07-19] MEDS: AMMONIUM LACTATE 12% LOTION 225 GM BTL EXT SCH (22:19)
[2025-07-19 22:22] LABS: Partial Thromboplastin Time 29 Seconds (21-31)
[2025-07-20] MEDS: ONDANSETRON INJ 2 MG/ML 2 ML VIAL IV PRN (00:19)
--- NOTE | 2025-07-20 03:32 | Ultrasound Report ---
Exam(s): US GALLBLADDER EXAM: US Abdomen Limited, Gallbladder CLINICAL HISTORY: Right upper quadrant Pain TECHNIQUE: Real-time ultrasound of the right upper quadrant with image documentation. COMPARISON: CT abdomen and pelvis earlier today. FINDINGS: Liver: Coarse echogenicity of the liver may relate to fatty infiltration and/or hepatocellular dysfunction. The liver measures 12.6 cm. Mild intrahepatic biliary ductal dilatation is present. No visualized mass. Gallbladder: Cholelithiasis. This is gallbladder is distended however there is no significant thickening of the wall. Common bile duct: The common bile duct is mildly prominent measuring 7 mm. No visualized filling defect. Pancreas: The pancreatic head and body are within normal limits. The tail is not visualized due to overlying bowel gas. Right kidney: There is a complicated 1.8 cm cystic lesion of the inferior pole of the right kidney. Increased echogenicity of the renal cortex. No hydronephrosis or visualized nephrolithiasis. IMPRESSION: 1. Mild intrahepatic biliary ductal dilatation is present. Additionally there is mild prominence of the common bile duct better appreciated on the prior CT. No visualized filling defect. Consider further evaluation with MRCP. 2. Cholelithiasis. This is gallbladder is distended however there is no significant thickening of the wall. 3. Coarse echogenicity of the liver may relate to fatty infiltration and/or hepatocellular dysfunction. 4. Increased echogenicity of the right renal cortex is most consistent with chronic medical renal disease. No hydronephrosis. 5. There is a complicated 1.8 cm cystic lesion of the inferior pole of the right kidney. Recommend further evaluation with renal mass protocol CT or MRI on a nonemergent basis. Electronically signed by: Africa Silver MD 07/20/25 03:31 AM
[2025-07-20] MEDS ORDERED: PROMETHAZINE 6.25 MG/50.25 ML BAG IV PRN (03:47)
[2025-07-20 04:22] LABS: Hematocrit (blood only) 37.7 % (37.0-47.0); Hemoglobin 12.5 g/dL (12.0-16.0); Mean Corpuscular Hemoglobin 33.1 pg (25.0-34.0); Mean Corpuscular Volume 99.7 fL (80.0-100.0); Platelet Count 103 K/uL (130-400); RDW Standard Deviation 52.2 fL (36.4-46.3); Red Blood Count 3.78 M/uL (4.20-5.40); White Blood Count 13.15 K/ul (4.8-10.8)
[2025-07-20 04:30] LABS: Alanine Aminotransferase 11.0 U/L (7-52); Albumin Globulin Ratio 1.2 (0.9-2); Albumin Level 3.1 gm/dl (3.4-5.0); Alkaline Phosphatase 153.0 U/L (34-104); Anion Gap 7.0 (3-11); Bilirubin,Total 1.2 mg/dl (0.2-1.0); Blood Urea Nitrogen 13.0 mg/dl (6-23); Calcium 8.6 mg/dl (8.6-10.3); Carbon Dioxide 28.0 mmol/L (21-32); Chloride 101.0 mmol/L (98-107); Creatinine Clr Calc Pharmacy 42.3 ml/min; Globulin 2.5 gm/dl (2.5-4.0); Glucose 201.0 mg/dl (70-99(Fasting)); Magnesium 2.0 mg/dl (1.7-2.4); Potassium 4.1 mmol/L (3.5-5.1); Sodium 136.0 mmol/L (136-145); Total Protein 5.6 gm/dl (6.0-8.3)
[2025-07-20] MEDS: PROMETHAZINE 6.25 MG/50.25 ML BAG IV STA (04:32)
[2025-07-20] MEDS: LACTATED RINGER'S 1,000 ML IV SCH (04:32)
[2025-07-20 04:35] LABS: Immature Granulocytes # (auto) 0.10 K/uL (0.01-0.20); Immature Granulocytes % (auto) 0.8 %; RBC Morphology Unremarkable
[2025-07-20 05:01] LABS: ANTI-Xa, UFH(UnfractionatedHep 1.30 IU/ml (0.3-0.7)
[2025-07-20] MEDS: LEVOTHYROXINE SODIUM 75 MCG TABLET PO SCH (05:31)
[2025-07-20 08:27] LABS: ANTI-Xa, UFH(UnfractionatedHep 0.71 IU/ml (0.3-0.7)
--- NOTE | 2025-07-20 08:33 | Surgery Progress Note ---
Date of Service July 20, 2025 Assessment & Plan (1) Cholelithiasis: Plan: cholelithiasis, no clear evidence of cholecystitis on imaging. Await HIDA scan. Does have dilated bile duct, GI engaged, may need MRCP. She is hesitant to have any procedures, she is not sure if she would want surgery if we recommended it. Follow-up HIDA scan Briefly discussed possibility of laparoscopic cholecystectomy risks discussed to include but not limited to bleeding, infection, retained stone, bile leak, open surgery, damage to surrounding structures including bile duct, need for future or more extensive surgery, failure to treat symptoms, and risks of anesthesia. Appreciate medicine management of this patient, GI assistance Await HIDA scan results Continue n.p.o. (2) Nausea & vomiting: (3) Dilated bile duct: Admission and Anticipated Discharge Date Admission Date: July 19, 2025 Subjective 89-year-old with mild dementia admitted nausea vomiting and diarrhea with abdominal pain. She is feeling much better. Physical Exam Constitutional: WD/WN, vitals as above + obese Respiratory: normal respiratory effort, lungs clear to auscultation Cardiovascular: RRR, no murmur, no edema Gastrointestinal (Abdomen): normal bowel sounds, soft, nontender, no hepatosplenomegaly Results & Data Vital Signs (Past 12 Hours) Vital Signs Temp Pulse Pulse Resp BP Pulse Ox O2 Del Method 07/20/25 08:01 Nasal Cannula 07/20/25 07:43 36.7 C 74 19 127/60 98 Nasal Cannula 07/20/25 02:44 36.6 C 88 18 125/66 94 Nasal Cannula 07/20/25 00:00 Nasal Cannula 07/20/25 00:00 37.1 C 77 18 166/86 H 97 Room Air 07/19/25 23:44 79 07/19/25 22:00 85 18 134/75 99 Nasal Cannula O2 Flow Rate 07/20/25 08:01 2 07/20/25 07:43 2 07/20/25 02:44 2 07/20/25 00:00 07/20/25 00:00 2 07/19/25 23:44 07/19/25 22:00 2 Laboratory Results Laboratory Results - last 24 hr 07/19/25 07/19/25 07/19/25 10:50 11:29 11:30 WBC 11.56 H RBC 4.31 Hgb 14.3 Hct 42.7 MCV 99.1 MCH 33.2 MCHC 33.5 RDW Std Deviation 50.7 H RDW Coeff of Etienne 13.8 Plt Count 117 L MPV 9.2 L Immature Gran % (Auto) 0.5 Neut % (Auto) 90.2 Lymph % (Auto) 5.3 Clinton % (Auto) 3.5 Eos % (Auto) 0.3 Baso % (Auto) 0.2 Neut # (Auto) 10.43 H Lymph # (Auto) 0.61 L Clinton # (Auto) 0.40 Eos # (Auto) 0.04 Baso # (Auto) 0.02 Immature Gran # (Auto) 0.06 Toxic Vacuolation 2+ RBC Morphology ESR PT Cancelled INR Cancelled APTT PTT Ratio Heparin Anti-Xa, Unfract Sodium TNP Potassium TNP Chloride 98 Carbon Dioxide 29 Anion Gap TNP BUN 12 Creatinine 1.11 Est Cr Clr Drug Dosing Not Reportable eGFR 48.11 BUN/Creatinine Ratio 10.8 Glucose 130 H Lactate 3.2 H* Calcium 9.5 Phosphorus Magnesium TNP Total Bilirubin 1.5 H AST TNP ALT 13 Alkaline Phosphatase 205 H Troponin I High Sens 14.2 H C-Reactive Protein Total Protein 6.8 Albumin 3.9 Globulin 2.9 Albumin/Globulin Ratio 1.3 Lipase 6 L Vitamin B12 Procalcitonin 1.04 H TSH Urine Color Urine Appearance Urine pH Ur Specific [place] Urine Protein Urine Glucose (UA) Urine Ketones Urine Blood Urine Nitrite Urine Bilirubin Urine Urobilinogen Ur Leukocyte Esterase Urine WBC (Auto) Urine RBC (Auto) U Hyaline Cast (Auto) U Epithel Cells (Auto) Urine Bacteria (Auto) Urine Comment SARS-CoV-2 (PCR) NEGATIVE Influenza Type A (PCR) Negative Influenza Type B (PCR) Negative RSV (RT-PCR) Negative 07/19/25 07/19/25 07/19/25 11:44 11:48 15:45 WBC RBC Hgb Hct MCV MCH MCHC RDW Std Deviation RDW Coeff of Etienne Plt Count MPV Immature Gran % (Auto) Neut % (Auto) Lymph % (Auto) [place] % (Auto) Eos % (Auto) Baso % (Auto) Neut # (Auto) Lymph # (Auto) [place] # (Auto) Eos # (Auto) Baso # (Auto) Immature Gran # (Auto) Toxic Vacuolation RBC Morphology ESR 8 PT 11.6 INR 1.1 APTT PTT Ratio Heparin Anti-Xa, Unfract Sodium 137 Potassium 4.4 Chloride Carbon Dioxide Anion Gap BUN Creatinine Est Cr Clr Drug Dosing eGFR BUN/Creatinine Ratio Glucose Lactate Calcium Phosphorus Magnesium 1.9 Total Bilirubin AST 24 ALT Alkaline Phosphatase Troponin I High Sens C-Reactive Protein Total Protein Albumin Globulin Albumin/Globulin Ratio Lipase Vitamin B12 Procalcitonin TSH Urine Color Yellow Urine Appearance Clear Urine pH 8.0 H Ur Specific [place] 1.029 Urine Protein Trace H Urine Glucose (UA) Negative Urine Ketones Trace H Urine Blood Negative Urine Nitrite Positive A Urine Bilirubin Negative Urine Urobilinogen Negative Ur Leukocyte Esterase Trace H Urine WBC (Auto) 6-10 H Urine RBC (Auto) 0-2 U Hyaline Cast (Auto) 0-2 U Epithel Cells (Auto) 0-2 Urine Bacteria (Auto) 4+ H Urine Comment SARS-CoV-2 (PCR) Influenza Type A (PCR) Influenza Type B (PCR) RSV (RT-PCR) 07/19/25 07/19/25 07/19/25 18:31 21:17 Unknown WBC RBC Hgb Hct MCV MCH MCHC RDW Std Deviation RDW Coeff of Etienne Plt Count MPV Immature Gran % (Auto) Neut % (Auto) Lymph % (Auto) [place] % (Auto) Eos % (Auto) Baso % (Auto) Neut # (Auto) Lymph # (Auto) [place] # (Auto) Eos # (Auto) Baso # (Auto) Immature Gran # (Auto) Toxic Vacuolation RBC Morphology ESR PT INR APTT 29 PTT Ratio 1.1 Heparin Anti-Xa, Unfract Sodium Potassium Chloride Carbon Dioxide Anion Gap BUN Creatinine Est Cr Clr Drug Dosing eGFR BUN/Creatinine Ratio Glucose Lactate 2.4 H* 3.1 H* Calcium Phosphorus Magnesium Total Bilirubin AST ALT Alkaline Phosphatase Troponin I High Sens 90.3 H* D 116.4 H* D C-Reactive Protein 4.22 H Total Protein Albumin Globulin Albumin/Globulin Ratio Lipase Vitamin B12 > 1500 H Procalcitonin TSH 0.858 Urine Color Urine Appearance Urine pH Ur Specific [place] Urine Protein Urine Glucose (UA) Urine Ketones Urine Blood Urine Nitrite Urine Bilirubin Urine Urobilinogen Ur Leukocyte Esterase Urine WBC (Auto) Urine RBC (Auto) U Hyaline Cast (Auto) U Epithel Cells (Auto) Urine Bacteria (Auto) Urine Comment SARS-CoV-2 (PCR) Influenza Type A (PCR) Influenza Type B (PCR) RSV (RT-PCR) 07/20/25 07/20/25 07/20/25 03:48 04:00 07:30 WBC 13.15 H RBC 3.78 L Hgb 12.5 Hct 37.7 MCV 99.7 MCH 33.1 MCHC 33.2 RDW Std Deviation 52.2 H RDW Coeff of Etienne 14.2 Plt Count 103 L MPV 9.1 L Immature Gran % (Auto) 0.8 Neut % (Auto) 91.2 Lymph % (Auto) 5.4 [place] % (Auto) 2.4 Eos % (Auto) 0.0 Baso % (Auto) 0.2 Neut # (Auto) 11.99 H Lymph # (Auto) 0.71 L [place] # (Auto) 0.32 Eos # (Auto) 0.00 Baso # (Auto) 0.03 Immature Gran # (Auto) 0.10 Toxic Vacuolation RBC Morphology Unremarkable ESR PT INR APTT PTT Ratio Heparin Anti-Xa, Unfract 1.30 H* 0.71 H* Sodium 136 Potassium 4.1 Chloride 101 Carbon Dioxide 28 Anion Gap 7 BUN 13 Creatinine 1.03 Est Cr Clr Drug Dosing 42.3 eGFR 52.63 BUN/Creatinine Ratio 12.6 Glucose 201 H Lactate 1.8 Calcium 8.6 Phosphorus 2.9 Magnesium 2.0 Total Bilirubin 1.2 H AST 26 ALT 11 Alkaline Phosphatase 153 H Troponin I High Sens 267.0 H* D C-Reactive Protein Total Protein 5.6 L Albumin 3.1 L Globulin 2.5 Albumin/Globulin Ratio 1.2 Lipase Vitamin B12 Procalcitonin TSH Urine Color Urine Appearance Urine pH Ur Specific [place] Urine Protein Urine Glucose (UA) Urine Ketones Urine Blood Urine Nitrite Urine Bilirubin Urine Urobilinogen Ur Leukocyte Esterase Urine WBC (Auto) Urine RBC (Auto) U Hyaline Cast (Auto) U Epithel Cells (Auto) Urine Bacteria (Auto) Urine Comment SARS-CoV-2 (PCR) Influenza Type A (PCR) Influenza Type B (PCR) RSV (RT-PCR) 07/20/25 07:40 WBC RBC Hgb Hct MCV MCH MCHC RDW Std Deviation RDW Coeff of Etienne Plt Count MPV Immature Gran % (Auto) Neut % (Auto) Lymph % (Auto) [place] % (Auto) Eos % (Auto) Baso % (Auto) Neut # (Auto) Lymph # (Auto) [place] # (Auto) Eos # (Auto) Baso # (Auto) Immature Gran # (Auto) Toxic Vacuolation RBC Morphology ESR PT INR APTT PTT Ratio Heparin Anti-Xa, Unfract Sodium Potassium Chloride Carbon Dioxide Anion Gap BUN Creatinine Est Cr Clr Drug Dosing eGFR BUN/Creatinine Ratio Glucose Lactate Calcium Phosphorus Magnesium Total Bilirubin AST ALT Alkaline Phosphatase Troponin I High Sens Pending C-Reactive Protein Total Protein Albumin Globulin Albumin/Globulin Ratio Lipase Vitamin B12 Procalcitonin TSH Urine Color Urine Appearance Urine pH Ur Specific [place] Urine Protein Urine Glucose (UA) Urine Ketones Urine Blood Urine Nitrite Urine Bilirubin Urine Urobilinogen Ur Leukocyte Esterase Urine WBC (Auto) Urine RBC (Auto) U Hyaline Cast (Auto) U Epithel Cells (Auto) Urine Bacteria (Auto) Urine Comment SARS-CoV-2 (PCR) Influenza Type A (PCR) Influenza Type B (PCR) RSV (RT-PCR) Diagnostic Findings Chest X-Ray 07/19/25 11:24 SINGLE VIEW CHEST CLINICAL HISTORY: Change in mental status. FINDINGS: 2 AP, portable, upright chest radiographs are compared to chest x-ray and chest CT dated 12/01/2024. The examination is degraded by portable technique and patient rotation. The heart is enlarged noting atherosclerotic calcification of the thoracic aorta. The pulmonary vasculature is noncongested. Enlargement of the central pulmonary arteries suggests pulmonary artery hypertension. Chronic interstitial thickening is similar to previous. There is bibasilar scarring/atelectasis. No airspace consolidation or large pleural effusion is identified. No pneumothorax is seen. The skeletal structures are osteopenic. The bony thorax is grossly intact. Degenerative change is noted in the shoulders. IMPRESSION: Cardiomegaly with no acute cardiopulmonary abnormality identified. ACT 112: Negative or not required by law. Electronically signed by: Cas Sweeney M.D. 07/19/2025 12:20 PM Abdomen/Pelvis CT 07/19/25 11:44 CT SCAN OF THE ABDOMEN AND PELVIS WITH IV CONTRAST CLINICAL HISTORY: Nausea, vomiting and diarrhea. COMPARISON STUDY: CT of the abdomen and pelvis December 01, 2024. Right upper quadrant ultrasound January 11, 2010. TECHNIQUE: Following the IV administration of 94 cc of Optiray 320, CT scan of the abdomen and pelvis is performed from the lung bases to the proximal femora. Images are reviewed in the axial, sagittal, and coronal planes. IV contrast was administered without complication. A dose lowering technique was utilized adhering to the principles of ALARA. CT DOSE: 2080.79 mGy.cm FINDINGS: Visualized portions of the lung bases are unremarkable. There is no pneumatosis, free air or portal venous gas. Mild biliary ductal dilatation has developed since CT of December 01, 2024. The gallbladder is moderately distended. However, there is no pericholecystic inflammation. There are no hepatic lesions. Spleen, adrenal glands and pancreas are unremarkable with the exception of pancreatic glandular atrophy. No pancreatic ductal dilatation. Right renal cyst is present. Moderate bilateral renal cortical thinning. No evidence for a bowel obstruction. Caliber and wall thickness of small and large bowel are normal. There is a moderate amount of stool within the rectum. There is no lymphadenopathy. There are no fluid collections. Trace gas within the bladder is noted. There is a 2 mm right renal calculus. No ureteral calculi. No hydronephrosis. IMPRESSION: 1. Interval development of mild biliary ductal dilatation which could be correlated with liver function tests. 2. Moderate gallbladder distention without pericholecystic inflammation. If right upper quadrant pain, ultrasound is recommended. 3. No bowel obstruction. No bowel wall thickening. Moderate stool within the rectum. ACT 112: Negative or not required by law. Electronically signed by: Poncho Estrella M.D. 07/19/2025 2:[address] 07/19/25 11:44 CT SCAN OF THE BRAIN WITHOUT IV CONTRAST CLINICAL HISTORY: Altered mental status. COMPARISON STUDY: None. TECHNIQUE: Unenhanced axial CT scan of the brain was performed from the vertex to the skull base. A dose lowering technique was utilized adhering to the principles of ALARA. FINDINGS: Brain parenchyma: No acute intracranial hemorrhage, midline shift or mass effect is present. Armstrong-white matter differentiation is preserved. There are no extra- axial fluid collections. There are no findings to suggest acute dural sinus thrombosis or acute territorial infarct. White matter hypodensity suggests small vessel disease. Prominence of the extra-axial spaces is due to moderate atrophy. Ventricles, sulci, cisterns: There is no hydrocephalus. The basal cisterns are patent. Calvarium: Unremarkable. Sinuses and mastoids: The visualized paranasal sinuses are clear. The mastoid air cells are well pneumatized. Orbits: The bony orbits are grossly intact. IMPRESSION: No acute intracranial findings. ACT 112: Negative or not required by law. Electronically signed by: Poncho Estrella M.D. 07/19/2025 2:22 PM Gallbladder Ultrasound 07/19/25 14:52 Exam(s): US GALLBLADDER EXAM: US Abdomen Limited, Gallbladder CLINICAL HISTORY: Right upper quadrant Pain TECHNIQUE: Real-time ultrasound of the right upper quadrant with image documentation. COMPARISON: CT abdomen and pelvis earlier today. FINDINGS: Liver: Coarse echogenicity of the liver may relate to fatty infiltration and/or hepatocellular dysfunction. The liver measures 12.6 cm. Mild intrahepatic biliary ductal dilatation is present. No visualized mass. Gallbladder: Cholelithiasis. This is gallbladder is distended however there is no significant thickening of the wall. Common bile duct: The common bile duct is mildly prominent measuring 7 mm. No visualized filling defect. Pancreas: The pancreatic head and body are within normal limits. The tail is not visualized due to overlying bowel gas. Right kidney: There is a complicated 1.8 cm cystic lesion of the inferior pole of the right kidney. Increased echogenicity of the renal cortex. No hydronephrosis or visualized nephrolithiasis. IMPRESSION: 1. Mild intrahepatic biliary ductal dilatation is present. Additionally there is mild prominence of the common bile duct better appreciated on the prior CT. No visualized filling defect. Consider further evaluation with MRCP. 2. Cholelithiasis. This is gallbladder is distended however there is no significant thickening of the wall. 3. Coarse echogenicity of the liver may relate to fatty infiltration and/or hepatocellular dysfunction. 4. Increased echogenicity of the right renal cortex is most consistent with chronic medical renal disease. No hydronephrosis. 5. There is a complicated 1.8 cm cystic lesion of the inferior pole of the right kidney. Recommend further evaluation with renal mass protocol CT or MRI on a nonemergent basis. Electronically signed by: Africa Silver MD 07/20/25 03:31 AM PG Care Time/CCT Total # of Minutes Spent Total Time Spent with Patient: Total time spent is greater than 50% in coordination of care (as documented) at patient's floor/unit and/or counseling patient: Coding Level of Care Code 36826 SUB INP/OBS CARE 2/35MIN Diagnoses Cholelithiasis K80.20 Nausea & vomiting R11.2 Dilated bile duct K83.8
--- NOTE | 2025-07-20 08:56 | Hospitalist Progress Note ---
Date of Service July 20, 2025 Assessment & Plan (1) Dilated bile duct: (2) UTI (urinary tract infection): (3) Confusion: (4) Atrial fibrillation with rapid ventricular response: (5) Elevated troponin: (6) Thrombocytopenia: Plan Per admitting provider w/ addendum: Ms. Batres is an 89y/o F with PMHx significant for HLD, HTN, hypothyroidism, multifocal atrial tachycardia, history of distal left popliteal DVT anticoagulated on Eliquis, GERD, gallstones, morbid obesity, polycystic kidney disease, CKD stage IIIa, fibromyalgia, osteoarthritis, lumbar DDD, lymphedema and chronic pain syndrome on chronic opioid therapy who presented to the ED via EMS with c/o N/V and confusion. Elevated T. bili, Alk phosphatase Mild biliary ductal dilatation seen on CTAP Moderate gallbladder distention without pericholecystic inflammation seen on CTAP Gen surg and GI both consulted -Gen surg ordered HIDA scan -pt declined this AM -> discussed w/ gen. surg., will cont. abx, clear liquid diet -GI ordered RUQ US which is pending, f/u on results. Continue empiric ABX coverage with IV Zosyn for now. Pt previously expressed desire against surgery in the past; will hold Eliquis for now pending results of above additional imaging studies. If HIDA positive, then could consider cholecystectomy vs cholecystostomy tube vs antibiotics as per patient wishes. Monitor LFTs, GI does not feel pt is a candidate for MRCP. Possible sepsis, lactic acidosis UA concerning for infection Leukocytosis, lactic acidosis, tachycardia and elevated procal appreciated on admitting labs c/f possible sepsis. Possible source(s) including intraabdominal pathology, UTI. UA with positive nitrites, trace LE, 6-10 WBC, 4+ bacteria c/f infection. Follow urine and blood cx results; for now, continue empiric ABX coverage with IV Zosyn. lactic acid 3.2 -> 1.8, ESR nl 8 CRP elev. at 4.2 Confusion Thought 2/2 above, UTI certainly poses risk. Head CT negative. CXR grossly unremarkable. Also was recently started on gabapentin 300mg TID by PCP 2 wk ago, could be contributing. Continue with gabapentin 100mg TID for now. A&Ox3 with direct questioning and continuous tactile/verbal stimuli; otherwise remains quite somnolent. - on admission Closely monitor mental status for any acute changes. 07/20 Pt is awake,alert, able to answer appropriately A-fib with RVR Possibly sepsis vs dehydration driven; HR initially in 140s. Some improvement in HR s/p 500cc NSS bolus in ED. HR fluctuating in the 80s-110s during my eval in the ED. Continue IVF resuscitation and see how HR responds; will hold off on rate- reducing meds for now pending response to IVF given HR variability. Eliquis on hold as per above pending RUQ US, HIDA scan results to determine next course of action in that regard. Lopressor recently reduced to 25mg BID 2/2 bradycardia, continue. 07/20 HR controlled at this time in 70s Elevated troponin Likely demand ischemia ISO above. EKG w/ lateral T wave inversions and ST depressions Pt reports no chest pain or shortness of breath EKG with chest pain PRN. Tele monitoring onboard. Check updated TTE. Pt was started on heparin on admission, cardiology consulted Thrombocytopenia: Etiology not clear per review of chart, may benefit from checking peripheral smear. Continue to monitor. Chronic pain syndrome: F/w pain clinic through [facility]. Continue reduced gabapentin dose, as per above, and morphine ER. Bowel reg. BLE lymphedema, POA Pressure ulcers of bilateral buttocks, POA Appreciate WOCN consult for assistance with management. Hold [employer] Lasix for now given hypotension. CKD stage IIIa Cr currently stable, baseline Cr 0.9-1.1 per chart review. Continue to monitor and avoid nephrotoxic agents as able. Hypothyroidism: Continue current levothyroxine dose, check TSH. GERD: Continue PPI. DVT Prophylaxis: Eliquis on hold, started heparin on admission Code Status: DNR/DNI - As confirmed with the pt's daughter/POA, Deepa, at bedside in the ED. PCP: Macy Juarez, Disposition: PCU Admission and Anticipated Discharge Date Admission Date: July 19, 2025 Subjective Pt seen in follow up Presented w/ confusion, n/v, also elev. troponin UA also c/w UTI Pt seen on admission by GI and surgery, US abd. obtained, HIDA ordered Pt declined HIDA this AM -> updated surgery -? will start clear liquids, and cont. zosyn Currently pt lying in bed in NAD, pt's daughter and POA present at the bedside. Also wound care at the bedside Pt has chronic LE edema and some wounds managed by HH Pt denies abd. pain but says she has nausea frequently, currently feels ok Currently enies any chest discomfort, she on suppl. O2 Review of Systems Review of Systems: All systems reviewed & are unremarkable except as noted in Subjective Physical Exam Physical Exam: General: Elderly, chronically ill-appearing F, laying down in bed, daughter at bedside HEENT: Normocephalic/atraumatic Respiratory: Normal respiratory effort, decreased breath sounds b/l, 98% O2 sat on 2L Cardiovascular: irregularly Abdomen/GI: Active bowel sounds, soft, nontender to palpation in all quadrants Extremities/MSK: + BLE lymphedema (LLE dressing in place 2/2 lymph drainage) Neurologic: Awake, alert and able to answer simple questions appropriately, speech fluent, moves extremities Skin: warm, dry Results & Data Results & Data Vital Signs (Past 12 Hours) Vital Signs Temp Pulse Pulse Resp BP Pulse Ox O2 Del Method 07/20/25 08:49 79 07/20/25 08:01 Nasal Cannula 07/20/25 07:43 36.7 C 74 19 127/60 98 Nasal Cannula 07/20/25 02:44 36.6 C 88 18 125/66 94 Nasal Cannula 07/20/25 00:00 Nasal Cannula 07/20/25 00:00 37.1 C 77 18 166/86 H 97 Room Air 07/19/25 23:44 79 07/19/25 22:00 85 18 134/75 99 Nasal Cannula O2 Flow Rate 07/20/25 08:49 07/20/25 08:01 2 07/20/25 07:43 2 07/20/25 02:44 2 07/20/25 00:00 07/20/25 00:00 2 07/19/25 23:44 07/19/25 22:00 2 Laboratory Results 07/20/25 07/20/25 07/20/25 Range/Units 07:40 07:30 04:00 WBC 13.15 H (4.8-10.8) K/ul RBC 3.78 L (4.20-5.40) M/uL Hgb 12.5 (12.0-16.0) g/dL Hct 37.7 (37.0-47.0) % MCV 99.7 (80.0-100.0) fL MCH 33.1 (25.0-34.0) pg MCHC 33.2 (32.0-36.0) g/dL RDW Std Deviation 52.2 H (36.4-46.3) fL RDW Coeff of Etienne 14.2 (11.5-14.5) % Plt Count 103 L (130-400) K/uL MPV 9.1 L (9.4-12.4) fL Immature Gran % (Auto) 0.8 % Neut % (Auto) 91.2 % Lymph % (Auto) 5.4 % Barbour % (Auto) 2.4 % Eos % (Auto) 0.0 % Baso % (Auto) 0.2 % Neut # (Auto) 11.99 H (1.40-6.50) K/uL Lymph # (Auto) 0.71 L (1.20-3.40) K/uL Barbour # (Auto) 0.32 (0.11-0.59) K/uL Eos # (Auto) 0.00 (0.00-0.50) K/uL Baso # (Auto) 0.03 (0.00-0.20) K/uL Immature Gran # (Auto) 0.10 (0.01-0.20) K/uL Toxic Vacuolation RBC Morphology Unremarkable ESR (0-30) mm/hr PT INR APTT (21-31) Seconds PTT Ratio Heparin Anti-Xa, Unfract 0.71 H* (0.3-0.7) IU/ml Sodium 136 Potassium 4.1 Chloride 101 (98-107) mmol/L Carbon Dioxide 28 (21-32) mmol/L Anion Gap 7 BUN 13 (6-23) mg/dl Creatinine 1.03 (0.6-1.2) mg/dl Est Cr Clr Drug Dosing 42.3 eGFR 52.63 BUN/Creatinine Ratio 12.6 (10-20) Glucose 201 H (70-99(Fasting)) mg/dl Lactate 1.8 (0.4-2.0) mmol/L Calcium 8.6 (8.6-10.3) mg/dl Phosphorus 2.9 (2.5-4.9) mg/dl Magnesium 2.0 Total Bilirubin 1.2 H (0.2-1.0) mg/dl AST 26 ALT 11 (7-52) U/L Alkaline Phosphatase 153 H (34-104) U/L Troponin I High Sens 255.6 H* 267.0 H* D (0-14) pg/ml C-Reactive Protein (0-0.5) mg/dl Total Protein 5.6 L (6.0-8.3) gm/dl Albumin 3.1 L (3.4-5.0) gm/dl Globulin 2.5 (2.5-4.0) gm/dl Albumin/Globulin Ratio 1.2 (0.9-2) Lipase (11-82) U/L Vitamin B12 (180-914) pg/ml Procalcitonin (0-0.5) ng/ml TSH (0.300-4.500) uIu/ml Urine Color Urine Appearance (Clear) Urine pH (4.5-7.5) Ur Specific Dulce (1.000-1.030) Urine Protein (Negative) Urine Glucose (UA) (Negative) Urine Ketones (Negative) Urine Blood (Negative) Urine Nitrite (Negative) Urine Bilirubin (Negative) Urine Urobilinogen (Negative) Ur Leukocyte Esterase (Negative) Urine WBC (Auto) (0-5) /hpf Urine RBC (Auto) (0-2) /hpf U Hyaline Cast (Auto) (0-2) /lpf U Epithel Cells (Auto) (0-2) /hpf Urine Bacteria (Auto) (None Seen) Urine Comment SARS-CoV-2 (PCR) (Negative) Influenza Type A (PCR) (Neg) Influenza Type B (PCR) (Neg) RSV (RT-PCR) (Neg) 07/20/25 07/19/25 07/19/25 Range/Units 03:48 Unknown 21:17 WBC (4.8-10.8) K/ul RBC (4.20-5.40) M/uL Hgb (12.0-16.0) g/dL Hct (37.0-47.0) % MCV (80.0-100.0) fL MCH (25.0-34.0) pg MCHC (32.0-36.0) g/dL RDW Std Deviation (36.4-46.3) fL RDW Coeff of Etienne (11.5-14.5) % Plt Count (130-400) K/uL MPV (9.4-12.4) fL Immature Gran % (Auto) % Neut % (Auto) % Lymph % (Auto) % Barbour % (Auto) % Eos % (Auto) % Baso % (Auto) % Neut # (Auto) (1.40-6.50) K/uL Lymph # (Auto) (1.20-3.40) K/uL Barbour # (Auto) (0.11-0.59) K/uL Eos # (Auto) (0.00-0.50) K/uL Baso # (Auto) (0.00-0.20) K/uL Immature Gran # (Auto) (0.01-0.20) K/uL Toxic Vacuolation RBC Morphology ESR (0-30) mm/hr PT INR APTT 29 (21-31) Seconds PTT Ratio 1.1 Heparin Anti-Xa, Unfract 1.30 H* (0.3-0.7) IU/ml Sodium Potassium Chloride (98-107) mmol/L Carbon Dioxide (21-32) mmol/L Anion Gap BUN (6-23) mg/dl Creatinine (0.6-1.2) mg/dl Est Cr Clr Drug Dosing eGFR BUN/Creatinine Ratio (10-20) Glucose (70-99(Fasting)) mg/dl Lactate 3.1 H* 2.4 H* (0.4-2.0) mmol/L Calcium (8.6-10.3) mg/dl Phosphorus (2.5-4.9) mg/dl Magnesium Total Bilirubin (0.2-1.0) mg/dl AST ALT (7-52) U/L Alkaline Phosphatase (34-104) U/L Troponin I High Sens 116.4 H* D (0-14) pg/ml C-Reactive Protein (0-0.5) mg/dl Total Protein (6.0-8.3) gm/dl Albumin (3.4-5.0) gm/dl Globulin (2.5-4.0) gm/dl Albumin/Globulin Ratio (0.9-2) Lipase (11-82) U/L Vitamin B12 (180-914) pg/ml Procalcitonin (0-0.5) ng/ml TSH (0.300-4.500) uIu/ml Urine Color Urine Appearance (Clear) Urine pH (4.5-7.5) Ur Specific Dulce (1.000-1.030) Urine Protein (Negative) Urine Glucose (UA) (Negative) Urine Ketones (Negative) Urine Blood (Negative) Urine Nitrite (Negative) Urine Bilirubin (Negative) Urine Urobilinogen (Negative) Ur Leukocyte Esterase (Negative) Urine WBC (Auto) (0-5) /hpf Urine RBC (Auto) (0-2) /hpf U Hyaline Cast (Auto) (0-2) /lpf U Epithel Cells (Auto) (0-2) /hpf Urine Bacteria (Auto) (None Seen) Urine Comment SARS-CoV-2 (PCR) (Negative) Influenza Type A (PCR) (Neg) Influenza Type B (PCR) (Neg) RSV (RT-PCR) (Neg) 07/19/25 07/19/25 07/19/25 Range/Units 18:31 15:45 11:48 WBC (4.8-10.8) K/ul RBC (4.20-5.40) M/uL Hgb (12.0-16.0) g/dL Hct (37.0-47.0) % MCV (80.0-100.0) fL MCH (25.0-34.0) pg MCHC (32.0-36.0) g/dL RDW Std Deviation (36.4-46.3) fL RDW Coeff of Etienne (11.5-14.5) % Plt Count (130-400) K/uL MPV (9.4-12.4) fL Immature Gran % (Auto) % Neut % (Auto) % Lymph % (Auto) % Barbour % (Auto) % Eos % (Auto) % Baso % (Auto) % Neut # (Auto) (1.40-6.50) K/uL Lymph # (Auto) (1.20-3.40) K/uL Barbour # (Auto) (0.11-0.59) K/uL Eos # (Auto) (0.00-0.50) K/uL Baso # (Auto) (0.00-0.20) K/uL Immature Gran # (Auto) (0.01-0.20) K/uL Toxic Vacuolation RBC Morphology ESR 8 (0-30) mm/hr PT INR APTT (21-31) Seconds PTT Ratio Heparin Anti-Xa, Unfract (0.3-0.7) IU/ml Sodium Potassium Chloride (98-107) mmol/L Carbon Dioxide (21-32) mmol/L Anion Gap BUN (6-23) mg/dl Creatinine (0.6-1.2) mg/dl Est Cr Clr Drug Dosing eGFR BUN/Creatinine Ratio (10-20) Glucose (70-99(Fasting)) mg/dl Lactate (0.4-2.0) mmol/L Calcium (8.6-10.3) mg/dl Phosphorus (2.5-4.9) mg/dl Magnesium Total Bilirubin (0.2-1.0) mg/dl AST ALT (7-52) U/L Alkaline Phosphatase (34-104) U/L Troponin I High Sens 90.3 H* D (0-14) pg/ml C-Reactive Protein 4.22 H (0-0.5) mg/dl Total Protein (6.0-8.3) gm/dl Albumin (3.4-5.0) gm/dl Globulin (2.5-4.0) gm/dl Albumin/Globulin Ratio (0.9-2) Lipase (11-82) U/L Vitamin B12 > 1500 H (180-914) pg/ml Procalcitonin (0-0.5) ng/ml TSH 0.858 (0.300-4.500) uIu/ml Urine Color Yellow Urine Appearance Clear (Clear) Urine pH 8.0 H (4.5-7.5) Ur Specific Dulce 1.029 (1.000-1.030) Urine Protein Trace H (Negative) Urine Glucose (UA) Negative (Negative) Urine Ketones Trace H (Negative) Urine Blood Negative (Negative) Urine Nitrite Positive A (Negative) Urine Bilirubin Negative (Negative) Urine Urobilinogen Negative (Negative) Ur Leukocyte Esterase Trace H (Negative) Urine WBC (Auto) 6-10 H (0-5) /hpf Urine RBC (Auto) 0-2 (0-2) /hpf U Hyaline Cast (Auto) 0-2 (0-2) /lpf U Epithel Cells (Auto) 0-2 (0-2) /hpf Urine Bacteria (Auto) 4+ H (None Seen) Urine Comment SARS-CoV-2 (PCR) (Negative) Influenza Type A (PCR) (Neg) Influenza Type B (PCR) (Neg) RSV (RT-PCR) (Neg) 07/19/25 07/19/25 07/19/25 Range/Units 11:44 11:30 11:29 WBC (4.8-10.8) K/ul RBC (4.20-5.40) M/uL Hgb (12.0-16.0) g/dL Hct (37.0-47.0) % MCV (80.0-100.0) fL MCH (25.0-34.0) pg MCHC (32.0-36.0) g/dL RDW Std Deviation (36.4-46.3) fL RDW Coeff of Etienne (11.5-14.5) % Plt Count (130-400) K/uL MPV (9.4-12.4) fL Immature Gran % (Auto) % Neut % (Auto) % Lymph % (Auto) % Barbour % (Auto) % Eos % (Auto) % Baso % (Auto) % Neut # (Auto) (1.40-6.50) K/uL Lymph # (Auto) (1.20-3.40) K/uL Barbour # (Auto) (0.11-0.59) K/uL Eos # (Auto) (0.00-0.50) K/uL Baso # (Auto) (0.00-0.20) K/uL Immature Gran # (Auto) (0.01-0.20) K/uL Toxic Vacuolation RBC Morphology ESR (0-30) mm/hr PT 11.6 INR 1.1 APTT (21-31) Seconds PTT Ratio Heparin Anti-Xa, Unfract (0.3-0.7) IU/ml Sodium 137 Potassium 4.4 Chloride (98-107) mmol/L Carbon Dioxide (21-32) mmol/L Anion Gap BUN (6-23) mg/dl Creatinine (0.6-1.2) mg/dl Est Cr Clr Drug Dosing eGFR BUN/Creatinine Ratio (10-20) Glucose (70-99(Fasting)) mg/dl Lactate (0.4-2.0) mmol/L Calcium (8.6-10.3) mg/dl Phosphorus (2.5-4.9) mg/dl Magnesium 1.9 Total Bilirubin (0.2-1.0) mg/dl AST 24 ALT (7-52) U/L Alkaline Phosphatase (34-104) U/L Troponin I High Sens (0-14) pg/ml C-Reactive Protein (0-0.5) mg/dl Total Protein (6.0-8.3) gm/dl Albumin (3.4-5.0) gm/dl Globulin (2.5-4.0) gm/dl Albumin/Globulin Ratio (0.9-2) Lipase (11-82) U/L Vitamin B12 (180-914) pg/ml Procalcitonin 1.04 H (0-0.5) ng/ml TSH (0.300-4.500) uIu/ml Urine Color Urine Appearance (Clear) Urine pH (4.5-7.5) Ur Specific Dulce (1.000-1.030) Urine Protein (Negative) Urine Glucose (UA) (Negative) Urine Ketones (Negative) Urine Blood (Negative) Urine Nitrite (Negative) Urine Bilirubin (Negative) Urine Urobilinogen (Negative) Ur Leukocyte Esterase (Negative) Urine WBC (Auto) (0-5) /hpf Urine RBC (Auto) (0-2) /hpf U Hyaline Cast (Auto) (0-2) /lpf U Epithel Cells (Auto) (0-2) /hpf Urine Bacteria (Auto) (None Seen) Urine Comment SARS-CoV-2 (PCR) NEGATIVE (Negative) Influenza Type A (PCR) Negative (Neg) Influenza Type B (PCR) Negative (Neg) RSV (RT-PCR) Negative (Neg) 07/19/25 Range/Units 10:50 WBC 11.56 H (4.8-10.8) K/ul RBC 4.31 (4.20-5.40) M/uL Hgb 14.3 (12.0-16.0) g/dL Hct 42.7 (37.0-47.0) % MCV 99.1 (80.0-100.0) fL MCH 33.2 (25.0-34.0) pg MCHC 33.5 (32.0-36.0) g/dL RDW Std Deviation 50.7 H (36.4-46.3) fL RDW Coeff of Etienne 13.8 (11.5-14.5) % Plt Count 117 L (130-400) K/uL MPV 9.2 L (9.4-12.4) fL Immature Gran % (Auto) 0.5 % Neut % (Auto) 90.2 % Lymph % (Auto) 5.3 % Barbour % (Auto) 3.5 % Eos % (Auto) 0.3 % Baso % (Auto) 0.2 % Neut # (Auto) 10.43 H (1.40-6.50) K/uL Lymph # (Auto) 0.61 L (1.20-3.40) K/uL Barbour # (Auto) 0.40 (0.11-0.59) K/uL Eos # (Auto) 0.04 (0.00-0.50) K/uL Baso # (Auto) 0.02 (0.00-0.20) K/uL Immature Gran # (Auto) 0.06 (0.01-0.20) K/uL Toxic Vacuolation 2+ RBC Morphology ESR (0-30) mm/hr PT Cancelled INR Cancelled APTT (21-31) Seconds PTT Ratio Heparin Anti-Xa, Unfract (0.3-0.7) IU/ml Sodium TNP Potassium TNP Chloride 98 (98-107) mmol/L Carbon Dioxide 29 (21-32) mmol/L Anion Gap TNP BUN 12 (6-23) mg/dl Creatinine 1.11 (0.6-1.2) mg/dl Est Cr Clr Drug Dosing Not Reportable eGFR 48.11 BUN/Creatinine Ratio 10.8 (10-20) Glucose 130 H (70-99(Fasting)) mg/dl Lactate 3.2 H* (0.4-2.0) mmol/L Calcium 9.5 (8.6-10.3) mg/dl Phosphorus (2.5-4.9) mg/dl Magnesium TNP Total Bilirubin 1.5 H (0.2-1.0) mg/dl AST TNP ALT 13 (7-52) U/L Alkaline Phosphatase 205 H (34-104) U/L Troponin I High Sens 14.2 H (0-14) pg/ml C-Reactive Protein (0-0.5) mg/dl Total Protein 6.8 (6.0-8.3) gm/dl Albumin 3.9 (3.4-5.0) gm/dl Globulin 2.9 (2.5-4.0) gm/dl Albumin/Globulin Ratio 1.3 (0.9-2) Lipase 6 L (11-82) U/L Vitamin B12 (180-914) pg/ml Procalcitonin (0-0.5) ng/ml TSH (0.300-4.500) uIu/ml Urine Color Urine Appearance (Clear) Urine pH (4.5-7.5) Ur Specific Dulce (1.000-1.030) Urine Protein (Negative) Urine Glucose (UA) (Negative) Urine Ketones (Negative) Urine Blood (Negative) Urine Nitrite (Negative) Urine Bilirubin (Negative) Urine Urobilinogen (Negative) Ur Leukocyte Esterase (Negative) Urine WBC (Auto) (0-5) /hpf Urine RBC (Auto) (0-2) /hpf U Hyaline Cast (Auto) (0-2) /lpf U Epithel Cells (Auto) (0-2) /hpf Urine Bacteria (Auto) (None Seen) Urine Comment SARS-CoV-2 (PCR) (Negative) Influenza Type A (PCR) (Neg) Influenza Type B (PCR) (Neg) RSV (RT-PCR) (Neg) Medications Administered Current Inpatient Medications Acetaminophen (Acetaminophen 325 Mg Tab) 650 mg PO Q4H PRN PRN Reason: Pain or Fever Stop: 08/18/25 20:27 Cyanocobalamin (Cyanocobalamin (B-12) 500 Mcg Tablet) 1,000 mcg PO DAILY [facility] Stop: 08/19/25 08:59 Folic Acid (Folic Acid 1 Mg Tab) 1 mg PO QAM [facility] Stop: 08/19/25 08:59 Gabapentin (Gabapentin 100 Mg Cap) 100 mg PO TID [facility] Stop: 08/18/25 20:59 Last Admin: 07/19/25 21:22 Dose: 100 mg Heparin Sodium/Dextrose (Heparin 32277 Unit/500 Ml D5w) 25,000 units in 500 mls @ 0 mls/hr IV .Q0M [facility]; Protocol Stop: 08/18/25 20:29 Last Titration: 07/20/25 05:01 Dose: 0 units/hr, 0 mls/hr Piperacillin Sod/Tazobactam Sod (Zosyn) 4.5 gm in 100 mls @ 25 mls/hr IV Q8H [facility]; Protocol Stop: 07/21/25 21:59 Last Admin: 07/20/25 05:21 Dose: 25 mls/hr Promethazine HCl (Phenergan) 6.25 mg in 50.25 mls @ 201 mls/hr IV Q6H PRN PRN Reason: Nausea And Vomiting Stop: 08/19/25 03:46 Lactated Ringer's (Lr) 1,000 mls @ 100 mls/hr IV .Q10H [facility] Stop: 07/23/25 03:59 Last Infusion: 07/20/25 05:08 Dose: 100 mls/hr Lactic Acid (Ammonium Lactate 12% Lotion 225 Gm Btl) 1 gm EXT BID [facility] Stop: 08/18/25 20:59 Last Admin: 07/19/25 22:19 Dose: Not Given Levothyroxine Sodium ([facility]othyroxine S[facility] 75 [facility]g Tablet) [facility]: 08/19/25 06:29 Last Admin: 07/20/25 05:31 Dose: 75 mcg Magnesium Hydroxide (Magnesium Hydroxide Susp 30 Ml Udc) 30 ml PO Q12H PRN PRN Reason: Constipation Stop: 08/18/25 20:27 Metoprolol Tartrate (Metoprolol Tartrate 25 Mg Tab) 25 mg PO [facility] Stop: 08/18/25 20:59 Last Admin: 07/19/25 21:22 Dose: 25 mg Morphine Sulfate (Morphine Sulfate Cr 15 Mg Tabcr) 15 mg PO [facility] Stop: 08/02/25 20:59 Last Admin: 07/19/25 21:22 Dose: 15 mg Ondansetron HCl (Ondansetron Inj 2 Mg/Ml 2 Ml Vial) 4 mg IV Q6H PRN PRN Reason: Nausea Stop: 08/18/25 20:27 Last Admin: 07/20/25 00:19 Dose: 4 mg Pantoprazole Sodium ([facility] 40 Mg Tab) [facility]: 08/19/25 06:29 Last Admin: 07/20/25 05:31 Dose: 40 mg Polyethylene Glycol (Polyethylene (Miralax) 17 Gm Pack) 17 gm PO DAILY [facility] Stop: 08/19/25 08:59 Polyethylene Glycol (Polyethylene (Miralax) 17 Gm Pack) 17 gm PO DAILY PRN PRN Reason: Constipation Stop: 08/18/25 20:27 Thiamine HCl (Thiamine Hcl 100 Mg Tab) 100 mg PO QAM [facility] Stop: 08/19/25 08:59 Vitamin D (Cholecalciferol 25 Mcg (1000 Units) Tab) 25 mcg PO DAILY [facility] Stop: 08/19/25 08:59
--- NOTE | 2025-07-20 09:02 | Cardiology Consultation ---
Date of Consultation July 20, 2025 Assessment & Plan (1) Atrial fibrillation with rapid ventricular response: (2) Elevated troponin: (3) Multifocal atrial tachycardia: (4) UTI (urinary tract infection): (5) Dilated bile duct: Plan Assessment: 89 year old female admitted with several day history of Nausea, vomiting and diarrhea. Elevated liver functions, mild biliary ductal dilation on CT of abdomen and pelvis as well as gallbladder distension. EKG on admission noted A-fib with RVR as well as ST depression in lateral leads. Cardiology consulted for further assessment and recommendations. Plan: 1. Atrial fibrillation with RVR 2. Elevated troponin 3. Multifocal atrial tachycardia 4. Acute UTI 5. dilated bile duct -patient with A-fib with RVR and notation of ST depression in lateral leads. Chest pain free at time of admission and denies any other cardiac symptoms. -patient carries a history of Multi-focal atrial tachycardia. -She has converted to SR and remains in sinus with brief runs of MAT per review of telemetry -ST depression resolved on repeat EKG -Mild troponin elevation in the setting of rapid heart rate, dehydration and acute infectious process. -Obtain echocardiogram to assess overall structure and function as well as for any wall motion abnormalities. -Continue Metoprolol tartrate 25mg PO BID -may continue heparin gtt at this time for anticoagulation. [id number] score 4. patient is chronically anticoagulated outpatient on Eliquis--will await GI/surgery recommendations for plan of care prior to considering transition back to oral AC. -Urine culture pending--ongoing management per primary team -General surgery and GI both on consult due to abnormal CT findings related to dilated bile duct. Case has been discussed with Dr. Huang. Further recommendations regarding plan of care as per his assessment. I spent a total of 50 minutes on the date of service in preparation, delivery, documentation of the care provided to the patient excluding any time spent in the performance of separately billed services. CHIKIS Ramirez [facility] Supervising Physician Co-Signing Physician Notes Patient seen and personally examined. Full assessment plan as outlined by advanced provider above. Care and management discussed and personally endorsed 89-year-old female presenting with symptoms of nausea vomiting diarrhea and abdominal pain. Initial laboratory studies notable for elevated transaminases. On presentation patient with narrow complex tachycardia, heart rates being driven by acute illness and lapse in medical treatment Heart rates improved with resuscitation with acute complaints. Resumption of oral metoprolol at usual dosing. Issues addressed as follows 1. Narrow complex tachycardia, atrial fibrillation/flutter versus recurrent MAT. Current rhythm sinus with paroxysmal atrial tachycardia/MAT recommendations continue beta-ramo with room to increase if necessary Patient with chronic anticoagulation currently being treated with IV heparin until definitive course outlined 2. Elevated troponin secondary to acute illness and tachycardia. Findings do not suggest acute coronary syndrome and echocardiogram with left hypertrophy and normal to hyperdynamic LV systolic function History of Present Illness Reason for Consultation: concern for lateral MD Requesting Physician: Daniel hospitalist Attending Physician: Oren Santo MD History of Present Illness HPI: Patient is a 89 year old female with PMHx significant for HTN, HLD, hypothyroidism, Multifocal Atrial tachycardia, prior left popliteal DVT on Elqiuis, GERD, gallstones, morbid obesity, polycystic kidney disease/ Stage III CKD,fibromyalgia, chronic lymphedema and mild dementia that presented with nausea, vomiting, diarrhea and abdominal pain. Denies any chest pain, pressure or palpitations. No near syncope or syncope. Report attempted to "go to scan today, but could not tolerate" suspect she is referring to a HIDA scan as noted by general surgery. Patient does not follow with cardiology outpatient. Elevated WBC and Lactate High sensitive troponin 267.0 Chest x-ray: IMPRESSION: Cardiomegaly with no acute cardiopulmonary abnormality identified. Abdomen/Pelvis CT: IMPRESSION: 1. Interval development of mild biliary ductal dilatation which could be correlated with liver function tests. 2. Moderate gallbladder distention without pericholecystic inflammation. If right upper quadrant pain, ultrasound is recommended. 3. No bowel obstruction. No bowel wall thickening. Moderate stool within the rectum. EKG on admission: A-fib with RVR Rate 130 bpm, ST depression in leads V5 and 6 Repeat EKG shows SR with 1st degree AVB. ST depression no longer present Review of telemetry shows SR with brief runs of multi-focal atrial tachycardia. Rate 70's. Allergies Allergy/AdvReac Type Severity Reaction Status Date / Time No Known Allergies Allergy Verified 07/19/25 18:39 Home Medications Medication Instructions Recorded Confirmed Type cholecalciferol (vitamin D3) 25 25 mcg PO DAILY 01/24/20 07/19/25 History mcg (1,000 unit) capsule (Vitamin D3) furosemide 20 mg tablet 20 mg PO DAILY 01/24/20 07/19/25 History mecobalamin (vitamin B12) 1,000 1,000 mcg PO DAILY 01/24/20 07/19/25 History mcg chewable tablet pantoprazole 40 mg tablet,delayed 40 mg PO DAILYBB 01/24/20 07/19/25 History release polyethylene glycol 3350 17 17 gm PO DAILY PRN Constipation 01/24/20 07/19/25 History gram/dose oral powder (Miralax) gabapentin 300 mg capsule 300 mg PO TID 12/01/24 07/19/25 History levothyroxine 75 mcg tablet 75 mcg PO DAILYBB 12/01/24 07/19/25 History Saccharomyces boulardii 250 mg 250 mg PO DAILY #30 caps 12/06/24 07/19/25 Rx capsule apixaban 5 mg tablet (Eliquis) 5 mg PO AMPM 07/19/25 07/19/25 History famotidine 20 mg tablet 20 mg PO HS 07/19/25 07/19/25 History metoprolol tartrate 25 mg tablet 25 mg PO AMHS 07/19/25 07/19/25 History morphine 15 mg tablet,extended 15 mg PO AMHS 07/19/25 07/19/25 History release nystatin 100,000 unit/gram topical 1 applic topical BID PRN Skin 07/19/25 07/19/25 History powder Irritation ondansetron HCl 4 mg tablet 4 mg PO Q6H PRN Nausea And Vomiting 07/19/25 07/19/25 History oxycodone 5 mg tablet 5 mg PO .UD 07/19/25 07/19/25 History Patient History Medical History History of DVT (deep vein thrombosis) Fibromyalgia Hypertension Arthritis Arthritis of right hip Greater trochanteric pain syndrome Chronic venous insufficiency Skin tear of right forearm without complication Lower extremity edema Venous ulcer of left leg Traumatic open wound of left lower leg with delayed healing Macular degeneration Cataract (lens) fragments in eye following cataract surgery, bilateral Surgical History H/O: hysterectomy S/P right knee arthroscopy H/O hemorrhoidectomy History of tonsillectomy Social History Smoking Status: Never smoker Hx Alcohol Use: No Hx Substance Use: No Preferred Language: Polish Communication Ability: Effective Hearing Ability: Hard of Hearing Therapy Teacher Required: No Beliefs That Will Affect Care: None Current Living Situation: Alone Current Living Situation Comment: lives at home alone. daughter and caregiver assist pt Feels Safe at Home: Yes Childhood Exposure to Second-Hand Smoke: No Assistive Devices: Lift Chair, Stair Lift, Walker and Wheelchair Review of Systems Review of Systems: All systems reviewed & are unremarkable except as noted in HPI & below Physical Exam Constitutional: well developed, well nourished, + ill appearing and + overweight; no acute distress Neck: normal visual inspection and trachea midline Respiratory: normal respiratory effort, lungs clear to auscultation Auscultation: no crackles, no rales, no rhonchi and no wheezes Cardiovascular: Rate/Rhythm: regular rate and regular rhythm Heart Sounds: normal S1 and normal S2; no murmur Vessels: dorsalis pedis pulses present; no JVD Extremities: + edema (Chronic lymphedema to BLE; DSG to left LE) Skin: no rashes, warm and dry dressing to the left lower extremity Psychiatric: Orientation: alert and oriented x 3 Affect: + anxious affect Results & Data Vital Signs (Past 12 Hours) Vital Signs Temp Pulse Pulse Resp BP Pulse Ox O2 Del Method 07/20/25 08:49 79 07/20/25 08:01 Nasal Cannula 07/20/25 07:43 36.7 C 74 19 127/60 98 Nasal Cannula 07/20/25 02:44 36.6 C 88 18 125/66 94 Nasal Cannula 07/20/25 00:00 Nasal Cannula 07/20/25 00:00 37.1 C 77 18 166/86 H 97 Room Air 07/19/25 23:44 79 07/19/25 22:00 85 18 134/75 99 Nasal Cannula O2 Flow Rate 07/20/25 08:49 07/20/25 08:01 2 07/20/25 07:43 2 07/20/25 02:44 2 07/20/25 00:00 07/20/25 00:00 2 07/19/25 23:44 07/19/25 22:00 2 Laboratory Results Cardiac Enzymes 07/19/25 07/19/25 07/19/25 Range/Units 11:44 18:31 21:17 AST 24 (13-39) U/L Troponin I High Sens 90.3 H* D 116.4 H* D (0-14) pg/ml 07/20/25 07/20/25 Range/Units 04:00 07:40 AST 26 (13-39) U/L Troponin I High Sens 267.0 H* D 255.6 H* (0-14) pg/ml Coagulation 07/19/25 07/19/25 Range/Units 11:44 21:17 PT 11.6 (9.0-12.0) Seconds APTT 29 (21-31) Seconds CBC 07/20/25 Range/Units 04:00 WBC 13.15 H (4.8-10.8) K/ul RBC 3.78 L (4.20-5.40) M/uL Hgb 12.5 (12.0-16.0) g/dL Hct 37.7 (37.0-47.0) % Plt Count 103 L (130-400) K/uL Neut # (Auto) 11.99 H (1.40-6.50) K/uL Lymph # (Auto) 0.71 L (1.20-3.40) K/uL Marion # (Auto) 0.32 (0.11-0.59) K/uL Eos # (Auto) 0.00 (0.00-0.50) K/uL Baso # (Auto) 0.03 (0.00-0.20) K/uL Comprehensive Metabolic Panel 07/19/25 07/20/25 Range/Units 11:44 04:00 Sodium 137 136 (136-145) mmol/L Potassium 4.4 4.1 (3.5-5.1) mmol/L Chloride 101 (98-107) mmol/L Carbon Dioxide 28 (21-32) mmol/L BUN 13 (6-23) mg/dl Creatinine 1.03 (0.6-1.2) mg/dl Glucose 201 H (70-99(Fasting)) mg/dl Calcium 8.6 (8.6-10.3) mg/dl AST 24 26 (13-39) U/L ALT 11 (7-52) U/L Alkaline Phosphatase 153 H (34-104) U/L Total Protein 5.6 L (6.0-8.3) gm/dl Albumin 3.1 L (3.4-5.0) gm/dl Intake and Output 07/19/25 07/20/25 07/20/25 22:59 06:59 14:59 Intake Total 1826.350 / 2426.350 100 / 100 Output Total 300 / 300 Balance 1526.350 / 2126.350 100 / 100 Intake: IV 1826.350 / 2426.350 100 / 100 Heparin 79904 Unit/500 ml D5w 126.933 / 126.933 0 / 0 25,000 units In 500 ml @ 0 UNITS/HR IV .Q0M AMANDA Rx#: [id number] Lactated Ringer's 1,000 ml @ 120 / 120 100 mls/hr IV .Q10H AMANDA Rx#: [id number] Piperacillin/Tazobactam 4.5 gm 100 / 100 100 / 100 In 100 ml @ 25 mls/hr IV Q8H AMANDA Rx#:[id number] Promethazine 6.25 mg In 50.25 50.25 / 50.25 ml @ 201 mls/hr IV NOW STA Rx#: [id number] Sodium Chloride 0.9% 1,000 ml @ 1429.167 / 1429.167 125 mls/hr IV .Q8H AMANDA Rx#: [id number] Output: Urine Amount (Catheter) 300 / 300 Quarles/Indwelling 300 / 300 Other: Other Intake Source npo Weight 96 kg Weight Measurement Method Built in [facility] PG Care Time/CCT Total # of Minutes Spent Total Time Spent with Patient: Total time spent is greater than 50% in coordination of care (as documented) at patient's floor/unit and/or counseling patient: Coding Level of Care Code 10632 IN/OBS CONSULT LVL 5,80M Diagnoses Atrial fibrillation with rapid ventricular response I48.91 Elevated troponin R79.89 Multifocal atrial tachycardia I47.19 UTI (urinary tract infection) N39.0 Dilated bile duct K83.8 Time Spent (min) 50
--- NOTE | 2025-07-20 09:12 | Nuclear Medicine Report ---
NUCLEAR HEPATOBILIARY SCAN CLINICAL HISTORY: Right upper quadrant abdominal pain. Elevated bilirubin. COMPARISON STUDY: Abdominal CT and ultrasound dated 07/19/2025 TECHNIQUE: Imaging of the liver was performed for 5 minutes following the IV administration of 5.3 mC i of technetium 99m Mebrofenin. The patient declined further imaging due to claustrophobia. FINDINGS: The single acquired image shows normal uptake throughout the hepatic parenchyma at 5 minute s time. There is no excreted activity or gallbladder activity. The examination is nondiagnostic to as sess for acute cholecystitis. IMPRESSION: 1. The patient declined further imaging after 5 minutes time. The examination is nondiagnostic. 2. A tracer dosage of 5.3 mCi was administered. ACT 112: Negative or not required by law. Electronically signed by: Cas Sweeney M.D. 07/20/2025 9:11 AM
[2025-07-20] MEDS: CHOLECALCIFEROL 25 MCG (1000 UNITS) TAB PO SCH (10:13)
[2025-07-20] MEDS: CYANOCOBALAMIN (B-12) 500 MCG TABLET PO SCH (10:13)
[2025-07-20] MEDS: POLYETHYLENE (MIRALAX) 17 GM PACK PO SCH (10:14)
[2025-07-20 10:33] LABS: ANTI-Xa, UFH(UnfractionatedHep 0.60 IU/ml (0.3-0.7)
[2025-07-20] MEDS: FOLIC ACID 1 MG TAB PO SCH (10:36)
[2025-07-20] MEDS: THIAMINE HCL 100 MG TAB PO SCH (10:36)
--- NOTE | 2025-07-20 11:10 | Gastroenterology Progress Note ---
Date of Service July 20, 2025 Assessment & Plan (1) Total bilirubin, elevated: (2) Dilated bile duct: (3) Nausea & vomiting: Plan Her LFTs are improved today and she feels somewhat better, biggest concern is she would like to advance her diet. - okay to advance her diet as tolerated. - can continue to trend LFTs. - she tells me that she has no interested in any GI work up at this time. Admission and Anticipated Discharge Date Admission Date: July 19, 2025 Supervising Physician Co-Signing Physician Notes Liver tests decreasing. Biliary dilatation may be related to age and narcotic use. Patient is refused investigations in the past she refused a HIDA scan as ordered by surgery. She is also says she is not interested in ERCP. I respect her wishes in that regard. At this point I would just recommend following her clinical course. As long as LFTs normalizing and patient is against intervention, GI will sign off reconsult prn Subjective Patient tells me that she has some ongoing nausea, but no emesis. abdominal pain better today. she tells me she is not interested in any invasive testing. The remainder of the GI ROS were unremarkable. 07/20/25 wbc 13.15, hgb 12.5, hct 37.7, plts 103, Na 136, K 4.1, BUN 13, Cr 1.03, T bili 1.2, AST 26, ALT 11, Alk 153, 07/20/25 HIDA - The patient declined further imaging after 5 minutes time. The examination is nondiagnostic. A tracer dosage of 5.3 mCi was administered. 07/19/25 1. Mild intrahepatic biliary ductal dilatation is present. Additionally there is mild prominence of the common bile duct better appreciated on the prior CT. No visualized filling defect. Consider further evaluation with MRCP. 2. Cholelithiasis. This is gallbladder is distended however there is no significant thickening of the wall. 3. Coarse echogenicity of the liver may relate to fatty infiltration and/or hepatocellular dysfunction. 4. Increased echogenicity of the right renal cortex is most consistent with chronic medical renal disease. No hydronephrosis. 5. There is a complicated 1.8 cm cystic lesion of the inferior pole of the right kidney. Recommend further evaluation with renal mass protocol CT or MRI on a nonemergent basis. Review of Systems Review of Systems: All systems reviewed & are unremarkable except as noted in HPI & below Physical Exam Constitutional: WD/WN, vitals as above Respiratory: normal respiratory effort, lungs clear to auscultation Cardiovascular: Rate/Rhythm: regular rate and regular rhythm Gastrointestinal (Abdomen): normal bowel sounds, soft, nontender, no hepatosplenomegaly Psychiatric: Orientation: alert and oriented x 3 Affect: euthymic affect Results & Data Results & Data Vital Signs (Past 12 Hours) Vital Signs Temp Pulse Pulse Resp BP Pulse Ox O2 Del Method 07/20/25 08:49 79 07/20/25 08:01 Nasal Cannula 07/20/25 07:43 98.1 F 74 19 127/60 98 Nasal Cannula 07/20/25 02:44 97.9 F 88 18 125/66 94 Nasal Cannula 07/20/25 00:00 Nasal Cannula 07/20/25 00:00 98.8 F 77 18 166/86 H 97 Room Air 07/19/25 23:44 79 O2 Flow Rate 07/20/25 08:49 07/20/25 08:01 2 07/20/25 07:43 2 07/20/25 02:44 2 07/20/25 00:00 07/20/25 00:00 2 07/19/25 23:44 Coding Level of Care Code 24332 SUB INP/OBS CARE 08/27MIN Diagnoses Total bilirubin, elevated R17 Dilated bile duct K83.8 Nausea & vomiting R11.2
--- NOTE | 2025-07-20 12:44 | XCELERA ---
[id number]
[2025-07-20] MEDS: MICONAZOLE NITRATE POWDER 85 GM EXT SCH (15:15)
[2025-07-20 17:20] LABS: ANTI-Xa, UFH(UnfractionatedHep 0.51 IU/ml (0.3-0.7)
--- NOTE | 2025-07-21 06:05 | Electrocardiogram Report ---
Test Reason : Blood Pressure : */* mmHG Vent. Rate : 130 BPM Atrial Rate : * BPM P-R Int : * ms QRS Dur : 86 ms QT Int : 294 ms P-R-T Axes : * -41 149 degrees QTcB Int : 432 ms Atrial fibrillation with rapid ventricular response Left axis deviation Low voltage QRS Abnormal ECG When compared with ECG of 04-Dec-2024 05:36, Vent. rate has increased by [address] now depressed in Lateral leads T wave inversion now evident in Lateral leads Confirmed by Sameer Mcknight ([id number]) on 07/21/2025 6:05:16 AM Referred By: Confirmed By: Sameer Mcknight
--- NOTE | 2025-07-21 06:06 | Electrocardiogram Report ---
Test Reason : Blood Pressure : */* mmHG Vent. Rate : 73 BPM Atrial Rate : 73 BPM P-R Int : 216 ms QRS Dur : 88 ms QT Int : 404 ms P-R-T Axes : 45 91 56 degrees QTcB Int : 445 ms Sinus rhythm with 1st degree A-V block with Premature supraventricular complexes Rightward axis Low voltage QRS Borderline ECG When compared with ECG of 19-Jul-2025 10:15, Sinus rhythm has replaced Atrial fibrillation Vent. rate has decreased by 57 bpm QRS axis Shifted right T wave amplitude has increased in Inferior leads T wave inversion no longer evident in Lateral leads Confirmed by Sameer Mcknight ([id number]) on 07/21/2025 6:05:56 AM Referred By: REFERRED SELF Confirmed By: Sameer Mcknight
[2025-07-21 07:02] LABS: Hematocrit (blood only) 31.8 % (37.0-47.0); Hemoglobin 10.4 g/dL (12.0-16.0); Mean Corpuscular Hemoglobin 32.7 pg (25.0-34.0); Mean Corpuscular Volume 100.0 fL (80.0-100.0); Platelet Count 83 K/uL (130-400); RDW Standard Deviation 50.6 fL (36.4-46.3); Red Blood Count 3.18 M/uL (4.20-5.40); White Blood Count 6.71 K/ul (4.8-10.8)
[2025-07-21 07:07] LABS: Alanine Aminotransferase 9.0 U/L (7-52); Albumin Globulin Ratio 1.3 (0.9-2); Albumin Level 2.3 gm/dl (3.4-5.0); Alkaline Phosphatase 119.0 U/L (34-104); Anion Gap 7.0 (3-11); Bilirubin,Total 0.7 mg/dl (0.2-1.0); Blood Urea Nitrogen 11.0 mg/dl (6-23); Calcium 7.9 mg/dl (8.6-10.3); Carbon Dioxide 25.0 mmol/L (21-32); Chloride 103.0 mmol/L (98-107); Creatinine Clr Calc Pharmacy 58.3 ml/min; Globulin 1.8 gm/dl (2.5-4.0); Glucose 141.0 mg/dl (70-99(Fasting)); Magnesium 1.7 mg/dl (1.7-2.4); Potassium 3.9 mmol/L (3.5-5.1); Sodium 135.0 mmol/L (136-145); Total Protein 4.1 gm/dl (6.0-8.3)
[2025-07-21 07:17] LABS: ANTI-Xa, UFH(UnfractionatedHep 0.62 IU/ml (0.3-0.7)
[2025-07-21 08:38] LABS: Hemoglobin A1C 5.8 % (4.5-5.6)
--- NOTE | 2025-07-21 09:07 | Cardiology Progress Note ---
Date of Service July 21, 2025 Assessment & Plan (1) Atrial fibrillation with rapid ventricular response: (2) Elevated troponin: (3) Multifocal atrial tachycardia: (4) UTI (urinary tract infection): (5) Dilated bile duct: Plan Assessment: 89 year old female admitted with several day history of Nausea, vomiting and diarrhea. Elevated liver functions, mild biliary ductal dilation on CT of abdomen and pelvis as well as gallbladder distension. EKG on admission noted MAT vs A-fib with RVR as well as ST depression in lateral leads. Cardiology consulted for further assessment and recommendations. Plan: 1. Atrial fibrillation with RVR 2. Elevated troponin 3. Multifocal atrial tachycardia 4. Acute UTI 5. dilated bile duct -Patient demonstrates clinical improvement form a cardiac perspective. Offers no acute cardiac concerns. -REview of telemetry shows SB/SR with PAC's. Known history of MAT. No a-fib noted overnight. -Mild troponin elevation in the setting of rapid heart rate, dehydration and acute infectious process. -Echocardiogram show normal LVEF 60-65%, mild MR, mild TR. No wall motion abnormalities noted. -Continue Metoprolol tartrate 25mg PO BID -may continue heparin gtt at this time for anticoagulation. [id number] score 4. patient is chronically anticoagulated outpatient on Eliquis--will await GI/surgery recommendations for plan of care prior to considering transition back to oral AC. -Urine culture pending--ongoing management per primary team -General surgery and GI both on consult due to abnormal CT findings related to dilated bile duct. Case has been discussed with Dr. Huang. Further recommendations regarding plan of care as per his assessment. I spent a total of 30 minutes on the date of service in preparation, delivery, documentation of the care provided to the patient excluding any time spent in the performance of separately billed services. CHIKIS Ramirez [facility] Cardiology [facility] Admission and Anticipated Discharge Date Admission Date: July 19, 2025 Supervising Physician Co-Signing Physician Notes Patient seen and personally examined, chart, telemetry reviewed. Assessment and plan as outlined by advanced providers above care and management personally endorsed No further atrial arrhythmias appears more comfortable. Continue current dosing of metoprolol tartrate No further recommendations Contact with questions Subjective 07/21/25: Patient seen and examined in follow up today. Reports feeling better today. Offers no cardiac concerns. Reported some nausea early this morning which has since subsided. Labs, vitals, diagnostics, telemetry and documentation reviewed. Telemetry reviewed showing sinus bradycardia/ sinus rhythm with PAC's. Rates 50- 70's. No acute events overnight. Physical Exam Constitutional: well developed, well nourished, + ill appearing and + overweight; no acute distress Neck: normal visual inspection and trachea midline Respiratory: normal respiratory effort, lungs clear to auscultation Auscultation: no crackles, no rales, no rhonchi and no wheezes Cardiovascular: Rate/Rhythm: regular rate and regular rhythm Heart Sounds: normal S1 and normal S2; no murmur Vessels: dorsalis pedis pulses present; no JVD Extremities: + edema (Chronic lymphedema to BLE; DSG to left LE) Skin: no rashes, warm and dry Psychiatric: Orientation: alert and oriented x 3 Affect: euthymic affect Lymphatic: + lymphedema (bilateral lower extremitie s ) Results & Data Vital Signs (Past 12 Hours) Vital Signs Temp Pulse Pulse Resp BP Pulse Ox O2 Del Method 07/21/25 07:55 36.4 C L 76 18 94 Nasal Cannula 07/21/25 03:06 36.7 C 64 18 145/75 H 96 Nasal Cannula 07/20/25 23:12 36.8 C 67 18 125/67 96 Nasal Cannula 07/20/25 22:30 63 O2 Flow Rate 07/21/25 07:55 2 07/21/25 03:06 2 07/20/25 23:12 2 07/20/25 22:30 Laboratory Results Cardiac Enzymes 07/21/25 Range/Units 05:44 AST 25 (13-39) U/L CBC 07/21/25 Range/Units 05:44 WBC 6.71 (4.8-10.8) K/ul RBC 3.18 L (4.20-5.40) M/uL Hgb 10.4 L (12.0-16.0) g/dL Hct 31.8 L (37.0-47.0) % Plt Count 83 L (130-400) K/uL Comprehensive Metabolic Panel 07/21/25 Range/Units 05:44 Sodium 135 L (136-145) mmol/L Potassium 3.9 (3.5-5.1) mmol/L Chloride 103 (98-107) mmol/L Carbon Dioxide 25 (21-32) mmol/L BUN 11 (6-23) mg/dl Creatinine 0.75 (0.6-1.2) mg/dl Glucose 141 H (70-99(Fasting)) mg/dl Calcium 7.9 L (8.6-10.3) mg/dl AST 25 (13-39) U/L ALT 9 (7-52) U/L Alkaline Phosphatase 119 H (34-104) U/L Total Protein 4.1 L D (6.0-8.3) gm/dl Albumin 2.3 L (3.4-5.0) gm/dl Intake and Output 07/20/25 07/21/25 07/21/25 22:59 06:59 14:59 Intake Total 184.833 / 2384.833 1100 / 2384.833 261.167 / 261.167 Output Total 150 / 375 Balance 34.833 / 2009.833 1100 / 2008.833 261.167 / 261.167 Intake: IV 184.833 / 2264.833 1100 / 2264.833 261.167 / 261.167 Heparin 04012 Unit/500 ml D5w 84.833 / 84.833 161.167 / 161.167 25,000 units In 500 ml @ 500 UNITS/HR 10 mls/hr IV .Q24H AMANDA Rx#:[id number] Lactated Ringer's 1,000 ml @ 1000 / 1880 100 mls/hr IV .Q10H AMANDA Rx#: [id number] Piperacillin/Tazobactam 4.5 gm 100 / 300 100 / 300 100 / 100 In 100 ml @ 25 mls/hr IV Q8H AMANDA Rx#:[id number] Output: Urine Amount (Catheter) 150 / 375 Quarles/Indwelling 150 / 375 Other: Weight 96 kg PG Care Time/CCT Total # of Minutes Spent Total Time Spent with Patient: Total time spent is greater than 50% in coordination of care (as documented) at patient's floor/unit and/or counseling patient: Coding Level of Care Code 97492 SUB INP/OBS CARE 3/50MIN Diagnoses Atrial fibrillation with rapid ventricular response I48.91 Elevated troponin R79.89 Multifocal atrial tachycardia I47.19 UTI (urinary tract infection) N39.0 Dilated bile duct K83.8 Time Spent (min) 30
[2025-07-21] MEDS ORDERED: POTASSIUM PHOS 3 MMOL/1 ML INFUSION IV STA (09:40)
[2025-07-21] MEDS: POTASSIUM PHOSPHATE 9 MMOL in SODIUM CHLORIDE 0.9% 250 ML IV ONE (10:13)
[2025-07-21] MEDS: MAGNESIUM SULFATE / D5W 1 GM/100 ML BAG IV ONE (10:17)
--- NOTE | 2025-07-21 14:18 | Communication Note ---
Date of Service: July 21, 2025 Patient admitted with nausea/vomiting and altered mental status + weakness. Workup with CT a/p and RUQ US showed gallstones within a distended gallbladder. There were no inflammatory changes. Patient has not had abdominal pain and is nontender in the RUQ. Ordered a HIDA scan yesterday to rule out acute cholecystitis, but patient unable to tolerate the study. Afterwards she said she wanted to avoid any invasive procedures/studies. She was feeling better yesterday and denied nausea or abdominal pain. Today WBC 6 and LFTs are unremarkable. She has been tolerating clears. May advance diet as tolerates. If decompensates and gallbladder remains high on the differential we will have to see if we can find a way for her to undergo the HIDA and consider a perc isabel tube as lesser invasive measures than surgical intervention. We will sign off but please call with any questions/concerns.
--- NOTE | 2025-07-21 15:01 | Hospitalist Progress Note ---
Date of Service July 21, 2025 Assessment & Plan (1) Dilated bile duct: (2) UTI (urinary tract infection): (3) Confusion: (4) Atrial fibrillation with rapid ventricular response: (5) Elevated troponin: (6) Thrombocytopenia: Plan Per admitting provider w/ addendum: Ms. Batres is an 89y/o F with PMHx significant for HLD, HTN, hypothyroidism, multifocal atrial tachycardia, history of distal left popliteal DVT anticoagulated on Eliquis, GERD, gallstones, morbid obesity, polycystic kidney disease, CKD stage IIIa, fibromyalgia, osteoarthritis, lumbar DDD, lymphedema and chronic pain syndrome on chronic opioid therapy who presented to the ED via EMS with c/o N/V and confusion. Elevated T. bili, Alk phosphatase Mild biliary ductal dilatation seen on CTAP Moderate gallbladder distention without pericholecystic inflammation seen on CTAP Gen surg and GI both consulted -Gen surg ordered HIDA scan -pt declined -> discussed w/ gen. surg., will cont. abx, clear liquid diet. Pt tolerating clears -> will advance diet -GI ordered RUQ US, obtained. Continue empiric ABX coverage with IV Zosyn for now. Pt previously expressed desire against surgery in the past; will hold Eliquis for now If HIDA positive, then could consider cholecystectomy vs cholecystostomy tube vs antibiotics as per patient wishes. Monitor LFTs, GI does not feel pt is a candidate for MRCP. Possible sepsis, lactic acidosis UA concerning for infection Leukocytosis, lactic acidosis, tachycardia and elevated procal appreciated on admitting labs c/f possible sepsis. Possible source(s) including intraabdominal pathology, UTI. UA with positive nitrites, trace LE, 6-10 WBC, 4+ bacteria c/f infection. Ucultx posit. for Klebsiella Blood cx - no growth in 48 hrs continue empiric ABX coverage with IV Zosyn. lactic acid 3.2 -> 1.8, ESR nl 8 CRP elev. at 4.2 Confusion - now resolved 2/2 illness, possibly also 2/2 meds such as gabapentin Head CT negative. CXR grossly unremarkable. Also was recently started on gabapentin 300mg TID by PCP 2 wk ago, could be contributing. Continue with gabapentin 100mg TID for now. A&Ox3 with direct questioning and continuous tactile/verbal stimuli; otherwise remains quite somnolent. - on admission Closely monitor mental status for any acute changes. 07/20 Pt is awake,alert, able to answer appropriately A-fib with RVR Possibly sepsis vs dehydration driven; HR initially in 140s. Now HR improved after IVF, and abx treatment Eliquis on hold for now, cont. heparin gtt Lopressor recently reduced to 25mg BID 2/2 bradycardia, continue. 07/20 HR controlled at this time in 70s Elevated troponin Likely demand ischemia ISO above. EKG w/ lateral T wave inversions and ST depressions Pt reports no chest pain or shortness of breath EKG with chest pain PRN. Tele monitoring onboard. Echo obtained and reviewed - Echocardiogram show normal LVEF 60-65%, mild MR, mild TR. No wall motion abnormalities noted. Pt was started on heparin on admission, cardiology consulted and following Thrombocytopenia: Etiology not clear per review of chart, may benefit from checking peripheral smear. Continue to monitor. Chronic pain syndrome: F/w pain clinic through [facility]. Continue reduced gabapentin dose, as per above, and morphine ER. Bowel reg. BLE lymphedema, POA Pressure ulcers of bilateral buttocks, POA Appreciate WOCN consult for assistance with management. Hold [employer] Lasix for now given hypotension. CKD stage IIIa Cr currently stable, baseline Cr 0.9-1.1 per chart review. Continue to monitor and avoid nephrotoxic agents as able. Hypothyroidism: Continue current levothyroxine dose, current TSH 0.85. GERD: Continue PPI. DVT Prophylaxis: Eliquis on hold, started heparin on admission Code Status: DNR/DNI - As confirmed with the pt's daughter/POADeepa PCP: Macy Juarez, Disposition: PCU Admission and Anticipated Discharge Date Admission Date: July 19, 2025 Subjective Pt seen in follow up Presented w/ confusion, n/v, also elev. troponin UA also c/w UTI, ucultx posit. for Klebsiella Pt seen on admission by GI and surgery, US abd. obtained, HIDA ordered Pt declined HIDA -> updated surgery -> started clear liquids, and cont. zosyn. Pt is feeling better, tolerating clears, will advance diet. WBC normalized now to 6K. Pt afebrile Currently pt lying in bed in NAD, yesterday pt's daughter and POA present at the bedside. Pt has chronic LE edema and some wounds managed by Pt denies abd. pain but says she has had nausea frequently, currently feels ok and nausea improved Currently denies any chest discomfort, she on suppl. O2 on heparin gtt, cardiology following as well Review of Systems Review of Systems: All systems reviewed & are unremarkable except as noted in Subjective Physical Exam Physical Exam: General: Elderly, chronically ill-appearing F, laying down in bed HEENT: Normocephalic/atraumatic Respiratory: Normal respiratory effort, decreased breath sounds b/l Cardiovascular: irregular Abdomen/GI: Active bowel sounds, soft, nontender to palpation in all quadrants Extremities/MSK: + BLE lymphedema (LLE dressing in place 2/2 lymph drainage) Neurologic: Awake, alert and able to answer simple questions appropriately, speech fluent, moves extremities Skin: warm, dry Results & Data Results & Data Vital Signs (Past 12 Hours) Vital Signs Temp Pulse Resp BP BP Pulse Ox O2 Del Method 07/21/25 11:33 36.6 C 61 18 120/74 95 Room Air 07/21/25 08:00 Room Air 07/21/25 07:55 36.4 C L 76 18 94 Nasal Cannula 07/21/25 03:06 36.7 C 64 18 145/75 H 96 Nasal Cannula O2 Flow Rate 07/21/25 11:33 07/21/25 08:00 07/21/25 07:55 2 07/21/25 03:06 2 Laboratory Results 07/21/25 07/20/25 Range/Units 05:44 16:40 WBC 6.71 (4.8-10.8) K/ul RBC 3.18 L (4.20-5.40) M/uL Hgb 10.4 L (12.0-16.0) g/dL Hct 31.8 L (37.0-47.0) % MCV 100.0 (80.0-100.0) fL MCH 32.7 (25.0-34.0) pg MCHC 32.7 (32.0-36.0) g/dL RDW Std Deviation 50.6 H (36.4-46.3) fL RDW Coeff of Etienne 13.5 (11.5-14.5) % Plt Count 83 L (130-400) K/uL MPV 10.0 (9.4-12.4) fL Platelet Estimate Decreased L (Normal) Heparin Anti-Xa, Unfract 0.62 0.51 (0.3-0.7) IU/ml Sodium 135 L (136-145) mmol/L Potassium 3.9 (3.5-5.1) mmol/L Chloride 103 (98-107) mmol/L Carbon Dioxide 25 (21-32) mmol/L Anion Gap 7 (3-11) BUN 11 (6-23) mg/dl Creatinine 0.75 (0.6-1.2) mg/dl Est Cr Clr Drug Dosing 58.3 ml/min eGFR 77.01 BUN/Creatinine Ratio 14.7 (10-20) Glucose 141 H (70-99(Fasting)) mg/dl Estimat Average Glucose 120 mg/dl Hemoglobin A1c 5.8 H (4.5-5.6) % Calcium 7.9 L (8.6-10.3) mg/dl Phosphorus 1.9 L D (2.5-4.9) mg/dl Magnesium 1.7 (1.7-2.4) mg/dl Total Bilirubin 0.7 D (0.2-1.0) mg/dl AST 25 (13-39) U/L ALT 9 (7-52) U/L Alkaline Phosphatase 119 H (34-104) U/L Total Protein 4.1 L D (6.0-8.3) gm/dl Albumin 2.3 L (3.4-5.0) gm/dl Globulin 1.8 L (2.5-4.0) gm/dl Albumin/Globulin Ratio 1.3 (0.9-2) Medications Administered Current Inpatient Medications Acetaminophen (Acetaminophen 325 Mg Tab) 650 mg PO Q4H PRN PRN Reason: Pain or Fever Stop: 08/18/25 20:27 Cyanocobalamin (Cyanocobalamin (B-12) 500 Mcg Tablet) 1,000 mcg PO DAILY [facility] Stop: 08/19/25 08:59 Last Admin: 07/21/25 08:00 Dose: 1,000 mcg Folic Acid (Folic Acid 1 Mg Tab) 1 mg PO QAM [facility] Stop: 08/19/25 08:59 Last Admin: 07/21/25 08:00 Dose: 1 mg Gabapentin (Gabapentin 100 Mg Cap) 100 mg PO TID [facility] Stop: 08/18/25 20:59 Last Admin: 07/21/25 14:23 Dose: 100 mg Heparin Sodium/Dextrose (Heparin 83790 Unit/500 Ml D5w) 25,000 units in 500 mls @ 10 mls/hr IV .Q24H [facility]; Protocol Stop: 08/18/25 20:29 Last Titration: 07/21/25 11:20 Dose: 500 units/hr, 10 mls/hr Piperacillin Sod/Tazobactam Sod (Zosyn) 4.5 gm in 100 mls @ 25 mls/hr IV Q8H [facility]; Protocol Stop: 07/21/25 21:59 Last Admin: 07/21/25 14:23 Dose: 25 mls/hr Promethazine HCl (Phenergan) 6.25 mg in 50.25 mls @ 201 mls/hr IV Q6H PRN PRN Reason: Nausea And Vomiting Stop: 08/19/25 03:46 Lactated Ringer's (Lr) 1,000 mls @ 100 mls/hr IV .Q10H [facility] Stop: 07/23/25 03:59 Last Admin: 07/21/25 11:41 Dose: 100 mls/hr Lactic Acid (Ammonium Lactate 12% Lotion 225 Gm Btl) 1 gm EXT BID [facility] Stop: 08/18/25 20:59 Last Admin: 07/21/25 07:57 Dose: 1 gm Levothyroxine Sodium (Levothyroxine Sodium 75 Mcg Tablet) 75 mcg PO DAILYBB [facility] Stop: 08/19/25 06:29 Last Admin: 07/21/25 05:39 Dose: 75 mcg Magnesium Hydroxide (Magnesium Hydroxide Susp 30 Ml Udc) 30 ml PO Q12H PRN PRN Reason: Constipation Stop: 08/18/25 20:27 Metoprolol Tartrate (Metoprolol Tartrate 25 Mg Tab) 25 mg PO [facility] Stop: 08/18/25 20:59 Last Admin: 07/21/25 08:00 Dose: 25 mg Miconazole Nitrate (Miconazole Nitrate Powder 85 Gm) 1 appln EXT TID [facility] Stop: 08/19/25 13:59 Last Admin: 07/21/25 14:24 Dose: 1 appln Morphine Sulfate (Morphine Sulfate Cr 15 Mg Tabcr) 15 mg PO AMHS [facility] Stop: 08/02/25 20:59 Last Admin: 07/21/25 08:00 Dose: 15 mg Ondansetron HCl (Ondansetron Inj 2 Mg/Ml 2 Ml Vial) 4 mg IV Q6H PRN PRN Reason: Nausea Stop: 08/18/25 20:27 Last Admin: 07/21/25 07:57 Dose: 4 mg Pantoprazole Sodium (Pantoprazole 40 Mg Tab) 40 mg PO DAILYBB [facility] Stop: 08/19/25 06:29 Last Admin: 07/21/25 05:39 Dose: 40 mg Polyethylene Glycol (Polyethylene (Miralax) 17 Gm Pack) 17 gm PO DAILY [facility] Stop: 08/19/25 08:59 Last Admin: 07/21/25 07:57 Dose: 17 gm Polyethylene Glycol (Polyethylene (Miralax) 17 Gm Pack) 17 gm PO DAILY PRN PRN Reason: Constipation Stop: 08/18/25 20:27 Thiamine HCl (Thiamine Hcl 100 Mg Tab) 100 mg PO QAM [facility] Stop: 08/19/25 08:59 Last Admin: 07/21/25 08:00 Dose: 100 mg Vitamin D (Cholecalciferol 25 Mcg (1000 Units) Tab) 25 mcg PO DAILY [facility] Stop: 08/19/25 08:59 Last Admin: 07/21/25 08:00 Dose: 25 mcg
[2025-07-22 07:32] LABS: Hematocrit (blood only) 33.0 % (37.0-47.0); Hemoglobin 11.0 g/dL (12.0-16.0); Mean Corpuscular Hemoglobin 32.5 pg (25.0-34.0); Mean Corpuscular Volume 97.6 fL (80.0-100.0); Platelet Count 85 K/uL (130-400); RDW Standard Deviation 47.8 fL (36.4-46.3); Red Blood Count 3.38 M/uL (4.20-5.40); White Blood Count 4.91 K/ul (4.8-10.8)
[2025-07-22 07:55] LABS: Alanine Aminotransferase 12.0 U/L (7-52); Albumin Globulin Ratio 1.2 (0.9-2); Albumin Level 2.7 gm/dl (3.4-5.0); Alkaline Phosphatase 153.0 U/L (34-104); Anion Gap 5.0 (3-11); Bilirubin,Total 0.8 mg/dl (0.2-1.0); Blood Urea Nitrogen 8.0 mg/dl (6-23); Calcium 8.2 mg/dl (8.6-10.3); Carbon Dioxide 29.0 mmol/L (21-32); Chloride 100.0 mmol/L (98-107); Creatinine Clr Calc Pharmacy 50.7 ml/min; Globulin 2.2 gm/dl (2.5-4.0); Glucose 219.0 mg/dl (70-99(Fasting)); Magnesium 2.1 mg/dl (1.7-2.4); Potassium 3.6 mmol/L (3.5-5.1); Sodium 134.0 mmol/L (136-145); Total Protein 4.9 gm/dl (6.0-8.3)
[2025-07-22 09:00] LABS: ANTI-Xa, UFH(UnfractionatedHep > 1.50 IU/ml (0.3-0.7)
[2025-07-22] MEDS: POTASSIUM PHOSPHATE 6 MMOL in SODIUM CHLORIDE 0.9% 100 ML IV ONE (09:25)
[2025-07-22] MEDS: POTASSIUM PHOS 3 MMOL/1 ML INFUSION IV STA (10:15)
--- NOTE | 2025-07-22 10:27 | Hospitalist Progress Note ---
Date of Service July 22, 2025 Assessment & Plan (1) Dilated bile duct: (2) UTI (urinary tract infection): (3) Confusion: (4) Atrial fibrillation with rapid ventricular response: (5) Elevated troponin: (6) Thrombocytopenia: Plan Per admitting provider w/ addendum: Ms. Batres is an 89y/o F with PMHx significant for HLD, HTN, hypothyroidism, multifocal atrial tachycardia, history of distal left popliteal DVT anticoagulated on Eliquis, GERD, gallstones, morbid obesity, polycystic kidney disease, CKD stage IIIa, fibromyalgia, osteoarthritis, lumbar DDD, lymphedema and chronic pain syndrome on chronic opioid therapy who presented to the ED via EMS with c/o N/V and confusion. Elevated T. bili, Alk phosphatase Mild biliary ductal dilatation seen on CTAP Moderate gallbladder distention without pericholecystic inflammation seen on CTAP Gen surg and GI both consulted -Gen surg ordered HIDA scan -pt declined -> discussed w/ gen. surg., will cont. abx, advanced diet -tolerating full liquid, will switch to low fat -GI ordered RUQ US, obtained. Continue empiric ABX coverage with IV Zosyn for now. Pt previously expressed desire against surgery in the past; will hold Eliquis for now If HIDA positive, then could consider cholecystectomy vs cholecystostomy tube vs antibiotics as per patient wishes. Monitor LFTs, GI does not feel pt is a candidate for MRCP. Possible sepsis, lactic acidosis UA concerning for infection Leukocytosis, lactic acidosis, tachycardia and elevated procal appreciated on admitting labs c/f possible sepsis. Possible source(s) including intraabdominal pathology, UTI. UA with positive nitrites, trace LE, 6-10 WBC, 4+ bacteria c/f infection. Ucultx posit. for Klebsiella Blood cx - no growth in 48 hrs continue empiric ABX coverage with IV Zosyn. lactic acid 3.2 -> 1.8, ESR nl 8 CRP elev. at 4.2 Confusion - now resolved 2/2 illness, possibly also 2/2 meds such as gabapentin Head CT negative. CXR grossly unremarkable. Also was recently started on gabapentin 300mg TID by PCP 2 wk ago, could be contributing. Continue with gabapentin 100mg TID for now. A&Ox3 with direct questioning and continuous tactile/verbal stimuli; otherwise remains quite somnolent. - on admission Closely monitor mental status for any acute changes. 07/20 Pt is awake,alert, able to answer appropriately A-fib with RVR Possibly sepsis vs dehydration driven; HR initially in 140s. Now HR improved after IVF, and abx treatment Eliquis on hold for now, cont. heparin gtt Lopressor recently reduced to 25mg BID 2/ bradycardia, continue. 07/20 - 07/22 HR controlled at this time Elevated troponin Likely demand ischemia ISO above. EKG w/ lateral T wave inversions and ST depressions Pt reports no chest pain or shortness of breath EKG with chest pain PRN. Tele monitoring onboard. Echo obtained and reviewed - Echocardiogram show normal LVEF 60-65%, mild MR, mild TR. No wall motion abnormalities noted. Pt was started on heparin on admission, cardiology consulted and following - plan to switch to eliquis once determined no procedure will be needed Thrombocytopenia: Etiology not clear per review of chart, may benefit from checking peripheral smear. Continue to monitor. Chronic pain syndrome: F/w pain clinic through [facility]. Continue reduced gabapentin dose, as per above, and morphine ER. Bowel reg. BLE lymphedema, POA Pressure ulcers of bilateral buttocks, POA Appreciate WOCN consult for assistance with management. Hold [employer] Lasix for now given hypotension. CKD stage IIIa Cr currently stable, baseline Cr 0.9-1.1 per chart review. Continue to monitor and avoid nephrotoxic agents as able. Hypothyroidism: Continue current levothyroxine dose, current TSH 0.85. GERD: Continue PPI. DVT Prophylaxis: Eliquis on hold, started heparin on admission Code Status: DNR/DNI - As confirmed with the pt's daughter/POADeepa PCP: Macy Juarez, Disposition: PCU Admission and Anticipated Discharge Date Admission Date: July 19, 2025 Subjective Pt seen in follow up Presented w/ confusion, n/v, also elev. troponin UA also c/w UTI, ucultx posit. for Klebsiella Pt seen on admission by GI and surgery, US abd. obtained, HIDA ordered, Pt declined HIDA -> updated surgery -> started clear liquids, and cont. zosyn. Pt is feeling better, tolerating clears, advanced diet. WBC normalized now to 5K. Pt afebrile Currently pt lying in bed in NAD Pt has chronic LE edema and some wounds managed by Pt denies abd. pain but says she has had nausea frequently, currently feels ok and nausea improved Currently denies any chest discomfort, she is on suppl. O2 on heparin gtt, cardiology following as well Review of Systems Review of Systems: All systems reviewed & are unremarkable except as noted in Subjective Physical Exam Physical Exam: General: Elderly, chronically ill-appearing F, laying down in bed HEENT: Normocephalic/atraumatic Respiratory: Normal respiratory effort, decreased breath sounds b/l Cardiovascular: irregular Abdomen/GI: Active bowel sounds, soft, nontender to palpation in all quadrants Extremities/MSK: + BLE lymphedema (LLE dressing in place 2/2 lymph drainage) Neurologic: Awake, alert and able to answer simple questions appropriately, speech fluent, moves extremities Skin: warm, dry Results & Data Results & Data Vital Signs (Past 12 Hours) Vital Signs Temp Pulse Resp BP Pulse Ox O2 Del Method 07/22/25 08:00 36.6 C 65 20 126/76 96 Room Air 07/22/25 02:55 36.4 C L 61 16 134/80 95 Room Air 07/21/25 22:56 36.3 C L 81 20 152/86 H 94 Room Air Laboratory Results 07/22/25 Range/Units 06:55 WBC 4.91 (4.8-10.8) K/ul RBC 3.38 L (4.20-5.40) M/uL Hgb 11.0 L (12.0-16.0) g/dL Hct 33.0 L (37.0-47.0) % MCV 97.6 (80.0-100.0) fL MCH 32.5 (25.0-34.0) pg MCHC 33.3 (32.0-36.0) g/dL RDW Std Deviation 47.8 H (36.4-46.3) fL RDW Coeff of Etienne 13.2 (11.5-14.5) % Plt Count 85 L (130-400) K/uL MPV 9.6 (9.4-12.4) fL Heparin Anti-Xa, Unfract > 1.50 H* (0.3-0.7) IU/ml Sodium 134 L (136-145) mmol/L Potassium 3.6 (3.5-5.1) mmol/L Chloride 100 (98-107) mmol/L Carbon Dioxide 29 (21-32) mmol/L Anion Gap 5 (3-11) BUN 8 (6-23) mg/dl Creatinine 0.86 (0.6-1.2) mg/dl Est Cr Clr Drug Dosing 50.7 ml/min eGFR 65.34 BUN/Creatinine Ratio 9.3 L (10-20) Glucose 219 H (70-99(Fasting)) mg/dl Calcium 8.2 L (8.6-10.3) mg/dl Phosphorus 2.4 L (2.5-4.9) mg/dl Magnesium 2.1 (1.7-2.4) mg/dl Total Bilirubin 0.8 (0.2-1.0) mg/dl AST 23 (13-39) U/L ALT 12 (7-52) U/L Alkaline Phosphatase 153 H (34-104) U/L Total Protein 4.9 L (6.0-8.3) gm/dl Albumin 2.7 L (3.4-5.0) gm/dl Globulin 2.2 L (2.5-4.0) gm/dl Albumin/Globulin Ratio 1.2 (0.9-2) Medications Administered Current Inpatient Medications Acetaminophen (Acetaminophen 325 Mg Tab) 650 mg PO Q4H PRN PRN Reason: Pain or Fever Stop: 08/18/25 20:27 Cyanocobalamin (Cyanocobalamin (B-12) 500 Mcg Tablet) 1,000 mcg PO DAILY [facility] Stop: 08/19/25 08:59 Last Admin: 07/22/25 09:28 Dose: 1,000 mcg Folic Acid (Folic Acid 1 Mg Tab) 1 mg PO QAM [facility] Stop: 08/19/25 08:59 Last Admin: 07/22/25 09:28 Dose: 1 mg Gabapentin (Gabapentin 100 Mg Cap) 100 mg PO TID [facility] Stop: 08/18/25 20:59 Last Admin: 07/22/25 09:29 Dose: 100 mg Heparin Sodium/Dextrose (Heparin 20079 Unit/500 Ml D5w) 25,000 units in 500 mls @ 10 mls/hr IV .Q24H [facility]; Protocol Stop: 08/18/25 20:29 Last Titration: 07/22/25 07:13 Dose: 500 units/hr, 10 mls/hr Promethazine HCl (Phenergan) 6.25 mg in 50.25 mls @ 201 mls/hr IV Q6H PRN PRN Reason: Nausea And Vomiting Stop: 08/19/25 03:46 Lactated Ringer's (Lr) 1,000 mls @ 100 mls/hr IV .Q10H [facility] Stop: 07/23/25 03:59 Last Admin: 07/22/25 04:50 Dose: 100 mls/hr Lactic Acid (Ammonium Lactate 12% Lotion 225 Gm Btl) 1 gm EXT BID [facility] Stop: 08/18/25 20:59 Last Admin: 07/22/25 09:28 Dose: 1 gm Levothyroxine Sodium (Levothyroxine Sodium 75 Mcg Tablet) 75 mcg PO DAILYBB [facility] Stop: 08/19/25 06:29 Last Admin: 07/22/25 06:31 Dose: 75 mcg Magnesium Hydroxide (Magnesium Hydroxide Susp 30 Ml Udc) 30 ml PO Q12H PRN PRN Reason: Constipation Stop: 08/18/25 20:27 Metoprolol Tartrate (Metoprolol Tartrate 25 Mg Tab) 25 mg PO [facility] Stop: 08/18/25 20:59 Last Admin: 07/22/25 09:29 Dose: 25 mg Miconazole Nitrate (Miconazole Nitrate Powder 85 Gm) 1 appln EXT TID [facility] Stop: 08/19/25 13:59 Last Admin: 07/22/25 09:29 Dose: 1 appln Morphine Sulfate (Morphine Sulfate Cr 15 Mg Tabcr) 15 mg PO [facility] Stop: 08/02/25 20:59 Last Admin: 07/22/25 09:31 Dose: 15 mg Ondansetron HCl (Ondansetron Inj 2 Mg/Ml 2 Ml Vial) 4 mg IV Q6H PRN PRN Reason: Nausea Stop: 08/18/25 20:27 Last Admin: 07/22/25 09:21 Dose: 4 mg Pantoprazole Sodium (Pantoprazole 40 Mg Tab) 40 mg PO DAILYBB [facility] Stop: 08/19/25 06:29 Last Admin: 07/22/25 07:16 Dose: 40 mg Polyethylene Glycol (Polyethylene (Miralax) 17 Gm Pack) 17 gm PO DAILY [facility] Stop: 08/19/25 08:59 Last Admin: 07/22/25 09:29 Dose: 17 gm Polyethylene Glycol (Polyethylene (Miralax) 17 Gm Pack) 17 gm PO DAILY PRN PRN Reason: Constipation Stop: 08/18/25 20:27 Thiamine HCl (Thiamine Hcl 100 Mg Tab) 100 mg PO QAM [facility] Stop: 08/19/25 08:59 Last Admin: 07/22/25 09:29 Dose: 100 mg Vitamin D (Cholecalciferol 25 Mcg (1000 Units) Tab) 25 mcg PO DAILY [facility] Stop: 08/19/25 08:59 Last Admin: 07/22/25 09:28 Dose: 25 mcg
[2025-07-23] MEDS: APIXABAN 5 MG TABLET PO SCH (08:46)
--- NOTE | 2025-07-23 09:38 | Hospitalist Progress Note ---
Date of Service July 23, 2025 Assessment & Plan (1) Dilated bile duct: (2) UTI (urinary tract infection): (3) Confusion: (4) Atrial fibrillation with rapid ventricular response: (5) Elevated troponin: (6) Thrombocytopenia: Plan Per admitting provider w/ addendum: Ms. Batres is an 89y/o F with PMHx significant for HLD, HTN, hypothyroidism, multifocal atrial tachycardia, history of distal left popliteal DVT anticoagulated on Eliquis, GERD, gallstones, morbid obesity, polycystic kidney disease, CKD stage IIIa, fibromyalgia, osteoarthritis, lumbar DDD, lymphedema and chronic pain syndrome on chronic opioid therapy who presented to the ED via EMS with c/o N/V and confusion. Elevated T. bili, Alk phosphatase Mild biliary ductal dilatation seen on CTAP Moderate gallbladder distention without pericholecystic inflammation seen on CTAP Gen surg and GI both consulted -Gen surg ordered HIDA scan -pt declined -> discussed w/ gen. surg., will cont. abx, advanced diet -tolerating low fat diet now -GI ordered RUQ US, obtained. Continue empiric ABX coverage with IV Zosyn for now. Pt previously expressed desire against surgery in the past; will hold Eliquis for now If HIDA positive, then could consider cholecystectomy vs cholecystostomy tube vs antibiotics as per patient wishes. Monitor LFTs, GI does not feel pt is a candidate for MRCP. Possible sepsis, lactic acidosis UA concerning for infection Leukocytosis, lactic acidosis, tachycardia and elevated procal appreciated on admitting labs c/f possible sepsis. Possible source(s) including intraabdominal pathology, UTI. UA with positive nitrites, trace LE, 6-10 WBC, 4+ bacteria c/f infection. Ucultx posit. for Klebsiella Blood cx - no growth in 48 hrs continue empiric ABX coverage with IV Zosyn. lactic acid 3.2 -> 1.8, ESR nl 8 CRP elev. at 4.2 Confusion - now resolved 2/2 illness, possibly also 2/2 meds such as gabapentin Head CT negative. CXR grossly unremarkable. Also was recently started on gabapentin 300mg TID by PCP 2 wk ago, could be contributing. Continue with gabapentin 100mg TID for now. A&Ox3 with direct questioning and continuous tactile/verbal stimuli; otherwise remains quite somnolent. - on admission Closely monitor mental status for any acute changes. 07/20 Pt is awake,alert, able to answer appropriately A-fib with RVR Possibly sepsis vs dehydration driven; HR initially in 140s. Now HR improved after IVF, and abx treatment Eliquis on hold for now, cont. heparin gtt --> will resume eliquis, as no procedure planned Lopressor recently reduced to 25mg BID / bradycardia, continue. 07/20 - 07/23 HR controlled at this time Elevated troponin Likely demand ischemia ISO above. EKG w/ lateral T wave inversions and ST depressions Pt reports no chest pain or shortness of breath EKG with chest pain PRN. Tele monitoring onboard. Echo obtained and reviewed - Echocardiogram show normal LVEF 60-65%, mild MR, mild TR. No wall motion abnormalities noted. Pt was started on heparin on admission, cardiology consulted and following - plan to switch to eliquis once determined no procedure will be needed Thrombocytopenia: Etiology not clear per review of chart, may benefit from bethany cking peripheral smear. Continue to monitor. Chronic pain syndrome: F/w pain clinic through [facility]. Continue reduced gabapentin dose, as per above, and morphine ER. Bowel reg. BLE lymphedema, POA Pressure ulcers of bilateral buttocks, POA Appreciate WOCN consult for assistance with management. Hold B[employer] C[employer] Lasix for now given hypotension. CKD stage IIIa Cr currently stable, baseline Cr 0.9-1.1 per chart review. Continue to monitor and avoid nephrotoxic agents as able. Hypothyroidism: Continue current levothyroxine dose, current TSH 0.85. GERD: Continue PPI. DVT Prophylaxis: Eliquis on hold, started heparin on admission -> switch back to eliquis Code Status: DNR/DNI - As confirmed with the pt's daughter/Deepa HOFFMANN PCP: Macy Juarez, Disposition: PCU Admission and Anticipated Discharge Date Admission Date: July 19, 2025 Subjective Pt seen in follow up Presented w/ confusion, n/v, also elev. troponin UA also c/w UTI, ucultx posit. for Klebsiella Pt seen on admission by GI and surgery, US abd. obtained, HIDA ordered, Pt declined HIDA -> updated surgery -> started clear liquids, and cont. zosyn. Pt is feeling better, tolerating clears, advanced diet. WBC normalized now to 5K. Pt afebrile Currently pt lying in bed in NAD Pt has chronic LE edema and some wounds managed by Pt denies abd. pain but says she has had nausea frequently, currently feels ok and nausea improved Currently denies any chest discomfort, she is on suppl. O2 on heparin gtt, cardiology following as well --> pt now tolerating low fat diet, will stop heparin and transition to eliquis Review of Systems Review of Systems: All systems reviewed & are unremarkable except as noted in Subjective Physical Exam Physical Exam: General: Elderly, chronically ill-appearing F, laying down in bed HEENT: Normocephalic/atraumatic Respiratory: Normal respiratory effort, decreased breath sounds b/l Cardiovascular: irregular Abdomen/GI: Active bowel sounds, soft, nontender to palpation in all quadrants Extremities/MSK: + BLE lymphedema (LLE dressing in place 2/2 lymph drainage) Neurologic: Awake, alert and able to answer simple questions appropriately, spee ch fluent, moves extremities Skin: warm, dry Results & Data Results & Data Vital Signs (Past 12 Hours) Vital Signs Temp Pulse Pulse Resp BP Pulse Ox O2 Del Method 07/23/25 08:01 36.6 C 64 18 153/73 H 96 Room Air 07/23/25 07:02 56 L 07/23/25 04:22 36.5 C 58 L 16 148/81 H 95 Room Air 07/23/25 00:07 36.6 C 57 L 16 136/83 94 Room Air 07/22/25 21:54 61 Medications Administered Current Inpatient Medications Acetaminophen (Acetaminophen 325 Mg Tab) 650 mg PO Q4H PRN PRN Reason: Pain or Fever Stop: 08/18/25 20:27 Apixaban (Apixaban 5 Mg Tablet) 5 mg PO BID [facility] Stop: 08/22/25 08:59 Last Admin: 07/23/25 08:46 Dose: 5 mg Cyanocobalamin (Cyanocobalamin (B-12) 500 Mcg Tablet) 1,000 mcg PO DAILY [facility] Stop: 08/19/25 08:59 Last Admin: 07/23/25 08:38 Dose: 1,000 mcg Folic Acid (Folic Acid 1 Mg Tab) 1 mg PO QAM [facility] Stop: 08/19/25 08:59 Last Admin: 07/23/25 08:38 Dose: 1 mg Gabapentin (Gabapentin 100 Mg Cap) 100 mg PO TID [facility] Stop: 08/18/25 20:59 Last Admin: 07/23/25 08:38 Dose: 100 mg Promethazine HCl (Phenergan) 6.25 mg in 50.25 mls @ 201 mls/hr IV Q6H PRN PRN Reason: Nausea And Vomiting Stop: 08/19/25 03:46 Lactic Acid (Ammonium Lactate 12% Lotion 225 Gm Btl) 1 gm EXT BID [facility] Stop: 08/18/25 20:59 Last Admin: 07/23/25 08:37 Dose: 1 gm Levothyroxine Sodium (Levothyroxine Sodium 75 Mcg Tablet) 75 mcg PO DAILYBB [facility] Stop: 08/19/25 06:29 Last Admin: 07/23/25 05:49 Dose: 75 mcg Magnesium Hydroxide (Magnesium Hydroxide Susp 30 Ml Udc) 30 ml PO Q12H PRN PRN Reason: Constipation Stop: 08/18/25 20:27 Metoprolol Tartrate (Metoprolol Tartrate 25 Mg Tab) 25 mg PO [facility] Stop: 08/18/25 20:59 Last Admin: 07/23/25 08:38 Dose: 25 mg Miconazole Nitrate (Miconazole Nitrate Powder 85 Gm) 1 appln EXT TID [facility] Stop: 08/19/25 13:59 Last Admin: 07/23/25 08:38 Dose: 1 appln Morphine Sulfate (Morphine Sulfate Cr 15 Mg Tabcr) 15 mg PO [facility] Stop: 08/02/25 20:59 Last Admin: 07/23/25 08:43 Dose: 15 mg Ondansetron HCl (Ondansetron Inj 2 Mg/Ml 2 Ml Vial) 4 mg IV Q6H PRN PRN Reason: Nausea Stop: 08/18/25 20:27 Last Admin: 07/22/25 09:21 Dose: 4 mg Pantoprazole Sodium (Pantoprazole 40 Mg Tab) 40 mg PO DAILYBB [facility] Stop: 08/19/25 06:29 Last Admin: 07/23/25 05:49 Dose: 40 mg Polyethylene Glycol (Polyethylene (Miralax) 17 Gm Pack) 17 gm PO DAILY [facility] Stop: 08/19/25 08:59 Last Admin: 07/23/25 08:36 Dose: Not Given Polyethylene Glycol (Polyethylene (Miralax) 17 Gm Pack) 17 gm PO DAILY PRN PRN Reason: Constipation Stop: 08/18/25 20:27 Thiamine HCl (Thiamine Hcl 100 Mg Tab) 100 mg PO QAM [facility] Stop: 08/19/25 08:59 Last Admin: 07/23/25 08:38 Dose: 100 mg Vitamin D (Cholecalciferol 25 Mcg (1000 Units) Tab) 25 mcg PO DAILY [facility] Stop: 08/19/25 08:59 Last Admin: 07/23/25 08:38 Dose: 25 mcg
[2025-07-23] MEDS: POTASSIUM CHLORIDE CRTAB 20 MEQ TABCR PO STA (13:12)
[2025-07-23] MEDS: FUROSEMIDE 40 MG/4 ML VIAL IV ONE (13:12)
[2025-07-24 06:55] LABS: Hematocrit (blood only) 34.5 % (37.0-47.0); Hemoglobin 11.7 g/dL (12.0-16.0); Mean Corpuscular Hemoglobin 33.2 pg (25.0-34.0); Mean Corpuscular Volume 98.0 fL (80.0-100.0); Platelet Count 106 K/uL (130-400); RDW Standard Deviation 47.4 fL (36.4-46.3); Red Blood Count 3.52 M/uL (4.20-5.40); White Blood Count 4.40 K/ul (4.8-10.8)
[2025-07-24 07:11] LABS: Alanine Aminotransferase 10.0 U/L (7-52); Albumin Globulin Ratio 1.3 (0.9-2); Albumin Level 2.8 gm/dl (3.4-5.0); Alkaline Phosphatase 132.0 U/L (34-104); Anion Gap 5.0 (3-11); Bilirubin,Total 0.8 mg/dl (0.2-1.0); Blood Urea Nitrogen 6.0 mg/dl (6-23); Calcium 8.5 mg/dl (8.6-10.3); Carbon Dioxide 30.0 mmol/L (21-32); Chloride 103.0 mmol/L (98-107); Creatinine Clr Calc Pharmacy 54.0 ml/min; Globulin 2.2 gm/dl (2.5-4.0); Glucose 132.0 mg/dl (70-99(Fasting)); Magnesium 1.9 mg/dl (1.7-2.4); Potassium 4.1 mmol/L (3.5-5.1); Sodium 138.0 mmol/L (136-145); Total Protein 5.0 gm/dl (6.0-8.3)
[2025-07-24] MEDS: POTASSIUM CHLORIDE CRTAB 20 MEQ TABCR PO STA (08:30)
[2025-07-24] MEDS: FUROSEMIDE 40 MG/4 ML VIAL IV ONE (08:30)
--- NOTE | 2025-07-24 12:02 | Hospitalist Progress Note ---
Date of Service July 24, 2025 Assessment & Plan (1) Dilated bile duct: (2) UTI (urinary tract infection): (3) Confusion: (4) Atrial fibrillation with rapid ventricular response: (5) Elevated troponin: (6) Thrombocytopenia: Plan Per admitting provider w/ addendum: Ms. Batres is an 89y/o F with PMHx significant for HLD, HTN, hypothyroidism, multifocal atrial tachycardia, history of distal left popliteal DVT anticoagulated on Eliquis, GERD, gallstones, morbid obesity, polycystic kidney disease, CKD stage IIIa, fibromyalgia, osteoarthritis, lumbar DDD, lymphedema and chronic pain syndrome on chronic opioid therapy who presented to the ED via EMS with c/o N/V and confusion. Elevated T. bili, Alk phosphatase Mild biliary ductal dilatation seen on CTAP Moderate gallbladder distention without pericholecystic inflammation seen on CTAP Gen surg and GI both consulted -Gen surg ordered HIDA scan -pt declined -> discussed w/ gen. surg., will cont. abx, advanced diet -> was tolerating low fat diet but now with increased nausea -GI ordered RUQ US, obtained. Continue empiric ABX coverage with IV Zosyn for now. Pt previously expressed desire against surgery in the past; will hold Eliquis for now If HIDA positive, then could consider cholecystectomy vs cholecystostomy tube vs antibiotics as per patient wishes. Monitor LFTs, GI does not feel pt is a candidate for MRCP. 07/24 Pt declined procedures and overall was feeling better. Now however she is having increased nausea again. GI contacted to re-eval. Possible sepsis, lactic acidosis UA concerning for infection Leukocytosis, lactic acidosis, tachycardia and elevated procal appreciated on admitting labs c/f possible sepsis. Possible source(s) including intraabdominal pathology, UTI. UA with positive nitrites, trace LE, 6-10 WBC, 4+ bacteria c/f infection. Ucultx posit. for Klebsiella Blood cx - no growth in 48 hrs continue empiric ABX coverage with IV Zosyn. lactic acid 3.2 -> 1.8, ESR nl 8 CRP elev. at 4.2 Confusion - now resolved 2/2 illness, possibly also 2/2 meds such as gabapentin Head CT negative. CXR grossly unremarkable. Also was recently started on gabapentin 300mg TID by PCP 2 wk ago, could be contributing. Continue with gabapentin 100mg TID for now. A&Ox3 with direct questioning and continuous tactile/verbal stimuli; otherwise remains quite somnolent. - on admission Closely monitor mental status for any acute changes. 07/20 Pt is awake, alert, able to answer appropriately A-fib with RVR Possibly sepsis vs dehydration driven; HR initially in 140s. Now HR improved after IVF, and abx treatment Eliquis on hold for now, cont. heparin gtt --> will resume eliquis, as no procedure planned Lopressor recently reduced to 25mg BID 09/04 bradycardia, continue. 07/20 - 07/24 HR controlled at this time Elevated troponin Likely demand ischemia ISO above. EKG w/ lateral T wave inversions and ST depressions Pt reports no chest pain or shortness of breath EKG with chest pain PRN. Tele monitoring onboard. Echo obtained and reviewed - Echocardiogram show normal LVEF 60-65%, mild MR, mild TR. No wall motion abnormalities noted. Pt was started on heparin on admission, cardiology consulted and following - plan to switch to eliquis once determined no procedure will be needed Switched to eliquis on 07/23 however now w/ nausea, may switch again to heparin if we plan for procedure Thrombocytopenia: Etiology not clear per review of chart, may benefit from checking peripheral smear. Continue to monitor. Chronic pain syndrome: [facility] Continue reduced gabapentin dose, as per above, and morphine ER. Bowel reg. BLE lymphedema, POA Pressure ulcers of bilateral buttocks, POA Appreciate WOCN consult for assistance with management. 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 CKD stage IIIa Cr currently stable, baseline Cr 0.9-1.1 per chart review. Continue to monitor and avoid nephrotoxic agents as able. Hypothyroidism: Continue current levothyroxine dose, current TSH 0.85. GERD: Continue PPI. DVT Prophylaxis: Eliquis on hold, started heparin on admission -> switched back to eliquis Code Status: DNR/DNI - As confirmed with the pt's daughter/POADeepa PCP: Macy Juarez DO Disposition: PCU Admission and Anticipated Discharge Date Admission Date: July 19, 2025 Subjective Pt seen in follow up Presented w/ confusion, n/v, also elev. troponin UA also c/w UTI, ucultx posit. for Klebsiella Pt seen on admission by GI and surgery, US abd. obtained, HIDA ordered, Pt declined HIDA -> updated surgery -> started clear liquids, and cont. zosyn. Pt was feeling better, tolerating diet. WBC normalized now to 5K. Pt afebrile Currently pt sitting up in recliner chair, says she has had nausea, not feeling well. Pt's daughter also present at the bedside. Feels that pt should see GI again. Pt was switched to eliquis yesterday as she was doing better and declined all the procedures. GI contacted Review of Systems Review of Systems: All systems reviewed & are unremarkable except as noted in Subjective Physical Exam Physical Exam: General: Elderly, chronically ill-appearing F, sitting up in recliner chair HEENT: Normocephalic/atraumatic Respiratory: Normal respiratory effort, decreased breath sounds b/l Cardiovascular: irregular Abdomen/GI: Active bowel sounds, soft, nontender to palpation in all quadrants Extremities/MSK: + BLE lymphedema (chronic) Neurologic: Awake, alert and able to answer simple questions appropriately, speech fluent, moves extremities Skin: warm, dry Results & Data Results & Data Vital Signs (Past 12 Hours) Vital Signs Temp Pulse Pulse Resp BP Pulse Ox O2 Del Method 07/24/25 11:32 36.7 C 72 18 141/78 H 94 Room Air 07/24/25 07:40 36.4 C L 79 20 153/80 H 96 Room Air 07/24/25 07:02 62 07/24/25 03:06 36.4 C L 65 18 144/84 H 96 Room Air Laboratory Results 07/24/25 Range/Units 06:39 WBC 4.40 L (4.8-10.8) K/ul RBC 3.52 L (4.20-5.40) M/uL Hgb 11.7 L (12.0-16.0) g/dL Hct 34.5 L (37.0-47.0) % MCV 98.0 (80.0-100.0) fL MCH 33.2 (25.0-34.0) pg MCHC 33.9 (32.0-36.0) g/dL RDW Std Deviation 47.4 H (36.4-46.3) fL RDW Coeff of Etienne 13.2 (11.5-14.5) % Plt Count 106 L (130-400) K/uL MPV 9.3 L (9.4-12.4) fL Sodium 138 (136-145) mmol/L Potassium 4.1 (3.5-5.1) mmol/L Chloride 103 (98-107) mmol/L Carbon Dioxide 30 (21-32) mmol/L Anion Gap 5 (3-11) BUN 6 (6-23) mg/dl Creatinine 0.84 (0.6-1.2) mg/dl Est Cr Clr Drug Dosing 54.0 ml/min eGFR 67.21 BUN/Creatinine Ratio 7.1 L (10-20) Glucose 132 H (70-99(Fasting)) mg/dl Calcium 8.5 L (8.6-10.3) mg/dl Phosphorus 2.5 (2.5-4.9) mg/dl Magnesium 1.9 (1.7-2.4) mg/dl Total Bilirubin 0.8 (0.2-1.0) mg/dl AST 15 (13-39) U/L ALT 10 (7-52) U/L Alkaline Phosphatase 132 H (34-104) U/L Total Protein 5.0 L (6.0-8.3) gm/dl Albumin 2.8 L (3.4-5.0) gm/dl Globulin 2.2 L (2.5-4.0) gm/dl Albumin/Globulin Ratio 1.3 (0.9-2) Medications Administered Current Inpatient Medications Acetaminophen (Acetaminophen 325 Mg Tab) 650 mg PO Q4H PRN PRN Reason: Pain or Fever Stop: 08/18/25 20:27 Apixaban (Apixaban 5 Mg Tablet) 5 mg PO BID [facility] Stop: 08/22/25 08:59 Last Admin: 07/24/25 08:15 Dose: 5 mg Cyanocobalamin (Cyanocobalamin (B-12) 500 Mcg Tablet) 1,000 mcg PO DAILY [facility] Stop: 08/19/25 08:59 Last Admin: 07/24/25 08:14 Dose: 1,000 mcg Folic Acid (Folic Acid 1 Mg Tab) 1 mg PO QAM [facility] Stop: 08/19/25 08:59 Last Admin: 07/24/25 08:14 Dose: 1 mg Gabapentin (Gabapentin 100 Mg Cap) 100 mg PO TID [facility] Stop: 08/18/25 20:59 Last Admin: 07/24/25 08:14 Dose: 100 mg Promethazine HCl (Phenergan) 6.25 mg in 50.25 mls @ 201 mls/hr IV Q6H PRN PRN Reason: Nausea And Vomiting Stop: 08/19/25 03:46 Lactic Acid (Ammonium Lactate 12% Lotion 225 Gm Btl) 1 gm EXT BID [facility] Stop: 08/18/25 20:59 Last Admin: 07/24/25 08:16 Dose: 1 gm Levothyroxine Sodium (Levothyroxine Sodium 75 Mcg Tablet) 75 mcg PO DAILYBB [facility] Stop: 08/19/25 06:29 Last Admin: 07/24/25 05:55 Dose: 75 mcg Magnesium Hydroxide (Magnesium Hydroxide Susp 30 Ml Udc) 30 ml PO Q12H PRN PRN Reason: Constipation Stop: 08/18/25 20:27 Metoprolol Tartrate (Metoprolol Tartrate 25 Mg Tab) 25 mg PO [facility] Stop: 08/18/25 20:59 Last Admin: 07/24/25 08:15 Dose: 25 mg Miconazole Nitrate (Miconazole Nitrate Powder 85 Gm) 1 appln EXT TID [facility] Stop: 08/19/25 13:59 Last Admin: 07/24/25 08:16 Dose: 1 appln Morphine Sulfate (Morphine Sulfate Cr 15 Mg Tabcr) 15 mg PO [facility] Stop: 08/02/25 20:59 Last Admin: 07/24/25 08:19 Dose: 15 mg Ondansetron HCl (Ondansetron Inj 2 Mg/Ml 2 Ml Vial) 4 mg IV Q6H PRN PRN Reason: Nausea Stop: 08/18/25 20:27 Last Admin: 07/24/25 10:30 Dose: 4 mg Pantoprazole Sodium (Pantoprazole 40 Mg Tab) 40 mg PO DAILYBB [facility] Stop: 08/19/25 06:29 Last Admin: 07/24/25 05:55 Dose: 40 mg Polyethylene Glycol (Polyethylene (Miralax) 17 Gm Pack) 17 gm PO DAILY [facility] Stop: 08/19/25 08:59 Last Admin: 07/24/25 08:19 Dose: 17 gm Polyethylene Glycol (Polyethylene (Miralax) 17 Gm Pack) 17 gm PO DAILY PRN PRN Reason: Constipation Stop: 08/18/25 20:27 Thiamine HCl (Thiamine Hcl 100 Mg Tab) 100 mg PO QAM [facility] Stop: 08/19/25 08:59 Last Admin: 07/24/25 08:14 Dose: 100 mg Vitamin D (Cholecalciferol 25 Mcg (1000 Units) Tab) 25 mcg PO DAILY [facility] Stop: 08/19/25 08:59 Last Admin: 07/24/25 08:15 Dose: 25 mcg
--- NOTE | 2025-07-24 12:30 | Gastroenterology Progress Note ---
Date of Service July 24, 2025 Assessment & Plan (1) Cholelithiasis: (2) Dilated bile duct: Plan Agree with general surgery's last note, patient should reconsider HIDA scan. She is agreeable to trying, but does note to me that she will NOT do an MRI. Admission and Anticipated Discharge Date Admission Date: July 19, 2025 Supervising Physician Co-Signing Physician Notes I saw and examined this patient with our nurse practitioner and agree with her assessment and plan. Major symptom now is nausea. No significant abdominal pain or tenderness at this time. To further exclude biliary colic as an etiology patient has agreed to a HIDA scan. With relatively normal liver enzymes and the lack of pain I do not suspect her mildly dilated common bile duct of 7 mm is clinically significant. Subjective Patient is an 89 yo female who was seen by GI and general surgery last week due to dilated CBD and concern for gallbladder disease. Unable to tolerate an MRCP, she was advised to have a RUQ US and a HIDA scan. Patient refused HIDA scan last week. General surgery had advised reconsideration if patient had persistent symptoms. Patient continues with nausea. LFTs are normal. Afebrile. On IV Zosyn at present. WBC count 4,400. Review of Systems Gastrointestinal: + nausea Physical Exam Gastrointestinal (Abdomen): normal bowel sounds, soft, nontender, no hepatosplenomegaly Results & Data Results & Data Vital Signs (Past 12 Hours) Vital Signs Temp Pulse Pulse Resp BP Pulse Ox O2 Del Method 07/24/25 11:32 36.7 C 72 18 141/78 H 94 Room Air 07/24/25 07:40 36.4 C L 79 20 153/80 H 96 Room Air 07/24/25 07:02 62 07/24/25 03:06 36.4 C L 65 18 144/84 H 96 Room Air PG Care Time/CCT Total # of Minutes Spent Total Time Spent with Patient: Total time spent is greater than 50% in coordination of care (as documented) at patient's floor/unit and/or counseling patient: Coding Level of Care Code 63093 SUB INP/OBS CARE 2/35MIN Diagnoses Cholelithiasis K80.20 Dilated bile duct K83.8
[2025-07-24] MEDS: PIPERACILLIN/TAZOBACTAM 4.5 GM/100 ML BAG IV SCH (12:31)
--- NOTE | 2025-07-24 14:23 | Electrocardiogram Report ---
Test Reason : Blood Pressure : */* mmHG Vent. Rate : 70 BPM Atrial Rate : * BPM P-R Int : * ms QRS Dur : 84 ms QT Int : 400 ms P-R-T Axes : * -26 7 degrees QTcB Int : 432 ms Atrial fibrillation Low voltage QRS Abnormal ECG When compared with ECG of 20-Jul-2025 02:34, Atrial fibrillation has replaced Sinus rhythm QRS axis Shifted left T wave inversion now evident in Inferior leads Confirmed by Evan Singh [id number] on 07/24/2025 2:22:27 PM Referred By: REFERRED SELF Confirmed By: Evan Singh
[2025-07-25 06:51] LABS: Hematocrit (blood only) 35.0 % (37.0-47.0); Hemoglobin 11.8 g/dL (12.0-16.0); Mean Corpuscular Hemoglobin 33.2 pg (25.0-34.0); Mean Corpuscular Volume 98.6 fL (80.0-100.0); Platelet Count 131 K/uL (130-400); RDW Standard Deviation 48.5 fL (36.4-46.3); Red Blood Count 3.55 M/uL (4.20-5.40); White Blood Count 6.30 K/ul (4.8-10.8)
[2025-07-25 07:14] LABS: Alanine Aminotransferase 12.0 U/L (7-52); Albumin Globulin Ratio 1.2 (0.9-2); Albumin Level 2.8 gm/dl (3.4-5.0); Alkaline Phosphatase 128.0 U/L (34-104); Anion Gap 5.0 (3-11); Bilirubin,Total 0.8 mg/dl (0.2-1.0); Blood Urea Nitrogen 7.0 mg/dl (6-23); Calcium 8.4 mg/dl (8.6-10.3); Carbon Dioxide 31.0 mmol/L (21-32); Chloride 102.0 mmol/L (98-107); Creatinine Clr Calc Pharmacy 46.9 ml/min; Globulin 2.3 gm/dl (2.5-4.0); Glucose 103.0 mg/dl (70-99(Fasting)); Magnesium 1.9 mg/dl (1.7-2.4); Potassium 4.1 mmol/L (3.5-5.1); Sodium 138.0 mmol/L (136-145); Total Protein 5.1 gm/dl (6.0-8.3)
--- NOTE | 2025-07-25 10:22 | Communication Note ---
Date of Service: July 25, 2025 Patient discussed HIDA scan with Dr. Schaffer and myself on 07/24/25. She was agreeable to attempting this as she understands the limitations of providing c are without testing. Will await results. Addendum: Patient refused HIDA scan. Refused MRCP. Limited options--cannot assess gallbladder further at this point. Could consider EGD tomorrow though likely low yield. Patient has previously refused endoscopic evaluation. Will discuss further with patient this afternoon.
--- NOTE | 2025-07-25 11:09 | Hospitalist Progress Note ---
Date of Service July 25, 2025 Assessment & Plan (1) Dilated bile duct: (2) UTI (urinary tract infection): (3) Confusion: (4) Atrial fibrillation with rapid ventricular response: (5) Elevated troponin: (6) Thrombocytopenia: Plan Per admitting provider w/ addendum: Ms. Batres is an 89y/o F with PMHx significant for HLD, HTN, hypothyroidism, multifocal atrial tachycardia, history of distal left popliteal DVT anticoagulated on Eliquis, GERD, gallstones, morbid obesity, polycystic kidney disease, CKD stage IIIa, fibromyalgia, osteoarthritis, lumbar DDD, lymphedema and chronic pain syndrome on chronic opioid therapy who presented to the ED via EMS with c/o N/V and confusion. Elevated T. bili, Alk phosphatase Mild biliary ductal dilatation seen on CTAP Moderate gallbladder distention without pericholecystic inflammation seen on CTAP Gen surg and GI both consulted -Gen surg ordered HIDA scan -pt declined -> discussed w/ gen. surg., will cont. abx, advanced diet -> was tolerating low fat diet but now with increased nausea -GI ordered RUQ US, obtained. Continue empiric ABX coverage with IV Zosyn for now. Pt previously expressed desire against surgery in the past; will hold Eliquis for now If HIDA positive, then could consider cholecystectomy vs cholecystostomy tube vs antibiotics as per patient wishes. Monitor LFTs, GI does not feel pt is a candidate for MRCP. 07/24 Pt declined procedures and overall was feeling better. Now however she is having increased nausea again. GI contacted to re-eval. 07/25 Pt agreed to have HIDA scan again. Now says she was under impression she was getting a different test done. Currently without nausea. Possible sepsis, lactic acidosis UA concerning for infection Leukocytosis, lactic acidosis, tachycardia and elevated procal appreciated on admitting labs c/f possible sepsis. Possible source(s) including intraabdominal pathology, UTI. UA with positive nitrites, trace LE, 6-10 WBC, 4+ bacteria c/f infection. Ucultx posit. for Klebsiella Blood cx - no growth in 48 hrs continued empiric ABX coverage with IV Zosyn. lactic acid 3.2 -> 1.8, ESR nl 8 CRP elev. at 4.2 Confusion - now resolved 2/2 illness, possibly also 2/2 meds such as gabapentin Head CT negative. CXR grossly unremarkable. Also was recently started on gabapentin 300mg TID by PCP 2 wk ago, could be contributing. Continue with gabapentin 100mg TID for now. A&Ox3 with direct questioning and continuous tactile/verbal stimuli; otherwise remains quite somnolent. - on admission Closely monitor mental status for any acute changes. 07/20 Pt is awake, alert, able to answer appropriately A-fib with RVR Possibly sepsis vs dehydration driven; HR initially in 140s. Now HR improved after IVF, and abx treatment Eliquis on hold for now, cont. heparin gtt --> resumed eliquis, as no procedure planned Lopressor recently reduced to 25mg BID 09/04 bradycardia, continue. 07/20 - 07/25 HR controlled at this time Elevated troponin Likely demand ischemia ISO above. EKG w/ lateral T wave inversions and ST depressions Pt reports no chest pain or shortness of breath EKG with chest pain PRN. Tele monitoring onboard. Echo obtained and reviewed - Echocardiogram show normal LVEF 60-65%, mild MR, mild TR. No wall motion abnormalities noted. Pt was started on heparin on admission, cardiology consulted and following - plan to switch to eliquis once determined no procedure will be needed Switched to eliquis on 07/23 however now w/ nausea, may switch again to heparin if we plan for procedure Thrombocytopenia: Etiology not clear per review of chart, may benefit from checking peripheral smear. Continue to monitor. Chronic pain syndrome: F/w pain clinic through [facility]. Continue reduced gabapentin dose, as per above, and morphine ER. Bowel reg. BLE lymphedema, POA Pressure ulcers of bilateral buttocks, POA Appreciate WOCN consult for assistance with management. Hold [employer] Lasix for now given hypotension. CKD stage IIIa Cr currently stable, baseline Cr 0.9-1.1 per chart review. Continue to monitor and avoid nephrotoxic agents as able. Hypothyroidism: Continue current levothyroxine dose, current TSH 0.85. GERD: Continue PPI. DVT Prophylaxis: Eliquis on hold, started heparin on admission -> switched back to eliquis Code Status: DNR/DNI - As confirmed with the pt's daughter/POADeepa PCP: Macy Juarez DO Disposition: PCU Admission and Anticipated Discharge Date Admission Date: July 19, 2025 Subjective Pt seen in follow up Presented w/ confusion, n/v, also elev. troponin UA also c/w UTI, ucultx posit. for Klebsiella Pt seen on admission by GI and surgery, US abd. obtained, HIDA ordered, Pt declined HIDA -> updated surgery -> started clear liquids, and cont. zosyn. Pt was feeling better, tolerating diet. WBC normalized now to 5K. Pt afebrile Yesterday, pt had nausea, not feeling well.Pt's daughter was also present at the bedside. Wanted to discuss with GI again. GI contacted and pt was supposed to try to have HIDA scan again. Pt currently sitting up in bed in NAD. Does not have nausea. She could not get HIDA scan done - says she was under impression she was getting different test done. Pt was switched to eliquis previously as she was doing better and declined all the procedures. GI updated Review of Systems Review of Systems: All systems reviewed & are unremarkable except as noted in Subjective Physical Exam Physical Exam: General: Elderly, chronically ill-appearing F, sitting up in recliner chair HEENT: Normocephalic/atraumatic Respiratory: Normal respiratory effort, decreased breath sounds b/l Cardiovascular: irregular Abdomen/GI: Active bowel sounds, soft, nontender to palpation in all quadrants Extremities/MSK: + BLE lymphedema (chronic) Neurologic: Awake, alert and able to answer simple questions appropriately, speech fluent, moves extremities Skin: warm, dry Results & Data Results & Data Vital Signs (Past 12 Hours) Vital Signs Temp Pulse Pulse Resp BP Pulse Ox O2 Del Method 07/25/25 10:33 75 07/25/25 10:33 Room Air 07/25/25 08:19 36.6 C 71 18 136/76 96 Room Air 07/25/25 02:28 36.3 C L 57 L 16 120/69 93 Room Air Laboratory Results 07/25/25 Range/Units 05:57 WBC 6.30 (4.8-10.8) K/ul RBC 3.55 L (4.20-5.40) M/uL Hgb 11.8 L (12.0-16.0) g/dL Hct 35.0 L (37.0-47.0) % MCV 98.6 (80.0-100.0) fL MCH 33.2 (25.0-34.0) pg MCHC 33.7 (32.0-36.0) g/dL RDW Std Deviation 48.5 H (36.4-46.3) fL RDW Coeff of Etienne 13.3 (11.5-14.5) % Plt Count 131 (130-400) K/uL MPV 9.6 (9.4-12.4) fL Sodium 138 (136-145) mmol/L Potassium 4.1 (3.5-5.1) mmol/L Chloride 102 (98-107) mmol/L Carbon Dioxide 31 (21-32) mmol/L Anion Gap 5 (3-11) BUN 7 (6-23) mg/dl Creatinine 0.96 (0.6-1.2) mg/dl Est Cr Clr Drug Dosing 46.9 ml/min eGFR 57.26 BUN/Creatinine Ratio 7.3 L (10-20) Glucose 103 H (70-99(Fasting)) mg/dl Calcium 8.4 L (8.6-10.3) mg/dl Phosphorus 3.0 (2.5-4.9) mg/dl Magnesium 1.9 (1.7-2.4) mg/dl Total Bilirubin 0.8 (0.2-1.0) mg/dl AST 26 (13-39) U/L ALT 12 (7-52) U/L Alkaline Phosphatase 128 H (34-104) U/L Total Protein 5.1 L (6.0-8.3) gm/dl Albumin 2.8 L (3.4-5.0) gm/dl Globulin 2.3 L (2.5-4.0) gm/dl Albumin/Globulin Ratio 1.2 (0.9-2) Medications Administered Current Inpatient Medications Acetaminophen (Acetaminophen 325 Mg Tab) 650 mg PO Q4H PRN PRN Reason: Pain or Fever Stop: 08/18/25 20:27 Apixaban (Apixaban 5 Mg Tablet) 5 mg PO BID AMANDA Stop: 08/22/25 08:59 Last Admin: 07/25/25 09:29 Dose: 5 mg Cyanocobalamin (Cyanocobalamin (B-12) 500 Mcg Tablet) 1,000 mcg PO DAILY AMANDA Stop: 08/19/25 08:59 Last Admin: 07/25/25 09:29 Dose: 1,000 mcg Folic Acid (Folic Acid 1 Mg Tab) 1 mg PO QAM [facility] Stop: 08/19/25 08:59 Last Admin: 07/25/25 09:29 Dose: 1 mg Gabapentin (Gabapentin 100 Mg Cap) 100 mg PO TID [facility] Stop: 08/18/25 20:59 Last Admin: 07/25/25 09:29 Dose: 100 mg Promethazine HCl (Phenergan) 6.25 mg in 50.25 mls @ 201 mls/hr IV Q6H PRN PRN Reason: Nausea And Vomiting Stop: 08/19/25 03:46 Piperacillin Sod/Tazobactam Sod (Zosyn) 4.5 gm in 100 mls @ 25 mls/hr IV Q8H [facility]; Protocol Stop: 07/26/25 12:29 Last Admin: 07/25/25 06:29 Dose: 25 mls/hr Lactic Acid (Ammonium Lactate 12% Lotion 225 Gm Btl) 1 gm EXT BID [facility] Stop: 08/18/25 20:59 Last Admin: 07/25/25 09:29 Dose: 1 gm Levothyroxine Sodium (Levothyroxine Sodium 75 Mcg Tablet) 75 mcg PO DAILYBB [facility] Stop: 08/19/25 06:29 Last Admin: 07/25/25 06:30 Dose: 75 mcg Magnesium Hydroxide (Magnesium Hydroxide Susp 30 Ml Udc) 30 ml PO Q12H PRN PRN Reason: Constipation Stop: 08/18/25 20:27 Metoprolol Tartrate (Metoprolol Tartrate 25 Mg Tab) [address] [facility] Stop: 08/18/25 20:59 Last Admin: 07/25/25 09:29 Dose: 25 mg Miconazole Nitrate (Miconazole Nitrate Powder 85 Gm) 1 appln EXT TID [facility] Stop: 08/19/25 13:59 Last Admin: 07/25/25 09:30 Dose: 1 appln Morphine Sulfate (Morphine Sulfate Cr 15 Mg Tabcr) [address] [facility] Stop: 08/02/25 20:59 Last Admin: 07/25/25 09:29 Dose: 15 mg Ondansetron HCl (Ondansetron Inj 2 Mg/Ml 2 Ml Vial) 4 mg IV Q6H PRN PRN Reason: Nausea Stop: 08/18/25 20:27 Last Admin: 07/24/25 10:30 Dose: 4 mg Pantoprazole Sodium (Pantoprazole 40 Mg Tab) 40 mg PO DAILYBB [facility] Stop: 08/19/25 06:29 Last Admin: 07/25/25 06:30 Dose: 40 mg Polyethylene Glycol (Polyethylene (Miralax) 17 Gm Pack) 17 gm PO DAILY [facility]AN[facility] Stop: 08/19/25 08:59 Last Admin: 07/25/25 09:30 Dose: 17 gm Polyethylene Glycol (Polyethylene (Miralax) 17 Gm Pack) 17 gm PO DAILY PRN PRN Reason: Constipation Stop: 08/18/25 20:27 Thiamine HCl (Thiamine Hcl 100 Mg Tab) 100 mg PO QAM [facility] Stop: 08/19/25 08:59 Last Admin: 07/25/25 09:29 Dose: 100 mg Vitamin D (Cholecalciferol 25 Mcg (1000 Units) Tab) 25 mcg PO DAILY [facility] Stop: 08/19/25 08:59 Last Admin: 07/25/25 09:29 Dose: 25 mcg
[2025-07-26 07:52] LABS: Hematocrit (blood only) 35.8 % (37.0-47.0); Hemoglobin 11.7 g/dL (12.0-16.0); Mean Corpuscular Hemoglobin 32.5 pg (25.0-34.0); Mean Corpuscular Volume 99.4 fL (80.0-100.0); Platelet Count 158 K/uL (130-400); RDW Standard Deviation 50.4 fL (36.4-46.3); Red Blood Count 3.60 M/uL (4.20-5.40); White Blood Count 7.63 K/ul (4.8-10.8)
--- NOTE | 2025-07-26 08:18 | History & Physical Bridge Note ---
Date of Service July 26, 2025 History & Physical Bridge Note I have reviewed the History & Physical and in the interval since the performance of the History & Physical I have noted the following changes of clinical significance: no changes noted. Keep NPO & proceed with EGD today. Supervising Physician Co-Signing Physician Notes I saw and examined this patient with our nurse practitioner and agree with her assessment and plan. Will proceed with endoscopy to further evaluate her GI symptoms.
[2025-07-26 08:23] LABS: Alanine Aminotransferase 14.0 U/L (7-52); Albumin Globulin Ratio 1.2 (0.9-2); Albumin Level 2.7 gm/dl (3.4-5.0); Alkaline Phosphatase 149.0 U/L (34-104); Anion Gap 4.0 (3-11); Bilirubin,Total 0.9 mg/dl (0.2-1.0); Blood Urea Nitrogen 8.0 mg/dl (6-23); Calcium 8.4 mg/dl (8.6-10.3); Carbon Dioxide 31.0 mmol/L (21-32); Chloride 102.0 mmol/L (98-107); Creatinine Clr Calc Pharmacy 43.3 ml/min; Globulin 2.2 gm/dl (2.5-4.0); Glucose 107.0 mg/dl (70-99(Fasting)); Magnesium 2.0 mg/dl (1.7-2.4); Potassium 4.6 mmol/L (3.5-5.1); Sodium 137.0 mmol/L (136-145); Total Protein 4.9 gm/dl (6.0-8.3)
--- NOTE | 2025-07-26 08:23 | Anesthesiology Consultation ---
Date of Service July 26, 2025 Assessment & Plan Chart Review Chart Review: Acceptable Risk for Surgery Consults Requested none ASA ASA3 Proposed Anesthesia Anesthesia Type: MAC Risk / Benefits Reviewed With: PT / POA / Parent / Guardian, Accepts Plan and Informed Consent Obtained History Surgery Operation Date: 07/26/25 16:30 Proposed Procedures p Esophagogastroduodenoscopy Dr. Karime Schaffer MD Height/Weight Height: 5 ft 3 in Weight: 101.3 kg Allergies Allergy/AdvReac Type Severity Reaction Status Date / Time No Known Allergies Allergy Verified 07/19/25 18:39 Medications Home Medications Medication Instructions Recorded Confirmed Last Taken cholecalciferol (vitamin D3) 25 25 mcg PO DAILY 01/24/20 07/19/25 Unknown mcg (1,000 unit) capsule (Vitamin D3) furosemide 20 mg tablet 20 mg PO DAILY 01/24/20 07/19/25 Unknown mecobalamin (vitamin B12) 1,000 1,000 mcg PO DAILY 01/24/20 07/19/25 Unknown mcg chewable tablet pantoprazole 40 mg tablet,delayed 40 mg PO DAILYBB 01/24/20 07/19/25 Unknown release polyethylene glycol 3350 17 17 gm PO DAILY PRN Constipation 01/24/20 07/19/25 Unknown gram/dose oral powder (Miralax) gabapentin 300 mg capsule 300 mg PO TID 12/01/24 07/19/25 Unknown levothyroxine 75 mcg tablet 75 mcg PO DAILYBB 12/01/24 07/19/25 Unknown Saccharomyces boulardii 250 mg 250 mg PO DAILY #30 caps 12/06/24 07/19/25 Unknown capsule apixaban 5 mg tablet (Eliquis) 5 mg PO AMPM 07/19/25 07/19/25 Unknown famotidine 20 mg tablet 20 mg PO HS 07/19/25 07/19/25 Unknown metoprolol tartrate 25 mg tablet 25 mg PO [facility] 07/19/25 07/19/25 Unknown morphine 15 mg tablet,extended 15 mg PO [facility] 07/19/25 07/19/25 Unknown release nystatin 100,000 unit/gram topical 1 applic topical BID PRN Skin 07/19/25 07/19/25 Unknown powder Irritation ondansetron HCl 4 mg tablet 4 mg PO Q6H PRN Nausea And Vomiting 07/19/25 07/19/25 Unknown oxycodone 5 mg tablet 5 mg PO .UD 07/19/25 07/19/25 Unknown Active Medications Generic Name Dose Route Start Last Admin Trade Name Beatriz PRN Reason Stop Dose Admin Apixaban 5 mg 07/23/25 09:00 07/25/25 20:17 Apixaban 5 Mg Tablet PO 08/22/25 08:59 5 mg BID AMANDA Administration Cyanocobalamin 1,000 mcg 07/20/25 09:00 07/25/25 09:29 Cyanocobalamin (B-12) 500 Mcg Tablet PO 08/19/25 08:59 1,000 mcg DAILY AMANDA Administration Folic Acid 1 mg 07/20/25 09:00 07/25/25 09:29 Folic Acid 1 Mg Tab PO 08/19/25 08:59 1 mg QAM AMANDA Administration Gabapentin 100 mg 07/19/25 21:00 07/25/25 20:17 Gabapentin 100 Mg Cap PO 08/18/25 20:59 100 mg TID AMANDA Administration Piperacillin Sod/Tazobactam Sod 4.5 gm in 100 mls @ 25 mls/hr 07/24/25 12:30 07/26/25 04:41 Zosyn IV 07/26/25 12:29 25 mls/hr Q8H AMANDA Administration Protocol Lactic Acid 1 gm 07/19/25 21:00 07/25/25 20:17 Ammonium Lactate 12% Lotion 225 Gm Btl EXT 08/18/25 20:59 1 gm BID AMANDA Administration Levothyroxine Sodium 75 mcg 07/20/25 06:30 07/26/25 05:40 Levothyroxine Sodium 75 Mcg Tablet PO 08/19/25 06:29 75 mcg DAILYBB AMANDA Administration Metoprolol Tartrate 25 mg 07/19/25 21:00 07/25/25 20:17 Metoprolol Tartrate 25 Mg Tab PO 08/18/25 20:59 25 mg AMHS AMANDA Administration Miconazole Nitrate 1 appln 07/20/25 14:00 07/25/25 20:17 Miconazole Nitrate Powder 85 Gm EXT 08/19/25 13:59 1 appln TID AMANDA Administration Morphine Sulfate 15 mg 07/19/25 21:00 07/25/25 20:19 Morphine Sulfate Cr 15 Mg Tabcr PO 08/02/25 20:59 15 mg AMHS AMANDA Administration Ondansetron HCl 4 mg 07/19/25 20:28 07/24/25 10:30 Ondansetron Inj 2 Mg/Ml 2 Ml Vial IV 08/18/25 20:27 4 mg Q6H PRN Administration Nausea Pantoprazole Sodium 40 mg 07/20/25 06:30 07/26/25 05:40 Pantoprazole 40 Mg Tab PO 08/19/25 06:29 40 mg DAILYBB AMANDA Administration Polyethylene Glycol 17 gm 07/20/25 09:00 07/25/25 09:30 Polyethylene (Miralax) 17 Gm Pack PO 08/19/25 08:59 17 gm DAILY AMANDA Administration Thiamine HCl 100 mg 07/20/25 09:00 07/25/25 09:29 Thiamine Hcl 100 Mg Tab PO 08/19/25 08:59 100 mg QAM AMANDA Administration Vitamin D 25 mcg 07/20/25 09:00 07/25/25 09:29 Cholecalciferol 25 Mcg (1000 Units) Tab PO 08/19/25 08:59 25 mcg DAILY AMANDA Administration Past Medical History Medical History History of DVT (deep vein thrombosis) Fibromyalgia Hypertension Arthritis Arthritis of right hip Greater trochanteric pain syndrome Chronic venous insufficiency Skin tear of right forearm without complication Lower extremity edema Venous ulcer of left leg Traumatic open wound of left lower leg with delayed healing Macular degeneration Cataract (lens) fragments in eye following cataract surgery, bilateral Past Surgical History Surgical History H/O: hysterectomy S/P right knee arthroscopy H/O hemorrhoidectomy History of tonsillectomy Social History Smoking Status: Never smoker Hx Alcohol Use: No Hx Substance Use: No Physical Exam Vital Signs Last Vital Signs Temp 36.7 C 07/26/25 07:15 Pulse 78 07/26/25 07:43 Resp 18 07/26/25 07:15 BP 140/70 07/26/25 07:15 Pulse Ox 94 07/26/25 07:15 O2 Del Method Room Air 07/26/25 07:15 O2 Flow Rate 2 07/21/25 07:55 Constitutional no acute distress ENMT Mouth: no TMJ abnormality Mallampati Class: III Neck normal visual inspection Respiratory normal respiratory effort Cardiovascular Rate/Rhythm: regular rate Chest (Breasts) Chest: no pacemaker Musculoskeletal Spine: normal cervical ROM Neurologic moves all extremities Psychiatric Orientation: alert and oriented x 3 Testing Laboratory Results 07/26/25 07:21 PT 11.6 Seconds (9.0-12.0) 07/19/25 11:44 INR 1.1 (0.9-1.1) 07/19/25 11:44 APTT 29 Seconds (21-31) 07/19/25 21:17 Hemoglobin A1c 5.8 % (4.5-5.6) H 07/21/25 05:44 Urine Color Yellow 07/19/25 15:45 Urine Appearance Clear (Clear) 07/19/25 15:45 Urine pH 8.0 (4.5-7.5) H 07/19/25 15:45 Ur Specific [place] 1.029 (1.000-1.030) 07/19/25 15:45 Urine Protein Trace (Negative) H 07/19/25 15:45 Urine Glucose (UA) Negative (Negative) 07/19/25 15:45 Urine Ketones Trace (Negative) H 07/19/25 15:45 Urine Nitrite Positive (Negative) A 07/19/25 15:45 Ur Leukocyte Esterase Trace (Negative) H 07/19/25 15:45 Urine WBC (Auto) 6-10 /hpf (0-5) H 07/19/25 15:45 Urine RBC (Auto) 0-2 /hpf (0-2) 07/19/25 15:45 U Hyaline Cast (Auto) 0-2 /lpf (0-2) 07/19/25 15:45 U Epithel Cells (Auto) 0-2 /hpf (0-2) 07/19/25 15:45 Urine Bacteria (Auto) 4+ (None Seen) H 07/19/25 15:45 07/19/25 11:29 Aerobic Blood Culture - Final Blood No growth in Aerobic bottle after 5 days. Anaerobic Blood Culture - Final No growth in Anaerobic bottle after 5 days. 07/19/25 11:26 Aerobic Blood Culture - Final Blood No growth in Aerobic bottle after 5 days. Anaerobic Blood Culture - Final No growth in Anaerobic bottle after 5 days. 07/19/25 15:45 Urine Culture - Final Urine,Clean Catch Klebsiella pneumoniae
--- NOTE | 2025-07-26 08:39 | GI REPORT ---
[facility] Patient: CHRISTY DEE : 1935 Sex at : Female Age: 89 Years Procedure: Upper GI endoscopy Date: 07/26/2025 Attending Physician: Magdaleno Schaffer MD Referring MD: Jovanny Ellington Md Indications: - Nausea Medications: - Monitored Anesthesia Care Complications: - No immediate complications. Procedure: - Prior to the procedure, a History and Physical was performed, and patient medications and allergies were reviewed. The patient's tolerance of previous anesthesia was also reviewed. The risks and benefits of the procedure and the sedation options and risks were discussed with the patient. All questions were answered, and informed consent was obtained. [Anticoagulant Agents] [Days Prior to Procedure]. [ASA Grade]. After reviewing the risks and benefits, the patient was deemed in satisfactory condition to undergo the procedure. - The egd scope was introduced through the mouth and advanced to the second part of the duodenum. - The upper GI endoscopy was accomplished without difficulty. - The patient tolerated the procedure well. Findings: - The examined esophagus was normal. - The entire examined stomach was normal. Biopsies were taken with a cold forceps for Helicobacter pylori testing. - The examined duodenum was normal. Impression: - Normal esophagus. - Normal stomach. Biopsied. - Normal examined duodenum. Recommendation: - Resume previous diet. - Patient has a contact number available for emergencies. The signs and symptoms of potential delayed complications were discussed with the patient. Return to normal activities tomorrow. Written discharge instructions were provided to the patient. Procedure Code(s): - 10229, Esophagogastroduodenoscopy, flexible, transoral; with biopsy, single or multiple CPT(R) - 2024 copyright [employer]. All Rights Reserved. The CPT codes, CCI edits and ICD codes generated are intended as suggestions and were generated based on input data. These codes are preliminary and upon room service runner review may be revised to meet current compliance and payer requirements. The provider is responsible for the final determination of appropriate codes, and modifiers. Magdaleno Schaffer MD This document has been electronically signed. Note Initiated:07/26/2025 Note Completed:07/26/2025 8:38 AM [id number]
--- NOTE | 2025-07-26 08:50 | Anesthesiology Progress Note ---
Date of Service July 26, 2025 Anesthesia Post Procedure Vital Signs Vital Signs: Temp Pulse Pulse Pulse Resp BP BP 07/26/25 08:46 86 16 138/67 07/26/25 08:17 36.9 C 79 18 161/71 H 07/26/25 07:43 78 07/26/25 07:15 36.7 C 73 18 140/70 07/26/25 03:11 36.6 C 61 18 102/59 L 07/25/25 22:34 36.6 C 58 L 20 125/69 07/25/25 21:53 49 L 07/25/25 21:41 07/25/25 20:12 62 138/78 07/25/25 19:23 36.6 C 63 18 101/70 07/25/25 16:11 36.6 C 71 18 108/69 07/25/25 14:51 67 07/25/25 11:51 36.7 C 75 20 154/68 H 07/25/25 10:33 75 07/25/25 10:33 Pulse Ox O2 Del Method 07/26/25 08:46 94 Room Air 07/26/25 08:17 94 Room Air 07/26/25 07:43 07/26/25 07:15 94 Room Air 07/26/25 03:11 92 Room Air 07/25/25 22:34 96 Room Air 07/25/25 21:53 07/25/25 21:41 Room Air 07/25/25 20:12 07/25/25 19:23 97 Room Air 07/25/25 16:11 91 Room Air 07/25/25 14:51 07/25/25 11:51 99 Room Air 07/25/25 10:33 07/25/25 10:33 Room Air Pain Intensity Bilateral Leg: Pain Intensity: 2 Transfer of Care Handoff Completed per policy Notes Mental Status: alert / awake / arousable Patient Amnestic to Procedure: Yes Nausea / Vomiting: adequately controlled Pain: adequately controlled Airway Patency, RR, SpO2: stable & adequate BP & HR: stable & adequate Hydration State: stable & adequate Anesthetic Complications: no major complications apparent
[2025-07-26] MEDS: LIDOCAINE 2% 2 ML VIAL/AMP(20MG/ML) INFIL ONE (10:06)
[2025-07-26] MEDS: PROPOFOL IV EMULSION 10 MG/ML 20 ML VIAL IV ONE (10:06)
--- NOTE | 2025-07-26 15:03 | Hospitalist Progress Note ---
Date of Service July 26, 2025 Assessment & Plan (1) Dilated bile duct: (2) UTI (urinary tract infection): (3) Confusion: (4) Atrial fibrillation with rapid ventricular response: (5) Elevated troponin: (6) Thrombocytopenia: Plan Ms. Batres is an 89y/o F with PMHx significant for HLD, HTN, hypothyroidism, multifocal atrial tachycardia, history of distal left popliteal DVT anticoagulated on Eliquis, GERD, gallstones, morbid obesity, polycystic kidney disease, CKD stage IIIa, fibromyalgia, osteoarthritis, lumbar DDD, lymphedema and chronic pain syndrome on chronic opioid therapy who presented to the ED via EMS with c/o N/V and confusion. Dilated bile duct Cholelithiasis Nausea, vomiting --CT ABD: Interval development of mild biliary ductal dilatation which could be correlated with liver function tests. Moderate gallbladder distention without pericholecystic inflammation. If right upper quadrant pain, ultrasound is recommended. No bowel obstruction. No bowel wall thickening. Moderate stool within the rectum. --Gall Bladder USD: Mild intrahepatic biliary ductal dilatation is present. Additionally there is mild prominence of the common bile duct better appreciated on the prior CT. No visualized filling defect. Consider further evaluation wi th MRCP. Cholelithiasis. This is gallbladder is distended however there is no significant thickening of the wall. Coarse echogenicity of the liver may relate to fatty infiltration and/or hepatocellular dysfunction.. Increased echogenicity of the right renal cortex is most consistent with chronic medical renal disease. No hydronephrosis.. There is a complicated 1.8 cm cystic lesion of the inferior pole of the right kidney. --Nuclear hepatobiliary scan:The patient declined further imaging after 5 minutes time. The examination is nondiagnostic. A tracer dosage of 5.3 mCi was administered. --S/P EGD: Normal esophagus, stomach, duodenum. Biopsied stomach. Advance diet as tolerated Appreciate GI input LFTs within normal limits other than mildly elevated alkaline phosphatase Follow-up pathology Plan to discharge to SNF as able Acute metabolic/toxic encephalopathy-resolved Urinary tract infection Possible sepsis, lactic acidosis Urine culture grew Klebsiella pneumoniae Urine culture negative to date Completed IV Zosyn course Mental status seems to be back to baseline Right kidney cystic lesion Incidental finding on imaging as above Follow-up as outpatient A-fib with RVR Continue metoprolol On Eliquis for anticoagulation Elevated troponin Likely demand ischemia ISO above. EKG w/ lateral T wave inversions and ST depressions Pt reports no chest pain or shortness of breath EKG with chest pain PRN. Tele monitoring onboard. Echo obtained and reviewed - Echocardiogram show normal LVEF 60-65%, mild MR, mild TR. No wall motion abnormalities noted. Pt was started on heparin on admission later transition to [facility], cardiology consulted Thrombocytopenia Resolved Monitor Chronic pain syndrome: F/w pain clinic through [facility]. Continue reduced gabapentin dose, as per above, and morphine ER. Bowel reg. BLE lymphedema, POA--resume home Lasix Pressure ulcers of bilateral buttocks, POA Appreciate WOCN consult for assistance with management. CKD stage IIIa Cr currently stable, baseline Cr 0.9-1.1 per chart review. Continue to monitor and avoid nephrotoxic agents as able. Hypothyroidism: Continue current levothyroxine dose, current TSH 0.85. GERD: Continue PPI. DVT Px: Eliquis Code Status: DNR/DNI Disposition SNF as able Admission and Anticipated Discharge Date Admission Date: July 19, 2025 Subjective Patient is seen and examined at bedside Had EGD earlier today Reports chronic arthritic pain Denies any nausea, vomiting, chest pain, dyspnea, dizziness today No other complaints Review of Systems Review of Systems: All systems reviewed & are unremarkable except as noted in Subjective Physical Exam Physical Exam: Physical Exam: Vitals signs as noted above General Appearance: Morbidly obese, no apparent distress Head: normocephalic, Atraumatic Eyes: normal inspection, EOMI Neck: supple, Trachea midline Respiratory/Chest: Decreased breath sounds, CTA, No accessory muscle use Cardiovascular: Irregularly irregular, No murmur Abdomen/GI:Soft, Non tender, Bowel sounds present Extremities/Musculoskeletal:normal inspection, B/L LE Lymphedema Neurologic/Psych:AAOX3, grossly no focal neurological deficits Skin: normal color, warm Results & Data Results & Data Vital Signs (Past 12 Hours) Vital Signs Temp Pulse Pulse Pulse Resp BP BP 07/26/25 10:59 36.8 C 69 18 119/69 07/26/25 09:18 81 17 131/75 07/26/25 09:03 78 16 136/81 07/26/25 08:46 86 16 138/67 07/26/25 08:17 36.9 C 79 18 161/71 H 07/26/25 08:00 07/26/25 07:43 78 07/26/25 07:15 36.7 C 73 18 140/70 07/26/25 03:11 36.6 C 61 18 102/59 L Pulse Ox O2 Del Method 07/26/25 10:59 94 Room Air 07/26/25 09:18 96 Room Air 07/26/25 09:03 97 Room Air 07/26/25 08:46 94 Room Air 07/26/25 08:17 94 Room Air 07/26/25 08:00 Room Air 07/26/25 07:43 07/26/25 07:15 94 Room Air 07/26/25 03:11 92 Room Air Laboratory Results Short CBC 07/26/25 Range/Units 07:21 WBC 7.63 (4.8-10.8) K/ul Hgb 11.7 L (12.0-16.0) g/dL Hct 35.8 L (37.0-47.0) % Plt Count 158 (130-400) K/uL BMP 07/26/25 07:21 Sodium 137 Potassium 4.6 Chloride 102 Carbon Dioxide 31 BUN 8 Creatinine 1.04 Glucose 107 H Calcium 8.4 L Liver Function 07/26/25 Range/Units 07:21 Total Bilirubin 0.9 (0.2-1.0) mg/dl AST 30 (13-39) U/L ALT 14 (7-52) U/L Alkaline Phosphatase 149 H (34-104) U/L Albumin 2.7 L (3.4-5.0) gm/dl
[2025-07-26] MEDS: FUROSEMIDE 20 MG TAB PO SCH (16:53)
[2025-07-26 23:01] VITALS: RESP 16
[2025-07-27 07:23] LABS: Anion Gap 3.0 (3-11); Blood Urea Nitrogen 8.0 mg/dl (6-23); Calcium 8.2 mg/dl (8.6-10.3); Carbon Dioxide 31.0 mmol/L (21-32); Chloride 104.0 mmol/L (98-107); Creatinine Clr Calc Pharmacy 47.1 ml/min; Glucose 108.0 mg/dl (70-99(Fasting)); Potassium 4.3 mmol/L (3.5-5.1); Sodium 138.0 mmol/L (136-145)
--- NOTE | 2025-07-27 08:54 | Gastroenterology Progress Note ---
Date of Service July 27, 2025 Assessment & Plan (1) Nausea & vomiting: Plan: Clinically improved less nausea no vomiting no abdominal pain. Endoscopy was normal. Biopsies were taken to rule out Helicobacter pylori. Continue to advance diet as tolerated continue empiric therapy for nausea. Call if any further issues. Admission and Anticipated Discharge Date Admission Date: July 19, 2025 Subjective Feels better today less nausea tolerating food orally no shortness of breath no chest pain Physical Exam Physical Exam: No acute distress Respiratory rate regular Cardiac rhythm regular Abdomen soft nontender Results & Data Results & Data Vital Signs (Past 12 Hours) Vital Signs Temp Pulse Pulse Resp BP BP Pulse Ox 07/27/25 07:27 36.8 C 63 16 110/67 92 07/27/25 02:33 36.6 C 59 L 16 116/74 94 07/26/25 23:00 36.5 C 60 16 101/60 95 07/26/25 22:00 52 L O2 Del Method 07/27/25 07:27 Room Air 07/27/25 02:33 Room Air 07/26/25 23:00 Room Air 07/26/25 22:00 Laboratory Results Laboratory Results - last 48 hr 07/26/25 07/27/25 07:21 05:49 WBC 7.63 RBC 3.60 L Hgb 11.7 L Hct 35.8 L MCV 99.4 MCH 32.5 MCHC 32.7 RDW Std Deviation 50.4 H RDW Coeff of Etienne 13.8 Plt Count 158 MPV 9.3 L Sodium 137 138 Potassium 4.6 4.3 Chloride 102 104 Carbon Dioxide 31 31 Anion Gap 4 3 BUN 8 8 Creatinine 1.04 0.95 Est Cr Clr Drug Dosing 43.3 47.1 eGFR 52.02 57.99 BUN/Creatinine Ratio 7.7 L 8.4 L Glucose 107 H 108 H Calcium 8.4 L 8.2 L Phosphorus 3.6 Magnesium 2.0 Total Bilirubin 0.9 AST 30 ALT 14 Alkaline Phosphatase 149 H Total Protein 4.9 L Albumin 2.7 L Globulin 2.2 L Albumin/Globulin Ratio 1.2 PG Care Time/CCT Total # of Minutes Spent Total Time Spent with Patient: Total time spent is greater than 50% in coordination of care (as documented) at patient's floor/unit and/or counseling patient: Coding Level of Care Code 95141 SUB INP/OBS CARE 2/35MIN Diagnoses Nausea & vomiting R11.2
--- NOTE | 2025-07-27 15:16 | Hospitalist Progress Note ---
Date of Service July 27, 2025 Assessment & Plan (1) Dilated bile duct: (2) UTI (urinary tract infection): (3) Confusion: (4) Atrial fibrillation with rapid ventricular response: (5) Elevated troponin: (6) Thrombocytopenia: Plan Ms. Batres is an 89y/o F with PMHx significant for HLD, HTN, hypothyroidism, multifocal atrial tachycardia, history of distal left popliteal DVT anticoagulated on Eliquis, GERD, gallstones, morbid obesity, polycystic kidney disease, CKD stage IIIa, fibromyalgia, osteoarthritis, lumbar DDD, lymphedema and chronic pain syndrome on chronic opioid therapy who presented to the ED via EMS with c/o N/V and confusion. Dilated bile duct Cholelithiasis Nausea, vomiting --CT ABD: Interval development of mild biliary ductal dilatation which could be correlated with liver function tests. Moderate gallbladder distention without pericholecystic inflammation. If right upper quadrant pain, ultrasound is recommended. No bowel obstruction. No bowel wall thickening. Moderate stool within the rectum. --Gall Bladder USD: Mild intrahepatic biliary ductal dilatation is present. Additionally there is mild prominence of the common bile duct better appreciated on the prior CT. No visualized filling defect. Consider further evaluation wi th MRCP. Cholelithiasis. This is gallbladder is distended however there is no significant thickening of the wall. Coarse echogenicity of the liver may relate to fatty infiltration and/or hepatocellular dysfunction.. Increased echogenicity of the right renal cortex is most consistent with chronic medical renal disease. No hydronephrosis.. There is a complicated 1.8 cm cystic lesion of the inferior pole of the right kidney. --Nuclear hepatobiliary scan:The patient declined further imaging after 5 minutes time. The examination is nondiagnostic. A tracer dosage of 5.3 mCi was administered. --S/P EGD: Normal esophagus, stomach, duodenum. Biopsied stomach. Appreciate GI input LFTs within normal limits other than mildly elevated alkaline phosphatase Follow-up pathology-- pending Advance to regular diet today Likely discharge to SNF tomorrow if remains stable Acute metabolic/toxic encephalopathy-resolved Urinary tract infection Possible sepsis, lactic acidosis Urine culture grew Klebsiella pneumoniae Urine culture negative to date Completed IV Zosyn course Mental status seems to be back to baseline Right kidney cystic lesion Incidental finding on imaging as above Advised patient to follow-up as outpatient A-fib with RVR Continue metoprolol On Eliquis for anticoagulation Elevated troponin Likely demand ischemia ISO above. EKG w/ lateral T wave inversions and ST depressions Pt reports no chest pain or shortness of breath EKG with chest pain PRN. Tele monitoring onboard. Echo obtained and reviewed - Echocardiogram show normal LVEF 60-65%, mild MR, mild TR. No wall motion abnormalities noted. Pt was started on heparin on admission later transition to [facility], cardiology consulted Thrombocytopenia Resolved Monitor Chronic pain syndrome: F/w pain clinic through [facility]. Continue reduced gabapentin dose, as per above, and morphine ER. Bowel reg. BLE lymphedema, POA--resume home Lasix Pressure ulcers of bilateral buttocks, POA Appreciate WOCN consult for assistance with management. CKD stage IIIa Cr currently stable, baseline Cr 0.9-1.1 per chart review. Continue to monitor and avoid nephrotoxic agents as able. Hypothyroidism: Continue current levothyroxine dose, current TSH 0.85. GERD: Continue PPI. DVT Px: Eliquis Code Status: DNR/DNI Disposition SNF as able Admission and Anticipated Discharge Date Admission Date: July 19, 2025 Subjective Patient is seen and examined at bedside States feeling well today Tolerating liquid diet Reports chronic arthritic pain Denies any nausea, vomiting, chest pain, dyspnea, dizziness No other complaints today Review of Systems Review of Systems: All systems reviewed & are unremarkable except as noted in Subjective Physical Exam Physical Exam: Physical Exam: Vitals signs as noted above General Appearance: Morbidly obese, no apparent distress Head: normocephalic, Atraumatic Eyes: normal inspection, EOMI Neck: supple, Trachea midline Respiratory/Chest: Decreased breath sounds, CTA, No accessory muscle use Cardiovascular: Irregularly irregular, No murmur Abdomen/GI:Soft, Non tender, Bowel sounds present Extremities/Musculoskeletal:normal inspection, B/L LE Lymphedema Neurologic/Psych:AAOX3, grossly no focal neurological deficits Skin: normal color, warm Results & Data Results & Data Vital Signs (Past 12 Hours) Vital Signs Temp Pulse Pulse Resp BP Pulse Ox O2 Del Method 07/27/25 11:12 36.5 C 60 16 128/76 97 Room Air 07/27/25 08:00 58 L 07/27/25 07:27 36.8 C 63 16 110/67 92 Room Air Laboratory Results [facility] 07/27/25 05:49 Sodium 138 Potassium 4.3 Chloride 104 Carbon Dioxide 31 BUN 8 Creatinine 0.95 Glucose 108 H Calcium 8.2 L
[2025-07-28 07:23] VITALS: TEMP 98.1; O2SAT 96
--- NOTE | 2025-07-28 10:54 | Hospitalist Progress Note ---
Date of Service July 28, 2025 Assessment & Plan (1) Dilated bile duct: (2) UTI (urinary tract infection): (3) Confusion: (4) Atrial fibrillation with rapid ventricular response: (5) Elevated troponin: (6) Thrombocytopenia: Plan Ms. Batres is an 89y/o F with PMHx significant for HLD, HTN, hypothyroidism, multifocal atrial tachycardia, history of distal left popliteal DVT anticoagulated on Eliquis, GERD, gallstones, morbid obesity, polycystic kidney disease, CKD stage IIIa, fibromyalgia, osteoarthritis, lumbar DDD, lymphedema and chronic pain syndrome on chronic opioid therapy who presented to the ED via EMS with c/o N/V and confusion. Dilated bile duct Cholelithiasis Nausea, vomiting --CT ABD: Interval development of mild biliary ductal dilatation which could be correlated with liver function tests. Moderate gallbladder distention without pericholecystic inflammation. If right upper quadrant pain, ultrasound is recommended. No bowel obstruction. No bowel wall thickening. Moderate stool within the rectum. --Gall Bladder USD: Mild intrahepatic biliary ductal dilatation is present. Additionally there is mild prominence of the common bile duct better appreciated on the prior CT. No visualized filling defect. Consider further evaluation wi th MRCP. Cholelithiasis. This is gallbladder is distended however there is no significant thickening of the wall. Coarse echogenicity of the liver may relate to fatty infiltration and/or hepatocellular dysfunction.. Increased echogenicity of the right renal cortex is most consistent with chronic medical renal disease. No hydronephrosis.. There is a complicated 1.8 cm cystic lesion of the inferior pole of the right kidney. --Nuclear hepatobiliary scan:The patient declined further imaging after 5 minutes time. The examination is nondiagnostic. A tracer dosage of 5.3 mCi was administered. --S/P EGD: Normal esophagus, stomach, duodenum. Biopsied stomach. Appreciate GI input LFTs within normal limits other than mildly elevated alkaline phosphatase Pathology--negative for H. pylori. Findings suggestive of chronic invasive mild gastritis. Tolerated regular diet Advised to follow-up with GI as outpatient Plan to discharge to SNF today Acute metabolic/toxic encephalopathy-resolved Urinary tract infection Possible sepsis, lactic acidosis Urine culture grew Klebsiella pneumoniae Urine culture negative to date Completed IV Zosyn course Mental status seems to be back to baseline Right kidney cystic lesion Incidental finding on imaging as above Advised patient to follow-up as outpatient A-fib with RVR Continue metoprolol On Eliis for anticoagulation Elevated troponin Likely demand ischemia ISO above. EKG w/ lateral T wave inversions and ST depressions Pt reports no chest pain or shortness of breath EKG with chest pain PRN. Tele monitoring onboard. Echo obtained and reviewed - Echocardiogram show normal LVEF 60-65%, mild MR, mild TR. No wall motion abnormalities noted. Pt was started on heparin on admission later transition to [facility], cardiology consulted Thrombocytopenia Resolved Monitor Chronic pain syndrome: F/w pain clinic through [facility]. Continue reduced gabapentin dose, as per above, and morphine ER. Bowel reg. BLE lymphedema, POA--resume home Lasix Pressure ulcers of bilateral buttocks, POA Appreciate WOCN consult for assistance with management. CKD stage IIIa Cr currently stable, baseline Cr 0.9-1.1 per chart review. Continue to monitor and avoid nephrotoxic agents as able. Hypothyroidism: Continue current levothyroxine dose, current TSH 0.85. GERD: Continue PPI. DVT Px: Eliquis Code Status: DNR/DNI Disposition SNF Admission and Anticipated Discharge Date Admission Date: July 19, 2025 Subjective Patient is seen and examined at bedside Offers no complaints Tolerated regular diet with no issues Denies any chest pain, dyspnea, dizziness Plan to discharge to SNF today Review of Systems Review of Systems: All systems reviewed & are unremarkable except as noted in Subjective Physical Exam Physical Exam: Physical Exam: Vitals signs as noted above General Appearance: Morbidly obese, no apparent distress Head: normocephalic, Atraumatic Eyes: normal inspection, EOMI Neck: supple, Trachea midline Respiratory/Chest: Decreased breath sounds, CTA, No accessory muscle use Cardiovascular: Irregularly irregular, No murmur Abdomen/GI:Soft, Non tender, Bowel sounds present Extremities/Musculoskeletal:normal inspection, B/L LE Lymphedema Neurologic/Psych:AAOX3, grossly no focal neurological deficits Skin: normal color, warm Results & Data Results & Data Vital Signs (Past 12 Hours) Vital Signs Temp Pulse Pulse Resp BP Pulse Ox O2 Del Method 07/28/25 07:22 36.7 C 61 16 138/64 96 Room Air 07/28/25 03:21 36.5 C 58 L 16 125/72 94 Room Air 07/27/25 23:24 36.6 C 55 L 16 104/56 L 94 Room Air 07/27/25 23:19 66
[2025-07-28 11:15] VITALS: BP 130/77
[2025-07-28 11:35] VITALS: PULSE 73
[2025-07-28] MEDS: DOCUSATE SODIUM 100 MG CAP PO SCH (12:04)
--- NOTE | 2025-07-28 14:16 | Discharge Summary ---
Date of Service July 28, 2025 Admission HPI Per Admitting Provider Patient is an 89y/o F with PMHx significant for HLD, HTN, hypothyroidism, multifocal atrial tachycardia, history of distal left popliteal DVT anticoagulated on Eliquis, GERD, gallstones, morbid obesity, polycystic kidney disease, CKD stage IIIa, fibromyalgia, osteoarthritis, lumbar DDD, lymphedema and chronic pain syndrome on chronic opioid therapy who presented to the ED via EMS with c/o N/V and confusion. History primarily obtained from the patient's daughter and her at bedside. Patient unable to provide much history; A&Ox3 to direct questioning however remains quite somnolent when not continuously aroused with verbal and tactile stimuli. Reportedly patient has been dealing with recurrent nausea for several years. Over the past week or so, her nausea has been unfortunately rather persistent. Patient currently lives alone in [place], [place]. Her daughter, Deepa, frequently checks on her. Patient typically is A&Ox4; her daughter refers to her as "quite mentally sharp." Has caregiver/wound care support through [facility] services 2-3x/week. She uses a walker at baseline for short distances and then a wheelchair for longer distances. This morning the patient called her daughter. Mentioned that she had not been feeling well and was vomiting. Deepa went over to her house to visit her and the patient was acting more confused; ex: unable to recall date/time/recent events, somnolent behavior. She has also been getting progressively weaker over the past week to the point where she requires significant assistance with ambulation. She has chronic BLE lymphedema which wound care through [facility] services has been dressing; she also has buttock wounds they have been caring for. Per her daughter, the buttock wounds look much improved compared to prior. No known fevers. Her daughter, did however, note she was shaking quite a bit at the house earlier and looked diaphoretic. No voiced complaints of abdominal pain. No reported diarrhea; if anything, the patient deals with a significant amount of opioid-induced constipation. She is on chronic opioid therapy for chronic pain syndrome secondary to lumbar DDD, generalized osteoarthritis. No verbalized urinary complaints. Not eating or drinking very well since the nausea became more persistent last week. Admission Exam Per Admitting Provider General: Elderly, chronically ill-appearing F, laying down in bed, daughter and GLORIA at bedside HEENT: Normocephalic/atraumatic, + dry mucous membranes Respiratory: Normal respiratory effort, not following inspiratory/expiratory commands well (decreased breath sounds b/l), 92% O2 sat on RA Cardiovascular: Variable HR (fluctuating b/n 80s-120s), + irregularly irregular rhythm Abdomen/GI: Active bowel sounds, soft, nontender to palpation in all quadrants Extremities/MSK: + BLE lymphedema (LLE dressing in place 2/2 lymph drainage) Neurologic: A&Ox3 with direct questioning when aroused with verbal/tactile stimuli however easily falls back asleep/somnolent when not consistently stimulated Skin: Extremely dry BLE with plaque formation Principal Diagnosis Dilated bile duct Cholelithiasis Intractable nausea, vomiting Acute metabolic encephalopathy--resolved Urinary tract infection Right kidney cystic lesion A-fib RVR Discharge Data Allergies Allergy/AdvReac Type Severity Reaction Status Date / Time No Known Allergies Allergy Verified 07/19/25 18:39 Consultations 07/19/25 16:10 ED Decision to Admit Stat Procedures Performed Operation Date: 07/26/25 16:30 Actual Procedures p EGD Biopsy Cytology - Magdaleno Schaffer MD Ordered Studies Laboratory Results WBC 7.63 K/ul (4.8-10.8) 07/26/25 07:21 RBC 3.60 M/uL (4.20-5.40) L 07/26/25 07:21 Hgb 11.7 g/dL (12.0-16.0) L 07/26/25 07:21 Hct 35.8 % (37.0-47.0) L 07/26/25 07:21 MCV 99.4 fL (80.0-100.0) 07/26/25 07:21 MCH 32.5 pg (25.0-34.0) 07/26/25 07:21 MCHC 32.7 g/dL (32.0-36.0) 07/26/25 07:21 RDW Std Deviation 50.4 fL (36.4-46.3) H 07/26/25 07:21 RDW Coeff of Etienne 13.8 % (11.5-14.5) 07/26/25 07:21 Plt Count 158 K/uL (130-400) 07/26/25 07:21 MPV 9.3 fL (9.4-12.4) L 07/26/25 07:21 Immature Gran % (Auto) 0.8 % 07/20/25 04:00 Neut % (Auto) 91.2 % 07/20/25 04:00 Lymph % (Auto) 5.4 % 07/20/25 04:00 Dupage % (Auto) 2.4 % 07/20/25 04:00 Eos % (Auto) 0.0 % 07/20/25 04:00 Baso % (Auto) 0.2 % 07/20/25 04:00 Neut # (Auto) 11.99 K/uL (1.40-6.50) H 07/20/25 04:00 Lymph # (Auto) 0.71 K/uL (1.20-3.40) L 07/20/25 04:00 Dupage # (Auto) 0.32 K/uL (0.11-0.59) 07/20/25 04:00 Eos # (Auto) 0.00 K/uL (0.00-0.50) 07/20/25 04:00 Baso # (Auto) 0.03 K/uL (0.00-0.20) 07/20/25 04:00 Immature Gran # (Auto) 0.10 K/uL (0.01-0.20) 07/20/25 04:00 Toxic Vacuolation 2+ 07/19/25 10:50 Platelet Estimate Decreased (Normal) L 07/21/25 05:44 RBC Morphology Unremarkable 07/20/25 04:00 ESR 8 mm/hr (0-30) 07/19/25 11:48 PT 11.6 Seconds (9.0-12.0) 07/19/25 11:44 INR 1.1 (0.9-1.1) 07/19/25 11:44 APTT 29 Seconds (21-31) 07/19/25 21:17 PTT Ratio 1.1 07/19/25 21:17 Heparin Anti-Xa, Unfract > 1.50 IU/ml (0.3-0.7) H* 07/22/25 06:55 Sodium 138 mmol/L (136-145) 07/27/25 05:49 Potassium 4.3 mmol/L (3.5-5.1) 07/27/25 05:49 Chloride 104 mmol/L (98-107) 07/27/25 05:49 Carbon Dioxide 31 mmol/L (21-32) 07/27/25 05:49 Anion Gap 3 (3-11) 07/27/25 05:49 BUN 8 mg/dl (6-23) 07/27/25 05:49 Creatinine 0.95 mg/dl (0.6-1.2) 07/27/25 05:49 Est Cr Clr Drug Dosing 47.1 ml/min 07/27/25 05:49 eGFR 57.99 07/27/25 05:49 BUN/Creatinine Ratio 8.4 (10-20) L 07/27/25 05:49 Glucose 108 mg/dl (70-99(Fasting)) H 07/27/25 05:49 Estimat Average Glucose 120 mg/dl 07/21/25 05:44 Hemoglobin A1c 5.8 % (4.5-5.6) H 07/21/25 05:44 Lactate 1.8 mmol/L (0.4-2.0) 07/20/25 04:00 Calcium 8.2 mg/dl (8.6-10.3) L 07/27/25 05:49 Phosphorus 3.6 mg/dl (2.5-4.9) 07/26/25 07:21 Magnesium 2.0 mg/dl (1.7-2.4) 07/26/25 07:21 Total Bilirubin 0.9 mg/dl (0.2-1.0) 07/26/25 07:21 AST 30 U/L (13-39) 07/26/25 07:21 ALT 14 U/L (7-52) 07/26/25 07:21 Alkaline Phosphatase 149 U/L (34-104) H 07/26/25 07:21 Troponin I High Sens 255.6 pg/ml (0-14) H* 07/20/25 07:40 C-Reactive Protein 4.22 mg/dl (0-0.5) H 07/19/25 18:31 Total Protein 4.9 gm/dl (6.0-8.3) L 07/26/25 07:21 Albumin 2.7 gm/dl (3.4-5.0) L 07/26/25 07:21 Globulin 2.2 gm/dl (2.5-4.0) L 07/26/25 07:21 Albumin/Globulin Ratio 1.2 (0.9-2) 07/26/25 07:21 Lipase 6 U/L (11-82) L 07/19/25 10:50 Vitamin B12 > 1500 pg/ml (180-914) H 07/19/25 18:31 Procalcitonin 1.04 ng/ml (0-0.5) H 07/19/25 11:29 TSH 0.858 uIu/ml (0.300-4.500) 07/19/25 18:31 Urine Color Yellow 07/19/25 15:45 Urine Appearance Clear (Clear) 07/19/25 15:45 Urine pH 8.0 (4.5-7.5) H 07/19/25 15:45 Ur Specific [place] 1.029 (1.000-1.030) 07/19/25 15:45 Urine Protein Trace (Negative) H 07/19/25 15:45 Urine Glucose (UA) Negative (Negative) 07/19/25 15:45 Urine Ketones Trace (Negative) H 07/19/25 15:45 Urine Blood Negative (Negative) 07/19/25 15:45 Urine Nitrite Positive (Negative) A 07/19/25 15:45 Urine Bilirubin Negative (Negative) 07/19/25 15:45 Urine Urobilinogen Negative (Negative) 07/19/25 15:45 Ur Leukocyte Esterase Trace (Negative) H 07/19/25 15:45 Urine WBC (Auto) 6-10 /hpf (0-5) H 07/19/25 15:45 Urine RBC (Auto) 0-2 /hpf (0-2) 07/19/25 15:45 U Hyaline Cast (Auto) 0-2 /lpf (0-2) 07/19/25 15:45 U Epithel Cells (Auto) 0-2 /hpf (0-2) 07/19/25 15:45 Urine Bacteria (Auto) 4+ (None Seen) H 07/19/25 15:45 Urine Comment 07/19/25 15:45 SARS-CoV-2 (PCR) NEGATIVE (Negative) 07/19/25 11:30 Influenza Type A (PCR) Negative (Neg) 07/19/25 11:30 Influenza Type B (PCR) Negative (Neg) 07/19/25 11:30 RSV (RT-PCR) Negative (Neg) 07/19/25 11:30 Impressions Chest X-Ray 07/19/25 11:24 SINGLE VIEW CHEST CLINICAL HISTORY: Change in mental status. FINDINGS: 2 AP, portable, upright chest radiographs are compared to chest x-ray and chest CT dated 12/01/2024. The examination is degraded by portable technique and patient rotation. The heart is enlarged noting atherosclerotic calcification of the thoracic aorta. The pulmonary vasculature is noncongested. Enlargement of the central pulmonary arteries suggests pulmonary artery hypertension. Chronic interstitial thickening is similar to previous. There is bibasilar scarring/atelectasis. No airspace consolidation or large pleural effusion is identified. No pneumothorax is seen. The skeletal structures are osteopenic. The bony thorax is grossly intact. Degenerative change is noted in the shoulders. IMPRESSION: Cardiomegaly with no acute cardiopulmonary abnormality identified. ACT 112: Negative or not required by law. Electronically signed by: Cas Sweeney M.D. 07/19/2025 12:20 PM Abdomen/Pelvis CT 07/19/25 11:44 CT SCAN OF THE ABDOMEN AND PELVIS WITH IV CONTRAST CLINICAL HISTORY: Nausea, vomiting and diarrhea. COMPARISON STUDY: CT of the abdomen and pelvis December 01, 2024. Right upper quadrant ultrasound January 11, 2010. TECHNIQUE: Following the IV administration of 94 cc of Optiray 320, CT scan of the abdomen and pelvis is performed from the lung bases to the proximal femora. Images are reviewed in the axial, sagittal, and coronal planes. IV contrast was administered without complication. A dose lowering technique was utilized adhering to the principles of ALARA. CT DOSE: 2080.79 mGy.cm FINDINGS: Visualized portions of the lung bases are unremarkable. There is no pneumatosis, free air or portal venous gas. Mild biliary ductal dilatation has developed since CT of December 01, 2024. The gallbladder is moderately distended. However, there is no pericholecystic inflammation. There are no hepatic lesions. Spleen, adrenal glands and pancreas are unremarkable with the exception of pancreatic glandular atrophy. No pancreatic ductal dilatation. Right renal cyst is present. Moderate bilateral renal cortical thinning. No evidence for a bowel obstruction. Caliber and wall thickness of small and large bowel are normal. There is a moderate amount of stool within the rectum. There is no lymphadenopathy. There are no fluid collections. Trace gas within the bladder is noted. There is a 2 mm right renal calculus. No ureteral calculi. No hydronephrosis. IMPRESSION: 1. Interval development of mild biliary ductal dilatation which could be correlated with liver function tests. 2. Moderate gallbladder distention without pericholecystic inflammation. If right upper quadrant pain, ultrasound is recommended. 3. No bowel obstruction. No bowel wall thickening. Moderate stool within the rectum. ACT 112: Negative or not required by law. Electronically signed by: Poncho Estrella M.D. 07/19/2025 2:[address] 07/19/25 11:44 CT SCAN OF THE BRAIN WITHOUT IV CONTRAST CLINICAL HISTORY: Altered mental status. COMPARISON STUDY: None. TECHNIQUE: Unenhanced axial CT scan of the brain was performed from the vertex to the skull base. A dose lowering technique was utilized adhering to the principles of ALARA. FINDINGS: Brain parenchyma: No acute intracranial hemorrhage, midline shift or mass effect is present. Armstrong-white matter differentiation is preserved. There are no extra- axial fluid collections. There are no findings to suggest acute dural sinus thrombosis or acute territorial infarct. White matter hypodensity suggests small vessel disease. Prominence of the extra-axial spaces is due to moderate atrophy. Ventricles, sulci, cisterns: There is no hydrocephalus. The basal cisterns are patent. Calvarium: Unremarkable. Sinuses and mastoids: The visualized paranasal sinuses are clear. The mastoid air cells are well pneumatized. Orbits: The bony orbits are grossly intact. IMPRESSION: No acute intracranial findings. ACT 112: Negative or not required by law. Electronically signed by: Poncho Estrella M.D. 07/19/2025 2:22 PM Gallbladder Ultrasound 07/19/25 14:52 Exam(s): US GALLBLADDER EXAM: US Abdomen Limited, Gallbladder CLINICAL HISTORY: Right upper quadrant Pain TECHNIQUE: Real-time ultrasound of the right upper quadrant with image documentation. COMPARISON: CT abdomen and pelvis earlier today. FINDINGS: Liver: Coarse echogenicity of the liver may relate to fatty infiltration and/or hepatocellular dysfunction. The liver measures 12.6 cm. Mild intrahepatic biliary ductal dilatation is present. No visualized mass. Gallbladder: Cholelithiasis. This is gallbladder is distended however there is no significant thickening of the wall. Common bile duct: The common bile duct is mildly prominent measuring 7 mm. No visualized filling defect. Pancreas: The pancreatic head and body are within normal limits. The tail is not visualized due to overlying bowel gas. Right kidney: There is a complicated 1.8 cm cystic lesion of the inferior pole of the right kidney. Increased echogenicity of the renal cortex. No hydronephrosis or visualized nephrolithiasis. IMPRESSION: 1. Mild intrahepatic biliary ductal dilatation is present. Additionally there is mild prominence of the common bile duct better appreciated on the prior CT. No visualized filling defect. Consider further evaluation with MRCP. 2. Cholelithiasis. This is gallbladder is distended however there is no significant thickening of the wall. 3. Coarse echogenicity of the liver may relate to fatty infiltration and/or hepatocellular dysfunction. 4. Increased echogenicity of the right renal cortex is most consistent with chronic medical renal disease. No hydronephrosis. 5. There is a complicated 1.8 cm cystic lesion of the inferior pole of the right kidney. Recommend further evaluation with renal mass protocol CT or MRI on a nonemergent basis. Electronically signed by: Africa Silver MD 07/20/25 03:31 AM Hepatobiliary Scan Nuclear Medicine 07/20/25 15:51 NUCLEAR HEPATOBILIARY SCAN CLINICAL HISTORY: Right upper quadrant abdominal pain. Elevated bilirubin. COMPARISON STUDY: Abdominal CT and ultrasound dated 07/19/2025 TECHNIQUE: Imaging of the liver was performed for 5 minutes following the IV administration of 5.3 mCi of technetium 99m Mebrofenin. The patient declined further imaging due to claustrophobia. FINDINGS: The single acquired image shows normal uptake throughout the hepatic parenchyma at 5 minutes time. There is no excreted activity or gallbladder activity. The examination is nondiagnostic to assess for acute cholecystitis. IMPRESSION: 1. The patient declined further imaging after 5 minutes time. The examination is nondiagnostic. 2. A tracer dosage of 5.3 mCi was administered. ACT 112: Negative or not required by law. Electronically signed by: Cas Sweeney M.D. 07/20/2025 9:11 AM Hospital Course (1) Dilated bile duct: (2) UTI (urinary tract infection): (3) Confusion: (4) Atrial fibrillation with rapid ventricular response: (5) Elevated troponin: (6) Thrombocytopenia: Plan Ms. Batres is an 89y/o F with PMHx significant for HLD, HTN, hypothyroidism, multifocal atrial tachycardia, history of distal left popliteal DVT anticoagulated on Eliquis, GERD, gallstones, morbid obesity, polycystic kidney disease, CKD stage IIIa, fibromyalgia, osteoarthritis, lumbar DDD, lymphedema and chronic pain syndrome on chronic opioid therapy who presented to the ED via EMS with c/o N/V and confusion. Dilated bile duct Cholelithiasis Nausea, vomiting --CT ABD: Interval development of mild biliary ductal dilatation which could be correlated with liver function tests. Moderate gallbladder distention without pericholecystic inflammation. If right upper quadrant pain, ultrasound is recommended. No bowel obstruction. No bowel wall thickening. Moderate stool within the rectum. --Gall Bladder USD: Mild intrahepatic biliary ductal dilatation is present. Additionally there is mild prominence of the common bile duct better appreciated on the prior CT. No visualized filling defect. Consider further evaluation with MRCP. Cholelithiasis. This is gallbladder is distended however there is no significant thickening of the wall. Coarse echogenicity of the liver may relate to fatty infiltration and/or hepatocellular dysfunction.. Increased echogenicity of the right renal cortex is most consistent with chronic medical renal disease. No hydronephrosis.. There is a complicated 1.8 cm cystic lesion of the inferior pole of the right kidney. --Nuclear hepatobiliary scan:The patient declined further imaging after 5 minutes time. The examination is nondiagnostic. A tracer dosage of 5.3 mCi was administered. --S/P EGD: Normal esophagus, stomach, duodenum. Biopsied stomach. Appreciate GI input LFTs within normal limits other than mildly elevated alkaline phosphatase Pathology--negative for H. pylori. Findings suggestive of chronic invasive mild gastritis. Updated patient's daughter regarding the results and advised patient to follow-up with gastroenterology on discharge as outpatient for further recommendations. Continue PPI, famotidine Tolerated regular diet Advised to follow-up with GI as outpatient Plan to discharge to SNF today Acute metabolic/toxic encephalopathy-resolved Urinary tract infection Possible sepsis, lactic acidosis Urine culture grew Klebsiella pneumoniae Urine culture negative to date Completed IV Zosyn course Mental status seems to be back to baseline Right kidney cystic lesion Incidental finding on imaging as above Advised patient to follow-up as outpatient A-fib with RVR Continue metoprolol On Eliquis for anticoagulation Elevated troponin Likely demand ischemia ISO above. EKG w/ lateral T wave inversions and ST depressions Pt reports no chest pain or shortness of breath EKG with chest pain PRN. Tele monitoring onboard. Echo obtained and reviewed - Echocardiogram show normal LVEF 60-65%, mild MR, mild TR. No wall motion abnormalities noted. Pt was started on heparin on admission later transition to [facility], cardiology consulted Thrombocytopenia Resolved Monitor Chronic pain syndrome: F/w pain clinic through [employer]. Continue reduced gabapentin dose, as per above, and morphine ER. Bowel reg. BLE lymphedema, POA--resume home Lasix Pressure ulcers of bilateral buttocks, POA Appreciate WOCN consult for assistance with management. CKD stage IIIa Cr currently stable, baseline Cr 0.9-1.1 per chart review. Continue to monitor and avoid nephrotoxic agents as able. Hypothyroidism: Continue current levothyroxine dose, current TSH 0.85. GERD: Continue PPI. DVT Px: Eliquis Code Status: DNR/DNI Disposition SNF Total Time Total Time Spent Total Time Spent (In Minutes): 52 minutes Discharge Plan Discharge Items Patient Disposition: Transfer [facility] Reason For Visit: POSSIBLE SEPSIS, GALLBLADDER DISTENTION Discharge Diagnosis: Dilated bile duct Cholelithiasis Intractable nausea, vomiting Acute metabolic encephalopathy--resolved Urinary tract infection Right kidney cystic lesion A-fib RVR Condition on Discharge: Fair Activity: Per Instructions section Exercise/Sports: Gradually increase as tolerated Non-emergency contact: Primary Care Provider and Gospel Worker Call non-emergency contact if: you have any medication questions, your symptoms worsen, your pain is concerning for you and you have a fever Follow-up/Referrals: Macy Juarez DO [Primary Care Provider] - Diet: Heart Healthy Addtl Attending Provider Instructions: -- Follow-up with your primary care physician Dr. Juarez in 1 week -- Follow-up with your family practice medical doctor if recurrence of nausea, vomiting as outpatient -- Your pathology for H. pylori is pending at the time of discharge. Follow-up with your physician for results. -- You are incidentally noted to have right kidney cystic lesion on imaging studies. Follow-up with your physician for further recommendations as outpatient Seek immediate medical attention if your symptoms reoccur or worsen Please review medication list provided on discharge for any medication changes as instructed. Please call if you have any questions or problems. You can reach a [facility] hospitalist on duty at [facility] 24 hours a day by calling [phone] Pending Studies at Discharge: Yes Studies:: Pathology Stand-Alone Forms: My [facility] Skilled Items Patient informed of condition?: Yes DNR: Yes Discharge Level of Care: Skilled Communicable Disease: No Discharge Prognosis: Stable Lines: None Urinary Catheter: No Medications and DC Order Prescriptions: New docusate sodium 100 mg Capsule 100 mg PO BID PRN (Reason: constipation) Qty: 60 0RF Continued furosemide 20 mg tablet 20 mg PO DAILY Rx Instructions: Can take additional 20mg if needed in the day polyethylene glycol 3350 [Miralax] 17 gram/dose powder 17 gm PO DAILY PRN (Reason: Constipation) pantoprazole 40 mg tablet,delayed release (DR/EC) 40 mg PO DAILYBB mecobalamin (vitamin B12) 1,000 mcg tablet,chewable 1,000 mcg PO DAILY cholecalciferol (vitamin D3) [Vitamin D3] 25 mcg (1,000 unit) capsule 25 mcg PO DAILY levothyroxine 75 mcg tablet 75 mcg PO DAILYBB gabapentin 300 mg capsule 300 mg PO TID Rx Instructions: 07/19/25 : TAKE IN THE AM, NOON, AND BEDTIME. Saccharomyces boulardii 250 mg Capsule 250 mg PO DAILY Qty: 30 0RF ondansetron HCl 4 mg tablet 4 mg PO Q6H PRN (Reason: Nausea And Vomiting) Eliquis 5 mg tablet 5 mg PO AMPM metoprolol tartrate 25 mg tablet 25 mg PO [facility] nystatin 100,000 unit/gram Powder 1 applic TOPICAL BID PRN (Reason: Skin Irritation) morphine 15 mg tablet extended release 15 mg PO [facility] oxycodone 5 mg tablet 5 mg PO .UD famotidine 20 mg tablet 20 mg PO HS Discharge Orders: Discharge Order (Routine); Ordered 07/28/25 Ordered By: Jovanny Henderson/Other Patient Handouts: Prediabetes, 5 Steps for Eating Healthier Admission Data Admit Date/Time: 07/19/25 16:33 Attending Provider: Jovanny Ellington Admit Provider: Celso Mata Primary Care Provider: Macy Juarez Other Providers: Celso Mata; Adams,Care Other Interventions: Discharge Summary Assessment (RN) Last Done: 07/28/25 11:29
--- NOTE | 2025-08-01 07:31 | Coding Query ---
PRESSURE ULCER DOCUMENTATION To promote full compliance with coding requirements relating to patient care, physician participation is requested in all cases of rice farmworker uncertainty. Please assist us with the question(s) below: Please specify the known or suspected type by placing an "X" within the parenthesis (x). PRESSURE ULCERS OF BILATERAL BUTTOCKS, POA, is documented starting on the H&P: If possible, please check the box that provides the specific stage of the pressure ulcer on the Right Buttocks: ( ) Stage I ( x) Stage II ( ) Stage III ( ) Stage IV (X ) Unstageable If possible, please check the box that provides the specific stage of the pressure ulcer on the Left Buttocks: ( ) Stage I (x ) Stage II ( ) Stage III ( ) Stage IV ( X) Unstageable Thank you Sydney ZAPATA
== END 2025-07-28 12:20 | DRG 871 ==
LOC: ED 10:06 → EDINP 16:33 → SUATTDRO 16:33 → 2S 20:29